=== PATIENT | male | born 1970 | race Caucasian/White ===

== ENCOUNTER 2020-02-11 14:24 | Outpatient (CLI) | payer OTHER, SELFPAY ==
--- NOTE | ~2020-02-11 | CT_ITS ---
EXAMINATION: CT abdomen pelvis wo con DATE: 02/11/2020 15:14 INDICATION: Left lower quadrant pain TECHNIQUE: Computed tomography (CT) of the abdomen and pelvis was performed without intravenous contr ast. The dose-length product (DLP) was 992.26 mGy-cm. Automated exposure control and iterative recons truction technique were employed. COMPARISON: 05/20/2015 FINDINGS: The lung bases are clear. The heart size is normal. The liver, spleen, pancreas, and adrena l glands are normal. Stones are present in the nondistended gallbladder. The kidneys are unremarkable . No pathologically enlarged abdominal or pelvic lymph nodes are identified. There is no free intrape ritoneal gas or evidence of bowel obstruction. The appendix is normal. There is chronic anterior wedg ing of the T12 vertebral body. A small fat-containing umbilical hernia is noted. IMPRESSION: 1. No CT correlate for the patient's symptoms. Reviewed, dictated and finalized at location A.
--- NOTE | ~2020-02-11 | US_ITS ---
EXAMINATION: US scrotum doppler DATE: 02/11/2020 15:11 INDICATION: Left testicular pain TECHNIQUE: Testicular sonogram utilizing grayscale and Doppler COMPARISON: 12/30/2014 FINDINGS: The right testis measures 3.8 x 2.9 x 3.2 cm. The left testis measures 3.9 x 2.2 x 3.2 cm. There is normal vascular flow to both testes. The right epididymis is normal with normal vascular new w. The left epididymis is normal with normal vascular flow. There are small bilateral hydroceles. IMPRESSION: 1. No sonographic correlate for the patient's symptoms. Reviewed, dictated and finalized at location A.
== END 2020-02-11 14:25 | disposition home or self-care (01) ==
LOC: ANHIMG 14:32
PROVIDERS: PCP Family Medicine; Visit Provider Physician Assistant
DX: N50.812 Left testicular pain (principal); R10.32 Left lower quadrant pain; R30.0 Dysuria
CPT/HCPCS: 74176; 76870; 93976

== ENCOUNTER 2020-07-20 18:36 | Emergency (ER) | payer BC, SELFPAY | END 2020-07-20 18:46 | disposition left against medical advice (07) | PROVIDERS: Emergency Provider Internal Medicine Hematology & Oncology; PCP Family Medicine | DX: Z53.21 Procedure and treatment not carried out due to patient leaving prior to being seen by health care provider (principal) | CPT/HCPCS: 99199 ==

== ENCOUNTER 2020-07-20 19:00 | Emergency (ER) | payer BC, SELFPAY ==
[2020-07-20] VITALS (17 sets, daily range): BP systolic 116–138; BP diastolic 72–92; PULSE 100; RESP 17; TEMP 36.1; O2SAT 97–100
--- NOTE | ~2020-07-20 | CT_ITS ---
EXAMINATION: CT abdomen pelvis w con EXAM DATE: 07/20/2020 20:19 INDICATION: Left lower quadrant pain. History of hernia repair. TECHNIQUE: Spiral CT of the abdomen and pelvis was performed following intravenous injection of 100 m L Omnipaque 350. Axial, coronal and sagittal images were reviewed. The dose-length product (DLP) fo r this examination was 1005.51 mGy-cm. The exposure was tailored according to patient size (auto mA exposure control), and iterative reconstruction (ASIR) was used as additional dose reduction techniqu e. Comparison is made to prior examination from 02/11/2020. FINDINGS: There are small regions of bibasilar peripheral distribution groundglass airspace disease, appearance is suspicious for COVID pneumonia. The liver, spleen, adrenal glands are unremarkable. T here is small gallstone identified. Gallbladder otherwise unremarkable. Several pancreatic head calci fications, chronic pancreatitis. Portal and splenic veins are patent. Kidneys enhance symmetrically . There is no hydronephrosis. There is mild prostatomegaly. The bladder is unremarkable. There is no retroperitoneal or pelvic lymphadenopathy. The appendix is normal. The stomach and small bowel are unremarkable. There is expected amount of c olonic stool. No free intraperitoneal gas. The heart is normal in size. There are no pericardial or pleural effusions. Chronic T12 moderate anterior wedging, compression fracture. IMPRESSION: 1. Small scattered basilar groundglass opacities suspicious for COVID pneumonia. 2. Mild prostatomegaly. 3. Cholelithiasis. 4. No acute intra-abdominal findings. Reviewed, dictated and finalized at location A. IFIED MIDWIFE IMPRESSION: 1. Small scattered basilar groundglass opacities suspicious for COVID pneumoni a. 2. Mild prostatomegaly. 3. Cholelithiasis. 4. No acute intra-abdominal findings.
[2020-07-20] MEDS: SODIUM CHLORIDE 0.9% IV 1,000 ML 999 ML IV CONT (19:37)
[2020-07-20 19:47] LABS: Basophils Absolute Auto 0.1 K/mm3 (0.0-0.1); Basophils Percent Auto 1.2 % (0.2-1.2); Eosinophils Absolute Auto 0.2 K/mm3 (0-0.3); Eosinophils Percent Auto 3.7 % (0-4.4); Hematocrit 49.6 % (42.0-52.0); Hemoglobin 16.6 g/dL (14.0-18.0); Immature Granulocyte Absolute 0.01 K/mm3 (0.00-0.031); Immature Granulocyte Percent A 0.2 % (0-0.5); Lymphocytes Absolute Auto 1.51 K/mm3 (0.9-3.2); Lymphocytes Percent Auto 35.2 % (18.3-44.2); Mean Corpuscular HGB Conc 33.5 g/dl (32-36); Mean Corpuscular Hemoglobin 31.1 pg (26-34); Mean Corpuscular Volume 92.9 fl (80-100); Mean Platelet Volume 9.9 fl (7.4-10.4); Monocytes Absolute Auto 0.5 K/mm3 (0.1-0.6); Monocytes Percent Auto 10.7 % (2.6-8.5); Neutrophils Absolute Auto 2.1 K/mm3 (1.3-6.7); Platelet Count Result 198 k/mm3 (150-375); Red Blood Count 5.34 M/mm3 (4.6-6.20); Red Cell Distribution Width 12.3 % (11.5-14.5); White Blood Count 4.3 K/mm3 (4.5-10.0)
[2020-07-20 20:00] LABS: Alanine Aminotransferase 76 U/L (4-50); Alkaline Phosphatase 72 U/L (38-126); Anion Gap 4 mmol/L (8-16); Aspartate Amino Transferase 48 U/L (17-59); Bilirubin,Total 0.7 mg/dL (0.2-1.3); Blood Urea Nitrogen 13 mg/dL (9-20); Calcium 8.7 mg/dL (8.4-10.2); Carbon Dioxide 31 mmol/L (22-30); Chloride 105 mmol/L (98-107); Estimated CRCL calculation 111 ml/min; Estimated Glomerular Filt Rate > 60; Glucose 98 mg/dL (75-110); Lipase 56 U/L (23-300); Potassium 3.7 mmol/L (3.4-5.0); Sodium 140 mmol/L (137-145)
--- NOTE | 2020-07-20 20:41 | ED.GENADULT ---
HPI - General Adult General Chief complaint: Unspecified Stated complaint: chest cold Time Seen by Provider: 07/20/20 19:16 Source: patient Mode of arrival: ambulatory Limitations: no limitations History of Present Illness HPI narrative: Patient is a 50-year-old male who presents to emergency department for evaluation having had a bowel movement described as dark today had some aching pain left lower quadrant of the abdomen which were resolved after the bowel movement patient notes he did just recently get over Covid pneumonia has slight cough but denies any fever or dyspnea. Patient denies other complaints other than concern for wanting to be tested for STDs but denies discharge. Related Data Home Medications Medication Instructions Recorded Confirmed No Home Medications 07/20/20 07/20/20 Allergies Allergy/AdvReac Type Severity Reaction Status Date / Time No Known Allergies Allergy Verified 07/20/20 18:37 Review of Systems Review of Systems: All systems reviewed & are unremarkable except as noted in HPI and below PMFSH Surgical History Surgical History History of bilateral inguinal hernia repair Family History Family History Mother Family history of malignant neoplasm of stomach Father Family history of malignant neoplasm of urinary bladder Social History Social History Social History: Single Smoking status: Never smoker Second hand tobacco smoke exposure: No Alcohol intake: never Substance use: never Substance use type: does not use Gender identity (if verbalized by the patient): Male Exam Narrative: Exam Narrative: GENERAL: Well-appearing, well-nourished, and in no acute distress. HEAD: Normocephalic, atraumatic. EYES: PERRLA and EOMI. ENT: Nares clear, no rhinorrhea or epistaxis. Mucous membranes moist. CHEST: Clear to auscultation. No respiratory distress. No wheezes rales or rhonchi HEART: Regular rate and rhythm. No murmur heard. Normal peripheral pulses. ABDOMEN: Soft, mild left lower quadrant tenderness to palpation, nondistended EXTREMITIES: Normal range of motion. No edema. SKIN: Warm, dry, no rash. NEURO: No focal deficits. Alert and oriented x3. Cranial nerves II through XII grossly intact PSYCH: Normal mood and affect. Course Course Emergency Course: Patient in the room no distress aware of case findings treatment plan diagnosis agreeing to follow-up as directed Vital Signs Vital signs: Vital Signs Temperature 97.0 F L 07/20/20 19:04 Pulse Rate 100 07/20/20 19:04 Respiratory Rate 17 07/20/20 19:04 Blood Pressure 125/81 07/20/20 19:04 Pulse Oximetry 100 07/20/20 19:04 Temperature 97.0 F L 07/20/20 19:04 Pulse Rate 100 07/20/20 19:04 Respiratory Rate 17 07/20/20 19:04 Blood Pressure 131/92 H 07/20/20 20:01 Pulse Oximetry 99 07/20/20 20:21 Medical Decision Making MDM Narrative Medical decision making narrative: Patient evaluated for abdominal pain no high risk changes in the imaging or blood work will be discharged home for further evaluation on outpatient basis patient agreeing to follow-up as directed or to return if symptoms worsen or concerns Vital Signs Vital Signs: Vital Signs Temperature 97.0 F L 07/20/20 19:04 Pulse Rate 100 07/20/20 19:04 Respiratory Rate 17 07/20/20 19:04 Blood Pressure 125/81 07/20/20 19:04 Pulse Oximetry 100 07/20/20 19:04 Temperature 97.0 F L 07/20/20 19:04 Pulse Rate 100 07/20/20 19:04 Respiratory Rate 17 07/20/20 19:04 Blood Pressure 131/92 H 07/20/20 20:01 Pulse Oximetry 99 07/20/20 20:21 Lab Data Result diagrams: 07/20/20 19:37 07/20/20 19:37 Labs: Lab Results 07/20/20 07/20/20 07/20/20 Range/Units 19:37 19:37 20:25 WBC 4.3 L (4.5-10.0) K/mm3
[2020-07-20 20:48] LABS: Add Urine Microscopic? NO; Appearance Urine Clear (Clear); Bilirubin Urine Negative (Negative); Blood Urine Negative (Negative); Color Urine Straw (Yellow); Glucose Urine UA Negative (Negative); Ketones Urine Negative (Negative); Leukocyte Esterase Ur Negative LEU/UL (Negative); Mucus Urine Rare /lpf; Nitrate Urine Negative (Negative); Protein Urine Negative (Negative); Specific Grav Ur 1.019 (1.001-1.035); Urobilinogen Urine Negative mg/dL (<2.0); WBC Urine 0-3 /hpf
== END 2020-07-20 22:23 | disposition home or self-care (01) ==
PROVIDERS: Emergency Medicine; Emergency Medicine Emergency Medical Services; Emergency Provider Emergency Medicine; PCP Family Medicine
DX: R10.32 Left lower quadrant pain (principal); K80.20 Calculus of gallbladder without cholecystitis without obstruction; N40.0 Benign prostatic hyperplasia without lower urinary tract symptoms
CPT/HCPCS: 36415; 74177; 80053; 81003; 83690; 85025; 87491; 87591; 96365; 99284; J0131; J7030; Q9967

== ENCOUNTER → 2021-01-22 10:13 | Outpatient (CLI) | payer BC, SELFPAY ==
--- NOTE | ~2021-01-22 | XR_ITS ---
EXAMINATION: XR abdomen/kub 1V EXAM DATE: 01/22/2021 10:47 INDICATION: R30.0 - Dysuria . TECHNIQUE: Frontal projection of the upper abdomen, frontal projection lower abdomen/pelvis for inter pretation. Comparison is made to prior examination from 03/14/2019. FINDINGS: There is moderate amount of colonic stool and gas. No small bowel dilation, nonobstructiv e bowel gas pattern. There are no suspicious calcifications identified. There is no organomegaly suspected. There is mild to moderate right hip, mild left hip primary osteoarthritis. Lung bases are unremarkabl e. IMPRESSION: No evidence of calcifications. Reviewed, dictated and finalized at location B.
--- NOTE | ~2021-01-22 | XR_ITS ---
EXAMINATION: XR chest 2V EXAM DATE: 01/22/2021 10:47 INDICATION: R05 - Cough . States history of COVID June 2020. TECHNIQUE: Frontal and lateral projections of the chest obtained and reviewed. There is no prior jackie dy for comparison. FINDINGS: The lungs are clear. There are no pleural effusions. The cardiomediastinal silhouette is within normal limits. There is no pneumothorax suspected. The bones and soft tissues are unremarkab le. IMPRESSION: No acute cardiopulmonary findings. Reviewed, dictated and finalized at location B.
== END ==
PROVIDERS: PCP Physician Assistant; Visit Provider Physician Assistant
DX: R10.9 Unspecified abdominal pain (principal); R05 Cough; R30.0 Dysuria; M17.0 Bilateral primary osteoarthritis of knee
CPT/HCPCS: 71046; 74018

== ENCOUNTER → 2021-02-20 04:09 | Outpatient (CLI) | payer BC, SELFPAY ==
[2021-02-20 18:23] LABS: SARS-CoV-2 RNA PCR Negative
== END ==
PROVIDERS: PCP Family Medicine; Visit Provider Internal Medicine Gastroenterology
DX: Z01.812 Encounter for preprocedural laboratory examination (principal); Z20.822 Contact with and (suspected) exposure to COVID-19
CPT/HCPCS: C9803; U0003; U0005

== ENCOUNTER → 2021-11-18 14:55 | Outpatient (CLI) | payer BC, SELFPAY ==
--- NOTE | ~2021-11-18 | XR_ITS ---
EXAMINATION: XR chest 2V 11/18/2021 15:20 INDICATION: Cough PROCEDURE: 2 view chest COMPARISON: 01/22/2021 FINDINGS: The lungs are clear. The cardiomediastinal silhouette is within normal limits. There are no pleural effusions. There is no pneumothorax suspected. IMPRESSION: 1: NO ACUTE CARDIOPULMONARY DISEASE. Reviewed, dictated and finalized at location A.
== END ==
PROVIDERS: PCP Family Medicine; Visit Provider Nurse Practitioner Family
DX: R05.9 Cough, unspecified (principal)
CPT/HCPCS: 71046

== ENCOUNTER 2021-12-16 15:00 | Outpatient (CLI) | payer BC, SELFPAY ==
--- NOTE | ~2021-12-16 | CT_ITS ---
EXAMINATION: CT abdomen pelvis wo con DATE: 12/16/2021 14:53 INDICATION: Left lower quadrant abdominal pain. History of hernia without strangulation. TECHNIQUE: Computed tomography (CT) of the abdomen and pelvis was performed without intravenous contr ast. Automated exposure control and iterative reconstruction technique were employed. Exam dose: 737 .64 mGy-cm total exam DLP. COMPARISON: 01/22/2021 KUB 07/16/2020 CT abdomen pelvis FINDINGS: Fat-containing left foramen of Bochdalek hernia. The lung bases are clear of infiltrate or consolidation. Normal heart size. No pericardial or pleural effusion. There is a 7.5 mm stone in the dependent aspect of the gallbladder fundus. No gallbladder wall thicke bunny or pericholecystic fluid or fat stranding. No bile duct or pancreatic duct dilatation. No hepatic space-occupying mass lesion is evident. Occasional pancreatic head calcifications cyst with chronic pancreatitis. No pancreatic mass lesion i s evident. Normal splenic size. Normal morphology of the adrenal glands. No renal mass lesion is evident on this limited noncontrast examination. No urinary tract calculus or hydroureteronephrosis. Prostate enlargement. The urinary bladder is relatively evacuated and unremar kable. Very small sliding hiatal hernia. No evidence of appendicitis. No bowel obstruction, bowel wall thick ening, pneumatosis or intraperitoneal free air. Normal caliber of the abdominal aorta. No intraperitoneal or retroperitoneal or pelvic mass lesion or adenopathy or ascites. Small fat-containing umbilical hernia. Chronic anterior wedging of T11 and to a greater extent T12 and prominent degenerative spurring of th e thoracolumbar area. Prominent degenerative change at the apophyseal joints of the lower lumbar and lumbosacral area. IMPRESSION: Cholelithiasis Chronic pancreatitis Very small sliding hiatal hernia Reviewed, dictated and finalized at Location A. Reviewed, dictated and finalized at location A.
[2021-12-16 15:34] LABS: Basophils Percent Auto 0.8 % (0.2-1.2); Eosinophils Absolute Auto 0.1 K/mm3 (0-0.3); Eosinophils Percent Auto 2.3 % (0-4.4); Hematocrit 47.2 % (42.0-52.0); Hemoglobin 15.3 g/dL (14.0-18.0); Immature Granulocyte Absolute 0.01 K/mm3 (0.00-0.031); Immature Granulocyte Percent A 0.2 % (0-0.5); Lymphocytes Absolute Auto 1.58 K/mm3 (0.9-3.2); Lymphocytes Percent Auto 30.2 % (18.3-44.2); Mean Corpuscular HGB Conc 32.4 g/dl (32-36); Mean Corpuscular Hemoglobin 29.9 pg (26-34); Mean Corpuscular Volume 92.4 fl (80-100); Mean Platelet Volume 10.4 fl (7.4-10.4); Monocytes Absolute Auto 0.5 K/mm3 (0.1-0.6); Monocytes Percent Auto 10.1 % (2.6-8.5); Neutrophils Percent Auto 56.4 % (45.5-73.1); Platelet Count Result 211 k/mm3 (150-375); Red Blood Count 5.11 M/mm3 (4.6-6.20); Red Cell Distribution Width 13.2 % (11.5-14.5); White Blood Count 5.2 K/mm3 (4.5-10.0)
[2021-12-16 15:43] LABS: Alanine Aminotransferase 31 U/L (6-50); Albumin Level 4.1 g/dL (3.5-5.1); Alkaline Phosphatase 89 U/L (38-126); Anion Gap 4 mmol/L (8-16); Aspartate Amino Transferase 29 U/L (17-59); Bilirubin,Total 1.5 mg/dL (0.2-1.3); Blood Urea Nitrogen 15 mg/dL (9-20); Calcium 8.5 mg/dL (8.4-10.2); Carbon Dioxide 25 mmol/L (22-30); Chloride 111 mmol/L (98-107); Cholesterol 235 mg/dL (0-200); Estimated Glomerular Filt Rate > 60; Glucose 88 mg/dL (65-110); HDL Direct 31 mg/dL; Potassium 3.6 mmol/L (3.4-5.0); Sodium 140 mmol/L (137-145); Triglycerides 181 mg/dL (<150)
[2021-12-16 15:54] LABS: LDL Cholesterol Direct 131 mg/dL
[2021-12-16 15:54] LABS: Appearance Urine Clear (Clear); Bilirubin Urine Negative (Negative); Blood Urine Negative (Negative); Color Urine Yellow (Yellow); Glucose Urine UA Negative (Negative); Ketones Urine Trace mg/dL (Negative); Leukocyte Esterase Ur Negative LEU/UL (NEGATIVE); Nitrate Urine Negative (Negative); Protein Urine Trace mg/dL (Negative); Specific Grav Ur >= 1.030 (1.001-1.035); Urobilinogen Urine 0.2 mg/dL (<2.0); pH Urine 5.5 (5.0-9.0)
[2021-12-16 16:00] LABS: Calcium Oxalate Crystals Urine Present /hpf; Mucus Urine Heavy /lpf
[2021-12-16 16:07] LABS: Add Urine Microscopic? YES
[2021-12-16 16:12] LABS: Prostate Specific Antigen 1.2 ng/mL (< OR = 4.0)
[2021-12-19 10:09] LABS: Testosterone Total 361 ng/dL (250-1100)
== END 2021-12-16 15:01 | disposition home or self-care (01) ==
LOC: ANHIMG 15:00
PROVIDERS: PCP Family Medicine; Visit Provider Nurse Practitioner Family
DX: Z12.5 Encounter for screening for malignant neoplasm of prostate (principal); R10.32 Left lower quadrant pain; M48.55XA Collapsed vertebra, not elsewhere classified, thoracolumbar region, initial encounter for fracture; G47.33 Obstructive sleep apnea (adult) (pediatric); R53.83 Other fatigue; R35.1 Nocturia; Z00.00 Encounter for general adult medical examination without abnormal findings; R30.0 Dysuria; N39.0 Urinary tract infection, site not specified; K80.20 Calculus of gallbladder without cholecystitis without obstruction; K85.90 Acute pancreatitis without necrosis or infection, unspecified; K42.9 Umbilical hernia without obstruction or gangrene; N40.0 Benign prostatic hyperplasia without lower urinary tract symptoms
CPT/HCPCS: 36415; 74176; 80053; 80061; 81001; 84153; 84403; 84443; 85025; 87086; 87088; G0103

== ENCOUNTER 2022-01-21 01:16 | Day surgery (SDC) | payer BC, SELFPAY ==
[2022-01-15 13:43] VITALS: BMI 34.3
--- NOTE | 2022-01-20 12:13 | PM.HPGS ---
History of Present Illness History of Present Illness Consent: Risks, benefits, and alternatives have been discussed and questions answered. Patient agrees to proceed with procedure. Chief complaint: black stools, change in bowel habits Narrative: Esequiel Neely is a 51 year old male ?with history of BPH, bilateral inguinal hernia repair referred to office by Micheline Escoto evaluation abdominal pain, bloating and gas, and black stools. He had been seen in our office a year go with similar complaints. Colonoscopy was ordered but he never got it done. Since last year, he reports his symptoms have progressively gotten worse, now reports intermittent right sided flank pain appr 3-4 times a month. he does not associate with any particular foods. ? right sided flank pain improves with BM.? He continues to have left sided abdominal pain since 2010.? He reports symptoms are worse with walking, certain foods like peanuts and dairy and constipation. At times pain is so bad that he has to use his arms to lift his left leg. Reports symptoms improve after bowel movement and rest. He does not eat breakfast in general. He states that he has been on omeprazole for quite a while but cannot remember exactly when he takes it. He can only state that it was because of these issues, pointing to his mid left abdomen. I asked him about heartburn he says he has had from time to time. He denies dysphagia he has had no blood in the stools. Review of Systems Review of Systems: All systems reviewed & are unremarkable except as noted in HPI and below PMFSH Past Medical History Medical History Anxiety Asthma Cholelithiasis Chronic pancreatitis Constipation IBS (irritable bowel syndrome) KATHY (obstructive sleep apnea) Surgical History Surgical History History of bilateral inguinal hernia repair Family History Family History Mother Family history of malignant neoplasm of stomach Father Family history of malignant neoplasm of urinary bladder Social History Social History Social History: Single Smoking status: Never smoker Second hand tobacco smoke exposure: No Alcohol intake: never Substance use: never Substance use type: does not use Living arrangements: alone Gender identity (if verbalized by the patient): Male Sexual Orientation (if Verbalized by the Patient): Straight or Heterosexual Spiritual care concerns: No Meds Home Medications and Allergies Home Medications Medication Instructions Recorded Confirmed Type Adults Multivitamin 1 cap PO DAILY 02/18/21 01/15/22 History dicyclomine 10 mg capsule 10 mg PO TID PRN abdominal 12/23/21 01/15/22 Rx discomfort 1 month #90 caps omeprazole 20 mg capsule,delayed 20 mg PO DAILY #30 caps 01/01/22 01/15/22 Rx release albuterol sulfate 90 mcg/actuation 1 - 2 puff inhalation Q4H PRN 01/08/22 01/15/22 Rx aerosol inhaler (ProAir HFA) shortness of breath or wheezing #8.5 grams citalopram 10 mg tablet 10 mg PO DAILY #90 tabs 01/15/22 01/15/22 Rx Allergies Allergy/AdvReac Type Severity Reaction Status Date / Time No Known Allergies Allergy Verified 01/21/22 06:43 Exam Resp: Auscultation: clear to auscultation bilaterally Cardio: Rate: regular rate Rhythm: regular rhythm GI: GI Palp: Yes Soft to palpation and No Tenderness to palpation present (GI) Assessment and Plan Assessment and plan (1) Change in bowel habits: Code(s): R19.4 - Change in bowel habit Status: Acute Assessment and Plan: Colonoscopy with possible biopsy or polypectomy or cautery or injection of substances. (2) Melena: Code(s): K92.1 - Melena Status: Acute Assessment and Plan: EGD with possible biopsy or dilatation or cautery.
--- NOTE | 2022-01-20 14:37 | SUR.PREOP ---
1440 called patient and instructed patient not to take the magnesium citrate due to potential contamination of the product. Patient voiced understanding.
[2022-01-21 06:43] VITALS: BP 110/79; PULSE 67; RESP 18; TEMP 36.2; O2SAT 98; BMI 32.8
[2022-01-21] MEDS: LACTATED RINGERS 1,000 ML 150 ML IV CONT (06:52)
--- NOTE | 2022-01-21 07:12 | WPDANESEPPF ---
Anes - Initial Pre Proc Eval Procedure: Operation Date: 01/21/22 08:00 Proposed Procedures p Esophagogastroduodenoscopy & Colonoscopy - Rashel Ohara MD Date/Time: 01/21/22 07:12 Surgeon: Rashel Ohara MD Pre Op Diagnosis: black stools, change in bowel habits Patient Data Age: 51 Gender: M Height: 1.73 m Weight: 97.8 kg Last Vital Signs Temp 36.2 C L 01/21/22 06:43 Pulse 67 01/21/22 06:43 Resp 18 01/21/22 06:43 BP 110/79 01/21/22 06:43 Pulse Ox 98 01/21/22 06:43 O2 Del Method Room Air 01/21/22 06:43 Allergies Allergy/AdvReac Type Severity Reaction Status Date / Time No Known Allergies Allergy Verified 01/21/22 06:43 Home Medications Medication Instructions Recorded Confirmed Type Adults Multivitamin 1 cap PO DAILY 02/18/21 01/15/22 History dicyclomine 10 mg capsule 10 mg PO TID PRN abdominal 12/23/21 01/15/22 Rx discomfort 1 month #90 caps omeprazole 20 mg capsule,delayed 20 mg PO DAILY #30 caps 01/01/22 01/15/22 Rx release albuterol sulfate 90 mcg/actuation 1 - 2 puff inhalation Q4H PRN 01/08/22 01/15/22 Rx aerosol inhaler (ProAir HFA) shortness of breath or wheezing #8.5 grams citalopram 10 mg tablet 10 mg PO DAILY #90 tabs 01/15/22 01/15/22 Rx Patient hx anesthesia problems: none Family hx anesthesia problems: none Results Review: All pre-operative results and documents have been reviewed as part of the pre-operative evaluation. [facility] Past Medical History Medical History Anxiety Asthma Cholelithiasis Chronic pancreatitis Constipation IBS (irritable bowel syndrome) KATHY (obstructive sleep apnea) Surgical History Surgical History History of bilateral inguinal hernia repair Family History Family History Mother Family history of malignant neoplasm of stomach Father Family history of malignant neoplasm of urinary bladder Social History Social History Social History: Single Smoking status: Never smoker Second hand tobacco smoke exposure: No Alcohol intake: never Substance use: never Substance use type: does not use Living arrangements: alone Gender identity (if verbalized by the patient): Male Sexual Orientation (if Verbalized by the Patient): Straight or Heterosexual Spiritual care concerns: No Anes - Eval Final PreProcedure Day of Procedure 01/21/22 07:12 Patient weight: obese Heart: regular rate and rhythm Lungs: clear to auscultation Airway: Mallampati scale class II Neurological: alert and oriented Last oral intake: >/= 8 hours ASA classification: III Emergent: no Anesthetic plan: proceed Anesthesia type and monitoring: general GIVS and standard monitoring Results Review: All pre-operative results and documents have been reviewed as part of the pre-operative evaluation. Informed Consent: The patient's anesthetic plan and its attendant risks and benefits were discussed with the patient/family/POA. Questions were solicited and answers provided to the satisfaction of the patient/family/POA.
--- NOTE | 2022-01-21 08:15 | SUR.OPER ---
EGD start 801 end 807, Colon start 812 end 822
[2022-01-21 08:24] VITALS: BP 112/70; PULSE 63; RESP 17; O2SAT 96
[2022-01-21 08:34] VITALS: BP 96/66; PULSE 61; RESP 21; O2SAT 97
[2022-01-21 08:44] VITALS: BP 103/72; PULSE 60; RESP 17; O2SAT 97
== END 2022-01-21 09:07 | disposition home or self-care (01) ==
PROVIDERS: PCP Family Medicine; Visit Provider Internal Medicine Gastroenterology
PROC: 0DJ08ZZ Inspection of Upper Intestinal Tract, Via Natural or Artificial Opening Endoscopic (ICD-10-PCS; CPT 43235; principal; 2022-01-21 08:00)
DX: Z12.11 Encounter for screening for malignant neoplasm of colon (principal); K92.1 Melena; K58.1 Irritable bowel syndrome with constipation; J45.909 Unspecified asthma, uncomplicated; G47.33 Obstructive sleep apnea (adult) (pediatric); F41.9 Anxiety disorder, unspecified; K86.1 Other chronic pancreatitis; N40.0 Benign prostatic hyperplasia without lower urinary tract symptoms; Z79.51 Long term (current) use of inhaled steroids; E66.9 Obesity, unspecified; Z68.32 Body mass index [BMI] 32.0-32.9, adult
CPT/HCPCS: 45378; 87081; 88305; J2704; J7120

== ENCOUNTER 2022-08-19 14:58 | Outpatient (CLI) | payer BC, SELFPAY ==
[2022-08-19 16:19] LABS: Basophils Absolute Auto 0.1 K/mm3 (0.0-0.1); Basophils Percent Auto 1.9 % (0.2-1.2); Eosinophils Absolute Auto 0.2 K/mm3 (0-0.3); Eosinophils Percent Auto 5.5 % (0-4.4); Hematocrit 50.9 % (42.0-52.0); Hemoglobin 16.6 g/dL (14.0-18.0); Immature Granulocyte Absolute 0.01 K/mm3 (0.00-0.031); Immature Granulocyte Percent A 0.2 % (0-0.5); Lymphocytes Absolute Auto 1.36 K/mm3 (0.9-3.2); Lymphocytes Percent Auto 32.5 % (18.3-44.2); Mean Corpuscular HGB Conc 32.6 g/dl (32-36); Mean Corpuscular Hemoglobin 30.6 pg (26-34); Mean Corpuscular Volume 93.7 fl (80-100); Mean Platelet Volume 10.2 fl (7.4-10.4); Monocytes Absolute Auto 0.6 K/mm3 (0.1-0.6); Monocytes Percent Auto 14.6 % (2.6-8.5); Neutrophils Absolute Auto 1.9 K/mm3 (1.3-6.7); Neutrophils Percent Auto 45.3 % (45.5-73.1); Platelet Count Result 212 k/mm3 (150-375); Red Blood Count 5.43 M/mm3 (4.6-6.20); Red Cell Distribution Width 13.5 % (11.5-14.5); White Blood Count 4.2 K/mm3 (4.5-10.0)
[2022-08-19 16:43] LABS: Alanine Aminotransferase 27 U/L (6-50); Albumin Level 4.2 g/dL (3.5-5.1); Alkaline Phosphatase 100 U/L (38-126); Amylase 59 U/L (30-110); Anion Gap 4 mmol/L (8-16); Aspartate Amino Transferase 27 U/L (17-59); Bilirubin,Total 0.9 mg/dL (0.2-1.3); Blood Urea Nitrogen 18 mg/dL (9-20); Calcium 8.5 mg/dL (8.4-10.2); Carbon Dioxide 31 mmol/L (22-30); Chloride 101 mmol/L (98-107); Estimated Glomerular Filt Rate > 60; Glucose 86 mg/dL (65-110); Lipase 47 U/L (23-300); Sodium 136 mmol/L (137-145)
[2022-08-19 18:01] LABS: Appearance Urine Slightly Cloudy (Clear); Bilirubin Urine Negative (Negative); Blood Urine Negative (Negative); Color Urine Yellow (Yellow); Glucose Urine UA Negative (Negative); Ketones Urine Negative (Negative); Leukocyte Esterase Ur Negative LEU/UL (Negative); Nitrate Urine Negative (Negative); Protein Urine Negative (Negative); Urobilinogen Urine 0.2 mg/dL (<2.0)
[2022-08-19 18:17] LABS: Bacteria Urine Trace /hpf; Mucus Urine Moderate /lpf; RBC Urine 0-2 /hpf (0-2); Squamous Epithelial Cell Urine Rare /hpf (Few); WBC Urine 0-3 /hpf
[2022-08-19 18:22] LABS: Add Urine Microscopic? YES
== END 2022-08-19 14:59 | disposition home or self-care (01) ==
PROVIDERS: PCP Family Medicine; Visit Provider Physician Assistant
DX: R10.9 Unspecified abdominal pain (principal); R30.0 Dysuria
CPT/HCPCS: 36415; 80053; 81001; 82150; 83690; 85025

== ENCOUNTER 2022-08-26 14:19 | Outpatient (CLI) | payer BC, SELFPAY ==
--- NOTE | ~2022-08-26 | CT_ITS ---
EXAMINATION: CT abdomen pelvis wo con DATE: 08/26/2022 14:38 INDICATION: Cough and headache. Dehydration. TECHNIQUE: Computed tomography (CT) of the abdomen and pelvis was performed without intravenous contr ast. The dose-length product was 992.00 mGy-cm. Automated exposure control and iterative reconstructi on technique were employed. COMPARISON: CT dated. FINDINGS: Lung bases unremarkable. No significant pleural or pericardial effusion. Heart size normal. No significant vascular abnormality. No lymphadenopathy. Nonobstructive bowel pattern. There is gallstones. The liver, spleen, pancreas, adrenal glands and kidneys are unremarkable. No neo al stones or hydronephrosis. Prostate gland is enlarged. IMPRESSION: 1. No acute abdominal abnormality. 2: Cholelithiasis. 3: Enlarged prostate gland. Reviewed, dictated and finalized at location L. ANESTHESIA CARE UNIT NURSE
== END 2022-08-26 14:20 | disposition home or self-care (01) ==
PROVIDERS: PCP Family Medicine; Visit Provider Physician Assistant
DX: R10.9 Unspecified abdominal pain (principal); K80.20 Calculus of gallbladder without cholecystitis without obstruction; N40.0 Benign prostatic hyperplasia without lower urinary tract symptoms
CPT/HCPCS: 74176

== ENCOUNTER 2022-12-24 16:38 | Outpatient (CLI) | payer BC, SELFPAY ==
[2022-12-24 17:16] LABS: Basophils Absolute Auto 0.1 K/mm3 (0.0-0.1); Basophils Percent Auto 1.1 % (0.2-1.2); Eosinophils Absolute Auto 0.2 K/mm3 (0-0.3); Eosinophils Percent Auto 3.5 % (0-4.4); Hematocrit 48.7 % (42.0-52.0); Hemoglobin 16.2 g/dL (14.0-18.0); Immature Granulocyte Absolute 0.01 K/mm3 (0.00-0.031); Immature Granulocyte Percent A 0.2 % (0-0.5); Lymphocytes Absolute Auto 1.28 K/mm3 (0.9-3.2); Lymphocytes Percent Auto 27.7 % (18.3-44.2); Mean Corpuscular HGB Conc 33.3 g/dl (32-36); Mean Corpuscular Hemoglobin 30.5 pg (26-34); Mean Corpuscular Volume 91.5 fl (80-100); Mean Platelet Volume 10.2 fl (7.4-10.4); Monocytes Absolute Auto 0.4 K/mm3 (0.1-0.6); Monocytes Percent Auto 9.5 % (2.6-8.5); Neutrophils Absolute Auto 2.7 K/mm3 (1.3-6.7); Platelet Count Result 206 k/mm3 (150-375); Red Blood Count 5.32 M/mm3 (4.6-6.20); Red Cell Distribution Width 12.4 % (11.5-14.5); White Blood Count 4.6 K/mm3 (4.5-10.0)
[2022-12-24 17:18] LABS: Appearance Urine Clear (Clear); Bilirubin Urine Negative (Negative); Blood Urine Negative (Negative); Color Urine Yellow (Yellow); Glucose Urine UA Negative (Negative); Ketones Urine Negative (Negative); Leukocyte Esterase Ur Negative LEU/UL (NEGATIVE); Nitrate Urine Negative (Negative); Protein Urine Negative (Negative); Specific Grav Ur 1.013 (1.001-1.035); Urobilinogen Urine 0.2 mg/dL (<2.0)
[2022-12-24 17:19] LABS: Add Urine Microscopic? NO
[2022-12-24 17:28] LABS: Alanine Aminotransferase 29 U/L (6-50); Albumin Level 3.9 g/dL (3.5-5.1); Alkaline Phosphatase 85 U/L (38-126); Anion Gap 5 mmol/L (8-16); Aspartate Amino Transferase 28 U/L (17-59); Bilirubin,Total 1.2 mg/dL (0.2-1.3); Blood Urea Nitrogen 12 mg/dL (9-20); Calcium 8.6 mg/dL (8.4-10.2); Carbon Dioxide 25 mmol/L (22-30); Chloride 109 mmol/L (98-107); Cholesterol 189 mg/dL (0-200); Estimated Glomerular Filt Rate > 60; Glucose 85 mg/dL (65-110); HDL Direct 31 mg/dL; Potassium 3.9 mmol/L (3.4-5.0); Sodium 139 mmol/L (137-145); Triglycerides 120 mg/dL (<150)
[2022-12-24 17:40] LABS: LDL Cholesterol Direct 122 mg/dL
[2022-12-24 18:02] LABS: Prostate Specific Antigen 1.1 ng/mL (< OR = 4.0)
== END 2022-12-24 16:39 | disposition home or self-care (01) ==
LOC: ANHLAB 16:39
PROVIDERS: PCP Family Medicine; Visit Provider Physician Assistant
DX: Z00.00 Encounter for general adult medical examination without abnormal findings (principal)
CPT/HCPCS: 36415; 80053; 80061; 81003; 84153; 84443; 85025; G0103

== ENCOUNTER → 2023-06-03 09:31 | Outpatient (CLI) | payer BC, SELFPAY ==
--- NOTE | ~2023-06-03 | XR_ITS ---
EXAMINATION: XR chest 2V 06/03/2023 09:52 INDICATION: Cough PROCEDURE: 2 view chest COMPARISON: 11/18/2021 FINDINGS: The lungs are clear. The cardiomediastinal silhouette is within normal limits. There are no pleural effusions. There is no pneumothorax suspected. IMPRESSION: 1: NO ACUTE CARDIOPULMONARY DISEASE. Reviewed, dictated and finalized at location B. RNIST MEDICAL DOCTOR MD
== END ==
PROVIDERS: PCP Family Medicine; Visit Provider Family Medicine
DX: R05.9 Cough, unspecified (principal); R06.00 Dyspnea, unspecified
CPT/HCPCS: 71046

== ENCOUNTER 2023-12-07 07:50 | Outpatient (CLI) | payer BC, SELFPAY ==
--- NOTE | ~2023-12-07 | XR_ITS ---
XR chest 2V Ordering provider: Damian Roldan PA-C History: 53 years Male with . R06.02 - Shortness of breath . Comparison: June 03, 2023 FINDINGS: MEDIASTINUM: The cardiac silhouette is not enlarged. LUNGS: No infiltrates, effusions or pneumothorax. Opacity seen near to the cardiac apex is most likely atelectatic and appear unchanged. OTHER: No free air under the diaphragm. IMPRESSION: No acute cardiopulmonary pathology. Reviewed, dictated and finalized at location A.
== END 2023-12-07 07:51 ==
LOC: MICIMG 07:51
PROVIDERS: PCP Family Medicine; Visit Provider Physician Assistant
DX: R06.02 Shortness of breath (principal)
CPT/HCPCS: 71046

== ENCOUNTER 2023-12-09 10:44 | Outpatient (CLI) | payer BC, SELFPAY ==
--- NOTE | ~2023-12-09 | CT_ITS ---
EXAMINATION: CT abdomen pelvis w con DATE: 12/09/2023 11:10 INDICATION: Left lower quadrant abdominal pain TECHNIQUE: Computed tomography (CT) of the abdomen and pelvis was performed with 100 mL Omnipaque-350 intravenous contrast. Automated exposure control and iterative reconstruction technique were employe d. The dose-length product was 776.49 mGy-cm. COMPARISON: 08/26/2022 FINDINGS: Lung bases are clear. Heart size normal. No pericardial or pleural effusion. Small sliding-type hiata l hernia. Subcentimeter low-attenuation cyst in left hepatic lobe along with small region of focal he patic steatosis in the adjacent ligamentum teres. Gallstone at the fundus of the otherwise normal-patricia earing gallbladder. Spleen, pancreas, bilateral adrenal glands and left kidney are normal. There are 3 low-attenuation right renal cysts the largest measuring 9 mm . Normal appendix. No bowel obstructio n. There is some fatty infiltration of the wall of the terminal ileum which could be related to body habitus but could also be seen with significant chronic inflammation such as Crohn's disease. No othe r evident bowel wall thickening or surrounding inflammatory stranding to suggest an enteritis or coli tis. Bladder is normal. Marked prostatomegaly measuring 5.8 x 5.2 cm. No free intraperitoneal gas or fluid. No pathologically enlarged abdominal or pelvic lymphadenopathy. Mild kyphosis at the thoracolu mbar junction where there are chronic mild compression fractures at T11 and T12. There are also bridg ing osteophytes at a few levels at the thoracolumbar junction consistent with diffuse idiopathic skel etal hyperostosis (DISH). IMPRESSION: 1. No acute intra-abdominal/pelvic process. 2. Fatty infiltration of the wall of the distal ileum which could be due to body habitus but could al so be seen secondary to chronic inflammation such as in the setting of Crohn's disease. 3. Small sliding-type hiatal hernia. 4. Cholelithiasis. 5. Marked prostatomegaly. Reviewed, dictated and finalized at location A. IMPRESSION: 1. No acute intra-abdominal/pelvic process. 2. Fatty infiltration of the wall of the distal ileum which could be due to bod y habitus but could also be seen secondary to chronic inflammation such as in t he setting of Crohn's disease. 3. Small sliding-type hiatal hernia. 4. Cholelithiasis. 5. Marked prostatomegaly.
== END 2023-12-09 10:45 | disposition home or self-care (01) ==
LOC: ANHIMG 10:46
PROVIDERS: PCP Family Medicine; Visit Provider Physician Assistant
DX: K86.1 Other chronic pancreatitis (principal); K44.9 Diaphragmatic hernia without obstruction or gangrene; K80.20 Calculus of gallbladder without cholecystitis without obstruction; N40.0 Benign prostatic hyperplasia without lower urinary tract symptoms
CPT/HCPCS: 74177; Q9967

== ENCOUNTER 2023-12-19 10:13 | Outpatient (CLI) | payer BC, SELFPAY ==
--- NOTE | ~2023-12-19 | US_ITS ---
EXAMINATION: US soft tissue groin LT DATE: 12/19/2023 11:31 INDICATION: Bilateral lower quadrant pain post prior bilateral inguinal hernia mesh repairs TECHNIQUE: Multiple grayscale and Doppler ultrasound images of the left groin and of the right groin were obtained. COMPARISON: CT dated FINDINGS: There is posterior acoustic shadowing in the region of the proximal aspect of the bilateral inguinal canals consistent with reported history of prior bilateral inguinal hernia mesh repairs. No evident r esidual inguinal hernias on either the left or right either rest or with Valsalva. There is a 4.0 x 1 .2 x 2.7 cm ovoid region of fat in the right inguinal region. Correlation with prior CT imaging demon strates a lymph node of similar size at this location comprised almost exclusively of hilar fat with nearly imperceptible peripheral cortex which accounts for the appearance on ultrasound. No pathologic ally enlarged lymphadenopathy or other abnormal masses or fluid collections at either the left right or left groin. IMPRESSION: 1. Shadowing in the region of the entrance to the bilateral inguinal canals consistent with reported history of bilateral inguinal hernia mesh repairs with no evident residual or recurrent inguinal antionette ia. Reviewed, dictated and finalized at location B. IMPRESSION: 1. Shadowing in the region of the entrance to the bilateral inguinal canals con sistent with reported history of bilateral inguinal hernia mesh repairs with no evident residual or recurrent inguinal hernia.
--- NOTE | ~2023-12-19 | US_ITS ---
EXAMINATION: US soft tissue groin RT DATE: 12/19/2023 11:31 INDICATION: Bilateral lower quadrant pain post prior bilateral inguinal hernia mesh repairs TECHNIQUE: Multiple grayscale and Doppler ultrasound images of the left groin and of the right groin were obtained. COMPARISON: CT dated FINDINGS: There is posterior acoustic shadowing in the region of the proximal aspect of the bilateral inguinal canals consistent with reported history of prior bilateral inguinal hernia mesh repairs. No evident r esidual inguinal hernias on either the left or right either rest or with Valsalva. There is a 4.0 x 1 .2 x 2.7 cm ovoid region of fat in the right inguinal region. Correlation with prior CT imaging demon strates a lymph node of similar size at this location comprised almost exclusively of hilar fat with nearly imperceptible peripheral cortex which accounts for the appearance on ultrasound. No pathologic ally enlarged lymphadenopathy or other abnormal masses or fluid collections at either the left right or left groin. IMPRESSION: 1. Shadowing in the region of the entrance to the bilateral inguinal canals consistent with reported history of bilateral inguinal hernia mesh repairs with no evident residual or recurrent inguinal antionette ia. Reviewed, dictated and finalized at location B. IMPRESSION: 1. Shadowing in the region of the entrance to the bilateral inguinal canals con sistent with reported history of bilateral inguinal hernia mesh repairs with no evident residual or recurrent inguinal hernia.
== END 2023-12-19 10:14 ==
PROVIDERS: PCP Family Medicine; Visit Provider Physician Assistant
DX: R10.31 Right lower quadrant pain (principal); R10.32 Left lower quadrant pain; Z87.19 Personal history of other diseases of the digestive system; Z98.890 Other specified postprocedural states
CPT/HCPCS: 76882

== ENCOUNTER 2023-12-20 13:08 | Outpatient (CLI) | payer BC, SELFPAY ==
[2023-12-20 13:18] LABS: CRP < 0.5 mg/dL (<1.0)
[2023-12-20 13:38] LABS: Erythrocyte Sedimentation Rate 1 mm/hr (0-20)
[2023-12-26 19:39] LABS: Pancreatic Elastase, Stool >500 mcg/g
[2023-12-26 20:48] LABS: Calprotectin, Stool 20 mcg/g
== END 2023-12-20 13:09 | disposition home or self-care (01) ==
PROVIDERS: PCP Family Medicine; Visit Provider Nurse Practitioner Family
DX: K86.1 Other chronic pancreatitis (principal)
CPT/HCPCS: 36415; 82653; 83993; 85652; 86140

== ENCOUNTER 2024-01-05 12:30 | Outpatient (CLI) | payer BC, SELFPAY ==
--- NOTE | ~2024-01-05 | XR_ITS ---
Thoracic spine: Clinical Indication: Back pain AP and lateral views were performed. Moderate T12 compression fracture present, probably chronic. There is mild degenerative change of the lower thoracic spine. The remaining intervertebral disc spaces appear normal. Paravertebral soft tis sues appear normal. Impression: Moderate T12 compression fracture, likely chronic. Reviewed, dictated and finalized at [facility]. Impression: Moderate T12 compression fracture, likely chronic.
--- NOTE | ~2024-01-05 | XR_ITS ---
Lumbosacral Spine: AP, oblique, and lateral views Clinical History: Pain Findings: The normal lordotic curve is maintained. Moderate T12 compression fracture present. No othe r fracture or subluxation seen. There is moderate facet arthropathy, especially from L3 through S1. T here are minimal degenerative disc changes. The intervertebral disc spaces are preserved. The sacroi liac joints are normally outlined. Impression: Mild spondylosis, as above. T12 compression fracture, likely chronic. Reviewed, dictated and finalized at location M. Impression: Mild spondylosis, as above. T12 compression fracture, likely chronic.
== END 2024-01-05 12:31 ==
LOC: MICIMG 12:32
PROVIDERS: PCP Family Medicine; Visit Provider Physician Assistant
DX: S22.080A Wedge compression fracture of T11-T12 vertebra, initial encounter for closed fracture (principal); X58.XXXA Exposure to other specified factors, initial encounter; M47.896 Other spondylosis, lumbar region
CPT/HCPCS: 72072; 72110

== ENCOUNTER 2024-01-20 12:31 | Outpatient (CLI) | payer BC, SELFPAY ==
--- NOTE | 2024-01-27 14:24 | P.PCNPFT_ITS ---
PFT Procedure Performed PFT Procedure Performed Spirometry with Pre/Post Bronchodilator Plethysmography (Lung Vol) Diffusing Cap (DLCO) Flow Vol Loop PFT Interpretation DOS: 01/20/2024 REQUESTING: MARLEY Maddox REASON FOR TESTING: Shortness of breath PULMONARY FUNCTION TESTS Results are reliable and reproducible. Repeatability of spirometry FEV1 maneuver pre and post bronchodilator is Grade A. Spirometry: The pre-bronchodilator FEV1 is 3.38 L, 88%, normal. The pre- bronchodilator FVC is 4.12 L, 84%, normal. The FEV1/FVC ratio is 82%. After bronchodilator, the FEV1 is unchanged. The FVC is 4.04 L, 82%, -2%. The FEV1/FVC ratio is 83%. Lung volumes: The total lung capacity is 5.32 L, 76%, mildly decreased. The residual volume is 1.21 L, 57% predicted, decreased. The RV/TLC is 23%, normal. FRC is 2.12 L, 59%, normal. Airway resistance is increased. Diffusion: DLCO is 29.4, 98%, normal. The DLCO/VA is 5.50, 123%, normal. Flow volume loop: The flow volume loop is normal. IMPRESSION: Normal spirometry without response to bronchodilator, mild decrease in the total lung capacity indicating a mild restrictive process with normal diffusion. Lack of response to bronchodilator should not preclude use if clinically indicated. There are no prior studies for comparison. This is a non-specific pattern. Consider maximum inspiratory and expiratory lung volumes to evaluate respiratory muscle strength. Nanci Infante MD
== END 2024-01-20 12:32 | disposition home or self-care (01) ==
LOC: ANHPFT 12:31
PROVIDERS: PCP Family Medicine; Visit Provider Physician Assistant
DX: J45.909 Unspecified asthma, uncomplicated (principal)
CPT/HCPCS: 94060; 94726; 94729

== ENCOUNTER 2024-03-02 15:45 | Outpatient (CLI) | payer BC, SELFPAY ==
--- NOTE | ~2024-03-02 | XR_ITS ---
EXAMINATION: XR knee LT 3V DATE: 03/02/2024 15:58 INDICATION: Left knee pain. TECHNIQUE: 3 views of left knee including standing views were obtained. COMPARISON: None. FINDINGS: Alignment is normal. No fracture. There is mild osteoarthritis of medial and patellofemoral compartments. No knee joint effusion. IMPRESSION: 1. Mild left knee osteoarthritis. Reviewed, dictated and finalized at location A.
== END 2024-03-02 15:46 | disposition home or self-care (01) ==
PROVIDERS: PCP Anesthesiology Pain Medicine; Visit Provider Anesthesiology Pain Medicine
DX: M17.12 Unilateral primary osteoarthritis, left knee (principal)
CPT/HCPCS: 73562

== ENCOUNTER 2024-03-03 08:54 | Outpatient (CLI) | payer BC, SELFPAY ==
--- NOTE | ~2024-03-03 | MR_ITS ---
EXAMINATION: MR thoracic spine wo con DATE: 03/03/2024 09:59 INDICATION: Back pain. Left leg pain and numbness. TECHNIQUE: Magnetic resonance imaging (MRI) of the thoracic spine was performed without intravenous c ontrast. COMPARISON: Thoracic spine radiographs 01/05/2024 FINDINGS: There is 7 degrees dextrocurvature of thoracic spine. There are chronic compression fractur es of T11 and T12. There are bridging endplate osteophytes from T10 to L1. There is mildly decreased disc height at T3-T4 and T11-T12. There is multilevel mild facet joint osteoarthritis. There is mild bilateral neural foraminal stenosis at T9-T10. At T2-T3, there is a central extrusion with mild centr al canal stenosis. At T3-T4, there is a central extrusion with mild central canal stenosis. At T4-T5, there is a central extrusion with mild central canal stenosis. At T5-T6, there is a central extrusio n with mild central canal stenosis. At T6-T7, there is a left central extrusion with mild central can al stenosis. The spinal cord signal intensity is normal. The conus medullaris is at L1. IMPRESSION: 1. Mild thoracic spondylosis. Reviewed, dictated and finalized at location A.
--- NOTE | ~2024-03-03 | MR_ITS ---
EXAMINATION: MR lumbar spine wo con DATE: 03/03/2024 10:01 INDICATION: Dorsalgia. TECHNIQUE: Magnetic resonance imaging (MRI) of the lumbar spine was performed without intravenous con trast. Sequences included sagittal T2-weighted FSE, sagittal T2-weighted FS FSE, sagittal T1-weighted FSE, and axial T2-weighted FSE. COMPARISON: Lumbar spine radiographs 01/05/2024 FINDINGS: Alignment is normal. There is a chronic compression fracture of T12. Intervertebral disc he ights are normal. Osseous central spinal canal is developmentally small. The distal spinal cord signa l intensity is normal. The conus medullaris is at L1. The following disc levels are specifically disc ussed: L1-L2: The disc does not extend beyond the endplate margin. There is mild bilateral facet joint osteo arthritis. There is no neural foraminal stenosis. There is no central canal stenosis. L2-L3: The disc is mildly bulging. There is moderate bilateral facet joint osteoarthritis. There is m ild bilateral neural foraminal stenosis. There is mild central canal stenosis. L3-L4: The disc is mildly bulging. There is severe bilateral facet joint osteoarthritis. There is mil d bilateral neural foraminal stenosis. There is mild central canal stenosis. L4-L5: The disc is bulging and has an annular fissure. There is severe bilateral facet joint osteoart hritis. There is moderate bilateral neural foraminal stenosis. There is mild central canal stenosis. L5-S1: The disc is bulging and has an annular fissure. There is severe bilateral facet joint osteoart hritis. There is mild bilateral neural foraminal stenosis. There is mild central canal stenosis. IMPRESSION: 1. Moderate lumbar spondylosis. Reviewed, dictated and finalized at location A.
== END 2024-03-03 08:55 | disposition home or self-care (01) ==
PROVIDERS: PCP Anesthesiology Pain Medicine; Visit Provider Anesthesiology Pain Medicine
DX: S22.008D Other fracture of unspecified thoracic vertebra, subsequent encounter for fracture with routine healing (principal); X58.XXXD Exposure to other specified factors, subsequent encounter; M47.894 Other spondylosis, thoracic region; M47.896 Other spondylosis, lumbar region
CPT/HCPCS: 72146; 72148

== ENCOUNTER 2024-04-13 13:33 | Outpatient (CLI) | payer BC, SELFPAY ==
[2024-04-13] MEDS: METHACHOLINE CHLORIDE 18 ML VIAL.NEB INHALATION (15:30)
[2024-04-13] MEDS: ALBUTEROL SULFATE NEB 2.5 MG/3 ML INH (15:34)
--- NOTE | 2024-04-13 16:10 | P.METCHAL_ITS ---
Methacholine Procedure Perform Procedure Performed Methacholine Challenge Methacholine Challenge Methacholine Challenge: This is a methacholine challenge test. The test was performed and interpreted in accordance with the 2017 ERS technical standard, endorsed by the ATS, using the GLI 2012 reference equations. Testing was performed with increasing doses of nebulized methacholine following a quadrupling dosage protocol. The methacholine dose was delivered via the [employer] nebulizer using a 1-minutes tidal breathing protocol. The best post-methacholine FEV1 values were used to determine the change from the post diluent FEV1. The delivered dose of methacholine was used to calculate the provocative dose causing a 20% fall in FEV1 (PD20). Findings: Baseline FEV1 2.99 L, 76% predicted. Post diluent FEV1 2.97 L Post 1.81 mcg methacholine FEV1 3.04 L, increased 3% Post 7.26 mcg methacholine FEV1 2.97 L, decreased 0% Post 29.03 mcg methacholine FEV1 2.92 L, decreased 2% Post 116.1 mcg methacholine FEV1 2.58 L, decreased 13% Post 464.4 mcg methacholine FEV1 2.45 L, decreased 17% Post albuterol nebulization FEV1 2.80 L Impression: The PD20 is > 400 mcg which is categorized as normal airway hyperresponsiveness. There are no prior methacholine challenge studies for comparison
== END 2024-04-13 13:34 | disposition home or self-care (01) ==
LOC: ANHPFT 13:35
PROVIDERS: PCP Family Medicine; Visit Provider Nurse Practitioner Family
DX: R06.09 Other forms of dyspnea (principal)
CPT/HCPCS: 94070; J7674

== ENCOUNTER 2024-04-26 10:28 | Outpatient (CLI) | payer BC, SELFPAY | END 2024-04-26 10:29 | disposition home or self-care (01) | PROVIDERS: PCP Family Medicine; Visit Provider Nurse Practitioner Family | DX: J98.4 Other disorders of lung (principal) | CPT/HCPCS: 71250 ==

== ENCOUNTER 2024-05-08 08:34 | Outpatient (CLI) | payer BC, SELFPAY | END 2024-05-08 08:35 | disposition home or self-care (01) | PROVIDERS: PCP Family Medicine; Visit Provider Nurse Practitioner Family | DX: R94.2 Abnormal results of pulmonary function studies (principal); R06.09 Other forms of dyspnea | CPT/HCPCS: 94060; 94200; 94726; 94729 ==

== ENCOUNTER 2024-05-14 13:13 | Outpatient (CLI) | payer BC, SELFPAY ==
[2024-05-14 14:14] LABS: Add Urine Microscopic? YES; Appearance Urine Clear (Clear); Bacteria Urine None Seen /hpf; Bilirubin Urine Negative (Negative); Blood Urine Negative (Negative); Color Urine Dark Yellow (Yellow); Glucose Urine UA Negative (Negative); Ketones Urine Negative (Negative); Leukocyte Esterase Ur Negative LEU/UL (Negative); Mucus Urine Present /lpf; Need Manual Microscopic Reviewed; Nitrate Urine Negative (Negative); Non Pathogenic Casts 0-2; Protein Urine Trace mg/dL (Negative); RBC Urine 0-2 /hpf (0-2); Specific Grav Ur 1.023 (1.001-1.035); Squamous Epithelial Cell Urine None Seen /hpf (Few); WBC Urine 0-5 /hpf (0-3); pH Urine 5.5 (5.0-9.0)
== END 2024-05-14 13:14 | disposition home or self-care (01) ==
LOC: ANHLAB 13:14
PROVIDERS: PCP Family Medicine; Visit Provider Physician Assistant Medical
DX: R30.0 Dysuria (principal); R31.9 Hematuria, unspecified
CPT/HCPCS: 81001; 87086

== ENCOUNTER 2024-05-23 09:02 | Outpatient (CLI) | payer BC, SELFPAY ==
--- NOTE | ~2024-05-23 | NM_ITS ---
EXAMINATION: NM neil stress w perfusion DATE: 05/23/2024 11:01 CHECK PILOT INDICATION: Dyspnea TECHNIQUE: Rest images were obtained following intravenous administration of 9.5 mCi Tc99m tetrofosmi n (Myoview). The patient was infused intravenously with Lexiscan (regadenoson). Then, 31 mCi Tc99m te trofosmin (Myoview) was administered intravenously, and stress images were obtained. Data was reconst ructed into short axis and horizontal and vertical long axis SPECT images. Gated SPECT images were al so obtained. COMPARISON: None. FINDINGS: There is no definite reversible or fixed perfusion abnormality to suggest ischemia or infar ction. There is no segmental wall motion abnormality. Left ventricular ejection fraction measures 7 0%. IMPRESSION: 1. No definite ischemia or infarct. 2. Normal left ventricular ejection fraction measuring 70%. Reviewed, dictated and finalized at location B. K PILOT
--- NOTE | 2024-05-23 09:24 | EST_ITS ---
Patient Info Name: Esequiel Neely Age: 54 years : 1970 Gender: Male Ht: 71 in Wt: 225 lbs BSA: 2.29 m2 HR: 78 bpm BP: 108 / 81 mmHg Exam Date: 05/23/2024 10:02 AM Exam Location: Echo Lab Patient Status: Outpatient Admit Date: 05/23/2024 Staff Ordering Physician: Ashu Montana APRN Attending Provider: Ashu Montana APRN Exercise Technologist: Tosha Carpenter [facility] Exercise Physician: Cristian Johansen DO Exam Type: CA stress neil w NM Study Info A regadenoson stress test was performed. Summary 1. 1. Negative lexiscan stress test for ischemic ST changes by ECG criteria. 2. 2. Stable hemodynamics throughout the test. 3. 3. Nuclear scan to follow and will be reported separately. Please correlate with it. 4. 4. Patient informed of the above results. Protocol: Lexiscan Stress ECG Details Stage: REST Duration (min): 1 min : 19 sec HR (bpm): 76 SBP (mmHg): 108 DBP (mmHg): 81 Stage: REST Duration (min): 8 min : 36 sec HR (bpm): 79 SBP (mmHg): 108 DBP (mmHg): 81 Stage: STAGE 1 Duration (min): 0 min : 59 sec HR (bpm): 99 SBP (mmHg): 113 DBP (mmHg): 88 Stage: RECOVERY Duration (min): 1 min : 0 sec HR (bpm): 100 SBP (mmHg): 113 DBP (mmHg): 88 Stage: RECOVERY Duration (min): 2 min : 0 sec HR (bpm): 98 SBP (mmHg): 115 DBP (mmHg): 83 Stage: RECOVERY Duration (min): 3 min : 0 sec HR (bpm): 105 SBP (mmHg): 89 DBP (mmHg): 78 Stage: RECOVERY Duration (min): 3 min : 18 sec HR (bpm): 103 SBP (mmHg): 89 DBP (mmHg): 78 Rest HR: 79 bpm Peak HR: 107 bpm Rest Sys BP: 108 mmHg Peak Sys BP: 115 mmHg Max Pred HR: 166 bpm % Max Pred HR: 64 % Target HR: 141 bpm Max RPP: 12,305 bpm*mmHg Termination Reason: Completed protocol Cardiac Symptoms: Shortness of breath, Chest pain Total Time: 1 min : 0 sec Rest Dailey BP: 81 mmHg Peak Dailey BP: 83 mmHg Total Dose: 0.4 mg Resting ECG Sinus rhythm. Stress ECG No ST changes. Arrhythmias None. Report Signatures
== END 2024-05-23 09:03 | disposition home or self-care (01) ==
PROVIDERS: PCP Family Medicine; Visit Provider Nurse Practitioner Family
DX: R06.09 Other forms of dyspnea (principal); R07.9 Chest pain, unspecified
CPT/HCPCS: 78452; 93017; A9502; J2785

== ENCOUNTER 2024-07-10 01:14 | Day surgery (SDC) | payer BC, SELFPAY ==
[2024-07-09 10:12] VITALS: BMI 32.1
--- NOTE | 2024-07-09 10:18 | PC.NURSE ---
Report to the Outpatient Waiting Room, entrance under the green pavilion located off [facility], at time _1000_ on date _[id number]_. Planned Procedure Time: _1100_.? Time changes happen often and if your time is changed the preop area will call you the afternoon before. - You and your visitor will be asked to self-screen and do not enter if you have any COVID symptoms. Please call surgeon if you need to reschedule. - A mask is optional within the hospital at this time. Ok for light breakfast then nothing to eat or drink after 9AM. Take only the following medications with a SIP of water on the morning of surgery: ___ok for meds and inhalers. DO NOT STOP ANY OF YOUR OTHER PRESCRIPTION MEDICATIONS PRIOR TO SURGERY EXCEPT THE FOLLOWING Medications to discontinue per physician __None___ Date to take last dose Please no make-up, nail persian, hairspray, perfume, deodorant, or body powder the day of surgery.? No jewelry (including any body piercings) or valuables the day of surgery, leave them at home.? Please take a shower or bath the night before, or the morning of, surgery with an antibacterial soap.? Wear comfortable, loose fitting clothing.? - Jewelry must be removed prior to entering the operating room.? Rings and piercings that are not removed may be cut off. - The hospital will not accept responsibility for valuables.? - Please leave all valuables, including medications, at home the day of surgery. If you are going home after surgery, a licensed racing car driver must drive you home.? - NO public transportation without another adult if you receive anesthesia. - We recommend that an adult stay with you for 24 hours following discharge. - We also recommend that you do not drive, make important decision, drink alcoholic beverages, or take any drugs that were not prescribed by your health care provider for at least 24 hours after your discharge time. Follow any additional instructions given to you from your surgeon. Telephone instructions given to __Esequiel__and asked if any additional questions and then verbalized understanding. Patient advised to call surgeon office or pre surgery nurse liaison [phone] if any additional questions.
[2024-07-10] VITALS (7 sets, daily range): BP systolic 117–135; BP diastolic 75–89; PULSE 63–70; RESP 16; TEMP 36.6; O2SAT 99–100
--- NOTE | ~2024-07-10 | XR_ITS ---
INTRAOPERATIVE FLUOROSCOPY: CLINICAL HISTORY: 54 years old Male; NERVE BLOCK JESSICA L3, L4, L5 MEDIAL BRANCH JESSICA L4-5, L5, S1 PROCEDURE COMMENTS: Limited intraoperative fluoroscopy of the spine was performed. CUMULATIVE DOSE: 8.2 mGy FLUOROSCOPY TIME: 33 seconds FINDINGS/IMPRESSION: Please refer to operative note for further details. Reviewed, dictated and finalized at location A. ROOM SUPERVISOR
--- NOTE | 2024-07-10 06:28 | P.HP_ITS ---
History of Present Illness History of Present Illness Consent: Risks, benefits, and alternatives have been discussed and questions answered. Patient agrees to proceed with procedure. Chief complaint: lumbosacral spondylosis, chronic low back pain Narrative: Esequiel Neely is a 54 year old male with chronic, recalcitrant and disabling bilateral lumbosacral back pain secondary to degenerative spondylosis with failure to respond to aggressive conservative measures including PT, oral and topical analgesics, opioid and nonopioid analgesics, rest, time and activity/behavioral modification over the past 1-2 years who presents for diagnostic/prognostic medial branch blocks of the bilateral L3, L4, L5 medial branches/dorsal ramus(#1) addressing the bilateral L4-5, L5-S1 facet joints under fluoroscopic guidance and with contrast control. Review of Systems Review of Systems: Patient denies any new infectious, allergic, cardiopulmonary, neurologic or constitutional symptoms or changes in activity tolerance or exercise capacity including new or progressive SOB/[place], peripheral edema, productive cough, dysuria, nausea/vomiting, diarrhea, weight change, fevers/chills/night sweats, new or progressive neurologic deficit, cognitive or mood changes since last seen, except as documented in the HPI. All systems reviewed & are unremarkable except as noted in HPI and below PMFSH Past Medical History Medical History (Updated 07/04/24 @ 12:23 by Shanel Betancur PA-C) UTI (urinary tract infection) GERD (gastroesophageal reflux disease) Chronic pancreatitis Cholelithiasis Anxiety IBS (irritable bowel syndrome) KATHY (obstructive sleep apnea) Asthma Constipation Surgical History Surgical History History of bilateral inguinal hernia repair Family History Family History Mother Family history of malignant neoplasm of stomach Father Family history of malignant neoplasm of urinary bladder Social History Social History Social History: Single Smoking status: Never smoker Second hand tobacco smoke exposure: No Alcohol intake: never Substance use: never Substance use type: does not use Do You Feel Safe in your Home?: Yes Lack of Transportation: No Lack of Food: Never True Current Housing: I Have Housing Concerned About Future Housing: No Difficulty Paying Gas/Electric Bills: YES Difficulty Paying for Meds: YES Currently Unemployed: No Education: High School Diploma/GED Difficulty w/ Childcare or Family Care: No Living arrangements: alone Occupation/Education: occupation Gender identity (if verbalized by the patient): Male Sexual Orientation (if Verbalized by the Patient): Straight or Heterosexual Spiritual care concerns: No Meds Home Medications and Allergies Home Medications ?Medication ?Instructions ?Recorded ?Confirmed ?Type Adults Multivitamin 1 cap PO DAILY 02/18/21 07/09/24 History albuterol sulfate 90 mcg/actuation 1 - 2 puff inhalation Q4H PRN 10/25/23 07/09/24 Rx aerosol inhaler (ProAir HFA) shortness of breath or wheezing #8.5 grams inhalational spacing device #1 ea 04/27/24 07/09/24 Rx budesonide-formoterol HFA 160 2 puff inhalation Q12H #10.2 grams 05/23/24 07/09/24 Rx mcg-4.5 mcg/actuation aerosol inhaler (Symbicort) Allergies Allergy/AdvReac Type Severity Reaction Status Date / Time No Known Allergies Allergy Verified 07/09/24 10:10 Exam Narrative: The patient's physical exam is essentially unchanged from prior examination on 03/31/2024. Specifically, patient demonstrates normal lung capacity, tidal volume and respiratory rate without wheezes, crackles, rales or rubs. Heart rate and rhythm are regular without murmurs, gallops or rubs. No JVD. Pulses 2+ globally without increasing peripheral edema. AAOx3 with no evidence of confusi on, intoxication or altered mental state, NC/AT without acute distress or altered consciousness. Speech, cognition, mood, insight and judgment at baseline and within normal limits. Assessment and Plan Assessment and plan (1) Lumbosacral spondylosis: Code(s): M47.817 - Spondylosis without myelopathy or radiculopathy, lumbosacral region Status: Acute (2) Dorsalgia: Code(s): M54.9 - Dorsalgia, unspecified Status: Acute (3) Chronic pain: Code(s): G89.29 - Other chronic pain Status: Acute Plan proceed as planned with diagnostic/ prognostic bilateral L3, L4, L5 medial branch/dorsal ramus nerve blocks ( # 1) Addressing the bilateral L4-5, L5-S1 facet joints ( 4 llevels total ) under fluoroscopic guidance with contrast control.
--- NOTE | 2024-07-10 06:31 | WPDHPUPDATE1 ---
History and Physical Update Update Date/Time: 07/10/24 06:31 History and Physical has been reviewed, including an updated exam of the patient. There are NO changes in the patient's condition. Risks, benefits, and alternatives have been discussed and questions answered. Patient agrees to proceed with procedure.
--- NOTE | 2024-07-10 06:32 | P.OP_ITS ---
Procedure Note - Detailed Date of Procedure 07/10/24 Pre-op Diagnosis lumbosacral spondylosis, chronic low back pain Post-op Diagnosis Same Procedure Performed Diagnostic bilateral Lumbar Medial Branch/Dorsal Ramus Blocks at L3, L4, L5 Treating the bilateral L4-5, L5-S1 Facet Joints Under Fluoroscopic Guidance and with Contrast Control. ( 4 levels blocked). Surgeon Josué Armendariz MD Laboratory Technical Specialist None. Anesthesia Local Description of Procedure INFORMED CONSENT: Risks, benefits and alternatives to the procedure were discussed in detail with the patient who expressed explicit understanding and consent to proceed. Patient was informed verbally and in written form regarding the risks associated with the procedure including the low risk of serious infection, bleeding/bruising, allergic reaction, nerve or organ injury, paralysis, procedural site pain or discomfort, worsening pain and/or mobility, failure to treat and/or disfigurement. The patient expressed explicit understanding and consent to proceed. All materials required for the procedure were available prior to procedure start. Site and side were marked prior to procedure and confirmed in the presence of the patient. PROCEDURE IN DETAIL: The patient was brought to the procedural suite and placed in the prone position. Patient was made comfortable with use of pillows under the head/chest, hips and ankles. Skin overlying the injection site on the affected side(s) was prepared broadly with ChloraPrep applicator and draped in a sterile manner. Aseptic technique was used throughout. The endplates of the vertebral bodies at the site(s) of interest were aligned in the AP view. Ip silateral oblique angulation was utilized to optimize visualization of the intersection between the superior articulating process and transverse process at each target site. Local anesthesia was established by infiltration with approximately 5 mL of 1% lidocaine via a 1-1/2 inch 27-gauge needle. A 25-gauge 5.0 inch Quincke spinal needle was advanced until the needle tip contacted periosteum at the target site, right L3. Lateral view was utilized to confirm the appropriate placement of the needle tip just anterior to the facet line and superior to the pedicle. In the Lateral view, 0.25 mL of Omnipaque 300 contrast medium was injected after negative aspiration for CSF, blood or other bodily fluid, showing appropriate extra-articular spread of contrast without evidence of intravascular, foraminal or intrathecal placement. A 0.5 mL solution of 0.5% PF bupivacaine was injected after negative repeat aspiration. Appropriate spread of the injectate was confirmed with washout of previously injected contrast. No parasthesias were elicited. Needle was removed completely intact without difficulty. The same exact procedure was repeated for all remaining levels on the ipsilateral side, right L4, L5 medial branches/dorsal ramus, modified as necessary to accommodate for the new target location with identical findings and results and no evidence of complication. The same exact procedure was repeated for all remaining levels on the contralateral side, left L3, L4, L5 medial branches/dorsal ramus, modified as necessary to accommodate for the new target location with identical findings and results and no evidence of complication. Images were saved and documented in the patient chart. Patient's skin was cleaned and sterile bandage applied. The patient tolerated the procedure well. The patient was transported to the recovery area in stable condition where they were observed for an appropriate amount of time prior to discharge, without evidence of complication. Patient was instructed on the appropriate completion of a pain diary over the next 12-24 hours. The patient was instructed to avoid excessive activity for the next 48 hours, including climbing and frequent use of stairs. Showers only for 48 hours. They were instructed not to drive or operate heavy machinery for 24 hours. They are to monitor for severe headaches, fevers, chills, night sweats, erythema/swelling at the site or any other signs of infection, bleeding/bruising, bowel or bladder changes as well as new pain, weakness or numbness in the upper or lower extremity. Should they notice these changes, they are instructed to call our office immediately or report directly to the nearest Emergency Department if no answer or if after posted office hours. COMPLICATIONS: None COMMENTS: None CONTRAST WASTED: 28.5mL Omnipaque 300. Complications No immediate complications Condition Stable Disposition Same day [facility] Billing Surgery - Charge Forward: Surgery Billing
[2024-07-10] MEDS: LIDOCAINE 1% LOCAL INJ 10 ML VIAL 5 ML INFILTRATE (13:02)
[2024-07-10] MEDS: BUPivacaine HCL 0.5% PF 30 ML VIAL 5 ML INFILTRATE (13:02)
--- OUTSIDE RECORDS SUMMARY | 2024-07-17 05:00 | XMS_ITS | Encounter Summary ---
Author Organization [facility] Address [address] [place] [address] Care Team Providers Care Transporter Driver Name Role Phone Unavailable Primary Care Provider Unavailabl e Encounter Details Date Type Department Care Team (Late st Contact Info) Description 09/28/2016 Orders Only [facility] Medical [facility] - General Surgery [address] [facility] [address] [place] [address] Lebron Looney MD [address] [facility] [address] [place] [address] [id number] Left groin pain Social History Tobacco Use Types Packs/Day Years Used Date Smoking Tobacco: Never Alcohol Use Standard Drinks/Week Comments No 0 (1 standard drink = 0.6 oz pur e alcohol) Sex and Gender Information Value Date Recorded Sex Assigned at Not on file Gender Identity Not on file Sexual Orientation Not on file documented as of this encounter Plan of Treatment Not on file documented as of this encounter Procedures Procedure Name Priority Date/Time Associated Diagnosis Comments CT ABDOMEN PELVIS W CONTRAST Routine 08/17/2016 Left groin pain documented in this encounter Results * CT ABDOMEN AND PELVIS WITH IV CONTRAST (08/17/2016) Anatomical Region Laterality Modality Abdomen, Pelvis Other Lebron Looney MD CT ORDERABLES documented in this encounter Visit Diagnoses Diagnosis Left groin pain Abdominal pain, left lower quadrant documented in this encounter
--- OUTSIDE RECORDS SUMMARY | 2024-07-17 05:00 | XMS_ITS | Clinical Summary ---
Author Organization [facility] Address [address] [facility] [place] [address] Care Team Providers Care Paraprofessional Aide Teacher Name Role Phone Carl Ivan MD Primary Care Provider [phone] Source Comments [facility],non-owned Affiliates and Associated Physician Practices is amultiple site organization consisting of ambulatory clinics and hospital sitesin [place], [place], [place] and [place]. This disclosure is being madepursuant to the Care Everywhere program and may not contain all information available regarding this patient. Last updated 18.[facility] Allergies No known active allergies Medications Be aware that medications may not be up to date on this document. Always verify current medications with the patient. No known medications Family History Medical History Relation Name Comments Diabetes Father Other Father bladder cancer Other Mother cancer Relation Name Status Comments Father Mother Social History Tobacco Use Types Packs/Day Years Used Date Smoking Tobacco: Never Tobacco Cessation:Counseling Given: No Alcohol Use Standard Drinks/Week Comments No 0 (1 standard drink = 0.6 oz pur e alcohol) Sex and Gender Information Value Date Recorded Sex Assigned at Not on file Gender Identity Not on file Sexual Orientation Not on file Last Filed Vital Signs Vital Sign Reading Time Taken Comments Blood Pressure 130/86 08/17/2016 11:16 AM SOUND TRUCK OPERATOR Pulse 68 08/17/2016 11:16 AM SOUND TRUCK OPERATOR Temperature - - Respiratory Rate - - Oxygen Saturation 98% 08/17/2016 11:16 AM SOUND TRUCK OPERATOR Inhaled Oxygen Concentration - - Weight 98.4 kg (217 lb) 08/17/2016 11:16 AM SOUND TRUCK OPERATOR Height 175.3 cm (5' 9 ) 08/17/2016 11:16 AM SOUND TRUCK OPERATOR Body Mass Index 32.05 08/17/2016 11:16 AM SOUND TRUCK OPERATOR Plan of Treatment Health Maintenance Due Date Last Done Comments COLOGUARD (AGES 45-75) - COL ON CA SCREENING 1970 COLON MONITORING 1970 COLONOSCOPY - COLON CA SCREENING 1970 CT COLONOGRAPHY - COLON CA SCREENING 1970 Colorectal Cancer Screening 1970 FIT - COLON CA SCREENING 1970 FLEX SIG - COLON CA SCREENING 1970 LIPID TESTING 1970 HIV SCREENING 1985 HEPATITIS C SCREENING 03/19/1988 DTAP/TDAP/TD VACCINES (1 - Tdap) 1989 HEPATITIS B VACCINE (1 of 3 - 19+ 3-dose series) 1989 PNEUMOCOCCAL VACCINE 50+ (1 of 1 - PCV) 2020 ZOSTER VACCINE (1 of 2) 2020 COVID-19 VACCINE (1 - 2023-2 5 season) 2024 INFLUENZA VACCINE (#1) 2024 DEPRESSION SCREENING 06/27/2024 HIB VACCINE Aged Out No longer eligi ble based on patient's age to complete this topic HPV VACCINE Aged Out No longer eligi ble based on patient's age to complete this topic MENINGOCOCCAL (Group B) VACCINE Aged Out No longer eligible based on patient's age to complete this topic MENINGOCOCCAL VACCINE Aged Out No salena avni eligible based on patient's age to complete this topic PNEUMOCOCCAL VACCINE Aged Out No long er eligible based on patient's age to complete this topic Care Teams Paraprofessional Aide Teacher Relationship Specialty Start Date End Date Carl Ivan MD [address] [place] [address] [facility] - General 02/03/22
--- OUTSIDE RECORDS SUMMARY | 2024-07-17 05:00 | XMS_ITS | Patient Health Summary ---
Author Organization [facility] [employer] Address [address] [facility] [place] [address] Care Team Providers Care Cap Lining Machine Operator Name Role Phone Carl Ivan MD Primary Care Provider [phone] Note from [facility],non-owned Affiliates and Associated Physician Practices is amultiple site organization consisting of ambulatory clinics and hospital sitesin [place], [place], [place] and [place]. This disclosure is being madepursuant to the Care Everywhere program and may not contain all information available regarding this patient. Last updated 18.[facility] [employer] Allergies No known active allergies Medications Be aware that medications may not be up to date on this document. Always verify current medications with the patient. No known medications Social History Tobacco Use Types Packs/Day Years [...] Comments Blood Pressure 130/86 08/17/2016 11:16 AM SUSTAINABILITY SPECIALIST Pulse 68 08/17/2016 11:16 AM SUSTAINABILITY SPECIALIST Temperature - - Respiratory Rate - - Oxygen Saturation 98% 08/17/2016 11:16 AM SUSTAINABILITY SPECIALIST Inhaled Oxygen Concentration - - Weight 98.4 kg (217 lb) 08/17/2016 11:16 AM SUSTAINABILITY SPECIALIST Height 175.3 cm (5' 9 ) 08/17/2016 11:16 AM SUSTAINABILITY SPECIALIST Body Mass Index 32.05 08/17/2016 11:16 AM SUSTAINABILITY SPECIALIST Procedures * CT ABDOMEN PELVIS W CONTRAST(Performed 08/17/2016) Performed for Left groin pain Results * CT ABDOMEN AND PELVIS WITH IV CONTRAST (08/17/2016) Anatomical Region Laterality Modality Abdomen, Pelvis Other Lebron Looney MD CT ORDERABLES Care Teams Cap Lining Machine Operator Relationship Specialty Start Date End Date Carl Ivan MD [address] [place] [id number] PCP - General 02/03/22
--- OUTSIDE RECORDS SUMMARY | 2024-07-17 05:00 | XMS_ITS | Encounter Summary ---
Author Organization [facility] Address [address] [facility] [place] [address] Care Team Providers Care Biomathematician Name Role Phone Unavailable Primary Care Provider Unavailabl e Reason for Visit * Reason Onset Date Comments Results 08/20/2016 Encounter Details Date Type Department Care Team (Late st Contact Info) Description 08/20/2016 Telephone [facility] - General Surgery [address] [facility] [address] [place] [address] Lebron Looney MD [facility] [address] [place] [address] Results Social History Tobacco Use Types Packs/Day Years Used Date Smoking Tobacco: Never Alcohol Use Standard Drinks/Week Comments No 0 (1 standard drink = 0.6 oz pur e alcohol) Sex and Gender Information Value Date Recorded Sex Assigned at Not on file Gender Identity Not on file Sexual Orientation Not on file documented as of this encounter Miscellaneous Notes * Telephone Encounter - Lebron Looney MD - 08/20/2016 11:52 AM CST I called patient with CT abd/pelvis 08/18 at [facility] [place] Imaging results, CD-ROM reviewed. There are minimal postop changes to groin from hernia repair-left greater than right. Nothing that looks like recurrent hernia. Groin vessels look normal. Patient has lots of colon stool-consider Colace plus MOM to prevent constipation, as this makes his left groin pain worse. Bowel pattern is otherwise normal. I do not have an explanation for the patient's left groin pain. There is no evidence of hernia recurrence on physical exam or CT imaging. I encouraged him to seek out a doctor who could evaluate his lower back to look for possible radiculopathy. He may return to see me as needed. FACTURING TECH documented in this encounter Plan of Treatment Not on file documented as of this encounter Visit Diagnoses Not on filedocumented in this encounter
--- OUTSIDE RECORDS SUMMARY | 2024-07-17 05:00 | XMS_ITS | CONTINUITY OF CARE DOCUMENT ---
Author Name andrew morales Address Unknown Organization [facility] Address [address] [place] [address] [address] [place] [address] Phone [phone] Care Team Providers Care Pulp Operator Name Role Phone Shawn Echavarria MD Unavailable SWATHI HOPKINS MD Unavailable Unavailable SWATHI HOPKINS MD Unavailable Unavailable PROBLEMS Condition Status Date Provider Notes FAMILY HISTORY OF HEART DISEASE active Rick Echavarria MD SHORTNESS OF BREATH active Shawn Echavarria MD CHEST PAIN active Shawn Echavarria MD ENCOUNTERS Date Type Provider Location Encounter Diag nosis - In-person encounter Office Visit Shawn Echavarria MD [place] [facility] CHEST PAINSHORTNESS OF BREATHFAMILY HISTORY OF HEART DISEASE VITAL SIGNS Date Observation Value Provider blood pressure, diastolic 90 mm[Hg] Janell seph [place] blood pressure, systolic 120 mm[Hg] Huber eph [place] pulse rate 90 /min Salvador [place] oxygen saturation, oximetry 99 % Salvador [place] respiratory rate E&M 16 /min Salvador [place] weight E&M 227 [lb_av] Salvador [place] ALLERGIES No Known Drug Allergies HISTORY OF MEDICATION USE Medication Status Instructions Dates Provider Indications Com ments MELATONIN 3 MG ORAL TABLET active 1 day Salvador [place] ACETYL L-CARNITINE 250 MG ORAL CAPSULE active 400mg 1 day Salvador [place] OMEGA-3 350 MG CAPS active 1 day Salvador [place] D3 DOTS 2000 UNIT ORAL TABLET DISINTEGRATING active 1 daily Salvador [place] ZINC 50 MG ORAL TABLET active 1 day Salvador [place] VITAMIN C ER 1000 MG ORAL TABLET EXTENDED RELEASE active 1 day Salvador Terryp HYDROCODONE-ACETAMINOPH EN 5-325 MG ORAL TABLET active 1 q4hrs Salvador Terrymila CELEXA 10 MG ORAL TABLET active 1 at night Salvador Villavicencioacomila MELOXICAM 7.5 MG ORAL TABLET active 1 daily Salvador Villavicencioacomila SIMVASTATIN 20 MG ORAL TABLET active 1 daily Salvador Villavicencioacop ALLERGY 10 MG ORAL TABLET active daily Salvador Villavicencioacop SOCIAL HISTORY Date Observation Value Provider social history E&M Marital Status: Single Shawn Echavarria MD smoking status Non-Smoker Shawn Echavarria MD social history reviewed E&M reviewed Shawn Echavarria MD MENTAL STATUS Date Observation Value Provider assessment of judgme nt and insight E&M Alert and oriented to time, place and person. Mood and affect are normal. Shawn Echavarria MD INSURANCE PROVIDERS Payer name Policy type / Coverage type [place] red [employer] ID [facility] [id number] TREATMENT PLAN Date Name Performer follow up: H is updated medication list for this problem includes: Zinc 50 Mg Tabs (Zinc) ..... 1 day Orders: C omplete Echo (CPT-07761) S pirometry (CPT-22104) C ardiopulmonary Stress Test (CPT-47448) Shawn Echavarria MD follow up: O rders: E KG (CPT-03283) n eg reg stress test. Shawn Echavarria MD Date Name Cardiopulmonary Stre ss Test Spirometry Complete Echo HISTORY OF PROCEDURES Procedure Date Procedure Name Provider Procedure Notes S tatus EKG Shawn Echavarria MD completed
--- OUTSIDE RECORDS SUMMARY | 2024-07-17 05:00 | XMS_ITS | Referral Summary ---
Author Organization [facility] Address [address] [place] [address] Care Team Providers Care Debt Counselor Name Role Phone Carl Ivan MD Primary Care Provider [phone] Source Comments [facility],non-owned Affiliates and Associated Physician Practices is amultiple site organization consisting of ambulatory clinics and hospital sitesin [place], [place], [place] and [place]. This disclosure is being madepursuant to the Care Everywhere program and may not contain all information available regarding this patient. Last updated 18.[facility] Allergies No known active allergies Medications Be [...] Comments Blood Pressure 130/86 08/17/2016 11:16 AM SCAFFOLD SETTER Pulse 68 08/17/2016 11:16 AM SCAFFOLD SETTER Temperature - - Respiratory Rate - - Oxygen Saturation 98% 08/17/2016 11:16 AM SCAFFOLD SETTER Inhaled Oxygen Concentration - - Weight 98.4 kg (217 lb) 08/17/2016 11:16 AM SCAFFOLD SETTER Height 175.3 cm (5' 9 ) 08/17/2016 11:16 AM SCAFFOLD SETTER Body Mass Index 32.05 08/17/2016 11:16 AM SCAFFOLD SETTER Plan of Treatment Not on file Care Teams Debt Counselor Relationship Specialty Start Date End Date Carl Ivan MD [address] [place] [address] PCP - General 02/03/22
--- OUTSIDE RECORDS SUMMARY | 2024-07-17 05:00 | XMS_ITS | Encounter Summary ---
Author Organization [facility] Address [address] [facility] [place] [address] Care Team Providers Care Design And Sales Consultant Name Role Phone Unavailable Primary Care Provider Unavailabl e Reason for Referral * Radiology Services (Routine) - Closed Specialty Diagnoses / Procedures Referred By Contac t Referred To Contact CT Scan Diagnoses Left groin pain Procedures CT ABDOMEN AND PELVIS WITH IV CONTRAST Lebron Looney MD [address] [place] [address] Referral ID Status Reason Start Date Expiration Date Visits Re quested Visits Authorized [id number] Closed 08/17/2016 02/13/2017 1 1 ER ROOM SUPERVISOR Reason for Visit * Reason Comments POSSIBLE HERNIA left side, bulge Encounter Details Date Type Department Care Team (Late st Contact Info) Description 08/17/2016 11:30 AM LOCKER ROOM SUPERVISOR Office Visit [facility] - General Surgery [address] [facility] [address] [place] [address] Lebron Looney MD [address] [place] [id number] Left groin pain (Primary Dx) Social History Tobacco Use Types Packs/Day Years Used Date Smoking Tobacco: Never Tobacco Cessation:Counseling Given: No Alcohol Use Standard Drinks/Week Comments No 0 (1 standard drink = 0.6 oz pur e alcohol) Sex and Gender Information Value Date Recorded Sex Assigned at Not on file Gender Identity Not on file Sexual Orientation Not on file documented as of this encounter Last Filed Vital Signs Vital Sign Reading Time Taken Comments Blood Pressure 130/86 08/17/2016 11:16 AM LOCKER ROOM SUPERVISOR Pulse 68 08/17/2016 11:16 AM LOCKER ROOM SUPERVISOR Temperature - - Respiratory Rate - - Oxygen Saturation 98% 08/17/2016 11:16 AM LOCKER ROOM SUPERVISOR Inhaled Oxygen Concentration - - Weight 98.4 kg (217 lb) 08/17/2016 11:16 AM LOCKER ROOM SUPERVISOR Height 175.3 cm (5' 9 ) 08/17/2016 11:16 AM LOCKER ROOM SUPERVISOR Body Mass Index 32.05 08/17/2016 11:16 AM LOCKER ROOM SUPERVISOR documented in this encounter Progress Notes * Lebron Looney MD - 08/17/2016 12:04 PM CST Date of Encounter: 08/17/2016 Patient was accompanied by no one. I am seeing new patient Esequiel Neely concerning his left groin pain. Esequiel Neely is a 46 y.o. 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 He has had left groin pain for 4 years. Pain is described as a progressive pressure and pulling and with radiation to his left testicle and down the anterior and medial portions of his left thigh. Exacerbating factors include getting in and out of truck at work, and heavy lifting. Alleviating factors include none. He has an associated left groin mass for 4 years that he has noted only with palpating it and not seeing it. It seems to be worse when he feels bloated. He denies any alleviating factors. Associated symptoms include occasional nausea. He feels that he gets constipated and has to massagehis LLQ to facilitate a bowel movement. He denies any right groin symptoms. He had bilateral anterior inguinal hernia repair with mesh under same anesthetic 5 years ago. He recalls the operation taking 6 hours to perform (4 hours on left side and 2 hours on right), and that he had to stay in hospital for 3 days after operation. He had a slightly slower recovery on the left side (within a month ortwo after the operation), and that he felt completely recovered such that he was having no left groin symptoms for close to a year after the operation. His left groin pain has been significant enough that his work activity has been limited by his employer, and the patient can't play his drum set because of the pain. The patient says he also walks with a limp. Additionally, the patient has chronic neck and lumbar spine pain. He sees a chiropractor for this, and he last saw his chiropractor 3 weeks ago for a spinal adjustment. Review of Systems On pertinent review, he denies any vomiting or change in bladder habits. He denies any blood per rectum. He denies any shortness of breath. He has occasional left chest pain for several years, and says he had a stress test about 4 years ago that was negative. He does not feel that his left chest pain is any different than it was 4 years ago. Constitutional, eyes, ENT, neck, respiratory, CV, GI, , neurological, and hematologic/lymphatic review of systems were otherwise negative. ALLERGIES: No Known Allergies MEDICATIONS: No current outpatient prescriptions on file. No current facility-administered medications for this visit. Past Medical History Diagnosis Date ??? Obstructive sleep apnea 2010 uses CPAP device ??? Seasonal allergies Past Surgical History Procedure Laterality Date ??? Hernia repair, inguinal Bilateral 2012 anterior repair with mesh, both done under same anesthetic; [facility] History Social History ??? Marital status: Single Spouse name: N/A ??? Number of children: N/A ??? Years of education: N/A Occupational History ??? 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 Smoking status: Never Smoker ??? Smokeless tobacco: Not on file ??? Alcohol use: No ??? Drug use: No ??? Sexual activity: No Other Topics Concern ??? Not on file Social History Narrative ??? No narrative on file PHYSICAL EXAMINATION BP 130/86 Pulse 68 Ht 1.753 m (5' 9 ) Wt 98.4 kg (217 lb) SpO2 98% BMI 32.05 kg/m2Body mass index is 32.05 kg/(m^2). General: obese, well nourished, NAD HEENT: benign, OP clear Lungs: easy effort, clear to auscultation bilaterally Heart: regular rate and rhythm, without murmur or gallop Abdomen: soft, normal bowel sounds, ND, NT, no hepatomegaly Groin: Bilateral groin scars are well-healed. No significant impulse or mass bilaterally on Valsalva maneuver in the supine or standing positions. Testicular examination is symmetric, nontender and without any palpable mass. Ext: without cyanosis, clubbing or edema Lymphatic: negative anterior cervical, posterior cervical, supraclavicular and inguinal Imaging none Lab Review No results for input(s): WBC, HGB, HCT, PLTCOUNT in the last 50842 hours.No results for input(s): SODIUM, POTASSIUM, CHLORIDE, CO2, BUN, CREATININE, GLUCOSE, CALCIUM, ALBUMIN, ALKPHOS, ALT, AST, TBIL, TPROT, EGFR in the last 90091 hours. IMPRESSION/RECOMMENDATION: Left groin pain, etiology unclear. There is no obvious recurrent left groin hernia on examination today. This may represent a lumbar radiculopathy. The patient is to get an abdominopelvic CT now. I will call him with CT results and further recommendations. The patient is a good risk for general anesthesia, should he require operative care. ER ROOM SUPERVISOR documented in this encounter Plan of Treatment Not on file documented as of this encounter Results * CT ABDOMEN AND PELVIS WITH IV CONTRAST (08/17/2016) Anatomical Region Laterality Modality Abdomen, Pelvis Other Lebron Looney MD CT ORDERABLES documented in this encounter Visit Diagnoses Diagnosis Left groin pain- Primary Abdominal pain, left lower quadrant documented in this encounter
--- OUTSIDE RECORDS SUMMARY | 2024-07-17 05:01 | XMS_ITS | Encounter Summary ---
Author Organization [facility] Address [address] [place] [address]. [place], [place] [address] [place] [address] Care Team Providers Care Casework Supervisor Name Role Phone Unavailable Primary Care Provider Unavailabl e Encounter Details Date Type Department Care Team (Late st Contact Info) Description 06/23/2008 Abstract [facility] [address] [place] [address] , Gerard Monzon MD Social History Tobacco Use Types Packs/Day Years Used Date Smoking Tobacco: Never Assessed Sex and Gender Information Value Date Recorded Sex Assigned at Not on file Legal Sex Male 7:05 PM CDT Gender Identity Not on file Sexual Orientation Not on file documented as of this encounter Plan of Treatment Not on file documented as of this encounter Visit Diagnoses Not on filedocumented in this encounter
--- OUTSIDE RECORDS SUMMARY | 2024-07-17 05:01 | XMS_ITS | Encounter Summary ---
Author Organization [facility] Address [address] [place] [address] Care Team Providers Care Potato Peeler Name Role Phone Unavailable Primary Care Provider Unavailabl e Encounter Details Date Type Department Care Team (Late st Contact Info) Description 07/17/2020 11:15 AM POLYMERIZATION OVEN OPERATOR Rapid Evaluation [place] [facility] [address] [address] Social History Tobacco Use Types Packs/Day Years Used Date Smoking Tobacco: Never Assessed Sex and Gender Information Value Date Recorded Sex Assigned at Not on file Legal Sex Male 3:06 PM POLYMERIZATION OVEN OPERATOR Gender Identity Not on file Sexual Orientation Not on file documented as of this encounter Plan of Treatment Not on file documented as of this encounter Visit Diagnoses Not on filedocumented in this encounter
--- OUTSIDE RECORDS SUMMARY | 2024-07-17 05:01 | XMS_ITS ---
Author Organization [facility] Address [address] [facility] [address] [place] [address] Care Team Providers Care Metal Sprayer Name Role Phone Fam Mix Unavailable [phone] REASON FOR VISIT how can we address the neck problem how did the MRIs look of the neck Encounters Encounter Location Date Provider Diagnosis [facility] [address] [facility] [address] [place] [address] 06/29/2024 Fam Mix Plan Of Treatment No Information Progress Notes * Esequiel NEELY EDOB:1970 (54 yo M)Acc No.[id number]:06/29/2024 Patient:?Esequiel NEELY :1970???Age:54 Y???Sex:Male Phone: Address:[facility] [place], [address] * true * Date:? Generated for Homeroi patricio/Ahmet/eTransmitting on:?07/17/2024 05:00 AM GAS SINGER
--- OUTSIDE RECORDS SUMMARY | 2024-07-17 05:01 | XMS_ITS | Encounter Summary ---
Author Organization [facility] Address [address] [place] [address] Care Team Providers Care Affiliate Marketing Coordinator Name Role Phone Unavailable Primary Care Provider Unavailabl e Encounter Details Date Type Department Care Team (Late st Contact Info) Description 07/17/2020 Lab Requisition [facility] Community Testing [facility] [address] [place] [address] [place] [address] [place] [address] Social History Tobacco Use Types Packs/Day Years Used Date Smoking Tobacco: Never Assessed Sex and Gender Information Value Date Recorded Sex Assigned at Not on file Legal Sex Male 3:06 PM DESKTOP TECHNICIAN Gender Identity Not on file Sexual Orientation Not on file documented as of this encounter Plan of Treatment Not on file documented as of this encounter Procedures Procedure Name Priority Date/Time Associated Diagnosis Comments SARS-COV-2 PCR [facility] ONLY Routine 07/17/2020 11:15 AM DESKTOP TECHNICIAN documented in this encounter Visit Diagnoses Not on filedocumented in this encounter
--- OUTSIDE RECORDS SUMMARY | 2024-07-17 05:01 | XMS_ITS | Encounter Summary ---
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 Name Role Phone Unavailable Primary Care Provider Unavailabl e Encounter Details Date Type Department Care Team (Late st Contact Info) Description 07/03/2020 Lab Requisition [facility] Community Testing [facility] [address] [place] [address] [place] [address] [place] [address] Social History Tobacco Use Types Packs/Day Years Used Date Smoking Tobacco: Never Assessed Sex and Gender Information Value Date Recorded Sex Assigned at Not on file 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
--- OUTSIDE RECORDS SUMMARY | 2024-07-17 05:01 | XMS_ITS | Clinical Summary ---
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 Vacuum Pan Salt Name Role Phone No, Physician Primary Care Provider [phone] Allergies No known active allergies Medications albuterol HFA (PROVENTIL HFA,VENTOLIN HFA,PROAIR HFA) 90 mcg/actuation inhaler INHALE 1 TO 2 INHALATION BY MOUTH EVERY 4 HOURS NEEDED FOR SHORTNESS OF BREATH OR WHEEZING 1 Active meloxicam (MOBIC) 15 mg tabletIndicatio ns:Osteoarthrit is Take 1 tablet (15 mg total) by mouth daily 15 tablet 1 Active Active Problems Problem Noted Date Diagnosed Date Age-related nuclear cataract of both eyes 2019 Hyperopia with presbyopia of both eyes 0 Altered bowel habits 12/08/2017 Overview (12/08/2017): Added automatically from request for surgery [id number] Abdominal pain 10/06/2017 Gallstone 09/15/2017 Gastroesophageal reflux disease 09/15/2017 Constipation 08/17/2017 Hematochezia 08/17/2017 Abdominal hernia 08/17/2017 Shortness of breath 09/02/2011 Family history of heart disease 09/02/2011 Surgical History Surgery Date Site/Laterality Comments HERNIA REPAIR COLONOSCOPY 2010 FLUORO GUIDED ASPIRATION OR INJECTION LARGE JOINT BILATERAL 10/09/2020 Bilateral Medical History Medical History Date Comments Abdominal hernia without obs truction or gangrene Hernia - (Added by TW Conv) Personal history of healed t raumatic fracture History of fracture of verte bra - (Added by TW Conv) Family History Medical History Relation Name Comments Bladder Cancer Father Family histor y of malignant neoplasm of urinary bladder - (Added by TW Conv) Stomach cancer Mother Family histor y of malignant neoplasm of stomach - (Added by Conv) Relation Name Status Comments Father Mother Social History Tobacco Use Types Packs/Day Years Used Date Smoking Tobacco: Never Smokeless Tobacco: Never Alcohol Use Standard Drinks/Week Comments No 0 (1 standard drink = 0.6 oz pur e alcohol) AUDIT-C Answer Date Recorded Q1: How often do you have a drink containing alc ohol? Never 10/09/2020 Average Number of Drinks Not on file 021 Q3: How often do you have si x or more drinks on one occasion? Never 10/09/2020 Personal Safety Answer Date Recorded Getting School Help Needed Not on file 09/10 Sex and Gender Information Value Date Recorded Sex Assigned at Not on file Legal Sex Male 3:58 PM CDT Gender Identity Not on file Sexual Orientation Not on file Obstetrics History Last Filed Vital Signs Vital Sign Reading Time Taken Comments Blood Pressure 127/79 10/09/2020 1:31 PM CDT Pulse 60 10/09/2020 1:31 PM CDT Temperature 36 ??C (96.8 ??F) 10/09/2020 1:31 PM CDT Respiratory Rate 16 10/09/2020 1:31 PM CDT Oxygen Saturation 98% 10/09/2020 1:31 PM CDT Inhaled Oxygen Concentration - - Weight 106.6 kg (235 lb) 09/09/2020 2:54 PM CDT Height 175.3 cm (5' 9 ) 09/09/2020 2:54 PM CDT Body Mass Index 34.7 09/09/2020 2:54 PM CDT Plan of Treatment Not on file Insurance [employer] ACCESS CHOICE BLUE ACC CHOICE OOS [facility] BLUE [facility] CHOICE OOS BLUE [facility] CHOICE OOS Care Teams Mixer Operator Vacuum Pan Salt Relationship Specialty Start Date End Date No, Physician PCP - General 02/04/18
--- OUTSIDE RECORDS SUMMARY | 2024-07-17 05:01 | XMS_ITS | Patient Health Record ---
Author Organization [facility] Address [address] [place] [address] Care Team Providers Care Director [facility] Name Role Phone Maria Del Rosario Fam Unavailable [phone] Allergies No Known Allergies Results Component Value Reference Range Notes X ray : Spines, cervical 4 v iews Reviewed date:05/30/2024 03:44:45 PM Interpretation: Performing Lab: Notes/Report: MR Cervical WO Reviewed date:06/12/2024 11:01:49 PM Interpretation: Performing Lab: Notes/Report: Original Report EXAM: MRI CERVICAL SPINE W/O CONTRAST EXAM DATE: 06/08/2024 HISTORY: Cervical spondylosis. Patient gives history of neck pain. MR TECHNIQUE: Multiplanar, multisequence MR imaging of the cervical spine was performed. FINDINGS: There is linear abnormal increased signal intensity on T2-weighted and STIR images within both sides of the cervical spinal cord extending from the mid C4 through C5-6 levels. The caliber of the cord in this region appears reduced. This appearance is felt to be most consistent with myelomalacia. There is no other definite cord signal abnormality. 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 There is mild wedging of T1 which may be developmental or secondary to old trauma. There is degenerative disc space narrowing with disc desiccation at C2-3, C3-4, and C4-5. There are retrolistheses of C3 on C4, C4 on C5, and C5 on C6. There is mild Modic type II endplate degenerative signal change at C4-5 with degenerative subcortical cystic change involving the posterior aspect of the superior endplate of C5. At C2-3 there is a central disc protrusion with endplate spurring. Severe canal narrowing is produced by the disc abnormality, underlying canal configuration and posterior ligamentous thickening with the sagittal diameter of the spinal canal measuring roughly 7 mm. There is no foraminal narrowing. At C3-4 there is mild posterior disc bulging and bilateral uncovertebral joint spurring with a posterior central disc protrusion measuring roughly 1.5 mm. Severe canal narrowing is produced by the disc abnormality, retrolisthesis, underlying canal configuration, and posterior ligamentous thickening with the sagittal diameter of the spinal canal measuring roughly 4 mm. The cord appears indented by the central disc protrusion on the axial series. Mild facet joint degenerative changes are present bilaterally. There is severe left foraminal narrowing and moderate right. At C4-5 there is mild posterior disc bulging and bilateral uncovertebral joint spurring. There is a central disc herniation measuring roughly 2 mm in AP and 4 mm in transverse dimensions and which exhibits roughly 3 mm of caudal extension. This indents the anterior aspect of the cord. There is severe canal narrowing at this level secondary to the disc abnormality, retrolisthesis, underlying canal configuration and some posterior ligamentous thickening with the sagittal diameter of the spinal canal measuring roughly 4 mm. Mild facet joint degenerative changes are present bilaterally. There is severe bilateral foraminal narrowing. At C5-6 there is mild posterior disc bulging and bilateral uncovertebral joint spurring. There is a posterior central disc herniation measuring roughly 2 mm in AP and 4 mm in transverse dimensions and which exhibits approximately 2 mm of caudal extension. Severe canal narrowing is produced by the disc abnormality, underlying canal configuration, retrolisthesis, and some posterior ligamentous thickening with the sagittal diameter of the spinal canal measuring roughly 6 mm. Moderate facet joint degenerative changes are present bilaterally. There is severe bilateral foraminal narrowing. At C6-7 there is mild posterior disc bulging and bilateral uncovertebral joint spurring. There is a central disc protrusion measuring roughly 2 mm in AP dimension. Moderate canal narrowing is produced by the disc abnormality, underlying canal configuration, and posterior ligamentous thickening with the sagittal diameter of the spinal canal measuring roughly 8 mm. Moderate facet joint degenerative changes are present bilaterally. There is severe bilateral foraminal narrowing. At C7-T1 there is mild posterior disc bulging and bilateral uncovertebral joint spurring. There is a central disc protrusion and associated high intensity zone in keeping with an annular fissure. The protrusion measures roughly 2.5 mm in AP and 3.5 mm in transverse dimensions. Severe canal narrowing is produced by the disc abnormality and underlying canal configuration with the sagittal diameter of the spinal canal measuring roughly 6.3 mm. Moderate facet joint degenerative changes are present bilaterally. There is severe bilateral foraminal narrowing. At T1-T2 there is mild posterior disc bulging. Mild canal narrowing is produced by the disc abnormality. Mild facet joint degenerative changes are present bilaterally. There is mild bilateral foraminal narrowing. At T2-3 there is posterior disc bulging with a central disc protrusion demonstrated on the sagittal series. Mild canal narrowing is likely produced. When today''s study is compared to the previous cervical MR of 31 January 2018, the likely myelomalacic change in the cervical spinal cord appears slightly more extensive in its craniocaudal extension. The central disc herniations at C4-5 and C5-6 are new with slightly greater canal narrowing at those levels. The other disc abnormalities and canal narrowing are likely similar. IMPRESSION: Abnormal increased T2/STIR signal intensity within the cervical spinal cord extending from mid C4 through the C5-6 levels and which is associated with reduction in the caliber of the cord consistent with myelomalacia. This appears slightly greater in its craniocaudal extent than on previous study. Clinical correlation is recommended. Post gadolinium imaging is a consideration for further evaluation. 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 Multilevel cervical degenerative disc and joint disease with spondylosis, central disc protrusions at C3-4 and C6-7, central disc herniations at C4-5 and C5-6, canal narrowing, and foraminal narrowing, as detailed above. There is severe canal narrowing at all levels from C2 through C6 and at C7-T1 with moderate canal narrowing at C6-7. Clinical correlation is recommended. Results discussed with Dr. Otto''s medical billing supervisor, Hortensia Delgado, on 11 June 2024 at approximately 1030 hours. CFG:jfr Read by: Ken Easley M.D. Reviewed and Electronically Signed by: Ken Easley M.D. - Original Report EXAM: MRI CERVICAL S PINE W/O CONTRAST EXAM DATE: 06/08/2024 HISTORY: Cervical sp ondylosis. Patient gives history of neck pain. MR TECHNIQUE: Multip lanar, multisequence MR imaging of the cervical spine was performed. FINDINGS: There is linear abno rmal increased signal intensity on T2-weighted and STIR images within b oth sides of the cervical spinal cord extending from the mid C4 thro ugh C5-6 levels. The caliber of the cord in this region appears reduc ed. This appearance is felt to be most consistent with myelomalacia. T here is no other definite cord signal abnormality. 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 There is mild wedgin g of T1 which may be developmental or secondary to old trauma. There is degenerative disc space narrowing with disc desiccation at C2-3, C3-4, and C4-5. There are retrolistheses of C3 on C4, C4 on C5, and C5 on C6. There is mild Modic type II endplate degenerative signal change at C4-5 with degenerative subcortical cystic change involv ing the posterior aspect of the superior endplate of C5. At C2-3 there is a c entral disc protrusion with endplate spurring. Severe canal narrowi ng is produced by the disc abnormality, underlying canal configuration and posterior ligamentous thickening with the sagittal diameter of the spinal canal measuring roughly 7 mm. There is no foraminal narrowing. At C3-4 there is mil d posterior disc bulging and bilateral uncovertebral joint spurring with a posterior central disc protrusion measuring roughly 1. 5 mm. Severe canal narrowing is produced by the disc abnormality, retrolisthesis, underlying canal configuration, and posterior ligamentou s thickening with the sagittal diameter of the spinal canal measuri ng roughly 4 mm. The cord appears indented by the central disc protrus ion on the axial series. Mild facet joint degenerative changes are present bilaterally. There is severe left foraminal narrowing and moderate right. At C4-5 there is mil d posterior disc bulging and bilateral uncovertebral joint spurring. There is a central disc herniation measuring roughly 2 mm in AP and 4 mm in transverse dimensions and which exhibits rough ly 3 mm of caudal extension. This indents the anterior aspect of t he cord. There is severe canal narrowing at this level secondary to t he disc abnormality, retrolisthesis, underlying canal configuration and some posterior ligamentous thickening with the sagittal diameter of the spinal canal measuring roughly 4 mm. Mild facet joint degenera tive changes are present bilaterally. There is severe bilateral for aminal narrowing. At C5-6 there is mil d posterior disc bulging and bilateral uncovertebral joint spurring. There is a posterior central disc herniation measuring roughly 2 mm in AP and 4 mm in transverse dimensions and which exhibits approximately 2 mm of caudal extension. Severe canal narrowi ng is produced by the disc abnormality, underlying canal configuration, retrolisthesis, and some posterior ligamentous thickening with the sagittal diameter of the spinal canal measuring roughly 6 mm. Modera te facet joint degenerative changes are present bilaterally. There i s severe bilateral foraminal narrowing. At C6-7 there is mil d posterior disc bulging and bilateral uncovertebral joint spurring. There is a central disc protrusion measuring roughly 2 mm in AP dimension. Moderate canal narrowing is produced by the disc abnormality, underlying canal configuration, and posterior ligamentou s thickening with the sagittal diameter of the spinal canal measuri ng roughly 8 mm. Moderate facet joint degenerative changes are present bilaterally. There is severe bilateral foraminal narrowing. At C7-T1 there is mi ld posterior disc bulging and bilateral uncovertebral joint spurring. There is a central disc protrusion and associated high inte nsity zone in keeping with an annular fissure. The protrusion measures roughly 2.5 mm in AP and 3.5 mm in transverse dimensions. Severe c anal narrowing is produced by the disc abnormality and underlying canal configuration with the sagittal diameter of the spinal canal measuri ng roughly 6.3 mm. Moderate facet joint degenerative changes are present bilaterally. There is severe bilateral foraminal narrowing. At T1-T2 there is mi ld posterior disc bulging. Mild canal narrowing is produced by the disc abnormality. Mild facet joint degenerative changes are present bilaterally. There is mild bilateral foraminal narrowing. At T2-3 there is pos terior disc bulging with a central disc protrusion demonstrated on the sagittal series. Mild canal narrowing is likely produced. When today''s study is compared to the previous cervical MR of 31 January 2018, the likely mye lomalacic change in the cervical spinal cord appears slightly mor e extensive in its craniocaudal extension. The central disc herniat ions at C4-5 and C5-6 are new with slightly greater canal narrow ing at those levels. The other disc abnormalities and canal narrowing are likely similar. IMPRESSION: Abnormal increased T 2/STIR signal intensity within the cervical spinal cord extending from mid C4 through the C5-6 levels and which is associated with redu ction in the caliber of the cord consistent with myelomalacia. This a ppears slightly greater in its craniocaudal extent than on previous jackie dy. Clinical correlation is recommended. Post gadolinium imaging i s a consideration for further evaluation. Underlying congenita l narrowing of the cervical spinal canal. Multilevel cervical degenerative disc and joint disease with spondylosis, central disc protrusions at C3-4 and C6-7, central disc herniations at C4-5 and C5-6, canal narrowing, and foraminal narrowing, as detail ed above. There is severe canal narrowing at all levels from C2 throu gh C6 and at C7-T1 with moderate canal narrowing at C6-7. Clinical co rrelation is recommended. Results discussed wi Dr. Otto''s medical billing supervisor, Hortensia Delgado, on 11 June 2024 at approximately 1030 hours. CFG:jfr Read by: Ken Easley M.D. Reviewed and Electro nically Signed by: Ken Easley M.D. MR Knee WO Reviewed date:05/04/2024 10:50:56 PM Interpretation: Performing Lab: Notes/Report: Original Report EXAMINATION: MR left knee without contrast HISTORY: Left knee pain FINDINGS: MR images of the left knee were performed with an extremity coil on a 1.5 Rachelle magnet. Transverse proton density, sagittal proton density and T2, and coronal T1 and T2 weighted images are obtained without contrast. There are no prior studies for comparison. There is a nondisplaced horizontal undersurface tear body, posterior horn and posterior root medial meniscus with small posterior para meniscal cyst. There is mild partial-thickness chondrosis of the medial femoral condyle and medial tibial plateau. The lateral meniscus and lateral compartment articular cartilage are normal. The patellofemoral articular cartilage is normal. The cruciate and collateral ligaments are intact. There is mild distal patellar tendinopathy and heterotopic ossification without tendon tear. The extensor mechanism otherwise appears intact. There is a small left knee joint effusion and Fitzpatrick''s cyst. No fracture. IMPRESSION: 1. Nondisplaced horizontal undersurface tear body, posterior horn and posterior root left medial meniscus with small posterior para meniscal cyst. 2. Mild distal left patellar tendinopathy without tendon tear. 3. Mild medial compartment left knee chondrosis. 4. Small left knee joint effusion and Fitzpatrick''s cyst. . Read by: Nedra Raines M.D. Reviewed and Electronically Signed by: Nedra Raines M.D. - Original Report EXAMINATION: MR left knee without contrast HISTORY: Left knee pain FINDINGS: MR images of the left knee were performed with an extremity coil on a 1.5 Rachelle magnet. Transverse proton density, sagittal proton density and T2, and coronal T1 and T2 weighted images are obtained without contrast. There are no prior s tudies for comparison. There is a nondispla mookie horizontal undersurface tear body, posterior horn and posterior r oot medial meniscus with small posterior para meniscal cyst. There is mild partial-thickness chondrosis of the medial femoral condy le and medial tibial plateau. The lateral meniscus and lateral compartment articular cartilage are normal. The patellofemoral a rticular cartilage is normal. The cruciate and col lateral ligaments are intact. There is mild distal patellar tendinopath y and heterotopic ossification without tendon tear. The extensor m echanism otherwise appears intact. There is a small lef t knee joint effusion and Fitzpatrick''s cyst. No fracture. IMPRESSION: 1. Nondisplaced hori zontal undersurface tear body, posterior horn and posterior root left medial meniscus with small posterior para meniscal cyst. 2. Mild distal left patellar tendinopathy without tendon tear. 3. Mild medial eddie rtment left knee chondrosis. 4. Small left knee j oint effusion and Fitzpatrick''s cyst. . Read by: Nedra Raines M.D. Reviewed and Electro nically Signed by: Nedra Raines M.D. Reason For Referral No Information Medications Medication SIG (Take, Route, Frequency, Duration) Notes Start Date End Date Status Lubiprostone 24 MCG TAKE 1 CAPSULE BY MOUTH TWICE DAILY FOR 30 DAYS Oral for 30 Days Active methylPREDNISolone 4 MG TAKE DIRECTED ON PACKAGE Oral for 6 Days Active Tamsulosin HCl 0.4 MG TAKE 1 CAPSULE BY MOUTH AT BEDTIME Oral for 30 Days Active HYDROcodone-Acetaminophen 5-325 MG TAKE 1 TABLET BY MOUTH EVERY 4 TO 6 HOURS NEEDED FOR PAIN Oral for 2 Days Active Omeprazole 20 MG TAKE 1 CAPSULE BY MOUTH ONCE DAILY Oral for 30 Days Active Methocarbamol 500 MG TAKE 1 TABLET BY [facility] THREE TIMES DAILY NEEDED FOR MUSCLE SPASM Oral for 10 Days Active methylPREDNISolone 4 MG TAKE DIRECTED ON PACKAGE Oral for 6 Days Active Albuterol Sulfate HFA 108 (9 0 Base) MCG/ACT INHALE 1 TO 2 PUFFS BY MOUTH EVERY 4 HOURS NEEDED FOR SHORTNESS OF BREATH AND FOR WHEEZING Inhalation for 17 Days Active Problems Problem Type SNOMED Code ICD Code Onset Dates Problem Status W/U Status Risk Notes Problem Cervical spondylosis (400107908) Cervical spondylosis (M47.812) Active confirmed Problem 861041224 Lumbar spondylosis (M47.816) Active confirmed Problem Leg length discrepancy (485276483) Leg length discrepancy (M21.70) Active confirmed Problem 81989640 Sacroiliitis (M46.1) Active confirmed Problem 226644671 SI (sacroiliac) joint dysfunction (M53.3) Active confirmed Problem 84547102 DDD (degenerative disc disease), cervical (M50.30) Active confirmed Problem 26273996 Cervical spinal stenosis (M48.02) Active confirmed Vital Signs Heart Rate 76 /min 07/04/2024 Height-cm 180.34 cm 07/04/2024 Blood pressure diastolic 76 mm Hg 07/04/2024 Weight-kg 102.06 kg 07/04/2024 Height 5ft 11in in 07/04/2024 Blood pressure systolic 121 mm Hg 07/04/2024 Weight 225 lbs 07/04/2024 BMI 31.38 kg/m2 07/04/2024 Encounters Encounter Location Date Provider Diagnosis [facility] [address] [place] [address] [address] [place] [address] 07/04/2024 Fam Mix Leg length discrepan cy M21.70 ; Lumbar spondylosis M47.816 ; SI (sacroiliac) joint dysfunction M53.3 ; Sacroiliitis M46.1 ; Cervical spondylosis M47.812 ; DDD (degenerative disc disease), cervical M50.30 and Cervical spinal stenosis M48.02 [facility] [address] [place] [address] [address] [place] [address] 04/25/2024 Fam Mix Left knee pain M25.5 62 ; Right shoulder pain M25.511 ; Hip pain, right M25.551 ; Left hip pain M25.552 ; Lumbar back pain M54.50 ; Leg length discrepancy M21.70 ; Lumbar spondylosis M47.816 ; Degeneration of intervertebral disc of lumbar region with discogenic back pain M51.360 and Screening for substance abuse Z13.89 [facility] [address] [place] [address] [address] [place] [address] 05/09/2024 Fam Mix Sacroiliitis M46.1 [facility] [address] [place] [address] [address] [place] [address] 05/30/2024 Fam Mix Cervical spondylosis M47.812 ; DDD (degenerative disc disease), cervical M50.30 and Cervical spinal stenosis M48.02 [facility] [address] [place] [address] [address] [place] [address] 06/29/2024 Fam Mix Assessments Encounter Date Diagnosis (ICD Code) Assessment Notes Treatment Notes Treatment Clinical Notes Section Notes 07/04/2024 Leg length discrepancy (ICD-10 - M21.70) C-spine MRI without contrast 06/08/24; congenital narrowing of cervical spinal canal, myelomalacia from C 4 to C5-6 level, cervical disc protrusion at C3-4 to C6-7 central canal stenosis severe at all levels from C2-6 , C7-T1 and moderate at C6-7, and multilevel foraminal stenosis. , imaging study has been reviewed and updated with the patient , and all the questions have been answered with satisfaction Patient has been evaluated by Dr. Rivera orthopedic surgeon and the knee replacement has been scheduled on 07/26/24, patient has been told the left hip pain will be further evaluated and addressed after knee surgery done, patient has had the cervical spine MRI study without contrast done shows multilevel cervical central canal stenosis with the disc bulging / facet arthropathy /myelomalacia, the imaging study has been reviewed , he has been referred to Dr. Vincent for surgical evaluation Patient denies getting any response from Dr. Vincent yet , we will call Dr. Vincent' office to assist scheduling the appointment timely 05/09/2024 Sacroiliitis (ICD-10 - M46.1) I am going to refer him back to Dr. Rivera who saw him before for surgical re-evaluation of left hip and knee pain , which has limited response to the nonsurgical pain management including injection/ physical therapy Left SI joint injection today, Instructed to start some manual therapy and deep myofascial release, patient did completed physical therapy around the February 2024 without significant benefit. Patient also has some pain on the left lower quadrant , he has history of hernia repair with mesh placement over 10 years ago, he feels [id number] , patient has been evaluated by general surgeon about 3-4 months ago and underwent imaging studies, he has been told no need surgical operation/re , patient feels significant discomfort on the left low quadrant with and feels new herniation, patient wants to seeking 2nd opinion. I will refer him to Dr. Fall , general surgeon for evaluation and treatment 04/25/2024 Left knee pain (ICD-10 - M25.562) IMPRESSION: Lumbar degenerative disc disease Lumbar spondylosis with facet arthropathy Myofascial pain SI joint dysfunction Bilateral hip osteoarthritis Left knee osteoarthritis Right shoulder arthritis Office x-ray PA view of the bilateral Hip/ankle x-ray ordered for leg discrepancy evaluation, which shows equal L-spine x-ray multilevel lumbar spondylosis with facet arthropathy, multilevel endplate reaction and the osteophytes old T12 until a wedge compression fracture at T12, multilevel lumbar DDD lumbar spine flexion/extensio n view shows no significant change alignment by the provocative maneuver Right shoulder x-ray osteoarthritis at the GH joint no subluxation/frac ture possible type 2 AC joint separation Bilateral hip x-ray: No fracture/disloca tion, bilateral hip osteoarthritis Left knee x-ray tricompartment knee osteoarthritis, fracture no subluxation We have reevaluated the patient using PMQ-R, CESD-R, and GPCOG assessments, based on data collected from the PMQ-R , we are evaluating the risk for abuse, misuse and diversion , Furthermore, we are screening the patient for depressing using CESD-R assessments, Lastly, we are utilizing GPCPG to ensure that the current treatment plan is not impairing cognition. Patient has low risk of medication misuse /abuse , patient has low risk of depression , patient has low risk of impairing cognition . PLAN: -Referral/Imagin g/diagnostic study: imaging study has been reviewed and updated with the patient , and all the questions have been answered with satisfaction We will follow-up the left knee MRI study result -Interventional treatment: After discussing the benefit and risk/complicatio n including but not limited bleeding, infection, nerve damage, allergic reaction, spinal fluid leak, paralysis, and of the left hip intra-articular steroid injection fluoroscopic guidance were discussed with the patient who verbalized understanding and agrees to proceed today -Medications: Patient did try the OTC pain medication without significant benefit -Physical therapy/chiropra ctic therapy : He did try the physical therapy 2 months ago without significant benefit I have discussed the findings of this examination with the patient. The discussion included a complete verbal explanation of the examination results, diagnosis and planned treatment(s). Contact the office if there are any problems, go to ER for after hour uncontrolled pain or numbness/tinglin g/incontinence. Activity as tolerated. A schedule for future care needs was explained. Patient verbalizes understanding of these instructions at this time. 04/25/2024 Right shoulder pain (ICD-10 - M25.511) IMPRESSION: Lumbar degenerative disc disease Lumbar spondylosis with facet arthropathy Myofascial pain SI joint dysfunction Bilateral hip osteoarthritis Left knee osteoarthritis Right shoulder arthritis Office x-ray PA view of the bilateral Hip/ankle x-ray ordered for leg discrepancy evaluation, which shows equal L-spine x-ray multilevel lumbar spondylosis with facet arthropathy, multilevel endplate reaction and the osteophytes old T12 until a wedge compression fracture at T12, multilevel lumbar DDD lumbar spine flexion/extensio n view shows no significant change alignment by the provocative maneuver Right shoulder x-ray osteoarthritis at the GH joint no subluxation/frac ture possible type 2 AC joint separation Bilateral hip x-ray: No fracture/disloca tion, bilateral hip osteoarthritis Left knee x-ray tricompartment knee osteoarthritis, fracture no subluxation We have reevaluated the patient using PMQ-R, CESD-R, and GPCOG assessments, based on data collected from the PMQ-R , we are evaluating the risk for abuse, misuse and diversion , Furthermore, we are screening the patient for depressing using CESD-R assessments, Lastly, we are utilizing GPCPG to ensure that the current treatment plan is not impairing cognition. Patient has low risk of medication misuse /abuse , patient has low risk of depression , patient has low risk of impairing cognition . PLAN: -Referral/Imagin g/diagnostic study: imaging study has been reviewed and updated with the patient , and all the questions have been answered with satisfaction We will follow-up the left knee MRI study result -Interventional treatment: After discussing the benefit and risk/complicatio n including but not limited bleeding, infection, nerve damage, allergic reaction, spinal fluid leak, paralysis, and of the left hip intra-articular steroid injection fluoroscopic guidance were discussed with the patient who verbalized understanding and agrees to proceed today -Medications: Patient did try the OTC pain medication without significant benefit -Physical therapy/chiropra ctic therapy : He did try the physical therapy 2 months ago without significant benefit I have discussed the findings of this examination with the patient. The discussion included a complete verbal explanation of the examination results, diagnosis and planned treatment(s). Contact the office if there are any problems, go to ER for after hour uncontrolled pain or numbness/tinglin g/incontinence. Activity as tolerated. A schedule for future care needs was explained. Patient verbalizes understanding of these instructions at this time. 05/30/2024 Cervical spondylosis (ICD-10 - M47.812) His Most recent C-spine MRI study was done in 2018 : mild myelomalacia at the C4-5 . Multilevel cervical DDD stenosis and foraminal stenosis, multilevel spondylosis Cervical spine x-ray done today : diffused cervical spondylosis with facet arthropathy, multilevel cervical spondylosis, cervical spine hinged around the C4-5 level on extension view, no subluxation, multilevel bone spurs , no fracture imaging study has been reviewed and updated with the patient , and all the questions have been answered with satisfaction C-spine MRI study without contrast has been ordered for evaluating the cervical degenerative disease including cervical DDD/stenosis/ myelomalacia 05/30/2024 DDD (degenerative disc disease), cervical (ICD-10 - M50.30) His Most recent C-spine MRI study was done in 2018 : mild myelomalacia at the C4-5 . Multilevel cervical DDD stenosis and foraminal stenosis, multilevel spondylosis Cervical spine x-ray done today : diffused cervical spondylosis with facet arthropathy, multilevel cervical spondylosis, cervical spine hinged around the C4-5 level on extension view, no subluxation, multilevel bone spurs , no fracture imaging study has been reviewed and updated with the patient , and all the questions have been answered with satisfaction C-spine MRI study without contrast has been ordered for evaluating the cervical degenerative disease including cervical DDD/stenosis/ myelomalacia 05/30/2024 Cervical spinal stenosis (ICD-10 - M48.02) His Most recent C-spine MRI study was done in 2018 : mild myelomalacia at the C4-5 . Multilevel cervical DDD stenosis and foraminal stenosis, multilevel spondylosis Cervical spine x-ray done today : diffused cervical spondylosis with facet arthropathy, multilevel cervical spondylosis, cervical spine hinged around the C4-5 level on extension view, no subluxation, multilevel bone spurs , no fracture imaging study has been reviewed and updated with the patient , and all the questions have been answered with satisfaction C-spine MRI study without contrast has been ordered for evaluating the cervical degenerative disease including cervical DDD/stenosis/ myelomalacia 04/25/2024 Hip pain, right (ICD-10 - M25.551) IMPRESSION: Lumbar degenerative disc disease Lumbar spondylosis with facet arthropathy Myofascial pain SI joint dysfunction Bilateral hip osteoarthritis Left knee osteoarthritis Right shoulder arthritis Office x-ray PA view of the bilateral Hip/ankle x-ray ordered for leg discrepancy evaluation, which shows equal L-spine x-ray multilevel lumbar spondylosis with facet arthropathy, multilevel endplate reaction and the osteophytes old T12 until a wedge compression fracture at T12, multilevel lumbar DDD lumbar spine flexion/extensio n view shows no significant change alignment by the provocative maneuver Right shoulder x-ray osteoarthritis at the GH joint no subluxation/frac ture possible type 2 AC joint separation Bilateral hip x-ray: No fracture/disloca tion, bilateral hip osteoarthritis Left knee x-ray tricompartment knee osteoarthritis, fracture no subluxation We have reevaluated the patient using PMQ-R, CESD-R, and GPCOG assessments, based on data collected from the PMQ-R , we are evaluating the risk for abuse, misuse and diversion , Furthermore, we are screening the patient for depressing using CESD-R assessments, Lastly, we are utilizing GPCPG to ensure that the current treatment plan is not impairing cognition. Patient has low risk of medication misuse /abuse , patient has low risk of depression , patient has low risk of impairing cognition . PLAN: -Referral/Imagin g/diagnostic study: imaging study has been reviewed and updated with the patient , and all the questions have been answered with satisfaction We will follow-up the left knee MRI study result -Interventional treatment: After discussing the benefit and risk/complicatio n including but not limited bleeding, infection, nerve damage, allergic reaction, spinal fluid leak, paralysis, and of the left hip intra-articular steroid injection fluoroscopic guidance were discussed with the patient who verbalized understanding and agrees to proceed today -Medications: Patient did try the OTC pain medication without significant benefit -Physical therapy/chiropra ctic therapy : He did try the physical therapy 2 months ago without significant benefit I have discussed the findings of this examination with the patient. The discussion included a complete verbal explanation of the examination results, diagnosis and planned treatment(s). Contact the office if there are any problems, go to ER for after hour uncontrolled pain or numbness/tinglin g/incontinence. Activity as tolerated. A schedule for future care needs was explained. Patient verbalizes understanding of these instructions at this time. 07/04/2024 Lumbar spondylosis (ICD-10 - M47.816) C-spine MRI without contrast 06/08/24; congenital narrowing of cervical spinal canal, myelomalacia from C 4 to C5-6 level, cervical disc protrusion at C3-4 to C6-7 central canal stenosis severe at all levels from C2-6 , C7-T1 and moderate at C6-7, and multilevel foraminal stenosis. , imaging study has been reviewed and updated with the patient , and all the questions have been answered with satisfaction Patient has been evaluated by Dr. Rivera orthopedic surgeon and the knee replacement has been scheduled on 07/26/24, patient has been told the left hip pain will be further evaluated and addressed after knee surgery done, patient has had the cervical spine MRI study without contrast done shows multilevel cervical central canal stenosis with the disc bulging / facet arthropathy /myelomalacia, the imaging study has been reviewed , he has been referred to Dr. Vincent for surgical evaluation Patient denies getting any response from Dr. Vincent yet , we will call Dr. Vincent' office to assist scheduling the appointment timely 07/04/2024 SI (sacroiliac) joint dysfunction (ICD-10 - M53.3) C-spine MRI without contrast 06/08/24; congenital narrowing of cervical spinal canal, myelomalacia from C 4 to C5-6 level, cervical disc protrusion at C3-4 to C6-7 central canal stenosis severe at all levels from C2-6 , C7-T1 and moderate at C6-7, and multilevel foraminal stenosis. , imaging study has been reviewed and updated with the patient , and all the questions have been answered with satisfaction Patient has been evaluated by Dr. Rivera orthopedic surgeon and the knee replacement has been scheduled on 07/26/24, patient has been told the left hip pain will be further evaluated and addressed after knee surgery done, patient has had the cervical spine MRI study without contrast done shows multilevel cervical central canal stenosis with the disc bulging / facet arthropathy /myelomalacia, the imaging study has been reviewed , he has been referred to Dr. Vincent for surgical evaluation Patient denies getting any response from Dr. Vincent yet , we will call Dr. Vincent' office to assist scheduling the appointment timely 04/25/2024 Left hip pain (ICD-10 - M25.552) IMPRESSION: Lumbar degenerative disc disease Lumbar spondylosis with facet arthropathy Myofascial pain SI joint dysfunction Bilateral hip osteoarthritis Left knee osteoarthritis Right shoulder arthritis Office x-ray PA view of the bilateral Hip/ankle x-ray ordered for leg discrepancy evaluation, which shows equal L-spine x-ray multilevel lumbar spondylosis with facet arthropathy, multilevel endplate reaction and the osteophytes old T12 until a wedge compression fracture at T12, multilevel lumbar DDD lumbar spine flexion/extensio n view shows no significant change alignment by the provocative maneuver Right shoulder x-ray osteoarthritis at the GH joint no subluxation/frac ture possible type 2 AC joint separation Bilateral hip x-ray: No fracture/disloca tion, bilateral hip osteoarthritis Left knee x-ray tricompartment knee osteoarthritis, fracture no subluxation We have reevaluated the patient using PMQ-R, CESD-R, and GPCOG assessments, based on data collected from the PMQ-R , we are evaluating the risk for abuse, misuse and diversion , Furthermore, we are screening the patient for depressing using CESD-R assessments, Lastly, we are utilizing GPCPG to ensure that the current treatment plan is not impairing cognition. Patient has low risk of medication misuse /abuse , patient has low risk of depression , patient has low risk of impairing cognition . PLAN: -Referral/Imagin g/diagnostic study: imaging study has been reviewed and updated with the patient , and all the questions have been answered with satisfaction We will follow-up the left knee MRI study result -Interventional treatment: After discussing the benefit and risk/complicatio n including but not limited bleeding, infection, nerve damage, allergic reaction, spinal fluid leak, paralysis, and of the left hip intra-articular steroid injection fluoroscopic guidance were discussed with the patient who verbalized understanding and agrees to proceed today -Medications: Patient did try the OTC pain medication without significant benefit -Physical therapy/chiropra ctic therapy : He did try the physical therapy 2 months ago without significant benefit I have discussed the findings of this examination with the patient. The discussion included a complete verbal explanation of the examination results, diagnosis and planned treatment(s). Contact the office if there are any problems, go to ER for after hour uncontrolled pain or numbness/tinglin g/incontinence. Activity as tolerated. A schedule for future care needs was explained. Patient verbalizes understanding of these instructions at this time. 04/25/2024 Lumbar back pain (ICD-10 - M54.50) IMPRESSION: Lumbar degenerative disc disease Lumbar spondylosis with facet arthropathy Myofascial pain SI joint dysfunction Bilateral hip osteoarthritis Left knee osteoarthritis Right shoulder arthritis Office x-ray PA view of the bilateral Hip/ankle x-ray ordered for leg discrepancy evaluation, which shows equal L-spine x-ray multilevel lumbar spondylosis with facet arthropathy, multilevel endplate reaction and the osteophytes old T12 until a wedge compression fracture at T12, multilevel lumbar DDD lumbar spine flexion/extensio n view shows no significant change alignment by the provocative maneuver Right shoulder x-ray osteoarthritis at the GH joint no subluxation/frac ture possible type 2 AC joint separation Bilateral hip x-ray: No fracture/disloca tion, bilateral hip osteoarthritis Left knee x-ray tricompartment knee osteoarthritis, fracture no subluxation We have reevaluated the patient using PMQ-R, CESD-R, and GPCOG assessments, based on data collected from the PMQ-R , we are evaluating the risk for abuse, misuse and diversion , Furthermore, we are screening the patient for depressing using CESD-R assessments, Lastly, we are utilizing GPCPG to ensure that the current treatment plan is not impairing cognition. Patient has low risk of medication misuse /abuse , patient has low risk of depression , patient has low risk of impairing cognition . PLAN: -Referral/Imagin g/diagnostic study: imaging study has been reviewed and updated with the patient , and all the questions have been answered with satisfaction We will follow-up the left knee MRI study result -Interventional treatment: After discussing the benefit and risk/complicatio n including but not limited bleeding, infection, nerve damage, allergic reaction, spinal fluid leak, paralysis, and of the left hip intra-articular steroid injection fluoroscopic guidance were discussed with the patient who verbalized understanding and agrees to proceed today -Medications: Patient did try the OTC pain medication without significant benefit -Physical therapy/chiropra ctic therapy : He did try the physical therapy 2 months ago without significant benefit I have discussed the findings of this examination with the patient. The discussion included a complete verbal explanation of the examination results, diagnosis and planned treatment(s). Contact the office if there are any problems, go to ER for after hour uncontrolled pain or numbness/tinglin g/incontinence. Activity as tolerated. A schedule for future care needs was explained. Patient verbalizes understanding of these instructions at this time. 07/04/2024 Sacroiliitis (ICD-10 - M46.1) C-spine MRI without contrast 06/08/24; congenital narrowing of cervical spinal canal, myelomalacia from C 4 to C5-6 level, cervical disc protrusion at C3-4 to C6-7 central canal stenosis severe at all levels from C2-6 , C7-T1 and moderate at C6-7, and multilevel foraminal stenosis. , imaging study has been reviewed and updated with the patient , and all the questions have been answered with satisfaction Patient has been evaluated by Dr. Rivera orthopedic surgeon and the knee replacement has been scheduled on 07/26/24, patient has been told the left hip pain will be further evaluated and addressed after knee surgery done, patient has had the cervical spine MRI study without contrast done shows multilevel cervical central canal stenosis with the disc bulging / facet arthropathy /myelomalacia, the imaging study has been reviewed , he has been referred to Dr. Vincent for surgical evaluation Patient denies getting any response from Dr. Vincent yet , we will call Dr. Vincent' office to assist scheduling the appointment timely 07/04/2024 Cervical spondylosis (ICD-10 - M47.812) C-spine MRI without contrast 06/08/24; congenital narrowing of cervical spinal canal, myelomalacia from C 4 to C5-6 level, cervical disc protrusion at C3-4 to C6-7 central canal stenosis severe at all levels from C2-6 , C7-T1 and moderate at C6-7, and multilevel foraminal stenosis. , imaging study has been reviewed and updated with the patient , and all the questions have been answered with satisfaction Patient has been evaluated by Dr. Rivera orthopedic surgeon and the knee replacement has been scheduled on 07/26/24, patient has been told the left hip pain will be further evaluated and addressed after knee surgery done, patient has had the cervical spine MRI study without contrast done shows multilevel cervical central canal stenosis with the disc bulging / facet arthropathy /myelomalacia, the imaging study has been reviewed , he has been referred to Dr. Vincent for surgical evaluation Patient denies getting any response from Dr. Vincent yet , we will call Dr. Vincent' office to assist scheduling the appointment timely 04/25/2024 Leg length discrepancy (ICD-10 - M21.70) IMPRESSION: Lumbar degenerative disc disease Lumbar spondylosis with facet arthropathy Myofascial pain SI joint dysfunction Bilateral hip osteoarthritis Left knee osteoarthritis Right shoulder arthritis Office x-ray PA view of the bilateral Hip/ankle x-ray ordered for leg discrepancy evaluation, which shows equal L-spine x-ray multilevel lumbar spondylosis with facet arthropathy, multilevel endplate reaction and the osteophytes old T12 until a wedge compression fracture at T12, multilevel lumbar DDD lumbar spine flexion/extensio n view shows no significant change alignment by the provocative maneuver Right shoulder x-ray osteoarthritis at the GH joint no subluxation/frac ture possible type 2 AC joint separation Bilateral hip x-ray: No fracture/disloca tion, bilateral hip osteoarthritis Left knee x-ray tricompartment knee osteoarthritis, fracture no subluxation We have reevaluated the patient using PMQ-R, CESD-R, and GPCOG assessments, based on data collected from the PMQ-R , we are evaluating the risk for abuse, misuse and diversion , Furthermore, we are screening the patient for depressing using CESD-R assessments, Lastly, we are utilizing GPCPG to ensure that the current treatment plan is not impairing cognition. Patient has low risk of medication misuse /abuse , patient has low risk of depression , patient has low risk of impairing cognition . PLAN: -Referral/Imagin g/diagnostic study: imaging study has been reviewed and updated with the patient , and all the questions have been answered with satisfaction We will follow-up the left knee MRI study result -Interventional treatment: After discussing the benefit and risk/complicatio n including but not limited bleeding, infection, nerve damage, allergic reaction, spinal fluid leak, paralysis, and of the left hip intra-articular steroid injection fluoroscopic guidance were discussed with the patient who verbalized understanding and agrees to proceed today -Medications: Patient did try the OTC pain medication without significant benefit -Physical therapy/chiropra ctic therapy : He did try the physical therapy 2 months ago without significant benefit I have discussed the findings of this examination with the patient. The discussion included a complete verbal explanation of the examination results, diagnosis and planned treatment(s). Contact the office if there are any problems, go to ER for after hour uncontrolled pain or numbness/tinglin g/incontinence. Activity as tolerated. A schedule for future care needs was explained. Patient verbalizes understanding of these instructions at this time. 04/25/2024 Lumbar spondylosis (ICD-10 - M47.816) IMPRESSION: Lumbar degenerative disc disease Lumbar spondylosis with facet arthropathy Myofascial pain SI joint dysfunction Bilateral hip osteoarthritis Left knee osteoarthritis Right shoulder arthritis Office x-ray PA view of the bilateral Hip/ankle x-ray ordered for leg discrepancy evaluation, which shows equal L-spine x-ray multilevel lumbar spondylosis with facet arthropathy, multilevel endplate reaction and the osteophytes old T12 until a wedge compression fracture at T12, multilevel lumbar DDD lumbar spine flexion/extensio n view shows no significant change alignment by the provocative maneuver Right shoulder x-ray osteoarthritis at the GH joint no subluxation/frac ture possible type 2 AC joint separation Bilateral hip x-ray: No fracture/disloca tion, bilateral hip osteoarthritis Left knee x-ray tricompartment knee osteoarthritis, fracture no subluxation We have reevaluated the patient using PMQ-R, CESD-R, and GPCOG assessments, based on data collected from the PMQ-R , we are evaluating the risk for abuse, misuse and diversion , Furthermore, we are screening the patient for depressing using CESD-R assessments, Lastly, we are utilizing GPCPG to ensure that the current treatment plan is not impairing cognition. Patient has low risk of medication misuse /abuse , patient has low risk of depression , patient has low risk of impairing cognition . PLAN: -Referral/Imagin g/diagnostic study: imaging study has been reviewed and updated with the patient , and all the questions have been answered with satisfaction We will follow-up the left knee MRI study result -Interventional treatment: After discussing the benefit and risk/complicatio n including but not limited bleeding, infection, nerve damage, allergic reaction, spinal fluid leak, paralysis, and of the left hip intra-articular steroid injection fluoroscopic guidance were discussed with the patient who verbalized understanding and agrees to proceed today -Medications: Patient did try the OTC pain medication without significant benefit -Physical therapy/chiropra ctic therapy : He did try the physical therapy 2 months ago without significant benefit I have discussed the findings of this examination with the patient. The discussion included a complete verbal explanation of the examination results, diagnosis and planned treatment(s). Contact the office if there are any problems, go to ER for after hour uncontrolled pain or numbness/tinglin g/incontinence. Activity as tolerated. A schedule for future care needs was explained. Patient verbalizes understanding of these instructions at this time. 07/04/2024 DDD (degenerative disc disease), cervical (ICD-10 - M50.30) C-spine MRI without contrast 06/08/24; congenital narrowing of cervical spinal canal, myelomalacia from C 4 to C5-6 level, cervical disc protrusion at C3-4 to C6-7 central canal stenosis severe at all levels from C2-6 , C7-T1 and moderate at C6-7, and multilevel foraminal stenosis. , imaging study has been reviewed and updated with the patient , and all the questions have been answered with satisfaction Patient has been evaluated by Dr. Rivera orthopedic surgeon and the knee replacement has been scheduled on 07/26/24, patient has been told the left hip pain will be further evaluated and addressed after knee surgery done, patient has had the cervical spine MRI study without contrast done shows multilevel cervical central canal stenosis with the disc bulging / facet arthropathy /myelomalacia, the imaging study has been reviewed , he has been referred to Dr. Vincent for surgical evaluation Patient denies getting any response from Dr. Vincent yet , we will call Dr. Vinecnt' office to assist scheduling the appointment timely 07/04/2024 Cervical spinal stenosis (ICD-10 - M48.02) C-spine MRI without contrast 06/08/24; congenital narrowing of cervical spinal canal, myelomalacia from C 4 to C5-6 level, cervical disc protrusion at C3-4 to C6-7 central canal stenosis severe at all levels from C2-6 , C7-T1 and moderate at C6-7, and multilevel foraminal stenosis. , imaging study has been reviewed and updated with the patient , and all the questions have been answered with satisfaction Patient has been evaluated by Dr. Rivera orthopedic surgeon and the knee replacement has been scheduled on 07/26/24, patient has been told the left hip pain will be further evaluated and addressed after knee surgery done, patient has had the cervical spine MRI study without contrast done shows multilevel cervical central canal stenosis with the disc bulging / facet arthropathy /myelomalacia, the imaging study has been reviewed , he has been referred to Dr. Vincent for surgical evaluation Patient denies getting any response from Dr. Vincent yet , we will call Dr. Vincent' office to assist scheduling the appointment timely 04/25/2024 Degeneration of intervertebral disc of lumbar region with discogenic back pain (ICD-10 - M51.360) IMPRESSION: Lumbar degenerative disc disease Lumbar spondylosis with facet arthropathy Myofascial pain SI joint dysfunction Bilateral hip osteoarthritis Left knee osteoarthritis Right shoulder arthritis Office x-ray PA view of the bilateral Hip/ankle x-ray ordered for leg discrepancy evaluation, which shows equal L-spine x-ray multilevel lumbar spondylosis with facet arthropathy, multilevel endplate reaction and the osteophytes old T12 until a wedge compression fracture at T12, multilevel lumbar DDD lumbar spine flexion/extensio n view shows no significant change alignment by the provocative maneuver Right shoulder x-ray osteoarthritis at the GH joint no subluxation/frac ture possible type 2 AC joint separation Bilateral hip x-ray: No fracture/disloca tion, bilateral hip osteoarthritis Left knee x-ray tricompartment knee osteoarthritis, fracture no subluxation We have reevaluated the patient using PMQ-R, CESD-R, and GPCOG assessments, based on data collected from the PMQ-R , we are evaluating the risk for abuse, misuse and diversion , Furthermore, we are screening the patient for depressing using CESD-R assessments, Lastly, we are utilizing GPCPG to ensure that the current treatment plan is not impairing cognition. Patient has low risk of medication misuse /abuse , patient has low risk of depression , patient has low risk of impairing cognition . PLAN: -Referral/Imagin g/diagnostic study: imaging study has been reviewed and updated with the patient , and all the questions have been answered with satisfaction We will follow-up the left knee MRI study result -Interventional treatment: After discussing the benefit and risk/complicatio n including but not limited bleeding, infection, nerve damage, allergic reaction, spinal fluid leak, paralysis, and of the left hip intra-articular steroid injection fluoroscopic guidance were discussed with the patient who verbalized understanding and agrees to proceed today -Medications: Patient did try the OTC pain medication without significant benefit -Physical therapy/chiropra ctic therapy : He did try the physical therapy 2 months ago without significant benefit I have discussed the findings of this examination with the patient. The discussion included a complete verbal explanation of the examination results, diagnosis and planned treatment(s). Contact the office if there are any problems, go to ER for after hour uncontrolled pain or numbness/tinglin g/incontinence. Activity as tolerated. A schedule for future care needs was explained. Patient verbalizes understanding of these instructions at this time. 04/25/2024 Screening for substance abuse (ICD-10 - Z13.89) IMPRESSION: Lumbar degenerative disc disease Lumbar spondylosis with facet arthropathy Myofascial pain SI joint dysfunction Bilateral hip osteoarthritis Left knee osteoarthritis Right shoulder arthritis Office x-ray PA view of the bilateral Hip/ankle x-ray ordered for leg discrepancy evaluation, which shows equal L-spine x-ray multilevel lumbar spondylosis with facet arthropathy, multilevel endplate reaction and the osteophytes old T12 until a wedge compression fracture at T12, multilevel lumbar DDD lumbar spine flexion/extensio n view shows no significant change alignment by the provocative maneuver Right shoulder x-ray osteoarthritis at the GH joint no subluxation/frac ture possible type 2 AC joint separation Bilateral hip x-ray: No fracture/disloca tion, bilateral hip osteoarthritis Left knee x-ray tricompartment knee osteoarthritis, fracture no subluxation We have reevaluated the patient using PMQ-R, CESD-R, and GPCOG assessments, based on data collected from the PMQ-R , we are evaluating the risk for abuse, misuse and diversion , Furthermore, we are screening the patient for depressing using CESD-R assessments, Lastly, we are utilizing GPCPG to ensure that the current treatment plan is not impairing cognition. Patient has low risk of medication misuse /abuse , patient has low risk of depression , patient has low risk of impairing cognition . PLAN: -Referral/Imagin g/diagnostic study: imaging study has been reviewed and updated with the patient , and all the questions have been answered with satisfaction We will follow-up the left knee MRI study result -Interventional treatment: After discussing the benefit and risk/complicatio n including but not limited bleeding, infection, nerve damage, allergic reaction, spinal fluid leak, paralysis, and of the left hip intra-articular steroid injection fluoroscopic guidance were discussed with the patient who verbalized understanding and agrees to proceed today -Medications: Patient did try the OTC pain medication without significant benefit -Physical therapy/chiropra ctic therapy : He did try the physical therapy 2 months ago without significant benefit I have discussed the findings of this examination with the patient. The discussion included a complete verbal explanation of the examination results, diagnosis and planned treatment(s). Contact the office if there are any problems, go to ER for after hour uncontrolled pain or numbness/tinglin g/incontinence. Activity as tolerated. A schedule for future care needs was explained. Patient verbalizes understanding of these instructions at this time. 07/04/2024 Other Body Mass Index: Care Instructions material was published, High Blood Pressure: Care Instructions material was published C-spine MRI without contrast 06/08/24; congenital narrowing of cervical spinal canal, myelomalacia from C 4 to C5-6 level, cervical disc protrusion at C3-4 to C6-7 central canal stenosis severe at all levels from C2-6 , C7-T1 and moderate at C6-7, and multilevel foraminal stenosis. , imaging study has been reviewed and updated with the patient , and all the questions have been answered with satisfaction Patient has been evaluated by Dr. Rivera orthopedic surgeon and the knee replacement has been scheduled on 07/26/24, patient has been told the left hip pain will be further evaluated and addressed after knee surgery done, patient has had the cervical spine MRI study without contrast done shows multilevel cervical central canal stenosis with the disc bulging / facet arthropathy /myelomalacia, the imaging study has been reviewed , he has been referred to Dr. Vincent for surgical evaluation Patient denies getting any response from Dr. Vicnent yet , we will call Dr. Vincent' office to assist scheduling the appointment timely 04/25/2024 Other Body Mass Index: Care Instructions material was published IMPRESSION: Lumbar degenerative disc disease Lumbar spondylosis with facet arthropathy Myofascial pain SI joint dysfunction Bilateral hip osteoarthritis Left knee osteoarthritis Right shoulder arthritis Office x-ray PA view of the bilateral Hip/ankle x-ray ordered for leg discrepancy evaluation, which shows equal L-spine x-ray multilevel lumbar spondylosis with facet arthropathy, multilevel endplate reaction and the osteophytes old T12 until a wedge compression fracture at T12, multilevel lumbar DDD lumbar spine flexion/extensio n view shows no significant change alignment by the provocative maneuver Right shoulder x-ray osteoarthritis at the GH joint no subluxation/frac ture possible type 2 AC joint separation Bilateral hip x-ray: No fracture/disloca tion, bilateral hip osteoarthritis Left knee x-ray tricompartment knee osteoarthritis, fracture no subluxation We have reevaluated the patient using PMQ-R, CESD-R, and GPCOG assessments, based on data collected from the PMQ-R , we are evaluating the risk for abuse, misuse and diversion , Furthermore, we are screening the patient for depressing using CESD-R assessments, Lastly, we are utilizing GPCPG to ensure that the current treatment plan is not impairing cognition. Patient has low risk of medication misuse /abuse , patient has low risk of depression , patient has low risk of impairing cognition . PLAN: -Referral/Imagin g/diagnostic study: imaging study has been reviewed and updated with the patient , and all the questions have been answered with satisfaction We will follow-up the left knee MRI study result -Interventional treatment: After discussing the benefit and risk/complicatio n including but not limited bleeding, infection, nerve damage, allergic reaction, spinal fluid leak, paralysis, and of the left hip intra-articular steroid injection fluoroscopic guidance were discussed with the patient who verbalized understanding and agrees to proceed today -Medications: Patient did try the OTC pain medication without significant benefit -Physical therapy/chiropra ctic therapy : He did try the physical therapy 2 months ago without significant benefit I have discussed the findings of this examination with the patient. The discussion included a complete verbal explanation of the examination results, diagnosis and planned treatment(s). Contact the office if there are any problems, go to ER for after hour uncontrolled pain or numbness/tinglin g/incontinence. Activity as tolerated. A schedule for future care needs was explained. Patient verbalizes understanding of these instructions at this time. 05/09/2024 Other Body Mass Index: Care Instructions material was published I am going to refer him back to Dr. Rivera who saw him before for surgical re-evaluation of left hip and knee pain , which has limited response to the nonsurgical pain management including injection/ physical therapy Left SI joint injection today, Instructed to start some manual therapy and deep myofascial release, patient did completed physical therapy around the February 2024 without significant benefit. Patient also has some pain on the left lower quadrant , he has history of hernia repair with mesh placement over 10 years ago, he feels [id number] , patient has been evaluated by general surgeon about 3-4 months ago and underwent imaging studies, he has been told no need surgical operation/re , patient feels significant discomfort on the left low quadrant with and feels new herniation, patient wants to seeking 2nd opinion. I will refer him to Dr. Fall , general surgeon for evaluation and treatment 05/30/2024 Other Body Mass Index: Care Instructions material was published, High Blood Pressure: Care Instructions material was published His Most recent C-spine MRI study was done in 2018 : mild myelomalacia at the C4-5 . Multilevel cervical DDD stenosis and foraminal stenosis, multilevel spondylosis Cervical spine x-ray done today : diffused cervical spondylosis with facet arthropathy, multilevel cervical spondylosis, cervical spine hinged around the C4-5 level on extension view, no subluxation, multilevel bone spurs , no fracture imaging study has been reviewed and updated with the patient , and all the questions have been answered with satisfaction C-spine MRI study without contrast has been ordered for evaluating the cervical degenerative disease including cervical DDD/stenosis/ myelomalacia Plan Of Treatment Pending Test Test Name Order Date X ray : Hip, bilateral 04/25/2024 X ray : Shoulder, right 04/25/2024 X ray : Knee, left 2 views 04/25/2024 Leg Length 04/25/2024 X ray : Spines, lumbar 4 views Insurance Providers Payer Name Payer Address Payer Phone Subscriber Number Group Number Insured Name Patient Relationship to Insured Coverage Start Date Coverage End Date [facility] [address] [place] [phone] [id number] Esequiel Neely Self - patient is the insured Medications Administered Medication Instructions Date of Administration Dosage Notes Hip Inj Intra-articular 04/25/2024 L EFT HIP INJ Sacroiliac Joint Injection 05/09/2024 LEFT SIJ Medical (General) History Surgical History Surgery Date(Month/Year) hernia both lower sides
--- OUTSIDE RECORDS SUMMARY | 2024-07-17 05:01 | XMS_ITS | Clinical Summary ---
Author Organization [facility] Address [address] [place] [address]. [place], [place] [id number] [place] [id number] Care Team Providers Care Manager Track Name Role Phone Unavailable Primary Care Provider Unavailabl e Social History Tobacco Use Types Packs/Day Years Used Date Smoking Tobacco: Never Assessed Sex and Gender Information Value Date Recorded Sex Assigned at Not on file Legal Sex Male 7:05 PM CDT Gender Identity Not on file Sexual Orientation Not on file Plan of Treatment Health Maintenance Due Date Last Done Comments Colorectal Cancer Screening Colonoscopy (10 Years) 1970 Annual Physical 1973 Hepatitis C 1988 DTaP, Tdap and Td Vaccines ( 1 - Tdap) 1989 Hepatitis B Vaccines (1 of 3 - 19+ 3-dose series) 1989 Zoster Vaccines (1 of 2) 2020 COVID-19 Vaccine (2023-2 5 season) 2024 Influenza Adult (#1) 2024 Meningococcal Vaccine Aged Out No salena avni eligible based on patient's age to complete this topic Pneumococcal Vaccine: Pediat rics (0 to 5 Years) and At-Risk Patients (6 to 64 Years) Aged Out No longer eligible b ased on patient's age to complete this topic RSV Immunizations Under 20 Months Aged Out No longer eligible based on patient's age to complete this topic
--- OUTSIDE RECORDS SUMMARY | 2024-07-17 05:01 | XMS_ITS ---
Author Organization [facility] Address [address] [place] [address] Care Team Providers Care Chief Gauger Name Role Phone Maria Del Rosario Fam Unavailable [phone] Allergies No Known Allergies Results Component Value Reference Range Notes MR Cervical WO Reviewed date:06/12/2024 11:01:49 PM [...] recommended. Results discussed with Dr. Otto''s medical practice assistant, Hortensia Delgado, on 11 June 2024 at [...] recommended. Results discussed wi Dr. Otto''s medical practice assistant, Hortensia Delgado, on 11 June 2024 at approximately 1030 hours. CFG:jfr Read by: Ken Easley M.D. Reviewed and Electro nically Signed by: Ken Easley M.D. X ray : Spines, cervical 4 v iews Reviewed date:05/30/2024 03:44:45 PM Interpretation: Performing Lab: Notes/Report: REASON FOR VISIT 3 week f/u Medications Medication SIG (Take, Route, Frequency, Duration) Notes Start Date End Date Status methylPREDNISolone 4 MG TAKE DIRECTED ON PACKAGE Oral for 6 Days Active Methocarbamol 500 MG TAKE 1 TABLET [facility] THREE TIMES DAILY NEEDED FOR MUSCLE SPASM Oral for 10 Days Active methylPREDNISolone 4 MG TAKE DIRECTED ON PACKAGE Oral for 6 Days Active Albuterol Sulfate HFA 108 (9 0 Base) MCG/ACT INHALE 1 TO 2 PUFFS BY MOUTH EVERY 4 HOURS NEEDED FOR SHORTNESS OF BREATH AND FOR WHEEZING Inhalation for 17 Days Active Tamsulosin HCl 0.4 MG TAKE 1 CAPSULE BY MOUTH AT BEDTIME Oral for 30 Days Active Lubiprostone 24 MCG TAKE 1 CAPSULE BY MOUTH TWICE DAILY FOR 30 DAYS Oral for 30 Days Active Omeprazole 20 MG TAKE 1 CAPSULE BY MOUTH ONCE DAILY Oral for 30 Days Active Problems Problem Type SNOMED Code ICD Code Onset Dates Problem Status W/U Status Risk Notes Problem 85937802 DDD (degenerative disc disease), cervical (M50.30) Active confirmed Problem 53540715 Cervical spinal stenosis (M48.02) Active confirmed Vital Signs Blood pressure systolic 127 mm Hg 05/30/20 24 Blood pressure diastolic 80 mm Hg 024 Heart Rate 89 /min 05/30/2024 Height 7ru02dm in 05/30/2024 Weight 225 lbs 05/30/2024 BMI 31.38 kg/m2 05/30/2024 Height-cm 180.34 cm 05/30/2024 Weight-kg 102.06 kg 05/30/2024 Encounters Encounter Location Date Provider Diagnosis [facility] [address] [place] [address] 05/30/2024 Fam Mix Cervical spondylosis M47.812 ; DDD (degenerative disc disease), cervical M50.30 and Cervical spinal stenosis M48.02 Assessments Encounter Date Diagnosis (ICD Code) Assessment Notes Treatment Notes Treatment Clinical Notes Section Notes 05/30/2024 Cervical spondylosis (ICD-10 - M47.812) His [...] degenerative disease including cervical DDD/stenosis/ myelomalacia 05/30/2024 Other Body Mass Index : Care Instructions material was published, High Blood [...] including cervical DDD/stenosis/ myelomalacia Plan Of Treatment Treatment Notes Assessment Notes Other Body Mass Index: Car e Instructions material was published, High Blood Pressure: Care Instructions material was published Progress Notes * Esequiel GALLOWAY EDOB:1970 (54 yo M)Acc No.[id number]:05/30/2024 Progress Notes Patient:?Esequeil GALLOWAY Provider:?Fam Mix MD :1970???Age:54 Y???Sex:Male Francisco e:05/30/2024 Phone: Address:[address] [place] [id number] Subjective: * Chief Complaints: * ???3 week f/u * HPI: ???*Established Patient:?Patient returns for re-evaluation of ?chronic pain, patient underwent left SI joint injection which provided 60% improvement, patient has left hip and knee pain secondary to degenerative disease , patient has been referred to Dr. Rivera , orthopedic surgeon but did not any call for scheduling appointment yet ??? Patient has ?chronic neck pain and wants ?me to evaluate and treat , it is on the neck bilaterally more on the right side , patient denies any pain shooting down into the upper extremities, patient denies any muscle weakness or numbness tingling sensations on the upper extremities, patient has no bowel/bladder disturbance , patient has no recent imaging studies for my review. ?Established Patient Questionnaire:?1. Are you currently taking a Blood Thinner Medication??No ?2. Do you have an allergy to I.V. Contrast or Shellfish??No ?3. List any changes to medical history. (eg; Falls, Test, Scans, Blood Work, and Hospitalizations)?Test ?4. Have you been exposed to anyone with COVID in the last 2 weeks??No ?5. Have you been exposed to anyone with the FLU in the last 72 hours??No ?6. What is your Pain Level today? (1-10, Scroll and select one)?3 ?7. Where is your pain located??Neck,Left Knee ?8. After your last visit, what Percentage of improvement did you experience??60 ?9. Are you doing Physical Therapy, Chiropractic, or Massage Therapy??Yes ?10. Are you doing an at home Exercise Program??Yes ?11. What activities or positions increase your Pain? (Scroll to select one or multiple)?Standing,Walking ?12. What activities or positions decrease your Pain? (Scroll to select one or multiple)?Lying down ?13. How would you describe your Pain? (Scroll to select one or multiple)?Aching,Throbbing ?14. Are you having difficulty sleeping??Yes ?15. When was the last time you had your blood drawn? (Please enter your best estimate)?Dont knowYears ?16. When was your last Mammogram? (Please put N/A if you are male, for Females please put the best Estimate or Never. )?na ?17. When was your last Colonoscopy? (Please put the best Estimate or Never. )?08-18-22 ?18. Do you need any refills on your medications today??No ?19. Please list ALL changes to Medications or Allergies??Same ?20. Are you Diabetic??No ?21. Do you suffer from Constipation??Yes * ROS:?Ophthalmologic:?Patient complains of?double vision, change in vision, blurry vision, sensitivity to light, wears corrective lenses.?*ENT:?Patient complains of?nasal congestion, gum bleeding.?*Endocrine:?Patient complains of?cold intolerance.?*Respiratory:?Patient complains of?shortness of breath, cough, asthma inhaler, wheezing.?*Gastrointestinal:?Patient complains of?diarrhea, abdominal pain, recurrent acid reflux, constipation, heartburn, bloating, change in bowel habits.?*Musculoskeletal:?Patient complains of?joint stiffness, swelling, muscle cramps, numbness, back pain, painful joints.?*Neurologic:?Patient complains of?memory loss or lapses.?*Psychiatric:?Patient complains of?anxiety, difficulty sleeping, nervous.?*Neck:?Complains of?neck pain, cracking sensation felt, neck stiffness, muscle tightness.? * Medical History:? * Surgical History:? * Hospitalization/Major Diagno stic Procedure:? * Social History:?*Established Patient:?Smoking?Do you smoke??No ???*New Patient:?Tobacco Use?Do you smoke??No ?Recreational Drug Use?Do you use Recreational Drugs??No ???We have evaluated the patient using PMQ-R, CESD-R and GPCOG assessments. Based on data collected from the PMQ-R, we are evaluating the risk for abuse, misuse and diversion. Furthermore, we are screening the patient for depression using the CESD-R assessment. Lastly, we are utilizing GPCOG to ensure that the current treatment plan is not impairing cognition. Per assessments today the patient has low risk for depression, low risk for opioid misuse, abuse, and no cognitive impairment. * Medications:?TakingLubiprost one 24 MCG Capsule TAKE 1 CAPSULE BY MOUTH TWICE DAILY FOR 30 DAYS Oral Omeprazole 20 MG Capsule Delayed Release TAKE 1 CAPSULE BY MOUTH ONCE DAILY Oral Methocarbamol 500 MG Tablet TAKE 1 TABLET BY MOUTH THREE TIMES DAILY NEEDED FOR MUSCLE SPASM Oral methylPREDNISolone 4 MG Tablet Therapy Pack TAKE DIRECTED ON PACKAGE Oral Albuterol Sulfate HFA 108 (90 Base) MCG/ACT Aerosol Solution INHALE 1 TO 2 PUFFS BY MOUTH EVERY 4 HOURS NEEDED FOR SHORTNESS OF BREATH AND FOR WHEEZING Inhalation methylPREDNISolone 4 MG Tablet Therapy Pack TAKE DIRECTED ON PACKAGE Oral Tamsulosin HCl 0.4 MG Capsule TAKE 1 CAPSULE BY MOUTH AT BEDTIME Oral Medication List reviewed and reconciled with the patientTaking Lubiprostone 24 MCG Capsule TAKE 1 CAPSULE BY MOUTH TWICE DAILY FOR 30 DAYS Oral Taking Omeprazole 20 MG Capsule Delayed Release TAKE 1 CAPSULE BY MOUTH ONCE DAILY Oral Taking Methocarbamol 500 MG Tablet TAKE 1 TABLET BY MOUTH THREE TIMES DAILY NEEDED FOR MUSCLE SPASM Oral Taking methylPREDNISolone 4 MG Tablet Therapy Pack TAKE DIRECTED ON PACKAGE Oral Taking Albuterol Sulfate HFA 108 (90 Base) MCG/ACT Aerosol Solution INHALE 1 TO 2 PUFFS BY MOUTH EVERY 4 HOURS NEEDED FOR SHORTNESS OF BREATH AND FOR WHEEZING Inhalation Taking methylPREDNISolone 4 MG Tablet Therapy Pack TAKE DIRECTED ON PACKAGE Oral Taking Tamsulosin HCl 0.4 MG Capsule TAKE 1 CAPSULE BY MOUTH AT BEDTIME Oral Medication List reviewed and reconciled with the patient * Allergies:?N.K.D.A.no[Allerg ies Verified] Objective: * Vitals:?Ht: 6ly79vy, Wt:225l bs, BP:127/80mm Hg, Pain scale:31-10, HR:89/min, BMI:31.38Index, Ht-cm: 180.34 cm, Wt-k.06 kg, Body Surface Area: 2.26. * Examination: ???General Examination: ? Patient is alert and oriented to time, place, and person. No appeal distress. Vital signs are stable. Patient is afebrile. Respiration is nonlabored . No deficits reflex, motor, and sensory examination, bilateral upper extremities and bilateral lower extremities. No slurred speech, sitting comfortably on the chair, Muscle strength test 5/5 symmetrically on the bilateral upper and lower extremities . Reflex 1+/4? symmetrically on bilateral upper and lower extremities, light touch sensation intact on the upper extremities. No Rivera sign , limited range motion of cervical spine flexion/extension, cervical facet loading test positive bilaterally right severe than left side, Spurling test negative bilaterally, tenderness on the cervical paraspinal muscle and upper trapezius muscle. Assessment: * Assessment: 1.?Cervical spondylosis - M4 7.812 (Primary)???2.?DDD (degenerative disc disease), cervical - M50.30???3.?Cervical spinal stenosis - M48.02??? His Most recent C-spine MRI study was done in 2018 : ?mild myelomalacia at the C4-5 . ?Multilevel cervical DDD stenosis and foraminal stenosis, multilevel spondylosis ?? Cervical spine x-ray done today ??: ?diffused cervical spondylosis with facet arthropathy, ??multilevel cervical spondylosis, cervical spine ?hinged ?around the C4-5 level on extension view, no subluxation, ?multilevel bone spurs , no fracture ??imaging study has been reviewed? and updated with the patient , and all the questions? have been? answered with satisfaction C-spine MRI study without contrast has been ordered for evaluating the cervical degenerative disease including cervical DDD/stenosis/ ?myelomalacia Plan: * Treatment: ?Imaging: X ray : Spines, cervical 4 views (Performed Date - 05/30/2024)* 2.?Others? Notes: Body Mass Index: Care Instructions material was published, High Blood Pressure: Care Instructions material was published?? * Procedure Codes:?61799 X-RAY EXAM OF NECK SPINE 4 OR 5 VIEWS, Modifiers: 59 * Billing Information: * Visit Code:? 85288 Office Visit, Est Pt., Level 3. * Procedure Codes:? 47803 X-RAY EXAM OF NECK SPINE 4 OR 5 VIEWS. Modifiers: 59 * EY PULLER Sign off status: Completed true * Provider:?Fam Mix MD Date:?05/30/2024 Generated for Lina curry/Ahmet/Meenakshismnathaniel on:?07/17/2024 05:00 AM KIDNEY PULLER History and Physical Notes * HPI (History of Present Illness) Category Sub-Category Detail Notes Category Not es *Established Patient Established Patient Questionnaire: 1. Are you currently taking a Blood Thinner Medication?: No 2. Do you have an allergy to I.V. Contra st or Shellfish?: No 3. List any changes to medic al history. (eg; Falls, Test, Scans, Blood Work, and Hospitalizations): Test 4. Have you been exposed to anyone with COVID in the last 2 weeks?: No 5. Have you been exposed to anyone with the FLU in the last 72 hours?: No 6. What is your Pain Level today? (1-10, Scroll and select one): 3 7. Where is your pain located?: Neck,Lef t Knee 8. After your last visit, wh at Percentage of improvement did you experience?: 60 9. Are you doing Physical Th erapy, Chiropractic, or Massage Therapy?: Yes 10. Are you doing an at home Exercise Pr ogram?: Yes 11. What activities or posit ions increase your Pain? (Scroll to select one or multiple): Standing,Walking 12. What activities or posit ions decrease your Pain? (Scroll to select one or multiple): Lying down 13. How would you describe y our Pain? (Scroll to select one or multiple): Aching,Throbbing 14. Are you having difficulty sleeping?: Yes 15. When was the last time y ou had your blood drawn? (Please enter your best estimate): Dont knowYears 16. When was your last Mammo gram? (Please put N/A if you are male, for Females please put the best Estimate or Never. ): na 17. When was your last Colon oscopy? (Please put the best Estimate or Never. ): 08-18-22 18. Do you need any refills on your medi cations today?: No 19. Please list ALL changes to Medicatio ns or Allergies?: Same 20. Are you Diabetic?: No 21. Do you suffer from Constipation?: Ye s Examination Category Sub-Category Detail Notes Category Not es General Examination Patient is alert and oriented to time, place, and person. No appeal distress. Vital signs are stable. Patient is afebrile. Respiration is nonlabored . No deficits reflex, motor, and sensory examination, bilateral upper extremities and bilateral lower extremities. No slurred speech, sitting comfortably on the chair, Muscle strength test 5/5 symmetrically on the bilateral upper and lower extremities . Reflex 1+/4 symmetrically on bilateral upper and lower extremities, light touch sensation intact on the upper extremities. No Rivera sign , limited range motion of cervical spine flexion/extension, cervical facet loading test positive bilaterally right severe than left side, Spurling test negative bilaterally, tenderness on the cervical paraspinal muscle and upper trapezius muscle
--- OUTSIDE RECORDS SUMMARY | 2024-07-17 05:01 | XMS_ITS | Referral Summary ---
Author Organization [facility] Address [address] [place] [address] Care Team Providers Care Recovery Coach Name Role Phone No, Physician Primary Care Provider [phone] Allergies No known active allergies Medications albuterol [...] (12/08/2017): Added automatically from request for surgery [id number] Abdominal pain 10/06/2017 Gallstone 09/15/2017 Gastroesophageal reflux disease 09/15/2017 Constipation 08/17/2017 Hematochezia 08/17/2017 Abdominal hernia 08/17/2017 Shortness of breath 09/02/2011 Family history of heart disease 09/02/2011 Social History Tobacco Use Types Packs/Day Years [...] Plan of Treatment Not on file Insurance [facility] ACCESS CHOICE BLUE ACC CHOICE [facility]OS [facility] BLUE [facility] CHOICE OOS BLUE [facility] CHOICE OOS Care Teams Recovery Coach Relationship Specialty Start Date End Date No, Physician PCP - General 02/04/18
--- OUTSIDE RECORDS SUMMARY | 2024-07-17 05:01 | XMS_ITS | Encounter Summary ---
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
--- OUTSIDE RECORDS SUMMARY | 2024-07-17 05:01 | XMS_ITS | Clinical Summary ---
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 Gender Identity Not on file Sexual Orientation Not on file Plan of Treatment Health Maintenance Due Date Last Done Comments Hepatitis C Virus (HCV) Screening 1970 TdaP Immunization 1970 Hepatitis B Immunization (1 of 3 - 19+ 3-dose series) 1989 Colonoscopy 2015 Colorectal Cancer Screening 2015 Cologuard 2020 Immunochemical Fecal Occult Blood 2020 Pneumococcal Immunization (5 0+ years) (1 of 1 - PCV) 2020 Zoster Immunization (1 of 2) 2020 Influenza Immunization (#1) 2024 SARS-COV-2 Immunization ( - season) 2024 Respiratory Syncytial Virus (RSV) Immunization (Adult) (1 - 1-dose 75+ series) 2045 Meningococcal Immunization (ACWY) Aged Out No longer eligible based on patient's age to complete this topic Pneumococcal Immunization Combined Aged Out No longer eligible based on patient's age to complete this topic Rotavirus Immunization Aged Out No lo nger eligible based on patient's age to complete this topic
--- OUTSIDE RECORDS SUMMARY | 2024-07-17 05:02 | XMS_ITS | Encounter Summary ---
Author Organization [facility] Healthcare Address [address] [place] [address] Care Team Providers Care Head Of Stock Name Role Phone No, Physician Primary Care Provider [phone] Reason for Referral * Diagnostic Imaging (Routine) - Closed Specialty Diagnoses / Procedures Referred By Contac t Referred To Contact Diagnoses Bilateral hip pain Procedures XR Hips Bilateral 3 or 4 Views W Pelvis Spike Contreras PA Phone: tel: fax: [phone] [place] [address] Referral ID Status Reason Start Date Expiration Date Visits Re quested Visits Authorized [id number] Closed 05/13/2020 06/12/2021 1 1 ICE FELLOW Reason for Visit * Diagnostic Imaging (Routine) - Closed Specialty Diagnoses / Procedures Referred By Caraac t Referred To Contact Diagnoses Bilateral hip pain Procedures XR Hips Bilateral 3 or 4 Views W Pelvis Spike Contreras PA Phone: tel: fax: [phone] [place] [address] Referral ID Status Reason Start Date Expiration Date Visits Re quested Visits Authorized [id number] Closed 05/13/2020 06/12/2021 1 1 Encounter Details Date Type Department Care Team (Latest Contact Info) Description 05/19/2020 8:00 AM HOSPICE FELLOW - 05/19/2020 8:52 AM HOSPICE FELLOW Hospital Encounter [facility] [address] [place] [phone] Ashu Rasheed MD [address] [place] [address] Spike Contreras PA [address] [facility] [address] [place] [address] Bilateral hip pain Discharge Disposition: Discharge to home or self care Social History Tobacco Use Types Packs/Day Years [...] on file documented as of this encounter Discharge Disposition Disposition Code Departure Means Destination Discharge to home or self care documented in this encounter Plan of Treatment Not on file documented as of this encounter Procedures Procedure Name Priority Date/Time Associated Diagnosis Comments XR HIPS BILATERAL 3 OR 4 VIEWS W PELVIS Schedule Routine, Read Routine (OP Routine) 05/19/2020 8:32 AM HOSPICE FELLOW Bilateral hip pain documented in this encounter Results * XR Hips Bilateral 3 or 4 Views W Pelvis (05/19/2020 8:32 AM HOSPICE FELLOW) Anatomical Region Laterality Modality Lower Extremities, Hip, Pelvis Bilateral C omputed Radiography 05/19/2020 8:36 AM HOSPICE FELLOW Impressions 05/19/2020 8:36 AM HOSPICE FELLOW Mild right and minimal left hip osteoarthritis. Electronically signed by: Wm Roberts M.D. Narrative 05/19/2020 8:36 AM HOSPICE FELLOW EXAMINATION: XR HIPS BILATERAL 3 OR 4 VIEWS W PELVIS HISTORY: Bilateral hip pain FINDINGS: 4 views of both hips and pelvis are submitted for interpretation without comparison. There is mild right and minimal left hip osteoarthritis. No fracture. Alignment of the hips is normal. There is a benign appearing lesion in the right iliac bone with sclerotic rim, unchanged. Procedure Note Wm Roberts MD - 05/19/2020 EXAMINATION: XR HIPS BILATERAL 3 OR 4 VIEWS W PELVIS HISTORY: Bilateral hip pain FINDINGS: 4 views of both hips and pelvis are submitted for interpretation without comparison. There is mild right and minimal left hip osteoarthritis. No fracture. Alignment of the hips is normal. There is a benign appearing lesion in the right iliac bone with sclerotic rim, unchanged. IMPRESSION: Mild right and minimal left hip osteoarthritis. Electronically signed by: Wm Roberts M.D. Spike ROACH IMMaxwell XR PROCEDURES Final Resul t documented in this encounter Visit Diagnoses Diagnosis Bilateral hip pain Pain in joint, pelvic region and thigh documented in this encounter Care Teams Head Of Stock Relationship Specialty Start Date End Date No, Physician PCP - General 02/04/18 documented as of this encounter
--- OUTSIDE RECORDS SUMMARY | 2024-07-17 05:02 | XMS_ITS | Encounter Summary ---
Author Organization [facility] Address [address] [place] [address] Phone Care Team Providers Care Compensation And Benefits Analyst Name Role Phone No, Physician Primary Care Provider [phone] Reason for Visit * Reason Comments Abdominal Pain Encounter Details Date Type Department Care Team (Late st Contact Info) Description 09/09/2020 2:45 PM CDT Office Visit [facility] Surgery [address] [facility] [address] [address] George Tom MD [address] [place] [address] [address] [facility] [address] [address] Left lower quadrant abdominal pain (Primary Dx); Chronic constipation; Diverticulitis of sigmoid colon Social History Tobacco Use Types Packs/Day Years [...] Sign Reading Time Taken Comments Blood Pressure 115/81 09/09/2020 2:54 PM CDT Pulse 66 09/09/2020 2:54 PM CDT Temperature 37.1 ??C (98.7 ??F) 09/09/2020 2:54 PM CD T Respiratory Rate - - Oxygen Saturation - - Inhaled Oxygen Concentration - - Weight 106.6 kg (235 lb) 09/09/2020 2:54 PM CDT Height 175.3 cm (5' 9 ) 09/09/2020 2:54 PM CDT Body Mass Index 34.7 09/09/2020 2:54 PM CDT documented in this encounter Ordered Prescriptions Prescription Sig Dispense Quantity Refills Last Filled Start Date End Date metroNIDAZOLE (FLAGYL) 500 mg tablet Take 1 tablet (500 mg total) by mouth 3 (three) times a day for 10 days 30 tablet 09/09/2020 09/19/2020 ciprofloxacin (CIPRO) 500 mg tablet Take 1 tablet (500 mg total) by mouth 2 (two) times a day 60 tablet 09/09/2020 10/09/2020 documented in this encounter Progress Notes * George Tom MD - 09/09/2020 2:45 PM CDT General Surgery Consult Reason for Consult/Visit: Follow up on the left lower quadrant abdominal pain and chronic constipation Requesting Provider: Kaykay, Physician HPI: Patient is a 50 y.o. male here for follow up on left lower quadrant abdominal pain, did respond to the antibiotics and remain well for another week or so, after stopping the antibiotics, slowly his pain came back and now is back to the same point as previous. He continues to have chronic constipation, has been taking some fiber supplement pills and MiraLax daily but still has hard stools. He denies nausea or vomiting. He is trying to lose weight, minimal success.. Review of Systems: No history of fever or chills. No history of shortness of breath or chest pain. No history of nausea vomiting. No history of altered bowel habit. No history of hematuria dysuria. No history of focal weakness or numbness. Physical Exam: Vitals: BP 115/81 Pulse 66 Temp 37.1 ??C (98.7 ??F) Ht 175.3 cm (5' 9 ) Wt 106.6 kg (235 lb) BMI 34.70 kg/m?? Physical Exam Constitutional: Patient is awake and alert and appears well-developed and well-nourished. Eyes: Conjunctiva normal Neck: Normal range of motion. Neck supple. Cardiovascular: Normal rate and regular rhythm. Pulmonary/Chest: Effort normal bilateral equal air entry. Abdominal: Soft. Patient exhibits no distension and no mass. Nonspecific tenderness noted in lower abdomen, more in left lower quadrant. Musculoskeletal: Normal range of motion. Neurological: Patient is alert and oriented Skin: Skin is warm and dry. Psychiatric: normal mood and affect, behavior is normal. Lab/Radiology/Diagnostic Review: Assessment /Plan Explained to the patient that possibly he improved secondary to antibiotics because of underlying diverticulitis. Will give him 30 days of Cipro and Flagyl and hopefully that will minimize worsening of his problems. Follow with me in 3 months. If his symptoms continue to recur, may benefit from sigmoid colectomy. Patient is once again advised to continue to lose weight as best possible. documented in this encounter Plan of Treatment Not on file documented as of this encounter Visit Diagnoses Diagnosis Left lower quadrant abdominal pain- Primary Chronic constipation Unspecified constipation Diverticulitis of sigmoid colon Diverticulitis of colon (without mention of hemorrhage) documented in this encounter Care Teams Compensation And Benefits Analyst Relationship Specialty Start Date End Date No, Physician PCP - General 02/04/18 documented as of this encounter
--- OUTSIDE RECORDS SUMMARY | 2024-07-17 05:02 | XMS_ITS | Encounter Summary ---
Author Organization [facility] Address [address] [place] [address] Phone Care Team Providers Care Millwright Instructor Name Role Phone No, Physician Primary Care Provider [phone] Encounter Details Date Type Department Care Team (Late st Contact Info) Description 06/10/2020 2:30 PM VALIDATION SPECIALIST Office Visit [facility] Surgery [address] [facility] [address] [place] [address] [place] [id number] [place] [address] [address] [place] [address] Left lower quadrant abdominal pain (Primary Dx); Diverticulosis of colon Social History Tobacco Use Types Packs/Day [...] Sign Reading Time Taken Comments Blood Pressure 122/82 06/10/2020 2:31 PM VALIDATION SPECIALIST Pulse 74 06/10/2020 2:31 PM VALIDATION SPECIALIST Temperature 36.6 ??C (97.8 ??F) 06/10/2020 2:31 PM CS T Respiratory Rate - - Oxygen Saturation - - Inhaled Oxygen Concentration - - Weight 108.5 kg (239 lb 3.2 oz) 06/10/2020 2:31 PM VALIDATION SPECIALIST Height 180.3 cm (5' 11 ) 06/10/2020 2:31 PM VALIDATION SPECIALIST Body Mass Index 33.36 06/10/2020 2:31 PM VALIDATION SPECIALIST documented in this encounter Ordered Prescriptions Prescription Sig Dispense Quantity Refills Last Filled Start Date End Date metroNIDAZOLE (FLAGYL) 500 mg tablet Take 1 tablet (500 mg total) by mouth 2 (two) times a day for 10 days 20 tablet 06/10/2020 06/20/2020 ciprofloxacin (CIPRO) 500 mg tablet Take 1 tablet (500 mg total) by mouth 2 (two) times a day for 10 days 20 tablet 06/10/2020 06/20/2020 documented in this encounter Progress Notes * George Tom MD - 06/10/2020 2:30 PM CST General Surgery Consult Reason for Consult/Visit: Left-sided abdominal pain with gas and bloating and constipation Requesting Provider: Kaykay, Physician HPI: Patient is a 50 y.o. male here for follow up on left lower quadrant abdominal pain, continues to have constipation, continues to have quite a bit of gas, does feel better after passing gas. The pain affects him almost all the time, gets worse when he is more gassy and bloated. He has been taking Metamucil tablets 2 a day and also taking MiraLax on daily basis, still has constipation, bowel movement every other day.. Review of Systems: No history of fever or chills. No history of shortness of breath or chest pain. No history of nausea vomiting. No history of altered bowel habit. No history of hematuria dysuria. No history of focal weakness or numbness. Physical Exam: Vitals: BP 122/82 Pulse 74 Temp 36.6 ??C (97.8 ??F) Ht 180.3 cm (5' 11 ) Wt 108.5 kg (239 lb 3.2 oz) BMI 33.36 kg/m?? Physical Exam Constitutional: Patient is awake and alert and appears well-developed and well-nourished. Eyes: Conjunctiva normal Neck: Normal range of motion. Neck supple. Cardiovascular: Normal rate and regular rhythm. Pulmonary/Chest: Effort normal bilateral equal air entry. Abdominal: Soft. Patient exhibits no distension and no mass. Nonspecific tenderness noted in left lower quadrant and in periumbilical area. Musculoskeletal: Normal range of motion. Neurological: Patient is alert and oriented Skin: Skin is warm and dry. Psychiatric: normal mood and affect, behavior is normal. Lab/Radiology/Diagnostic Review: Assessment /Plan Discussed with patient that I am concerned that his ongoing issue of the pain is related to underlying diverticular disease. Will empirically treat him with Cipro and Flagyl for 10 days and hopefully will that his symptoms will improve. He may have nonspecific borderline diverticulitis causing in the problem. If he continues to be symptomatic, may need GI evaluation. Follow-up in 3 months DATION SPECIALIST documented in this encounter Plan of Treatment Not on file documented as of this encounter Visit Diagnoses Diagnosis Left lower quadrant abdominal pain- Primary Diverticulosis of colon Diverticulosis of colon (without mention of hemorrhage) documented in this encounter Care Teams Millwright Instructor Relationship Specialty Start Date End Date No, Physician PCP - General 02/04/18 documented as of this encounter
--- OUTSIDE RECORDS SUMMARY | 2024-07-17 05:02 | XMS_ITS | Encounter Summary ---
Author Organization [facility] Address [address] [place] [address] Phone Care Team Providers Care Strickler Attendant Name Role Phone No, Physician Primary Care Provider [phone] Encounter Details Date Type Department Care Team (Late st Contact Info) Description 07/31/2018 Orders Only [facility]) - [facility] [address] [address] [place] [address] [facility] [address] [address] Erectile dysfunction, unspecified erectile dysfunction type Social History Tobacco Use Types Packs/Day Years [...] on file documented as of this encounter Ordered Prescriptions Prescription Sig Dispense Quantity Refills Last Filled Start Date End Date sildenafil, antihypertensive, (REVATIO) 20 mg tabletIndications: Erectile Dysfunction Take 2 - 5 po prn at 1 hour prior to sexual activity. Works best on an empty stomach. 90 tablet 3 07/31/2018 05/13/2020 documented in this encounter Progress Notes * Zulma Ibarra LPN - 07/31/2018 8:55 AM CST Refill request received from [facility] for Sildenafil 20 mg. Granted #90 day supply with 3 additional refills. TOP SUPPORT CONSULTANT documented in this encounter Plan of Treatment Not on file documented as of this encounter Visit Diagnoses Diagnosis Erectile dysfunction, unspecified erectile dysfunction type documented in this encounter Discontinued Medications Medication Sig Discontinue Reason Start Date End Da te sildenafil, antihypertensive, (REVATIO) 20 mg tabletIndications:Pulmona ry Arterial Hypertension Take 2 - 5 po prn at 1 hour prior to sexual activity. Works best on an empty stomach. Reorder 01/10/2018 07/31/2018 documented as of this encounter Care Teams Strickler Attendant Relationship Specialty Start Date End Date No, Physician PCP - General 02/04/18 documented as of this encounter
--- OUTSIDE RECORDS SUMMARY | 2024-07-17 05:02 | XMS_ITS | Encounter Summary ---
Author Organization [facility] Healthcare Address [address] [place] [address] Care Team Providers Care Proof Press Operator Name Role Phone No, Physician Primary Care Provider [phone] Encounter Details Date Type Department Care Team (Late st Contact Info) Description 07/26/2020 Patient Self-Triage [facility] Health[facility] [place] [address] Mychart, Generic Provider [address] [place], [place] [id number] Social History Tobacco Use Types Packs/Day Years [...] Diagnoses Not on filedocumented in this encounter Care Teams Proof Press Operator Relationship Specialty Start Date End Date No, Physician PCP - General 02/04/18 documented as of this encounter
--- OUTSIDE RECORDS SUMMARY | 2024-07-17 05:02 | XMS_ITS | Encounter Summary ---
Author Organization [facility] Healthcare Address [address] [place] [address] Care Team Providers Care Production Mechanic Name Role Phone No, Physician Primary Care Provider [phone] Encounter Details Date Type Department Care Team (Latest Contact Info) Description 05/19/2020 8:53 AM PRESS SHOP SUPERVISOR - 05/19/2020 9:34 AM PRESS SHOP SUPERVISOR Hospital Encounter [facility] [address] [place] [address] Discharge Disposition: Discharge to home or self [...] on file documented as of this encounter Medications at Time of Discharge meloxicam (MOBIC) 15 mg tabletIndications :Osteoarthritis Take 1 tablet (15 mg total) by mouth daily 30 tablet 2 05/19/2020 06/18/2020 documented as of this encounter Discharge Disposition Disposition Code Departure Means Destination Discharge to home or self care documented in this encounter Plan of Treatment Not on file documented as of this encounter Procedures Procedure Name Priority Date/Time Associated Diagnosis Comments CT BODY OUTSIDE REFERENCE Routine 05/19/2020 8:53 AM PRESS SHOP SUPERVISOR Diagnosis unknown documented in this encounter Results * CT Body Outside Reference (05/19/2020 8:53 AM PRESS SHOP SUPERVISOR) Impressions [facility] - 05/19/2020 8:53 AM PRESS SHOP SUPERVISOR These images are for Reference purposes only and have not been reviewed by [facility]iology. ??There will be no report generated by a [facility] Radiologist. Narrative [facility] - 05/19/2020 8:53 AM PRESS SHOP SUPERVISOR EXAMINATION: ??Images For Reference Purposes Only us Spike ROACH IMG CT PROCEDURES Final Resul t [facility] documented in this encounter Visit Diagnoses Not on filedocumented in this encounter Care Teams Production Mechanic Relationship Specialty Start Date End Date No, Physician PCP - General 02/04/18 documented as of this encounter
--- OUTSIDE RECORDS SUMMARY | 2024-07-17 05:02 | XMS_ITS | Encounter Summary ---
Author Organization [facility] Address [address] [place] [address] Phone Care Team Providers Care Project Manager/Design Manager Name Role Phone No, Physician Primary Care Provider [phone] Encounter Details Date Type Department Care Team (Late st Contact Info) Description 05/08/2020 Telephone [facility] Orthopaedic Surgery [facility] Medical Office Building [address] [place] [address] Maricel Machuca, WATERSIDE WORKER [address] [facility] [address] [place] [address] Social History Tobacco Use Types Packs/Day Years [...] encounter Miscellaneous Notes * Telephone Encounter - Maricel Machuca CNS - 05/08/2020 6:09 PM WIRE SPLICER I phoned Mr. Neely today to discuss the results of his recent MRI scan. He does have moderate spinalcanal stenosis in the cervical spine with a large signal change within the cervical cord. 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 This was 1st identified on an MRI scan in 2018 although the patient reports being unaware and no follow-up was provided. I think this accounts for his intermittent hand numbness and his complaints of dropping objects. I am going to havehim see 1 of my collaborating physicians for consideration of surgical intervention. In relation tohis chronic low back pain and left groin pain I do not think he has a surgical problem. He has multilevel degenerative facet disease which is likely a pain generator. He also had irritability with range of motion of the left hip when I saw him in the office. This reproduced his left groin pain. I would like him to see 1 of my partners from the recon service for evaluation. He has had many injections in the past, including intra-articular hip injections. He is hesitant to consider additional injections if surgery might be a more definitive option. He has requested to see for consideration of cervical spine surgery. He reports his brother's ex has had Multiple surgeries by Dr. Chester. I will attempt to coordinate this for him. He knows he can contact my office with questions or concerns. Dalia or Darlene, can you please call him to arrange consultation for consideration of cervical spinesurgery, diagnosis, cervical stenosis/myelopathy/myelomalacia SPLICER documented in this encounter Plan of Treatment Not on file documented as of this encounter Visit Diagnoses Not on filedocumented in this encounter Care Teams Project Manager/Design Manager Relationship Specialty Start Date End Date No, Physician PCP - General 02/04/18 documented as of this encounter
--- OUTSIDE RECORDS SUMMARY | 2024-07-17 05:02 | XMS_ITS | Encounter Summary ---
Author Organization [facility] Address [address] [place] [address] Phone Care Team Providers Care Translator Interpreter Name Role Phone No, Physician Primary Care Provider [phone] Reason for Referral * Diagnostic Imaging (Routine) - Closed Specialty Diagnoses / Procedures Referred By Amalia blake Referred To Contact Radiology Diagnoses Low back pain, unspecified back pain laterality, unspecified chronicity, unspecified whether sciatica present Spinal stenosis in cervical region Procedures MRI Spine Total Complete W WO Contrast Maricel Machuca CNS Phone: tel: fax: [address] [address] Referral ID Status Reason Start Date Expiration Date Visits Re quested Visits Authorized [id number] Closed 04/29/2020 06/13/2020 1 1 * Diagnostic Imaging (Routine) - Closed Specialty Diagnoses / Procedures Referred By Amalia blake Referred To Contact Diagnoses Low back pain, unspecified back pain laterality, unspecified chronicity, unspecified whether sciatica present Procedures XR Scoliosis AP LAT Maricel Machuca CNS Phone: tel: fax: [facility] Referral ID Status Reason Start Date Expiration Date Visits Re quested Visits Authorized [id number] Closed 04/22/2020 05/22/2021 1 1 Encounter Details Date Type Department Care Team (Late st Contact Info) Description 04/23/2020 9:45 AM CDT Office Visit [facility] [address] [place] [address] [place] [address] Maricel Machuca CNS [address] [place] [address] Low back pain, unspecified back pain laterality, unspecified chronicity, unspecified whether sciatica present (Primary Dx); Spinal stenosis in cervical region; Closed wedge compression fracture of T12 vertebra, sequela; Edema of spinal cord (CMS/HCC) Social History Tobacco Use Types Packs/Day Years [...] Sign Reading Time Taken Comments Blood Pressure - - Pulse - - Temperature - - Respiratory Rate - - Oxygen Saturation - - Inhaled Oxygen Concentration - - Weight 98.9 kg (218 lb) 04/23/2020 9:42 AM CDT Height 175.3 cm (5' 9 ) 04/23/2020 9:42 AM CDT Body Mass Index 32.19 04/23/2020 9:42 AM CDT documented in this encounter Progress Notes * Maricel Machuca CNS - 04/23/2020 9:45 AM CDT NEW PATIENT VISIT Subjective CHIEF COMPLAINT Back pain, bilateral hip pain HISTORY OF PRESENT ILLNESS Mr. Neely presented to my office of low back and bilateral hip pain. He does not recall any particular trauma or inciting event which may have brought his symptoms on. He has had pain reportedly for the past several years. He describes pain which involves the lumbar spine in its entirety. He reportsbilateral buttock pain and pain which travels into the left groin. In addition he complains of neckpain. He does not have any radiating arm pain however he reports intermittent hand numbness and dropping objects. He denies focal weakness. He denies alterations in bowel bladder function. He has been being treated with a pain management physician for several years. His last lumbar imaging was in 2010. He had an MRI scan of the cervical spine in 2018. PAST MEDICAL HISTORY He has a past medical history of Abdominal hernia without obstruction or gangrene and Personal history of healed traumatic fracture. PAST SURGICAL HISTORY He has a past surgical history that includes Hernia repair and Colonoscopy. INITIAL REVIEW OF MEDICATIONS He has a current medication list which includes the following prescription(s): doxazosin, finasteride, and sildenafil (pulm.hypertension). DRUG ALLERGIES He has No Known Allergies. SOCIAL HISTORY He reports that he has never smoked. He has never used smokeless tobacco. He reports that he does not drink alcohol or use drugs. Employment: He works building [employer] Marital Status: Single Children:0 FAMILY HISTORY His family history includes Bladder Cancer in his father; Stomach cancer in his mother. REVIEW OF SYSTEMS Complete review of systems is in the chart. He reports positive blurred vision, dysuria, neck pain,back pain Objective PHYSICAL EXAMINATION General appearance: In no acute distress, well developed, well nourished Gait: Appears normal, no use of assist devices Head: Normocephalic, atraumatic Oral Cavity: Mucosa moist Skin: Warm and dry, normal turgor and color Vascular: Peripheral pulses palpable in both wrists and both feet Extremities: No cyanosis, clubbing or edema noted Musculoskeletal: No atrophy noted. General Neurological: Cranial Nerves: II-XII normal bilaterally Speech: Normal Involuntary movements: no tremors seen CERVICAL SPINE EXAM Inspection: there are no skin lesions. There is no visible deformity Palpation: there is no tenderness to palpation directly over the cervical or lumbar spine Range of Motion of the Neck: within normal limits Range of Motion of the Shoulders: Full and nontender bilaterally Range of motion of the hips: He has decreased internal rotation on the right however it is not particularly painful. Internal rotation of the left hip reproduces his left groin pain. Motor Strength: 5/5 in both upper and lower extremities Reflexes: 2+/4 at the biceps, triceps, brachioradialis, knees, ankles Hoffmans sign: negative bilaterally Rapid Alternation Movements: Performed with accuracy Plantar response: downgoing Sensation: intact ?? REVIEW OF X-RAYS/STUDIES There is mild dextrocurvature with apex at L3. No pelvic obliquity or truncal imbalance. There is amoderate 50-75% compression deformity of the T12 vertebral body, and mild 25% compression deformityof the T11 vertebral body. No new compression deformities. There are findings of diffuse idiopathic skeletal hyperostosis. I also reviewed an MRI scan of the cervical spine performed at [facility] diagnostic[facility] on January 31, 2018. At C4-C5 there is moderate to severe central canal stenosis. There is abnormal T2/stir hyperintensity within the cord at this level suggestive of volume loss. The radiologist felt it was most likely representing myelomalacia although superimposed cord edema could not be excluded. An intrinsic cord lesion such as a cord tumor could also not be excluded. This could also be a possible syrinx. A MRI scan with contrast was recommended for follow-up. The patient was unawarethese results and reports additional imaging was never performed. Assessment/Plan IMPRESSION/DIAGNOSIS/PLAN Mr. Neely complains of neck, midback and low back pain. He has a very abnormal cervical spine MRI scan performed 2 years ago which was not followed up on. He also has complaints of chronic low back and hip pain. I would like to obtain an MRI scan of the entire spine. We need to assess the spinal cord in its entirety. I am also looking for nerve root compression in the lumbar spine which may be producing his buttock and groin pain. We will arrange this testing for him. I will phone him with the results of this study. Additional treatment recommendations can be discussed at that time. Maricel Machuca RN, MSN, DELIVERY REPRESENTATIVE- Spine Service [facility] ?? Collaborative practice with Dr. Ricardo Randolph ?? Maricel Machuca RN, MSN, DELIVERY REPRESENTATIVE dictating using [employer] Software. Chair Car Driver variances may occur. documented in this encounter Plan of Treatment Not on file documented as of this encounter Results * MRI Spine Total Complete W WO Contrast (05/03/2020 1:04 PM RADIO INTERFERENCE SUPERVISOR) Anatomical Region Laterality Modality Spine N/A Magnetic Resonan ce 05/05/2020 10:1 1 AM RADIO INTERFERENCE SUPERVISOR Impressions 05/05/2020 6:21 PM RADIO INTERFERENCE SUPERVISOR 1. ??Multilevel degenerative changes of the cervical spine resulting in up to moderate spinal canal stenosis with associated compressive myelopathy at level C4-C5 through C5-C6, as well as up to moderate neural foraminal stenosis at multiple levels as described in detail above, not significantly changed from the prior exam. 2. ??Multilevel degenerative changes of the thoracic and lumbar spine resulting in up to moderate spinal canal and moderate to severe neuroforaminal stenosis as described in detail above. 3. ??Chronic compression deformities of the T12 and T11 vertebral bodies. Dictated by: Stevie Cosme M.D. The radiology attending physician has personally reviewed this study, and had reviewed and/or edited this written report and agrees with it. Electronically signed by: Adelso Chatterjee M.D. Narrative 05/05/2020 6:21 PM RADIO INTERFERENCE SUPERVISOR EXAMINATION: Magnetic resonance imaging (MRI) of the cervical spine without and with contrast Magnetic resonance imaging (MRI) of the thoracic spine without and with contrast Magnetic resonance imaging (MRI) of the lumbar spine without and with contrast HISTORY: ??50-year-old man with neck, mid back, and low back pain with bilateral hip/buttock pain. TECHNIQUE: Multiplanar multi-weighted MRI of the entire spine was performed without and with intravenous contrast using the standard total spine protocol. Contrast information: 20 mL Dotarem COMPARISON: Outside hospital cervical spine MRI dated 01/31/2018 FINDINGS: CERVICAL SPINE: The alignment of the cervical spine is normal. Vertebral bodies demonstrate normal signal intensity on all sequences. No acute fracture is identified; however, if trauma is suspected, a CT scan would be a more sensitive examination for fractures. The craniocervical junction is normal. The visualized portions of the skull base and the posterior fossa are normal. ??There is T2 hyperintensity within the spinal cord extending from C4-C5 through C5-C6. 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 ?? There is multilevel degenerative disc disease with multilevel desiccation and disc bulges. No soft tissue abnormality is identified. Normal signal voids are present in the vertebral arteries. There are no areas of abnormal contrast enhancement. C2-C3: The disk is normal in configuration. There is no facet arthropathy. There is no uncovertebral joint disease. There is no neuroforaminal stenosis. There is no spinal canal stenosis. C3-C4: There is disc bulge There is mild bilateral facet arthropathy. There is mild bilateral uncovertebral joint disease. There is moderate bilateral neuroforaminal stenosis. There is moderate spinal canal stenosis. C4-C5: There is disc bulge There is moderate bilateral facet arthropathy. There is moderate bilateral uncovertebral joint disease. There is moderate bilateral neuroforaminal stenosis. There is moderate spinal canal stenosis with cord signal abnormality. C5-C6: There is disc bulge There is moderate bilateral facet arthropathy. There is moderate bilateral uncovertebral joint disease. There is moderate bilateral neuroforaminal stenosis. There is moderate spinal canal stenosis with cord signal abnormality. C6-C7: There is disc bulge There is moderate bilateral facet arthropathy. There is mild bilateral uncovertebral joint disease. There is moderate bilateral neuroforaminal stenosis. There is mild spinal canal stenosis. C7-T1: There is mild disc bulge There is mild bilateral facet arthropathy. There is no significant uncovertebral joint disease. There is no neuroforaminal stenosis. There is no spinal canal stenosis. THORACIC SPINE: There is focal kyphosis centered at T11-T12, and minimal anterolisthesis of T11 on T12 as well as minimal retrolisthesis of T12 on L1. Vertebral bodies demonstrate normal signal intensity on all sequences. ??There is a chronic compression deformity of T12 with approximately 60% height loss, as well as of the anterior superior endplate of T11 with approximately 30% height loss. The spinal cord demonstrates normal signal intensity on all sequences. ??There is multilevel degenerative disc disease with multilevel disc desiccation and disc bulges, but without high-grade spinal canal stenosis. ??In addition, there is multilevel facet arthropathy without high grade neural foraminal stenosis. There are a couple renal cysts. The aorta is normal. There is mild reactive enhancement of some of the facet joints. LUMBAR SPINE: The alignment of the lumbar spine is normal. Vertebral bodies demonstrate normal signal intensity on all sequences. There are no compression fractures. The conus medullaris terminates at the level of L1. The distal spinal cord signal intensity is normal. ??There is multilevel degenerative disc disease with multilevel desiccation and disc bulging. There are a couple renal cysts. The aorta is normal. There is mild reactive enhancement of some of the facet joints. L1-L2: There is minimal disc bulge. There is mild bilateral facet arthropathy. There is no neuroforaminal stenosis. There is no spinal canal stenosis. L2-L3: ??There is mild disc bulge. There is moderate bilateral facet arthropathy. There is no neuroforaminal stenosis. There is no spinal canal stenosis. L3-L4: ??There is mild disc bulge. There is severe bilateral facet arthropathy. There is mild bilateral neuroforaminal stenosis. There is mild spinal canal stenosis. L4-L5: ??There is disc bulge. There is severe bilateral facet arthropathy. There is moderate right and severe left neuroforaminal stenosis with ligamentum flavum thickening. There is moderate spinal canal stenosis. L5-S1: ??There is disc bulge. There is mild bilateral facet arthropathy. There is mild bilateral neuroforaminal stenosis. There is no spinal canal stenosis. Procedure Note Adelso Chatterjee MD - 05/05/2020 EXAMINATION: Magnetic resonance imaging (MRI) of the cervical spine without and with contrast Magnetic resonance imaging (MRI) of the thoracic spine without and with contrast Magnetic resonance imaging (MRI) of the lumbar spine without and with contrast HISTORY: 50-year-old man with neck, mid back, and low back pain with bilateral hip/buttock pain. TECHNIQUE: Multiplanar multi-weighted MRI of the entire spine was performed without and with intravenous contrast using the standard total spine protocol. Contrast information: 20 mL Dotarem COMPARISON: Outside hospital cervical spine MRI dated 01/31/2018 FINDINGS: CERVICAL SPINE: The alignment of the cervical spine is normal. Vertebral bodies demonstrate normal signal intensity on all sequences. No acute fracture is identified; however, if trauma is suspected, a CT scan would be a more sensitive examination for fractures. The craniocervical junction is normal. The visualized portions of the skull base and the posterior fossa are normal. There is T2 hyperintensity within the spinal cord extending from C4-C5 through C5-C6. 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 There is multilevel degenerative disc disease with multilevel desiccation and disc bulges. No soft tissue abnormality is identified. Normal signal voids are present in the vertebral arteries. There are no areas of abnormal contrast enhancement. C2-C3: The disk is normal in configuration. There is no facet arthropathy. There is no uncovertebral joint disease. There is no neuroforaminal stenosis. There is no spinal canal stenosis. C3-C4: There is disc bulge There is mild bilateral facet arthropathy. There is mild bilateral uncovertebral joint disease. There is moderate bilateral neuroforaminal stenosis. There is moderate spinal canal stenosis. C4-C5: There is disc bulge There is moderate bilateral facet arthropathy. There is moderate bilateral uncovertebral joint disease. There is moderate bilateral neuroforaminal stenosis. There is moderate spinal canal stenosis with cord signal abnormality. C5-C6: There is disc bulge There is moderate bilateral facet arthropathy. There is moderate bilateral uncovertebral joint disease. There is moderate bilateral neuroforaminal stenosis. There is moderate spinal canal stenosis with cord signal abnormality. C6-C7: There is disc bulge There is moderate bilateral facet arthropathy. There is mild bilateral uncovertebral joint disease. There is moderate bilateral neuroforaminal stenosis. There is mild spinal canal stenosis. C7-T1: There is mild disc bulge There is mild bilateral facet arthropathy. There is no significant uncovertebral joint disease. There is no neuroforaminal stenosis. There is no spinal canal stenosis. THORACIC SPINE: There is focal kyphosis centered at T11-T12, and minimal anterolisthesis of T11 on T12 as well as minimal retrolisthesis of T12 on L1. Vertebral bodies demonstrate normal signal intensity on all sequences. There is a chronic compression deformity of T12 with approximately 60% height loss, as well as of the anterior superior endplate of T11 with approximately 30% height loss. The spinal cord demonstrates normal signal intensity on all sequences. There is multilevel degenerative disc disease with multilevel disc desiccation and disc bulges, but without high-grade spinal canal stenosis. In addition, there is multilevel facet arthropathy without high grade neural foraminal stenosis. There are a couple renal cysts. The aorta is normal. There is mild reactive enhancement of some of the facet joints. LUMBAR SPINE: The alignment of the lumbar spine is normal. Vertebral bodies demonstrate normal signal intensity on all sequences. There are no compression fractures. The conus medullaris terminates at the level of L1. The distal spinal cord signal intensity is normal. There is multilevel degenerative disc disease with multilevel desiccation and disc bulging. There are a couple renal cysts. The aorta is normal. There is mild reactive enhancement of some of the facet joints. L1-L2: There is minimal disc bulge. There is mild bilateral facet arthropathy. There is no neuroforaminal stenosis. There is no spinal canal stenosis. L2-L3: There is mild disc bulge. There is moderate bilateral facet arthropathy. There is no neuroforaminal stenosis. There is no spinal canal stenosis. L3-L4: There is mild disc bulge. There is severe bilateral facet arthropathy. There is mild bilateral neuroforaminal stenosis. There is mild spinal canal stenosis. L4-L5: There is disc bulge. There is severe bilateral facet arthropathy. There is moderate right and severe left neuroforaminal stenosis with ligamentum flavum thickening. There is moderate spinal canal stenosis. L5-S1: There is disc bulge. There is mild bilateral facet arthropathy. There is mild bilateral neuroforaminal stenosis. There is no spinal canal stenosis. IMPRESSION: 1. Multilevel degenerative changes of the cervical spine resulting in up to moderate spinal canal stenosis with associated compressive myelopathy at level C4-C5 through C5-C6, as well as up to moderate neural foraminal stenosis at multiple levels as described in detail above, not significantly changed from the prior exam. 2. Multilevel degenerative changes of the thoracic and lumbar spine resulting in up to moderate spinal canal and moderate to severe neuroforaminal stenosis as described in detail above. 3. Chronic compression deformities of the T12 and T11 vertebral bodies. Dictated by: Stevie Cosme M.D. The radiology attending physician has personally reviewed this study, and had reviewed and/or edited this written report and agrees with it. Electronically signed by: Adelso Chatterjee M.D. Maricel Machuca PREVENTIVE MEDICINE SPECIALIST IMG MRI PROCEDURES Final Re sult * XR Scoliosis AP LAT (04/23/2020 9:17 AM CDT) Anatomical Region Laterality Modality Spine N/A Computed Radiogr aphy 04/23/2020 10:0 1 AM CDT Impressions 04/23/2020 10:15 AM CDT 1. ??Mild lumbar spine dextrocurvature, with apex at L3. 2. ??Moderate T12 (50-75%) and mild T11 (25%) vertebral body compression deformities, unchanged from CT dated 12/16/2017. Dictated by: Herve Barajas M.D. The radiology attending physician has personally reviewed this study, and had reviewed and/or edited this written report and agrees with it. Electronically signed by: Rosie Paula M.D. Narrative 04/23/2020 10:15 AM CDT EXAMINATION: XR SCOLIOSIS AP AND LATERAL HISTORY: Low back pain. COMPARISON: CT on 12/16/2017. FINDINGS: AP and lateral views of the entire spine and lower extremities are submitted for interpretation. ??There is mild dextrocurvature with apex at L3. ??No pelvic obliquity or truncal imbalance. There is a moderate 50-75% compression deformity of the T12 vertebral body, and mild 25% compression deformity of the T11 vertebral body. No new compression deformities. ??There are findings of diffuse idiopathic skeletal hyperostosis. ?? Procedure Note Rosie Paula MD - 04/23/2020 EXAMINATION: XR SCOLIOSIS AP AND LATERAL HISTORY: Low back pain. COMPARISON: CT on 12/16/2017. FINDINGS: AP and lateral views of the entire spine and lower extremities are submitted for interpretation. There is mild dextrocurvature with apex at L3. No pelvic obliquity or truncal imbalance. There is a moderate 50-75% compression deformity of the T12 vertebral body, and mild 25% compression deformity of the T11 vertebral body. No new compression deformities. There are findings of diffuse idiopathic skeletal hyperostosis. IMPRESSION: 1. Mild lumbar spine dextrocurvature, with apex at L3. 2. Moderate T12 (50-75%) and mild T11 (25%) vertebral body compression deformities, unchanged from CT dated 12/16/2017. Dictated by: Herve Barajas M.D. The radiology attending physician has personally reviewed this study, and had reviewed and/or edited this written report and agrees with it. Electronically signed by: Rosie Paula M.D. Maricel Machuca PREVENTIVE MEDICINE SPECIALIST IMG XR PROCEDURES Final Res ult documented in this encounter Visit Diagnoses Diagnosis Low back pain, unspecified back pain laterality, unspecified chronicity, unspecified whether sciatica present- Primary Spinal stenosis in cervical region Closed wedge compression fracture of T12 vertebra, sequela Edema of spinal cord (HCC) Vascular myelopathies Low back pain, unspecified back pain laterality, unspecified chronicity, unspecified whether sciatica present Low back pain, unspecified back pain laterality, unspecified chronicity, unspecified whether sciatica present Spinal stenosis in cervical region documented in this encounter Care Teams Translator Interpreter Relationship Specialty Start Date End Date No, Physician PCP - General 02/04/18 documented as of this encounter
--- OUTSIDE RECORDS SUMMARY | 2024-07-17 05:02 | XMS_ITS | Encounter Summary ---
Author Organization [facility] Address [address] [place] [address] Care Team Providers Care Diamond Merchant Name Role Phone No, Physician Primary Care Provider [phone] Encounter Details Date Type Department Care Team (Late st Contact Info) Description 05/03/2020 Patient Self-Triage [facility] [address] [place] [address] Mychart, Generic Provider [address] [place], [place] [id number] Social History Tobacco Use Types Packs/Day Years [...] on filedocumented in this encounter Care Teams Diamond Merchant Relationship Specialty Start Date End Date No, Physician PCP - General 02/04/18 documented as of this encounter
--- OUTSIDE RECORDS SUMMARY | 2024-07-17 05:02 | XMS_ITS | Encounter Summary ---
Author Organization [facility] Address [address] [place] [address] Phone Care Team Providers Care Reordering Clerk Name Role Phone No, Physician Primary Care Provider [phone] Reason for Visit * Reason Comments Blurred Vision Encounter Details Date Type Department Care Team (Late st Contact Info) Description 12/04/2019 10:00 AM CDT Office Visit [facility] [address] [place] [address] 1st [place] [address] Jung Mei, OD [address] [facility] [address] [place], [place] [id number] Age-related nuclear cataract of both eyes (Primary Dx); Hyperopia with presbyopia of both eyes Social History Tobacco Use Types Packs/Day Years [...] on file documented as of this encounter Patient Instructions * Patient Instructions* Jung Mei, DESEAN - 12/04/2019 10:00 AM CDT documented in this encounter Progress Notes * Jung Mei, OD - 12/04/2019 10:00 AM CDT Assessment/Plan Diagnoses and all orders for this visit: Age-related nuclear cataract of both eyes (Primary) Not visually significant, follow for now, UV protection, RTC if any changes to vision. Hyperopia with presbyopia of both eyes Srx, pt should switch to flat top bifocals documented in this encounter Plan of Treatment Not on file documented as of this encounter Visit Diagnoses Diagnosis Age-related nuclear cataract of both eyes- Primary Hyperopia with presbyopia of both eyes documented in this encounter Discontinued Medications Medication Sig Discontinue Reason Start Date End Da te dexlansoprazole (DEXILANT) 60 mg capsule Take 60 mg by mouth daily. Therapy completed 12/04/2019 documented as of this encounter Eye Exam Visual Acuity (Snellen - Linear) Right eye Left eye Dist sc 20/25 20/30 +2 Dist ph sc 20/20 20/25 Tonometry (Applanation, 10:15 AM) Right eye Left eye Pressure 16 16 Pupils Dark Light Shape React APD Right eye 3 2 Round Brisk None Left eye 3 2 Round Brisk None Visual Samuel Right eye Left eye Full Full Extraocular Movement Right eye Left eye Full, Ortho Full, Ortho Neuro/Psych Oriented x3: Yes Mood/Affect: Normal Dilation Both eyes: 1.0% Mydriacyl, 2 .5% Phenylephrine @ 10:15 AM External Exam Right eye Left eye External Normal Normal Slit Lamp Exam Right eye Left eye Lids/Lashes Normal LLL papilloma Conjunctiva/Sclera White and quiet White and jasper et Cornea Clear Clear Anterior Chamber Deep and quiet Deep and quiet Iris Round and reactive Round and silke ctive Lens Trace Nuclear sclerosis Trace Nu clear sclerosis Vitreous Normal Normal Fundus Exam Right eye Left eye Disc Normal Normal C/D Ratio 0.4 0.4 Macula Normal Normal Vessels Normal Normal Periphery Normal Normal Wearing Rx Sphere Cylinder Coolidge Add Right eye +0.50 +1.25 162 +2.00 Left eye +0.50 Sphere +2.00 Age: 6 months Type: Progressive Manifest Refraction Sphere Cylinder Coolidge Dist VA Add Near VA Right eye +0.75 +0.25 015 20/20 +1.50 J1+ Left eye +0.50 Sphere 20/20(-1) +1.50 J1+ Final Rx Sphere Cylinder Coolidge Dist VA Add Near VA Right eye +0.75 +0.25 015 20/20 +1.50 J1+ Left eye +0.50 Sphere 20/20(-1) +1.50 J1+ Care Teams Reordering Clerk Relationship Specialty Start Date End Date No, Physician PCP - General 02/04/18 documented as of this encounter
--- OUTSIDE RECORDS SUMMARY | 2024-07-17 05:02 | XMS_ITS | Encounter Summary ---
Author Organization [facility] Healthcare Address [address] [place] [address] Care Team Providers Care Cosmetic Counselor Name Role Phone No, Physician Primary Care Provider [phone] Encounter Details Date Type Department Care Team (Late st Contact Info) Description 05/03/2020 Patient Self-Triage [facility] [address] [place] [address] Mychart, Generic Provider [address] [place], [place] [id number] Social History Tobacco Use Types Packs/Day Years [...] on filedocumented in this encounter Care Teams Cosmetic Counselor Relationship Specialty Start Date End Date No, Physician PCP - General 02/04/18 documented as of this encounter
--- OUTSIDE RECORDS SUMMARY | 2024-07-17 05:02 | XMS_ITS | Encounter Summary ---
Author Organization [facility] Address [address] [place] [address] Phone Care Team Providers Care Show Host Or Hostess Name Role Phone No, Physician Primary Care Provider Encounter Details Date Type Department Care Team (Late st Contact Info) Description 05/12/2020 Telephone [facility] Orthopaedic Surgery [facility] 6th [place] [address] [place] [address] Dalia Peace, JEB [address] [facility] [place] [address] Social History Tobacco Use Types Packs/Day Years [...] encounter Miscellaneous Notes * Telephone Encounter - Dalia Boone RN - 05/12/2020 5:23 PM MAJOR CASE DETECTIVE LVMM for patient to call back and get scheduled after referral from Maricel. I asked him to call meor the scheduling line, can schedule for this Tuesday, otherwise will be out a couple weeks. MSK R CASE DETECTIVE documented in this encounter Plan of Treatment Not on file documented as of this encounter Visit Diagnoses Not on filedocumented in this encounter Care Teams Show Host Or Hostess Relationship Specialty Start Date End Date No, Physician PCP - General 02/04/18 documented as of this encounter
--- OUTSIDE RECORDS SUMMARY | 2024-07-17 05:02 | XMS_ITS | Encounter Summary ---
Author Organization [facility] Healthcare Address [address] [place] [address] Care Team Providers Care Hogshead Stock Clerk Name Role Phone No, Physician Primary Care Provider [phone] Encounter Details Date Type Department Care Team (Latest Contact Info) Description 04/23/2020 12:00 PM CDT - 04/23/2020 11:59 PM CDT Hospital Encounter [facility] [address] [place] [address] Discharge Disposition: Discharge to home or self [...] this encounter Medications at Time of Discharge doxazosin (CARDURA) 4 mg tabletIndications: Benign prostatic hyperplasia with weak urinary stream Take 1/2 po qhs for 2 weeks and then 1 po qhs. 30 tablet 11 01/10/2018 05/19/2020 finasteride (PROSCAR) 5 mg tabletIndications: benign prostatic hyperplasia with lower urinary tract sx Take 1 tablet (5 mg total) by mouth daily. 30 tablet 11 01/31/2018 05/19/2020 sildenafil, antihypertensive, (REVATIO) 20 mg tabletIndications: Erectile Dysfunction Take 2 - 5 po prn at 1 hour prior to sexual activity. Works best on an empty stomach. 90 tablet 3 07/31/2018 05/13/2020 documented as of this encounter Discharge Disposition Disposition Code Departure Means Destination Discharge to home or self care documented in this encounter Plan of Treatment Not on file documented as of this encounter Procedures Procedure Name Priority Date/Time Associated Diagnosis Comments NEURO CT MR OUTSIDE REFERENCE Routine 04/23/2020 12:00 PM CDT Diagnosis unknown documented in this encounter Results * Neuro CT MR Outside Reference (04/23/2020 12:00 PM CDT) Impressions [facility] - 04/23/2020 12:00 PM CDT These images are for Reference purposes only and have not been reviewed by [facility] Radiology. ??There will be no report generated by a [facility] Radiologist. Narrative [facility] - 04/23/2020 12:00 PM CDT EXAMINATION: ??Images For Reference Purposes Only us Maricel Machuca REAL ESTATE PROFESSIONAL IMG CT PROCEDURES Final Res ult [facility] documented in this encounter Visit Diagnoses Not on filedocumented in this encounter Care Teams Hogshead Stock Clerk Relationship Specialty Start Date End Date No, Physician PCP - General 02/04/18 documented as of this encounter
--- OUTSIDE RECORDS SUMMARY | 2024-07-17 05:02 | XMS_ITS | Encounter Summary ---
Author Organization [facility] Address [address] [place] [address] Phone Care Team Providers Care Industrial Gas Production Operator Name Role Phone No, Physician Primary Care Provider [phone] Reason for Referral * Diagnostic Imaging (Routine) - Closed Specialty Diagnoses / Procedures Referred By Contac t Referred To Contact Diagnoses Bilateral hip pain Procedures XR Hips Bilateral 3 or 4 Views W Pelvis Spike Contreras PA Phone: tel: fax: [address] [address] Referral ID Status Reason Start Date Expiration Date Visits Re quested Visits Authorized [id number] Closed 05/13/2020 06/12/2021 1 1 ACTIONS ASSOCIATE Reason for Visit * Reason Comments Pain Pain * Consultation (Routine) - Closed Specialty Diagnoses / Procedures Referred By Contac t Referred To Contact Orthopedic Surgery Diagnoses Hip pain Maricel Machuca CNS Phone: tel: fax: Spike Contreras PA [address] [place] [address] Phone: tel: fax: Referral ID Status Reason Start Date Expiration Date V isits Requested Visits Authorized [id number] Closed Specialty Services Required 05/08/2020 06/07/2021 1 1 Encounter Details Date Type Department Care Team (Late st Contact Info) Description 05/19/2020 8:00 AM ATTRACTIONS ASSOCIATE Office Visit [facility] Orthopaedic Surgery [address] [facility] Medical Office Building [address] [place] [address] Spike Contreras PA [address] [place] [address] Bilateral hip pain (Primary Dx); Hip pain; Femoral acetabular impingement Social History Tobacco Use Types Packs/Day Years [...] Refills Last Filled Start Date End Date meloxicam (MOBIC) 15 mg tabletIndications: Osteoarthritis Take 1 tablet (15 mg total) by mouth daily 30 tablet 2 05/19/2020 06/18/2020 documented in this encounter Progress Notes * Spike Contreras PA - 05/19/2020 8:00 AM CST ESTABLISHED PATIENT VISIT CHIEF COMPLAINT: Chief Complaint Patient presents with ??? Left Hip - Pain ??? Right Hip - Pain HISTORY OF PRESENT ILLNESS: 50-year-old gentleman presents the office today with chief complaint of bilateral hip pain left greater than right for many years. Patient states he has had chronic low back pain and hip pain for many years. He has recently seen by Maricel for evaluation of his cervical, thoracic and lumbar spine. Discussion regarding cervical spine fusion. Today reports of bilateral posterior lateral hip pain made worse with weight-bearing activities. 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 Patient states he has more posterior lateral hip pain and groin pain. Symptoms are made worse with prolonged walking or seated positions. He states by lunchtime he is limping quite a bit and coworkers comment on his limb. He has had numerous shots both in his lumbar spine region but also reportedly had fluoroscopic guided bilateral hip injections approximately year ago. Patient states he noted relief for approximately 6-8 weeks. Status post bilateral inguinal hernia repairs 2010 denies any pain with cough or sneeze. Used to take Tylenoland [id number] nonsteroidals but stopped many years ago. He is currently on no medications for his arthritis symptoms. PHYSICAL EXAMINATION: BMI 32. Patient transfer [id number] pushing up on the arms chair ambulates with a mild to moderate antalgic gait short swing phase noted on the left using no assistive device. He does have some mild forward flexion of his lumbar spine. Leg lengths appeared equal. Trendelenburg negative bilaterally. Passive range of motion left hip: Started flexion 0?? and flexion 110??, IRF 10, ER 30, abduction 30. Passive range of motion right hip had similar findings. He had pain in the superior lateral groin with anterior impingement testing. Dallas's testing produces pain mostly in the posterior lateral hip but also in his lumbar spine region. He had no real groin pain noted with Dallas's testing today. No tenderness over either greater trochanter. Hip abductor strength seemed adequate. Neurovascular status grossly intact both lower extremities. XRAYS/REVIEW OF STUDIES: X-rays taken today AP pelvis cross-table lateral both hips revealed bilateral hip TERRELL with mild secondary degenerative changes. He had more of a femoral head deformity on the left compared to the right. ASSESSMENT/PLAN: Bilateral hip TERRELL with mild to moderate secondary degenerative changes left greater than right Lumbar spondylosis Today we discussed the common mixed symptom overlay of lumbar spondylosis and hip arthritis. Patient did note short-term relief with previous fluoroscopic guided steroid injections which would suggest that the hips are indeed a pain generator. At this point he admits he would have a tough time taking off work for either a spine surgery or hip replacement. Therefore, this point recommend he get started on oral nonsteroidal continue with activities as tolerated. Patient was given a prescription for meloxicam 15 mg 1 tab p.o. q.d.. He knows not to take other [id number] oral nonsteroidals. He can supplement with Tylenol. Consider MRI of the left hip for further determination of his level of arthritis versus a repeat intra-articular injection of steroid. Patient will likely require totalhip arthroplasty in the future. Follow-up as needed. Spike Contreras PA-C Joint Reconstructive Service [facility] Orthopedic Surgery ACTIONS ASSOCIATE documented in this encounter Plan of Treatment Not on file documented as of this encounter Results * XR Hips Bilateral 3 or 4 Views W Pelvis (05/19/2020 8:32 AM ATTRACTIONS ASSOCIATE) Anatomical Region Laterality Modality Lower Extremities, Hip, Pelvis Bilateral C omputed Radiography 05/19/2020 8:36 AM ATTRACTIONS ASSOCIATE Impressions 05/19/2020 8:36 AM ATTRACTIONS ASSOCIATE Mild right and minimal left hip osteoarthritis. Electronically signed by: Wm Roberts M.D. Narrative 05/19/2020 8:36 AM ATTRACTIONS ASSOCIATE EXAMINATION: XR HIPS BILATERAL 3 OR 4 [...] signed by: Wm Roberts M.D. Spike ROACH IMG XR PROCEDURES Final Resul t documented in this encounter Visit Diagnoses Diagnosis Bilateral hip pain- Primary Pain in joint, pelvic region and thigh Femoral acetabular impingement Bilateral hip pain Pain in joint, pelvic region and thigh documented in this encounter Discontinued Medications Medication Sig Discontinue Reason Start Date End Da te sildenafil, antihypertensive, (REVATIO) 20 mg tabletIndications:Erectil e Dysfunction Take 2 - 5 po prn at 1 hour prior to sexual activity. Works best on an empty stomach. 07/31/2018 05/13/2020 doxazosin (CARDURA) 4 mg tabletIndications:Benign prostatic hyperplasia with weak urinary stream Take 1/2 po qhs for 2 weeks and then 1 po qhs. 01/10/2018 05/19/2020 finasteride (PROSCAR) 5 mg tabletIndications:benign prostatic hyperplasia with lower urinary tract sx Take 1 tablet (5 mg total) by mouth daily. 01/31/2018 05/19/2020 documented as of this encounter Orders Outpatient Referral Count Last Ordered Date Fir st Ordered Date AMB REFERRAL TO ORTHOPEDIC SURGERY 1 2019 documented in this encounter Care Teams Industrial Gas Production Operator Relationship Specialty Start Date End Date No, Physician PCP - General 02/04/18 documented as of this encounter
--- OUTSIDE RECORDS SUMMARY | 2024-07-17 05:02 | XMS_ITS | Encounter Summary ---
Author Organization [facility] Healthcare Address [address] [place] [address] Care Team Providers Care Development Intern Name Role Phone No, Physician Primary Care Provider [phone] Encounter Details Date Type Department Care Team (Latest Contact Info) Description 05/19/2020 9:35 AM MINING CONSULTANT - 05/19/2020 11:59 PM MINING CONSULTANT Hospital Encounter [facility] [address] [place] [address] Discharge Disposition: Discharge to home or self [...] Name Priority Date/Time Associated Diagnosis Comments XR TRANSFER OF OUTSIDE FILMS Routine 05/19/2020 9:35 AM MINING CONSULTANT Diagnosis unknown documented in this encounter Results * XR Outside Reference (05/19/2020 9:35 AM MINING CONSULTANT) Impressions [facility] - 05/19/2020 9:35 AM MINING CONSULTANT These images are for Reference purposes only and have not been reviewed by [facility] Radiology. ??There will be no report generated by a [facility] Radiologist. Narrative [facility] - 05/19/2020 9:35 AM MINING CONSULTANT EXAMINATION: ??Images For Reference Purposes Only us Spike ROACH IMG XR PROCEDURES Final Resul t [facility] documented in this encounter Visit Diagnoses Not on filedocumented in this encounter Care Teams Development Intern Relationship Specialty Start Date End Date No, Physician PCP - General 02/04/18 documented as of this encounter
--- OUTSIDE RECORDS SUMMARY | 2024-07-17 05:02 | XMS_ITS | Encounter Summary ---
Author Organization [facility] Address [address] [place] [address] Phone Care Team Providers Care Blister Packaging Machine Operator Name Role Phone No, Physician Primary Care Provider [phone] Encounter Details Date Type Department Care Team (Late st Contact Info) Description 10/01/2020 Telephone [facility] Orthopaedic Surgery [address] [place] [phone] Spike Contreras, MARLEY [address] [facility] [address] [place] [address] Social History Tobacco Use Types Packs/Day Years [...] encounter Miscellaneous Notes * Telephone Encounter - Cierra Alvarez ATC - 10/01/2020 9:31 AM CDT Patients up coming appt was cx. He is going to move forward with bilateral hip fluoro injections and will f/u w/ the office on how he is doing. documented in this encounter Plan of Treatment Not on file documented as of this encounter Visit Diagnoses Not on filedocumented in this encounter Care Teams Blister Packaging Machine Operator Relationship Specialty Start Date End Date No, Physician PCP - General 02/04/18 documented as of this encounter
--- OUTSIDE RECORDS SUMMARY | 2024-07-17 05:02 | XMS_ITS | Encounter Summary ---
Author Organization [facility] Address [address] [place] [address] Phone Care Team Providers Care Pals Nurse Name Role Phone No, Physician Primary Care Provider [phone] Reason for Referral * Consultation (Routine) - Closed Specialty Diagnoses / Procedures Referred By Amalia blake Referred To Contact Orthopedic Surgery Diagnoses Hip pain Maricel Machuca CNS Phone: tel: fax: Spike Seo, MARLEY [address] [place] [address] [place] [address] Phone: tel: fax: Referral ID Status Reason Start Date Expiration Date V isits Requested Visits Authorized [id number] Closed Specialty Services Required 05/08/2020 06/07/2021 1 1 Scheduling Instructions Please evaluate left>right hip pain Question Answer Please select the performing region: [facility] (All Locations) [167] To provider: SPIKE SEO [[id number]] # of visits: 1 Comments Please evaluate left>right hip pain THETIC AIDES TEACHER Encounter Details Date Type Department Care Team (Late st Contact Info) Description 05/08/2020 Orders Only [facility] Orthopaedic Surgery [address] [place] [address] Medical Office Building [address] [place] [phone] Maricel Machuca, [facility] [address] [facility] [address] [place] [address] Hip pain (Primary Dx) Social History Tobacco Use [...] as of this encounter Plan of Treatment Scheduled Referrals Name Type Priority Associated Diagnoses Order Schedule Ambulatory referral to Orthopedic Surgery Outpatient Referral Routine Hip pain Expected: 05/22/2020 (Approximate), Expires: 05/08/2021 documented as of this encounter Visit Diagnoses Diagnosis Hip pain- Primary Pain in joint, pelvic region and thigh documented in this encounter Care Teams Pals Nurse Relationship Specialty Start Date End Date No, Physician PCP - General 02/04/18 documented as of this encounter
--- OUTSIDE RECORDS SUMMARY | 2024-07-17 05:02 | XMS_ITS | Encounter Summary ---
Author Organization [facility] Address [address] [place] [address] Phone Care Team Providers Care String Laster Name Role Phone No, Physician Primary Care Provider [phone] Encounter Details Date Type Department Care Team (Late st Contact Info) Description 03/11/2020 2:45 PM CDT Office Visit [facility] Surgery [address] [facility] [address] [place] [phone] [place] [id number] [place] [address] [address] [place] [id number] Left lower quadrant abdominal pain (Primary Dx); Umbilical hernia; Cholelithiasis; BMI 31.0-31.9,adult Social History Tobacco Use Types Packs/Day Years [...] Sign Reading Time Taken Comments Blood Pressure 112/78 03/11/2020 3:09 PM CDT Pulse 86 03/11/2020 3:09 PM CDT Temperature 37.1 ??C (98.8 ??F) 03/11/2020 3:09 PM CD T Respiratory Rate - - Oxygen Saturation - - Inhaled Oxygen Concentration - - Weight 101.4 kg (223 lb 9.6 oz) 03/11/2020 3:09 PM CDT Height 180.3 cm (5' 11 ) 03/11/2020 3:09 PM CDT Body Mass Index 31.19 03/11/2020 3:09 PM CDT documented in this encounter Progress Notes * George Tom MD - 03/11/2020 2:45 PM CDT General Surgery Consult Reason for Consult/Visit: Left-sided abdominal pain. Patient had recent CT scan, noted to have umbilical hernia, here to discuss role of surgery Requesting Provider: Physician Kaykay HPI: Patient is a 49 y.o. male here for follow up on the ongoing issue of left-sided abdominal pain, nowis pain almost 8-9 years that he has been having this pain, has been multiple times advised to havehigh-fiber diet and also to take Metamucil and MiraLax daily. He continues to have problem with constipation because he does not take high-fiber diet and does not take Metamucil and MiraLax regularlyonly once in a while. Has been having problem with back pains, also complains of pain in left groin with some numbness inthe left groin area. He previously had open repair of bilateral inguinal hernias many years ago, is concerned that the mesh may also be causing his part of the problems. No pain in the umbilical area He previously was diagnosed with cholelithiasis, asymptomatic. Review of Systems: No history of fever or chills. No history of shortness of breath or chest pain. No history of nausea vomiting. No history of altered bowel habit. No history of hematuria dysuria. No history of focal weakness or numbness. Physical Exam: Vitals: BP 112/78 Pulse 86 Temp 37.1 ??C (98.8 ??F) Ht 180.3 cm (5' 11 ) Wt 101.4 kg (223 lb 9.6 oz) BMI 31.19 kg/m?? Physical Exam Constitutional: Patient is awake and alert and appears well-developed and well-nourished. Eyes: Conjunctiva normal Neck: Normal range of motion. Neck supple. Cardiovascular: Normal rate and regular rhythm. Pulmonary/Chest: Effort normal bilateral equal air entry. Abdominal: Soft. Patient exhibits no distension and no mass. Nonspecific tenderness noted in the left lower quadrant and left flank area. Cough impulse positive in both groins as well as in umbilical are, small about 1 cm umbilical hernia noted. No definite inguinal hernias noted Musculoskeletal: Normal range of motion. Neurological: Patient is alert and oriented Skin: Skin is warm and dry. Psychiatric: normal mood and affect, behavior is normal. Lab/Radiology/Diagnostic Review: Patient had CT scan done elsewhere, images were brought on CD, those images were noted, radiologistraised the concern about small umbilical hernia fat containing. The images were personally reviewed Assessment /Plan I spent quite a bit of time, explained to him in detail that small umbilical hernia from which he is not symptomatic, does not need surgical intervention. He does have biliary disease but is not symptomatic, does not need cholecystectomy. He does have fat in both of the groin areas, I do not think we need to consider any surgical intervention for that. Patient continues to have problem with constipation with left-sided abdominal pain, explained to him that he has to take high-fiber diet and fiber supplements on regular basis and try not to hold on to the stools and gas so that his symptoms can improve. He is seeing chiropractor, previously has seen pain management, advised to continue with that for his back problems. BMI of 31, advised to lose weight. Follow with me in 3 months p.r.n.. documented in this encounter Plan of Treatment Not on file documented as of this encounter Visit Diagnoses Diagnosis Left lower quadrant abdominal pain- Primary Umbilical hernia Umbilical hernia without mention of obstruction or gangrene Cholelithiasis Calculus of gallbladder without mention of cholecystitis or obstruction BMI 31.0-31.9,adult documented in this encounter Care Teams String Laster Relationship Specialty Start Date End Date No, Physician PCP - General 02/04/18 documented as of this encounter
--- OUTSIDE RECORDS SUMMARY | 2024-07-17 05:02 | XMS_ITS | Encounter Summary ---
Author Organization [facility] Address [address] [place] [address] Care Team Providers Care Heavy Equipment Service Technician Name Role Phone No, Physician Primary Care Provider [phone] Reason for Referral * Diagnostic Imaging (Routine) - Closed Specialty Diagnoses / Procedures Referred By Caraac lou Referred To Contact Radiology Diagnoses Low back pain, unspecified back pain laterality, unspecified chronicity, unspecified whether sciatica present Spinal stenosis in cervical region Procedures MRI Spine Total Complete W WO Contrast Maricel Machuca CNS Phone: tel: fax: [address] [phone] Referral ID Status Reason Start Date Expiration Date Visits Re quested Visits Authorized [id number] Closed 04/29/2020 06/13/2020 1 1 IFIED HEALTH EDUCATION SPECIALIST Reason for Visit * Diagnostic Imaging (Routine) - Closed Specialty Diagnoses / Procedures Referred By Amalia blake Referred To Contact Radiology Diagnoses Low back pain, unspecified back pain laterality, unspecified chronicity, unspecified whether sciatica present Spinal stenosis in cervical region Procedures MRI Spine Total Complete W WO Contrast Maricel Machuca CNS Phone: tel: fax: [address] [phone] Referral ID Status Reason Start Date Expiration Date Visits Re quested Visits Authorized [id number] Closed 04/29/2020 06/13/2020 1 1 Encounter Details Date Type Department Care Team (Latest Contact Info) Description 05/03/2020 11:03 AM CERTIFIED HEALTH EDUCATION SPECIALIST - 05/03/2020 11:59 PM CERTIFIED HEALTH EDUCATION SPECIALIST Hospital Encounter [facility] Radiology at [facility] [address] [place] [address] Ricardo Randolph MD [address] [facility] [address] [place] [address] Maricel Machuca, MOLDING LINE ASSISTANT [address] [facility] [address] [place] [address] Low back pain, unspecified back pain laterality, unspecified chronicity, unspecified whether sciatica present; Spinal stenosis in cervical region Discharge Disposition: Discharge to home or self [...] Procedure Name Priority Date/Time Associated Diagnosis Comments MRI SPINE TOTAL COMPLETE W WO CONTRAST Schedule Routine, Read Routine (OP Routine) 05/03/2020 1:04 PM CERTIFIED HEALTH EDUCATION SPECIALIST Low back pain, unspecified back pain laterality, unspecified chronicity, unspecified whether sciatica present Spinal stenosis in cervical region documented in this encounter Results * MRI Spine Total Complete W WO Contrast (05/03/2020 1:04 PM CERTIFIED HEALTH EDUCATION SPECIALIST) Anatomical Region Laterality Modality Spine N/A Magnetic Resonan ce 05/05/2020 10:1 1 AM CERTIFIED HEALTH EDUCATION SPECIALIST Impressions 05/05/2020 6:21 PM CERTIFIED HEALTH EDUCATION SPECIALIST 1. ??Multilevel degenerative changes of the cervical [...] Adelso Chatterjee M.D. Narrative 05/05/2020 6:21 PM CERTIFIED HEALTH EDUCATION SPECIALIST EXAMINATION: Magnetic resonance imaging (MRI) of the [...] signed by: Adelso Chatterjee M.D. Maricel Machuca [facility] IMG MRI PROCEDURES Final Re sult documented in this encounter Visit Diagnoses Diagnosis Low back pain, unspecified back pain laterality, unspecified chronicity, unspecified whether sciatica present Spinal stenosis in cervical region documented in this encounter Administered Medications Inactive Administered Medications - up to 3 most recent administrations Medication Order MAR Action Action Date Dose Rate Site gadoterate meglumine (DOTAREM) 0.5 mmol/mL injection 20 mL 20 mL, intravenous, Once in imaging, contrast, Starting on 05/03/20 at 1228, For 1 dose Given 05/03/2020 12:28 PM CERTIFIED HEALTH EDUCATION SPECIALIST 20 mL documented in this encounter Orders Medications Ordered That Mitch ht Not Have Been Administered Count Last Ordered Date First Ordered Date gadoterate meglumine (DOTARE M) 0.5 mmol/mL injection 20 mL 1 05/03/2020 documented in this encounter Care Teams Heavy Equipment Service Technician Relationship Specialty Start Date End Date No, Physician PCP - General 02/04/18 documented as of this encounter
--- OUTSIDE RECORDS SUMMARY | 2024-07-17 05:02 | XMS_ITS | Encounter Summary ---
Author Organization [facility] Address [address] [place] [address] Phone Care Team Providers Care Supervisor Steffen House Name Role Phone No, Physician Primary Care Provider [phone] Encounter Details Date Type Department Care Team (Late st Contact Info) Description 09/26/2020 Telephone [facility] Orthopaedic Surgery On license of [facility] Advanced Medicine 6th [place] [address] [place] [address] Darlene Degroot RMA Social History Tobacco Use Types Packs/Day Years [...] encounter Miscellaneous Notes * Telephone Encounter - Darlene Degroot RMA - 09/26/2020 3:55 PM CDT 09/26/20-patient called about wanting repeat left hip injection and possibly back injections. Patienttransferred to the scheduling line to schedule f/u with michoacano since he says his left hip is worse than the back. He was last seen by him in Apr. Patient also needs to update his insurance information.Patient would need to schedule consult with physiatry for his low back if he wants to also have injections for the low back pain. ews documented in this encounter Plan of Treatment Not on file documented as of this encounter Visit Diagnoses Not on filedocumented in this encounter Care Teams Supervisor Steffen House Relationship Specialty Start Date End Date No, Physician PCP - General 02/04/18 documented as of this encounter
--- OUTSIDE RECORDS SUMMARY | 2024-07-17 05:02 | XMS_ITS | Encounter Summary ---
Author Organization [facility] Healthcare Address [address] [place] [address] Care Team Providers Care Plastics Sheet Finishing Press Operator Name Role Phone No, Physician Primary Care Provider [phone] Reason for Referral * Diagnostic Imaging (Routine) - Closed Specialty Diagnoses / Procedures Referred By Contac t Referred To Contact Diagnoses Bilateral hip pain Procedures FL Fluoro Guided Aspiration or Injection Large Joint Bilateral (HIP) Spike Contreras PA Phone: tel: fax: [place] [address] [phone] Referral ID Status Reason Start Date Expiration Date Visits Re quested Visits Authorized [id number] Closed 10/10/2020 10/10/2020 1 1 Reason for Visit * Diagnostic Imaging (Routine) - Closed Specialty Diagnoses / Procedures Referred By Contac t Referred To Contact Diagnoses Bilateral hip pain Procedures FL Fluoro Guided Aspiration or Injection Large Joint Bilateral (HIP) Spike Contreras PA Phone: tel: fax: [place] [address] [place] [address] Referral ID Status Reason Start Date Expiration Date Visits Re quested Visits Authorized [id number] Closed 10/10/2020 10/10/2020 1 1 Encounter Details Date Type Department Care Team (Late st Contact Info) Description 10/09/2020 12:30 PM CDT - 10/09/2020 11:59 PM CDT Hospital Encounter [facility] Radiology at [facility] [address] [place] [address] PicTo walsh MD [address] [facility] [address] [place] [address] Michael Bernabe MD PhD [address] [facility] [address] [place] [address] Bilateral hip pain Discharge Disposition: Discharge to [...] more drinks on one occasion? Never 10/09/2020 Sex and Gender Information Value Date Recorded [...] CDT Inhaled Oxygen Concentration - - Weight - - Height - - Body Mass Index - - documented in this encounter Discharge Diagnoses Diagnosis Pain in left hip - PAIN IN LEFT HIP Pain in right hip - PAIN IN RIGHT HIP documented in this encounter Discharge Instructions * Discharge Instructions* Dina Christopher, RT - 10/09/2020 1:27 PM CDT Post-Procedural Information 1. Possible common side effects following an injection include: - Numbness for several hours at the skin entry site followed by slight soreness. - A slight increase in your presenting pain for up to 24 hours following the injection. - Elevated blood sugar. If you are diabetic, increases in your blood glucose readings may occur forseveral days and you should monitor these readings closely. - Insomnia (sleep difficulty) - Restlessness - Facial flushing - Lightheadedness or dizziness could rarely persist for a few days. - Headache, temporary. 2. Possible common complications to be aware of following an injection include: IF YOU BELIEVE YOU ARE EXPERIENCING ANY OF THE FOLLOWING COMPLICATIONS, NOTIFY THE RADIOLOGIST WHO PERFORMED YOUR PROCEDURE. - Infection: increasing redness, warmth, swelling, or drainage over the injection site. - Developing a fever over 101 degrees Fahrenheit. - Pain that is much worse than prior to the injection within 48 - 72 hours following the injection. - Bleeding/Bruising: obvious bleeding to the skin surface, increasing discoloration below the skin,or an increasing lump under the injection site. - Hyperglycemia (Symptoms of very high blood sugar) can include: dizziness; lightheadedness; blurred vision; excessive thirst, hunger, and urination. - Any atypical, persistent, or unrelenting headache. 3. If you have stopped your blood thinners in preparation for your procedure, you need to contact the prescribing physician before restarting the medication. The blood thinner may be restarted 4 hours after the procedure with your physician???s approval. Our recommendation is to avoid COVID-19 vaccine for 2 weeks post corticosteroid injection. [facility] [place] [facility] / [facility] Office Number: Office Hours: Tuesday - Tuesday 9 a.m. - 4 p.m. After Hours call: This is the Emergency Room x-ray reading room. Ask the emergency room radiologist to contact the physician that performed the procedure. documented in this encounter Medications at Time of Discharge albuterol HFA (PROVENTIL HFA,VENTOLIN HFA,PROAIR HFA) 90 mcg/actuation inhaler INHALE 1 TO 2 INHALATION BY MOUTH EVERY 4 HOURS NEEDED FOR SHORTNESS OF BREATH OR WHEEZING 08/05/2020 meloxicam (MOBIC) 15 mg tablet Take 15 mg by mouth daily 07/13/2020 documented as of this encounter Discharge Disposition Disposition Code Departure Means Destination Discharge to home or self care documented in this encounter Plan of Treatment Not on file documented as of this encounter Procedures Procedure Name Priority Date/Time Associated Diagnosis Comments FLUORO GUIDED ASPIRATION OR INJECTION LARGE JOINT BILATERAL Schedule Routine, Read Routine (OP Routine) 10/09/2020 1:28 PM CDT Bilateral hip pain documented in this encounter Results * FL Fluoro Guided Aspiration or Injection Large Joint Bilateral (HIP) (10/09/2020 1:28 PM CDT) Anatomical Region Laterality Modality Body Bilateral Ultrasound 10/09/2020 3:37 PM CDT Impressions 10/09/2020 3:37 PM CDT 1. ??Bilateral hip joint injections under fluoroscopic guidance with reduction of the patient's presenting pain at the conclusion of the procedures. Electronically signed by: Michael Bernabe M.D. Narrative 10/09/2020 3:37 PM CDT EXAMINATION: ??Bilateral hip joint injections under fluoroscopic guidance HISTORY: Bilateral hip pain ATTENDING PRESENCE: Dr. Michael Bernabe M.D., the attending radiologist, was present from the beginning to the end of the procedure. SEDATION: The patient did not require conscious sedation for the procedure. TECHNIQUE: ??The risks, benefits and alternatives were discussed and informed consent was obtained. ??Prior to beginning the procedure, Johnston Protocol was performed to confirm the patient's identity and the planned procedure. Sterile barriers used during the procedure included cap, mask, hand hygiene, sterile gloves, and sterile drape. ??Chloraprep was used for cutaneous antisepsis. The patient was placed supine on the fluoroscopy ??table. Right hip: The right hip joint was localized with fluoroscopic guidance. ??Local anesthesia was achieved with subcutaneous injection of 1% lidocaine 2 mL. ??A 22-gauge needle was then introduced into the joint under fluoroscopic guidance. ?? 1 ?? mL of a 2:1 mixture of Omnipaque-300 and 0.25% bupivacaine was injected to verify intra-articular position of the needle tip. A mixture containing Kenalog (40 mg/mL) 1 mL, 0.25% bupivacaine 1 mL, and Omnipaque-300 1mL was then injected into the joint. ??The needle was removed. ??The skin was cleansed with hydrogen peroxide, and a bandage was placed. There were no complications of the procedure. Left hip: The left hip joint was localized with fluoroscopic guidance. ??Local anesthesia was achieved with subcutaneous injection of 1% lidocaine 2 mL. ??A 22-gauge needle was then introduced into the joint under fluoroscopic guidance. ??1 mL of a 2:1 mixture of Omnipaque-300 and 0.25% bupivacaine was injected to verify intra-articular position of the needle tip. A mixture containing Kenalog (40 mg/mL) 1 mL, 0.25% bupivacaine 1 mL, and Omnipaque-300 1mL was then injected into the joint. ??The needle was removed. ??The skin was cleansed with hydrogen peroxide, and a bandage was placed. There were no complications of the procedure. Complication: None ESTIMATED BLOOD LOSS: None CONDITION: Stable condition. DISCHARGED TO: Home FINDINGS: Fluoroscopic images confirm intra-articular positions of the needle tips. ?? Following the injection, the patient reported reduction in symptoms. Procedure Note Michael Bernabe MD PhD - 10/09/2020 EXAMINATION: Bilateral hip joint injections under fluoroscopic guidance HISTORY: Bilateral hip pain ATTENDING PRESENCE: Dr. Michael Bernabe M.D., the attending radiologist, was present from the beginning to the end of the procedure. SEDATION: The patient did not require conscious sedation for the procedure. TECHNIQUE: The risks, benefits and alternatives were discussed and informed consent was obtained. Prior to beginning the procedure, Johnston Protocol was performed to confirm the patient's identity and the planned procedure. Sterile barriers used during the procedure included cap, mask, hand hygiene, sterile gloves, and sterile drape. Chloraprep was used for cutaneous antisepsis. The patient was placed supine on the fluoroscopy table. Right hip: The right hip joint was localized with fluoroscopic guidance. Local anesthesia was achieved with subcutaneous injection of 1% lidocaine 2 mL. A 22-gauge needle was then introduced into the joint under fluoroscopic guidance. 1 mL of a 2:1 mixture of Omnipaque-300 and 0.25% bupivacaine was injected to verify intra-articular position of the needle tip. A mixture containing Kenalog (40 mg/mL) 1 mL, 0.25% bupivacaine 1 mL, and Omnipaque-300 1mL was then injected into the joint. The needle was removed. The skin was cleansed with hydrogen peroxide, and a bandage was placed. There were no complications of the procedure. Left hip: The left hip joint was localized with fluoroscopic guidance. Local anesthesia was achieved with subcutaneous injection of 1% lidocaine 2 mL. A 22-gauge needle was then introduced into the joint under fluoroscopic guidance. 1 mL of a 2:1 mixture of Omnipaque-300 and 0.25% bupivacaine was injected to verify intra-articular position of the needle tip. A mixture containing Kenalog (40 mg/mL) 1 mL, 0.25% bupivacaine 1 mL, and Omnipaque-300 1mL was then injected into the joint. The needle was removed. The skin was cleansed with hydrogen peroxide, and a bandage was placed. There were no complications of the procedure. Complication: None ESTIMATED BLOOD LOSS: None CONDITION: Stable condition. DISCHARGED TO: Home FINDINGS: Fluoroscopic images confirm intra-articular positions of the needle tips. Following the injection, the patient reported reduction in symptoms. IMPRESSION: 1. Bilateral hip joint injections under fluoroscopic guidance with reduction of the patient's presenting pain at the conclusion of the procedures. Electronically signed by: Michael Bernabe M.D. Spike ROACH Maxwell FLUOROSCOPY PROCEDURES Fi nal Result documented in this encounter Visit Diagnoses Diagnosis Bilateral hip pain Pain in joint, pelvic region and thigh documented in this encounter Administered Medications Inactive Administered Medications - up to 3 most recent administrations Medication Order MAR Action Action Date Dose Rate Site bupivacaine (MARCAINE) 0.5 % (5 mg/mL) preservative free injection Code/trauma/sedation medication, Starting on Mayuri 10/09/20 at 1253 Given 10/09/2020 12:53 PM CDT 4 mL iohexoL (OMNIPAQUE) 300 mg iodine/mL injection solution Code/trauma/sedation medication, Starting on Mayuri 10/09/20 at 1253 Given 10/09/2020 12:53 PM CDT 4 mL lidocaine PF (XYLOCAINE) 10 mg/mL (1 %) preservative free injection Code/trauma/sedation medication, Starting on Mayuri 10/09/20 at 1252, Intra-Procedure (IR), Indications: Administration of Local AnesthesiaIndications:Administrati on of Local Anesthesia Given 10/09/2020 12:52 PM CDT 4 mL triamcinolone (KENALOG) 40 mg/mL injection Code/trauma/sedation medication, Starting on Mayuri 10/09/20 at 1253 Given 10/09/2020 1:11 PM CDT 40 mg Given 10/09/2020 12:53 PM CDT 40 mg documented in this encounter Care Teams Plastics Sheet Finishing Press Operator Relationship Specialty Start Date End Date No, Physician PCP - General 02/04/18 documented as of this encounter
--- OUTSIDE RECORDS SUMMARY | 2024-07-17 05:02 | XMS_ITS | Encounter Summary ---
Author Organization [facility] Healthcare Address [address] [place] [address] Care Team Providers Care Curing Pickling Packer Name Role Phone No, Physician Primary Care Provider [phone] Reason for Referral * Diagnostic Imaging (Routine) - Closed Specialty Diagnoses / Procedures Referred By Caraac lou Referred To Contact Diagnoses Low back pain, unspecified back pain laterality, unspecified chronicity, unspecified whether sciatica present Procedures XR Scoliosis AP LAT Maricel Machuca CNS Phone: tel: fax: [facility] Medicine Referral ID Status Reason Start Date Expiration Date Visits Re quested Visits Authorized [id number] Closed 04/22/2020 05/22/2021 1 1 Reason for Visit * Diagnostic Imaging (Routine) - Closed Specialty Diagnoses / Procedures Referred By Amalia t Referred To Contact Diagnoses Low back pain, unspecified back pain laterality, unspecified chronicity, unspecified whether sciatica present Procedures XR Scoliosis AP LAT Maricel Machuca CNS Phone: tel: fax: [facility] Referral ID Status Reason Start Date Expiration Date Visits Re quested Visits Authorized [id number] Closed 04/22/2020 05/22/2021 1 1 Encounter Details Date Type Department Care Team (Latest Contact Info) Description 04/23/2020 9:06 AM CDT - 04/23/2020 11:59 AM CDT Hospital Encounter [facility]) [facility] [place] [address] Maricel Machuca, [facility] [address] [facility] [address] [place] [address] Low back pain, unspecified back pain laterality, unspecified chronicity, unspecified whether sciatica present Discharge Disposition: Discharge to home or self [...] Name Priority Date/Time Associated Diagnosis Comments XR SCOLIOSIS AP LAT Schedule Routine, Read Routine (OP Routine) 04/23/2020 9:17 AM CDT Low back pain, unspecified back pain laterality, unspecified chronicity, unspecified whether sciatica present documented in this encounter Results * XR Scoliosis AP LAT (04/23/2020 9:17 [...] signed by: Rosie Paula M.D. Maricel Machuca STAFF RADIOLOGIST IMG XR PROCEDURES Final Res ult documented in this encounter Visit Diagnoses Diagnosis Low back pain, unspecified back pain laterality, unspecified chronicity, unspecified whether sciatica present documented in this encounter Care Teams Curing Pickling Packer Relationship Specialty Start Date End Date No, Physician PCP - General 02/04/18 documented as of this encounter
--- OUTSIDE RECORDS SUMMARY | 2024-07-17 05:03 | XMS_ITS | Encounter Summary ---
Author Organization [facility] Address [address] [place] [address] Phone Care Team Providers Care Chief Guard Name Role Phone Abi Rawls MD Primary Care Provider Reason for Referral * Diagnostic Imaging (Routine) - Closed Specialty Diagnoses / Procedures Referred By Amalia t Referred To Contact Radiology Diagnoses Abdominal pain, unspecified abdominal location Procedures CT Abdomen Pelvis W Contrast George Tom MD Phone: tel: fax: [address] [address] Referral ID Status Reason Start Date Expiration Date Visits Re quested Visits Authorized [id number] Closed 12/08/2017 06/13/2019 1 1 Reason for Visit * Reason Comments Abdominal Pain pt states still has pain on left side when constipated Encounter Details Date Type Department Care Team (Late st Contact Info) Description 12/08/2017 9:30 AM CDT Office Visit [facility] Surgery [address] [facility] [address] [address] George Tom MD [address] [place] [address] [address] [place] [address] Abdominal pain, unspecified abdominal location (Primary Dx) Social History Tobacco Use Types [...] Sign Reading Time Taken Comments Blood Pressure 121/81 12/08/2017 10:02 AM CDT Pulse 70 12/08/2017 10:02 AM CDT Temperature - - Respiratory Rate - - Oxygen Saturation - - Inhaled Oxygen Concentration - - Weight 100.2 kg (221 lb) 12/08/2017 10:02 AM CDT Height 172.7 cm (5' 8 ) 12/08/2017 10:02 AM CDT Body Mass Index 33.6 12/08/2017 10:02 AM CDT documented in this encounter Patient Instructions * Patient Instructions* George Tom MD - 12/08/2017 9:30 AM CDT Cipro Flagyl 500 mg each b.i.d. for 30 days. CBC and CMP. CT scan of the abdomen and pelvis. Colonoscopy to rule out mass in the sigmoid colon documented in this encounter Ordered Prescriptions Prescription Sig Dispense Quantity Refills Last Filled Start Date End Date metroNIDAZOLE (FLAGYL) 500 mg tabletIndications: Abdominal pain, unspecified abdominal location Take 1 tablet (500 mg total) by mouth 3 (three) times a day. 90 tablet 12/08/2017 01/07/2018 ciprofloxacin (CIPRO) 500 mg tabletIndications: Abdominal pain, unspecified abdominal location Take 1 tablet (500 mg total) by mouth 2 (two) times a day. 60 tablet 12/08/2017 01/07/2018 documented in this encounter Progress Notes * George Tom MD - 12/08/2017 9:30 AM CDT General Surgery Consult Reason for Consult/Visit: Left-sided abdominal pain Worsening constipation with abdominal bloating. History of narrow colon With incomplete colonoscopy Requesting Provider: Abi Rawls MD HPI: Patient is a 47 y.o. male with chief complaint of left-sided abdominal pain, more in left lower quadrant now, the pain gets worse after eating and get some relief after bowel movement. He was advised to take Metamucil fiber supplement which she did but did not help him much. He also try to take laxative but with that he was having very lengthy slow bowel movements and had to sit for long time. He previously had attempted colonoscopy which according to him was incomplete because they found narrowing in the sigmoid colon which could not be negotiated.. Review of Systems: No history of fever or chills. No history of shortness of breath or chest pain. No history of nausea vomiting. No history of hematuria dysuria. No history of focal weakness or numbness. Physical Exam: Vitals: BP 121/81 Pulse 70 Ht 172.7 cm (5' 8 ) Wt 100.2 kg (221 lb) BMI 33.60 kg/m?? Physical Exam Constitutional: Patient is awake and alert and appears well-developed and well-nourished. Eyes: Conjunctiva normal Neck: Normal range of motion. Neck supple. Cardiovascular: Normal rate and regular rhythm. Pulmonary/Chest: Effort normal bilateral equal air entry. Abdominal: Soft. Patient exhibits no distension and no mass. There is moderate left-sided tenderness. There is no rebound and no guarding. No hernia. Musculoskeletal: Normal range of motion. Neurological: Patient is alert and oriented Skin: Skin is warm and dry. Psychiatric: normal mood and affect, behavior is normal. Lab/Radiology/Diagnostic Review: Assessment /Plan Patient advised to continue with Metamucil and MiraLax. He is advised to take Cipro and Flagyl 500 mg each b.i.d. for suspected diverticulitis. We will do CBC CMP CT scan of the abdomen and pelvis. Patient is advised colonoscopy again to further evaluate the narrowing of the sigmoid colon, patient wants me to do colonoscopy in next couple of weeks. documented in this encounter Plan of Treatment Not on file documented as of this encounter Results * CT Abdomen Pelvis W Contrast (12/16/2017 3:27 PM CDT) Anatomical Region Laterality Modality Body N/A Computed Tomogra phy 12/16/2017 4:05 PM CDT Impressions 12/16/2017 4:11 PM CDT Cholelithiasis. No suspicious mass lesion or inflammatory process. Prostatomegaly. Small hiatal hernia is present. Electronically signed by: Romain Rojas M.D. Narrative 12/16/2017 4:11 PM CDT RESULT: EXAMINATION: ??CT ABDOMEN PELVIS W CONTRAST HISTORY: ??Abdominal pain COMPARISON/CORRELATION: ??None Technique: Axial images of the abdomen and pelvis were obtained following 93 cc Optiray 350 IV contrast. Coronal reconstructed images are provided. Sagittal reconstructed images of the spine are provided. FINDINGS: Axial images of the abdomen and pelvis were obtained following 93 mL Optiray 350 IV. ??The visualized lung bases are clear. ??Small hiatal hernia is present. Small calculus is present within the gallbladder. Liver, spleen, pancreas, adrenal glands, and kidneys are unremarkable. ??Right renal inferior pole very small to characterize lesion which probably represents a cyst is present posteriorly. Similar punctate finding which is even smaller in size involve the right posterior upper pole. ??No hydronephrosis. No extraluminal gas. ??No bowel obstruction. ??Appendix is normal. ??No enlarged abdominal or pelvic lymph nodes. ??Small umbilical hernia contains omental fat. ??Prostate gland measures 5.7 cm transverse. T12 compression deformity is noted. ??T11 compression deformities present to a lesser degree. ??These are chronic in appearance. Procedure Note Romain Rojas MD - 12/16/2017 RESULT: EXAMINATION: CT ABDOMEN PELVIS W CONTRAST HISTORY: Abdominal pain COMPARISON/CORRELATION: None Technique: Axial images of the abdomen and pelvis were obtained following 93 cc Optiray 350 IV contrast. Coronal reconstructed images are provided. Sagittal reconstructed images of the spine are provided. FINDINGS: Axial images of the abdomen and pelvis were obtained following 93 mL Optiray 350 IV. The visualized lung bases are clear. Small hiatal hernia is present. Small calculus is present within the gallbladder. Liver, spleen, pancreas, adrenal glands, and kidneys are unremarkable. Right renal inferior pole very small to characterize lesion which probably represents a cyst is present posteriorly. Similar punctate finding which is even smaller in size involve the right posterior upper pole. No hydronephrosis. No extraluminal gas. No bowel obstruction. Appendix is normal. No enlarged abdominal or pelvic lymph nodes. Small umbilical hernia contains omental fat. Prostate gland measures 5.7 cm transverse. T12 compression deformity is noted. T11 compression deformities present to a lesser degree. These are chronic in appearance. IMPRESSION: Cholelithiasis. No suspicious mass lesion or inflammatory process. Prostatomegaly. Small hiatal hernia is present. Electronically signed by: Romain Rojas M.D. George Tom MD IMG CT PROCEDURES Mony l Result documented in this encounter Visit Diagnoses Diagnosis Abdominal pain, unspecified abdominal location- Primary Abdominal pain, unspecified abdominal location documented in this encounter Historical Medications * This list may reflect changes made after this encounter. dexlansoprazole (DEXILANT) 60 mg capsule Dexilant 60 mg capsule, delayed release qd 12/20/2017 added in this encounter Care Teams Chief Guard Relationship Specialty Start Date End Date Abi Rawls MD PCP - General 10/06/17 02/03/18 documented as of this encounter
--- OUTSIDE RECORDS SUMMARY | 2024-07-17 05:03 | XMS_ITS | Encounter Summary ---
Author Organization [facility] Healthcare Address [address] [place] [address] Care Team Providers Care Java J2Ee Lead Name Role Phone Abi Rawls MD Primary Care Provider [phone] Reason for Referral * Diagnostic Imaging (Routine) - Closed Specialty Diagnoses / Procedures Referred By Amalia blake Referred To Contact Radiology Diagnoses Abdominal pain, unspecified abdominal location Procedures CT Abdomen Pelvis W Contrast George Tom MD Phone: tel: fax: [address] [address] Referral ID Status Reason Start Date Expiration Date Visits Re quested Visits Authorized [id number] Closed 12/08/2017 06/13/2019 1 1 Reason for Visit * Diagnostic Imaging (Routine) - Closed Specialty Diagnoses / Procedures Referred By Amalia blake Referred To Contact Radiology Diagnoses Abdominal pain, unspecified abdominal location Procedures CT Abdomen Pelvis W Contrast George Tom MD Phone: tel: fax: [address] [address] Referral ID Status Reason Start Date Expiration Date Visits Re quested Visits Authorized [id number] Closed 12/08/2017 06/13/2019 1 1 Encounter Details Date Type Department Care Team (Latest Contact Info) Description 12/16/2017 1:18 PM CDT - 12/16/2017 11:59 PM CDT Hospital Encounter [facility] Imaging and Radiology [address] [place] [address] [place] [address] [place] [address] Abdominal pain, unspecified abdominal location Discharge Disposition: Discharge to home or self [...] this encounter Medications at Time of Discharge ciprofloxacin (CIPRO) 500 mg tabletIndications :Abdominal pain, unspecified abdominal location Take 1 tablet (500 mg total) by mouth 2 (two) times a day. 60 tablet 12/08/2017 8 metroNIDAZOLE (FLAGYL) 500 mg tabletIndications :Abdominal pain, unspecified abdominal location Take 1 tablet (500 mg total) by mouth 3 (three) times a day. 90 tablet 12/08/2017 8 dexlansoprazole (DEXILANT) 30 mg capsule Take 60 mg by mouth daily. 8 dexlansoprazole (DEXILANT) 60 mg capsule Dexilant 60 mg capsule, delayed release qd 8 documented as of this encounter Discharge Disposition Disposition Code Departure Means Destination Discharge to home or self care documented in this encounter Plan of Treatment Not on file documented as of this encounter Procedures Procedure Name Priority Date/Time Associated Diagnosis Comments CT ABDOMEN PELVIS W CONTRAST Schedule Routine, Read Routine (OP Routine) 12/16/2017 3:27 PM CDT Abdominal pain, unspecified abdominal location documented in this encounter Results * CT Abdomen Pelvis [...] Visit Diagnoses Diagnosis Abdominal pain, unspecified abdominal location documented in this encounter Administered Medications Inactive Administered Medications - up to 3 most recent administrations Medication Order MAR Action Action Date Dose Rate Site ioversol (OPTIRAY 350) syringe syringe 100 mL 100 mL, intravenous, Once in imaging, contrast, Starting on Tue12/16/17 at 1508, For 1 dose Given 12/16/2017 3:18 PM CDT 93 mL documented in this encounter Orders Medications Ordered That Mitch ht Not Have Been Administered Count Last Ordered Date First Ordered Date ioversol (OPTIRAY 350) syrin ge syringe 100 mL 1 12/16/2017 documented in this encounter Care Teams Java J2Ee Lead Relationship Specialty Start Date End Date Abi Rawls MD PCP - General 10/06/17 02/03/18 documented as of this encounter
--- OUTSIDE RECORDS SUMMARY | 2024-07-17 05:03 | XMS_ITS | Encounter Summary ---
Author Organization [facility] Address [address] [place] [address] Phone Care Team Providers Care Hydropress Operator Name Role Phone Abi Rawls MD Primary Care Provider [phone] Encounter Details Date Type Department Care Team (Late st Contact Info) Description 12/16/2017 Orders Only [facility] Surgery [address] [facility] [address] [address] [place] [id number] [place] [address] [address] [facility] [address] [id number] Generalized abdominal pain (Primary Dx) Social History Tobacco Use [...] documented as of this encounter Results * Comprehensive metabolic panel (12/16/2017 3:33 PM CDT) Sodium 135 135 - 145 mmol/L [facility] Potassium, pl 3.5 3.5 - 5.1 mmol/L [facility] CO2 27 22 - 32 mmol/L [facility] BUN 12 8 - 24 mg/dL [facility] Glucose 83 70 - 199 mg/dL [facility] Comment: Interpretive Data Fasting glucose >/= 126 mg/dl is diagnostic for diabetes. ?? Fasting is defined as no caloric intake for at least 8 hours. Fasting glucose between 100 mg/dl to 125 mg/dl is diagnostic of prediabetes. In a patient with classic symptoms of hyperglycemia or hyperglycemic crisis, a random glucose >/= 200 mg/dl is diagnostic for diabetes. In the absence of unequivocal hyperglycemia, results should be confirmed by repeat testing. The classification and Diagnosis of Diabetes Diabetes Care 2017;40 (Suppl. 1):S11. Current interpretive data was last revised 2017. Creatinine 1.01 0.70 - 1.40 mg/dL [facility] Calcium 8.5 8.4 - 10.5 mg/dL [facility] Chloride 103 100 - 114 mmol/L [facility] Albumin 3.8 3.2 - 4.8 g/dL [facility] AST 35 7 - 40 Units/L [facility] ALT 42 5 - 50 Units/L [facility] Alk phos 57 30 - 110 Units/L [facility] Bilirubin, total 0.90 0.10 - 1.30 mg/dL [facility] Protein, pl 6.5 6.0 - 8.3 g/dL [facility] Anion gap 8 8 - 16 mmol/L [facility] Blood specimen (specimen) 12/16/2017 3:33 PM CDT 12/16/2017 3:46 PM CDT Narrative [facility] - 12/16/2017 5:27 PM CDT George Tom MD LAB BLOOD ORDERABLES F inal Result [facility] [address] [place] [address] * (ABNORMAL) CBC with auto differential (12/16/2017 3:33 PM CDT) [facility] WBC 4.0 3.8 - 9.9 K/cumm [facility] RBC 5.39 4.30 - 5.80 M/cumm [facility] Hgb 16.1 13.0 - 17.5 g/dL [facility] Hct 50.7(H) 38.9 - 50.3 % [facility] MCV 94.1 81.3 - 96.4 fL [facility] MCH 29.9 27.1 - 33.3 pg [facility] MCHC 31.8(L) 32.3 - 35.7 g/dL [facility] RDW CV 13.0 11.1 - 14.9 % [facility] RDW SD 45.1 35.7 - 48.1 fL [facility] Plt 184 150 - 400 K/cumm [facility] MPV 10.8 9.1 - 12.3 fL [facility] NRBC abs 0.00 0.00 - 0.01 K/cumm [facility] Blood specimen (specimen) 12/16/2017 3:33 PM CDT 12/16/2017 3:46 PM CDT Narrative [facility] - 12/16/2017 5:06 PM CDT George Tom MD LAB BLOOD ORDERABLES F inal Result [facility] [address] Department of [facility] [place], [place] [id number] documented in this encounter Visit Diagnoses Diagnosis Generalized abdominal pain- Primary Abdominal pain, generalized Generalized abdominal pain Abdominal pain, generalized documented in this encounter Care Teams Hydropress Operator Relationship Specialty Start Date End Date Abi Rawls MD PCP - General 10/06/17 02/03/18 documented as of this encounter
--- OUTSIDE RECORDS SUMMARY | 2024-07-17 05:03 | XMS_ITS | Encounter Summary ---
Author Organization [facility] Healthcare Address [address] [place] [address] Care Team Providers Care Assembler Arranger Name Role Phone Abi Rawls MD Primary Care Provider Encounter Details Date Type Department Care Team (Late st Contact Info) Description 12/16/2017 3:40 PM CDT Lab [facility] [address] [place] [address] [place] [address] [facility] [address] [facility] [address] [place] [address] Generalized abdominal pain Discharge Disposition: Discharge to home or [...] Procedure Name Priority Date/Time Associated Diagnosis Comments EGFR Routine 12/16/2017 3:33 PM CDT Generalized abdominal pain DIFFERENTIAL AUTO Routine 12/16/2017 3:3 3 PM CDT Generalized abdominal pain CBC WITH AUTO DIFFERENTIAL Routine 12/16/2017 3:33 PM CDT Generalized abdominal pain COMPREHENSIVE METABOLIC PANEL Routine 12/16/2017 3:33 PM CDT Generalized abdominal pain documented in this encounter Results * eGFR (12/16/2017 3:33 PM CDT) eGFR 88 mL/min/1.7 3 m2 [facility] Comment: Interpretive Data Reference Interval Normal ?>/= 90 mL/min/1.73m2 Mildly decreased* ? 60 - 89 mL/min/1.73m2 Mildly to moderately decreased ?45 - 59 mL/min/1.73m2 Moderately to severely decreased ??30 - 44 mL/min/1.73m2 Severely decreased ?15 - 29 mL/min/1.73m2 Kidney Failure ?< 15 ??mL/min/1.73m2 *Relative to young adult level If -[place] multiply value by 1.16. Estimated glomerular filtration rate is determined by the CKD-EPI equation recommended by the National Kidney Foundation (KDIGO 2012 Clinical Practice Guideline for the Evaluation and Management of Chronic Kidney Disease. Kidney Intnl Suppl Jun 2012;3:1). The CKD-EPI equation should not be used for patients with unstable renal function and has not been validated in children and those over 70. Current interpretive data was last reviewed 2016. Blood specimen (specimen) 12/16/2017 3:33 PM CDT 12/16/2017 5:00 PM CDT Narrative [facility] - 12/16/2017 5:27 PM CDT us George Tom MD LAB BLOOD ORDERABLES F inal Result [facility] [address] [place] [address] * Differential, auto (12/16/2017 3:33 PM CDT) Neutrophil abs 2.1 1.7 - 6.5 K/cumm [facility] Imm gran abs 0.0 0.0 - 0.1 K/cumm [facility] Lymphocyte abs 1.2 0.8 - 3.3 K/cumm [facility] Monocyte abs 0.5 0.2 - 0.8 K/cumm [facility] Eosinophil abs 0.1 0.0 - 0.5 K/cumm [facility] Basophil abs 0.1 0.0 - 0.1 K/cumm [facility] Neutrophil pct 52.4 % [facility] Comment: Interpretive Data Percent cell count reference ranges are not reported, since discordance with absolute values may lead to misinterpretation of CBC data. Current Interpretive Data was last revised on 2017. Imm gran pct 0.0 % [facility] Comment: Interpretive Data Percent cell count reference ranges are not reported, since discordance with absolute values may lead to misinterpretation of CBC data. Current Interpretive Data was last revised on 2017. Lymphocyte pct 30.7 % [facility] Comment: Interpretive Data Percent cell count reference ranges are not reported, since discordance with absolute values may lead to misinterpretation of CBC data. Current Interpretive Data was last revised on 2017. Monocyte pct 11.9 % [facility] Comment: Interpretive Data Percent cell count reference ranges are not reported, since discordance with absolute values may lead to misinterpretation of CBC data. Current Interpretive Data was last revised on 2017. Eosinophil pct 3.5 % [facility] Comment: Interpretive Data Percent cell count reference ranges are not reported, since discordance with absolute values may lead to misinterpretation of CBC data. Current Interpretive Data was last revised on 2017. Basophil pct 1.5 % [facility] Comment: Interpretive Data Percent cell count reference ranges are not reported, since discordance with absolute values may lead to misinterpretation of CBC data. Current Interpretive Data was last revised on 2017. Blood specimen (specimen) 12/16/2017 3:33 PM CDT 12/16/2017 3:46 PM CDT Narrative [facility] - 12/16/2017 5:06 PM CDT us George Tom MD LAB BLOOD ORDERABLES F inal Result [facility] [address] Department [place] [address] * Comprehensive metabolic panel (12/16/2017 3:33 PM CDT) Sodium 135 135 - 145 mmol/L [facility] Potassium, pl 3.5 3.5 - 5.1 mmol/L [facility] CO2 27 22 - 32 mmol/L [facility] BUN 12 8 - 24 mg/dL [facility] Glucose 83 70 - 199 mg/dL [facility] Comment: Interpretive Data Fasting glucose >/= 126 [...] phos 57 30 - 110 Units/L [facility] Bilirubin, total 0.90 0.10 - 1.30 mg/dL [facility] Protein, pl 6.5 6.0 - 8.3 g/dL [facility] Anion gap 8 8 - 16 mmol/L [facility] Blood specimen (specimen) 12/16/2017 3:33 PM CDT 12/16/2017 3:46 PM CDT Narrative [facility] - 12/16/2017 5:27 PM CDT George Tom MD LAB BLOOD ORDERABLES F inal Result Performing Organization Address [facility] Co de Phone Number [facility] [address] [email or web address] [address] * (ABNORMAL) CBC with auto differential (12/16/2017 3:33 PM CDT) WBC 4.0 3.8 - 9.9 K/cumm [facility] RBC 5.39 4.30 - 5.80 M/cumm [facility] Hgb 16.1 13.0 - 17.5 g/dL [facility] Hct 50.7(H) 38.9 - 50.3 % [facility] MCV 94.1 81.3 - 96.4 fL [facility] MCH 29.9 27.1 - 33.3 pg [facility] MCHC 31.8(L) 32.3 - 35.7 g/dL [facility] RDW CV 13.0 11.1 - 14.9 % [facility] RDW SD 45.1 35.7 - 48.1 fL [facility] Plt 184 150 - 400 K/cumm [facility] MPV 10.8 9.1 - 12.3 fL [facility] NRBC abs 0.00 0.00 - 0.01 K/cumm [facility] Blood specimen (specimen) 12/16/2017 3:33 PM CDT 12/16/2017 3:46 PM CDT Narrative [facility] - 12/16/2017 5:06 PM CDT George Tom MD LAB BLOOD ORDERABLES F inal Result Performing Organization Address City/[facility]/ZIP Co de Phone Number [facility] [address] [facility] [email or web address] [place], [place] [id number] documented in this encounter Visit Diagnoses Diagnosis Generalized abdominal pain Abdominal pain, generalized documented in this encounter Care Teams Assembler Arranger Relationship Specialty Start Date End Date Abi Rawls MD PCP - General 10/06/17 02/03/18 documented as of this encounter
--- OUTSIDE RECORDS SUMMARY | 2024-07-17 05:03 | XMS_ITS | Encounter Summary ---
Author Organization [facility] Healthcare Address [address] [place] [address] Care Team Providers Care Diesel Service Journeyman Name Role Phone Abi Rawls MD Primary Care Provider [phone] Encounter Details Date Type Department Care Team (Late st Contact Info) Description 01/10/2018 4:15 PM CDT Lab [address] [address] Javier Venegas MD [address] [place] [address] [address] [place] [address] Prostate cancer screening encounter, options and risks discussed; Hematuria, gross Discharge Disposition: Discharge to home or self [...] Priority Date/Time Associated Diagnosis Comments EGFR Routine 01/10/2018 3:39 PM CDT Hematuria, gross PSA SCREEN Routine 01/10/2018 3:39 PM CDT Prostate cancer screening encounter, options and risks discussed BASIC METABOLIC PANEL Routine 01/10/2018 3:39 PM CDT Hematuria, gross documented in this encounter Results * eGFR (01/10/2018 3:39 PM CDT) eGFR 86 mL/min/1.7 3 m2 [facility] Comment: Interpretive Data Reference Interval Normal ?>/= 90 mL/min/1.73m2 Mildly decreased* ? 60 - 89 mL/min/1.73m2 Mildly to moderately decreased ?45 - 59 mL/min/1.73m2 Moderately to severely decreased ??30 - 44 mL/min/1.73m2 Severely decreased ?15 - 29 mL/min/1.73m2 Kidney Failure ?< 15 ??mL/min/1.73m2 *Relative to young adult level If -[place] multiply value by 1.16. Estimated glomerular filtration [...] was last reviewed 2016. Blood specimen (specimen) 01/10/2018 3:39 PM CDT 01/10/2018 6:36 PM CDT Narrative [facility] - 01/10/2018 7:20 PM CDT us Javier Venegas MD LAB BLOOD ORDERABLES Fi nal Result [facility] [address] Department [place] [address] * Basic metabolic panel (01/10/2018 3:39 PM CDT) Sodium 138 135 - 145 mmol/L [facility] Potassium, pl 3.5 3.5 - 5.1 mmol/L [facility] Chloride 103 100 - 114 mmol/L [facility] CO2 30 22 - 32 mmol/L [facility] Anion gap 8 8 - 16 mmol/L [facility] BUN 16 8 - 24 mg/dL [facility] Creatinine 1.03 0.70 - 1.40 mg/dL [facility] Glucose 116 70 - 199 mg/dL [facility] Comment: Interpretive Data Fasting glucose >/= 126 [...] Current interpretive data was last revised 2017. Calcium 8.8 8.4 - 10.5 mg/dL [facility] Blood specimen (specimen) 01/10/2018 3:39 PM CDT 01/10/2018 6:36 PM CDT Narrative [facility] - 01/10/2018 7:20 PM CDT Javier Venegas MD LAB BLOOD ORDERABLES nal Result [facility] [address] Department [place] [address] * PSA screen (01/10/2018 3:39 PM CDT) PSA-Total 0.69 0.10 - 4.00 ng/mL [facility] Blood specimen (specimen) 01/10/2018 3:39 PM CDT 01/10/2018 6:36 PM CDT Narrative [facility] - 01/10/2018 7:38 PM CDT us Javier Venegas MD LAB BLOOD ORDERABLES Fi nal Result [facility] [address] Department [place] [address] documented in this encounter Visit Diagnoses Diagnosis Prostate cancer screening encounter, options and risks discussed Hematuria, gross Gross hematuria documented in this encounter Care Teams Diesel Service Journeyman Relationship Specialty Start Date End Date Abi Rawls MD PCP - General 10/06/17 02/03/18 documented as of this encounter
--- OUTSIDE RECORDS SUMMARY | 2024-07-17 05:03 | XMS_ITS | Encounter Summary ---
Author Organization [facility] Address [address] [place] [address] Phone Care Team Providers Care Baker Pastry Name Role Phone Swathi Rawls MD Primary Care Provider Reason for Referral * Diagnostic Lab (Routine) - Closed Specialty Diagnoses / Procedures Referred By Amalia t Referred To Contact Lab Diagnoses Erectile dysfunction, unspecified erectile dysfunction type Procedures Cytology Javier Venegas MD Phone: tel: fax: Referral ID Status Reason Start Date Expiration Date Visits Re quested Visits Authorized [id number] Closed 01/10/2018 07/22/2019 1 1 Reason for Visit * Reason Comments Erectile Dysfunction Encounter Details Date Type Department Care Team (Late st Contact Info) Description 01/10/2018 2:30 PM CDT Office Visit [facility]) - [facility] Urology [address] [facility] [address] [place] [address] [place] [id number] [place] [address] [address] [place] [address] Hematuria, gross (Primary Dx); Erectile dysfunction, unspecified erectile dysfunction type; Benign prostatic hyperplasia with weak urinary stream; Prostate cancer screening encounter, options and risks discussed Social History Tobacco Use Types Packs/Day Years [...] Sign Reading Time Taken Comments Blood Pressure 109/77 01/10/2018 2:15 PM CDT Pulse 101 01/10/2018 2:15 PM CDT Temperature 36.9 ??C (98.5 ??F) 01/10/2018 2:15 PM CD T Respiratory Rate - - Oxygen Saturation - - Inhaled Oxygen Concentration - - Weight 99.3 kg (219 lb) 01/10/2018 2:15 PM CDT Height 180.3 cm (5' 11 ) 01/10/2018 2:15 PM CDT Body Mass Index 30.54 01/10/2018 2:15 PM CDT documented in this encounter Ordered Prescriptions Prescription Sig Dispense Quantity Refills Last Filled Start Date End Date doxazosin (CARDURA) 4 mg tabletIndications: Benign prostatic hyperplasia with weak urinary stream Take 1/2 po qhs for 2 weeks and then 1 po qhs. 30 tablet 11 01/10/2018 05/19/2020 sildenafil, antihypertensive, (REVATIO) 20 mg tabletIndications: Pulmonary Arterial Hypertension Take 2 - 5 po prn at 1 hour prior to sexual activity. Works best on an empty stomach. 30 tablet 01/10/2018 07/31/2018 documented in this encounter Progress Notes * Javier Venegas MD - 01/10/2018 2:30 PM CDT Subjective Mr. Melchor Galloway is a 47 y.o. male who is being seen at the request of SWATHI RAYMUNDO MD for evaluation of gross, painless hematuria. Onset of hematuria was at least 2 years ago, and it is intermittent. He denies flank pain, weight loss and bone pain. He admits to mild urgency and dysuria. He has no hx of stones, trauma or procedures. He denies hx of clots and retention. He has not had any radiographs or cysto to eval. the hematuria. He is bothered by a weak urinary stream, and he has straining, hesitancy. He also not a loss of ejaculate emission at the time of climax. He has poor erections but a good libido. His girlfriend is 33, and he is still considering fathering children. His father of bladder cancer. Maternal uncle and grandfather of prostate cancer. Review of Systems All other systems except the HPI are negative. Physical Examination 47 y.o. White male in no acute distress. Patient is trim. Ambulates without assistance. No obvious physical elements HEENT - no obvious deformities. Within normal limits. Chest - clear, not labored Regular rate and rhythm Abdomen - soft, not distended, no mass, no obvious hernia Prostate - 35 - 40 gm, smooth, no nodules. Extremity - no obvious edema, moves all extremities well Neuro - alert and orientated x4. Nonfocal Psych - attendant, competent, no obvious flight of ideas Results Review Lab Results Component Value Date LEV 5.0 01/10/2018 PROTUR Negative 01/10/2018 Lab Results Component Value Date WBC 4.0 12/16/2017 HGB 16.1 12/16/2017 HCT 50.7 (H) 12/16/2017 MCV 94.1 12/16/2017 LABPLAT 184 12/16/2017 Lab Results Component Value Date CREATININE 1.01 12/16/2017 BUNSER 12 12/16/2017 .. Results for orders placed or performed in visit on 01/10/18 POCT urinalysis dipstick Result Value Ref Range Glucose, ur, POC Negative Negative mg/dL Ketones, ur, POC Negative Negative Blood, ur, POC Negative Negative pH, ur, POC 5.0 5.0 - 8.0 Protein, ur, POC Negative Negative Nitrite, ur, POC Negative Negative Leukocytes, ur, POC Negative Negative Lot Number [id number] Assessment/Plan 47 yo with 2 years of intermittent gross, painless hematuria. Needs CT urogram, cytology and cystoscopy. Erectile dysfunction - trial of Sildenafil BPH and obstructive LUTS - Doxazasin Concern for prostate cancer - EIRC and PSA screen documented in this encounter Plan of Treatment Not on file documented as of this encounter Procedures Procedure Name Priority Date/Time Associated Diagnosis Comments POCT URINALYSIS DIPSTICK Routine 01/10/2018 2:31 PM CDT Erectile dysfunction, unspecified erectile dysfunction type CYTOLOGY Routine 01/10/2018 12:00 AM CDT Erectile dysfunction, unspecified erectile dysfunction type documented in this encounter Results * Basic metabolic panel (01/10/2018 3:39 PM CDT) Sodium 138 135 - 145 mmol/L [facility] Potassium, pl 3.5 3.5 - 5.1 mmol/L [facility] Chloride 103 100 - 114 mmol/L [facility] CO2 30 22 - 32 mmol/L [facility] Anion gap 8 8 - 16 mmol/L [facility] BUN 16 8 - 24 mg/dL [facility] Creatinine 1.03 0.70 - 1.40 mg/dL [facility] Glucose 116 70 - 199 mg/dL [facility] Comment: Interpretive Data Fasting glucose >/= 126 [...] 2017. Calcium 8.8 8.4 - 10.5 mg/dL [facility] Blood specimen (specimen) 01/10/2018 3:39 PM CDT 01/10/2018 6:36 PM CDT Narrative [facility] - 01/10/2018 7:20 PM CDT us Javier Venegas MD LAB BLOOD ORDERABLES Fi nal Result [facility] [address] Department [place] [address] * PSA screen (01/10/2018 3:39 PM CDT) Pathologist [facility] PSA-Total 0.69 0.10 - 4.00 ng/mL [facility] Blood specimen (specimen) 01/10/2018 3:39 PM CDT 01/10/2018 6:36 PM CDT Narrative [facility] - 01/10/2018 7:38 PM CDT Javier Venegas MD LAB BLOOD ORDERABLES Fi nal Result [address] Department [place] [address] * POCT urinalysis dipstick (01/10/2018 2:31 PM CDT) [facility] Glucose, ur, POC Negative Negative mg/dL Ketones, ur, POC Negative Negative Blood, ur, POC Negative Negative pH, ur, POC 5.0 5.0 - 8.0 Protein, ur, POC Negative Negative Nitrite, ur, POC Negative Negative Leukocytes, ur, POC Negative Negative Lot Number [id number] Urine 01/10/2018 2:31 PM CDT Javier Venegas MD POINT OF CARE TEST JAMIE HELMS Final Result * Cytology (01/10/2018 12:00 AM CDT) Fluid 01/10/2018 01/10/2018 12: 11 PM CDT Narrative PATHOLOGY - 01/12/2018 2:08 PM CDT [facility] results best viewed via link to PDF [facility] Department of Pathology [address] [place] [id number] Final Report Patient Name: ??MELCHOR GALLOWAY Address: ??[address] [place] [address][birth year] Gender: ??M : ??1970 (Age: 47) Service: ??Radiology Location: [facility] # ??[id number] Patient Type: ?? Ancillary Taken: ??01/10/2018 Received: ?? 01/10/2018 Accessioned: ?? 01/11/2018 Reported: ?? 01/12/2018 Physician(s): ??Shay Herring M.D. Diagnosis: Voided urine, cytology: ? - Atypical urothelial cells present (Chapis system). - See microscopic description. Danielito Billingsley M.D. Report Electronically Reviewed and Signed Out By ??Danielito Billingsley M.D. ??01/12/2018 14:08:31 ??Specimen(s) Received: A: Urine, Voided Clinical History: The patient is a 47 year old male with hematuria. Gross Description: 1 container received with 60 cc clear, yellow PreservCyt solution. 1 ThinPrep made. Microscopic Description: Microscopic review of the urine specimen (one ThinPrep slide) shows a specimen which is adequate for evaluation. ??The specimen consists of scattered squamous and inflammatory cells seen. ??Occasional clusters of more hyperchromatic mildly atypical urothelial cells are also identified. ??The cells are characterized by hyperchromasia with a mild increase in nuclear to cytoplasmic ratio. ??Some of the cells show mild nuclear contour irregularities. ??The cells are best classified as atypical, and the differential includes instrumentation effect, stone irritation, infection, as well as a low-grade urothelial neoplastic process. ??No definitive high-grade urothelial neoplasia is seen. ??Clinical correlation is advised. Intradepartmental consultation: Drs. Purdy and Cory have also reviewed this case and agree with the findings. ? The performance characteristics of some immunohistochemical stains, fluorescence in-situ hybridization tests and immunophenotyping by flow cytometry cited in this report (if any) were determined by the Surgical Pathology Department at [facility] as part of an ongoing senior quality control technician program and in compliance with federally mandated regulations drawn from the Clinical Laboratory Improvement Act of 1988 (CLIA '88). ??Some of these tests rely on the use of analyte specific reagents and are subject to specific labeling requirements by the US Food and Drug Administration. ??Such diagnostic tests may only be performed in a facility that is certified by the Department of Health and Human Services as a high complexity laboratory under CLIA '88. The FDA has determined that such clearance or approval is not necessary. ??This test is used for clinical purposes. ??It should not be regarded as investigational or for research. ??Nevertheless, federal rules concerning the medical use of analyte specific reagents require that the following disclaimer be attached to the report: This test was developed and its performance characteristics determined by the Surgical Pathology Department [facility]. ??It has not been cleared or approved by the U. S. Food and Drug Administration. REPORT IMAGES AND SCANNED DOCUMENTS, IF INCLUDED, ONLY VIEWABLE IN PDF VERSION OF REPORT us Javier Venegas MD LAB CYTOLOGY ORDERABLES Final Result PATHOLOGY [id number] [id number] documented in this encounter Visit Diagnoses Diagnosis Hematuria, gross- Primary Gross hematuria Erectile dysfunction, unspecified erectile dysfunction type Benign prostatic hyperplasia with weak urinary stream Prostate cancer screening encounter, options and risks discussed Prostate cancer screening encounter, options and risks discussed Hematuria, gross Gross hematuria documented in this encounter Care Teams Baker Pastry Relationship Specialty Start Date End Date Swathi Rawls MD PCP - General 10/06/17 02/03/18 documented as of this encounter
--- OUTSIDE RECORDS SUMMARY | 2024-07-17 05:03 | XMS_ITS | Encounter Summary ---
Author Organization [facility] Healthcare Address [address] [place] [address] Care Team Providers Care Undergraduate Internship Name Role Phone Abi Rawls MD Primary Care Provider Encounter Details Date Type Department Care Team (Late st Contact Info) Description 12/20/2017 7:33 AM CDT Anesthesia Event [facility] GI Lab [address] [place] [address] [place] [address] [facility] [place] [address] Anesthesia Record Procedure Summary Procedure Name Responsible Anesthesiologist Anesthesia Start Time Anesthesia Stop Time COLON REMOVAL HOT BIOPSY Ricardo Reid MD 12/20/17 0733 12/20/17 0817 Events Date Time Event Comment 12/20/2017 0729 0731 In Room 0733 An Start 0734 An Start Data 0735 Start Supplemental O2 0736 Patient Positioned Laterally 0739 An Induction The patient was reevaluated immediately before moderate or deep sedation use and before anesthesia induction. 0739 Anesthesia Ready 0812 an stop data 0812 Out of Room 0817 Handoff to RN I completed my handoff to the receiving nurse during which we: 1. Patient identified 2. Responsible provider identified 3. Pertinent medical history reviewed 4. Procedure type and surgical course discussed 5. Intraoperative anesthetic management and any significant issues discussed 6. Expectations and concerns for postop period discussed 7. Questions solicited from receiving nurse 8. Patient disposition at the time of handoff: PACU 0817 An Stop Meds Name Total propofol 350 mg lidocaine (CARDIAC) syringe 2 % 80 mg NS 0.9% 700 mL * Agents Name O2 * Blood No blood administrations on file. Lines, Drains, and Airways Type Details Placement Removal Peripheral IV Placement Date: 11/26 12/12; Placement Time: 0648; Catheter Size: 22 G; Orientation: Right; Location: Hand; Site Prep: Chlorhexidine; Insertion Attempts: 1; Removal Date: 12/20/17; Removal Time: 0844 12/20/17 0648 by Graciela Arrieta RN 12/20/17 0844 by Kalpana Muller RN documented in this encounter Social History Tobacco Use Types Packs/Day Years [...] on file documented as of this encounter OR Notes * Anesthesia Postprocedure Evaluation - Ricardo Reid MD - 12/20/2017 4:17 PM CDT Patient: Esequiel Neely Procedure Summary Date: 12/20/17 Room / Location: ENDOSCOPY ROOM 4 / ENDOSCOPY Anesthesia Start: 732 Anesthesia Stop: 816 Procedure: COLON REMOVAL HOT BIOPSY (N/A ) Diagnosis: Altered bowel habits (Altered bowel habits [R19.4]) Provider: George Tom MD Responsible Provider: Ricardo Reid MD Anesthesia Type: general/TIVA ASA Status: 2 Anesthesia Type: general/TIVA Last vitals Vitals: 12/20/17 0845 BP: 120/83 Pulse: 66 Resp: 16 SpO2: 97% Anesthesia Post Evaluation Patient location during evaluation: PACU Patient participation: complete - patient participated Level of consciousness: fully awake Pain score: 0 Pain management: adequate Airway patency: patent Anesthetic complications: no Cardiovascular status: hemodynamically stable Respiratory status: room air Hydration status: euvolemic Pt is: normothermic Nausea/Vomiting status: none * Anesthesia Preprocedure Evaluation - Ricardo Reid MD - 12/20/2017 7:24 AM CDT Anesthesia Evaluation Esequiel Neely is a 47 y.o. male Procedure(s): COLONOSCOPY HISTORY Past Medical History Neurological Neuro/Psych system: negative Cardiovascular Cardiac system: negative Respiratory Respiratory system: negative Hepatic / Heme Hepatic/Heme system: negative Gastrointestinal + GERD - on daily therapy. Asymptomatic. Renal / Renal/ system: negative Musculoskeletal/Pain Musculoskeletal/Pain system: negative Endocrine / Other + Obesity (BMI >30) Functional Capacity Functional capacity: 4-6 METs Review of Systems + abdominal pain Patient Active Problem List Diagnosis ??? Abdominal pain ??? Constipation ??? Gallstone ??? Gastroesophageal reflux disease ??? Hematochezia ??? Abdominal hernia ??? Altered bowel habits Past Medical History: Diagnosis Date ??? Abdominal hernia without obstruction or gangrene Hernia - (Added by TW Conv) ??? Personal history of healed traumatic fracture History of fracture of vertebra - (Added by Conv) Past Surgical History: Procedure Laterality Date ??? COLONOSCOPY 2010 ??? HERNIA REPAIR No Known Allergies HOME MEDICATIONS : ciprofloxacin (CIPRO) 500 mg tablet dexlansoprazole (DEXILANT) 30 mg capsule metroNIDAZOLE (FLAGYL) 500 mg tablet dexlansoprazole (DEXILANT) 60 mg capsule No current facility-administered medications for this encounter. Social History Smoking Status ??? Never Smoker Smokeless Tobacco ??? Never Used Alcohol Use No Drug Use No Family History Problem Relation Age of Onset ??? Bladder Cancer Father Family history of malignant neoplasm of urinary bladder - (Added by TW Conv) ??? Stomach cancer Mother Family history of malignant neoplasm of stomach - (Added by TW Conv) PAT Physical Exam Vitals: 12/20/17 0642 BP: 118/81 Pulse: 80 Resp: 18 SpO2: 95% CBC RBC: 12/16/2017: 5.39 M/cumm RDW: No results found for requested labs within last 720 hours. MCHC: 12/16/2017: 31.8 g/dL* MCH: 12/16/2017: 29.9 pg MCV: 12/16/2017: 94.1 fL Hct: 12/16/2017: 50.7 %* Hgb: 12/16/2017: 16.1 g/dL WBC: 12/16/2017: 4.0 K/cumm MPV: 12/16/2017: 10.8 fL Platelets: 12/16/2017: 184 K/cumm RDW CV: 12/16/2017: 13.0 % RDW Sd: 12/16/2017: 45.1 fL BMP Glucose: 12/16/2017: 83 mg/dL Calcium: 12/16/2017: 8.5 mg/dL Sodium: 12/16/2017: 135 mmol/L Potassium: 12/16/2017: 3.5 mmol/L CO2: 12/16/2017: 27 mmol/L Chloride: 12/16/2017: 103 mmol/L BUN: 12/16/2017: 12 mg/dL Creatinine: 12/16/2017: 1.01 mg/dL DOS Physical Exam Medical history, medications, and allergies reviewed. Attestation: I endorse the findings of the anesthesia pre-evaluation assessment dated: 12/20/2017. Airway Exam: Mallampati: II Cervical ROM: FROM Cardiovascular Exam: Rate: regular Rhythm: regular Pulmonary Exam: LCTA, bilat EENT Exam: trachea midline Dental Exam: Missing and poor dentition Skin Exam: Skin is warm. Current state: Patient's current state is cooperative and interactive. Anesthesia Plan ASA 2 Planned anesthesia: General/TIVA Induction: Induction: intravenous. Postoperative Plan: No plan for postoperative opioid use. No postoperative mechanical ventilation intended. Patient's planned disposition post procedure is Outpatient. Informed Consent: Discussed plan with DRUG DISCOVERY INFORMATICS SPECIALIST. Anesthesia plan and risks discussed with patient. Consent and Attending signature: I and/or my designee have discussed the anesthesia plan, benefits, possible alternatives, parental presence at time of induction (if indicated), and clinically relevant risks that may include dental injury, unintentional awareness, and/or other complications. The patient and/or parent/legal guardian understand, and agree to proceed. All questions answered. documented in this encounter Plan of Treatment Not on file documented as of this encounter Visit Diagnoses Not on filedocumented in this encounter Administered Medications Inactive Administered Medications - up to 3 most recent administrations Medication Order MAR Action Action Date Dose Rate Site lidocaine (cardiac) (XYLOCAINE) preservative free injection As needed, Starting on 6/26/18 at 0739, Anesthesia Intra-op, Indications: Ventricular ArrhythmiasIndications:Ventricular Arrhythmias Given 12/20/2017 7:39 AM CDT 80 mg propofol (DIPRIVAN) IV intravenous, As needed, Starting on Tue12/20/17 at 0811, Anesthesia Intra-op Given 12/20/2017 8:11 AM CDT 350 mg sodium chloride 0.9% infusion Continuous PRN, Starting on Tue12/20/17 at 0730, Anesthesia Intra-op New Bag 12/20/2017 8:06 AM CDT New Bag 12/20/2017 7:30 AM CDT documented in this encounter Care Teams Undergraduate Internship Relationship Specialty Start Date End Date Abi Rawls MD PCP - General 10/06/17 02/03/18 documented as of this encounter
--- OUTSIDE RECORDS SUMMARY | 2024-07-17 05:03 | XMS_ITS | Encounter Summary ---
Author Organization [facility] Healthcare Address [address] [place] [address] Care Team Providers Care Video Clerk Name Role Phone Abi Rawls MD Primary Care Provider Encounter Details Date Type Department Care Team (Latest Contact Info) Description 12/20/2017 6:12 AM CDT - 12/20/2017 9:01 AM CDT Hospital Encounter [facility] GI Lab [address] [place] [address] [place] [address] [facility] [address] [place] [address] Altered bowel habits Discharge Disposition: Discharge to home or self [...] Sign Reading Time Taken Comments Blood Pressure 120/83 12/20/2017 8:45 AM CDT Pulse 66 12/20/2017 8:45 AM CDT Temperature - - Respiratory Rate 16 12/20/2017 8:45 AM CDT Oxygen Saturation 97% 12/20/2017 8:45 AM CDT Inhaled Oxygen Concentration - - Weight 99.8 kg (220 lb) 12/20/2017 6:42 AM CDT Height 177.8 cm (5' 10 ) 12/20/2017 6:42 AM CDT Body Mass Index 31.57 12/20/2017 6:42 AM CDT documented in this encounter Discharge Instructions * Discharge Instructions* Kalpana Finn RN - 12/20/2017 8:31 AM CDT Activity Restrictions for the rest of today. 1. Do not drive a car or operate heavy machinery. 2. Do not consume alcohol. 3. Do not engage in hazardous activity. documented in this encounter Medications at Time of Discharge ciprofloxacin (CIPRO) 500 mg tabletIndications: Abdominal pain, unspecified abdominal location Take 1 tablet (500 mg total) by mouth 2 (two) times a day. 60 tablet 12/08/2017 01/07/2018 metroNIDAZOLE (FLAGYL) 500 mg tabletIndications: Abdominal pain, unspecified abdominal location Take 1 tablet (500 mg total) by mouth 3 (three) times a day. 90 tablet 12/08/2017 01/07/2018 dexlansoprazole (DEXILANT) 30 mg capsule Take 60 mg by mouth daily. 01/31/2018 documented as of this encounter Discharge Disposition Disposition Code Departure Means Destination Discharge to home or self care documented in this encounter H&P Notes * George Tom MD - 12/20/2017 8:44 AM CDT History and Physical HPI: Patient is a 47 y.o. male with chief complaint of left-sided abdominal pain. Patient had previous attempted colonoscopy which was not successful, was noted to have stricture ofthe sigmoid colon. He was seen in office couple of weeks ago, was started on Flagyl and ciprofloxacin, has improved a bit. He still feels bloated and also having left- sided pain. He also notices change in his bowel habit.. Past Medical History: Diagnosis Date ??? Abdominal hernia without obstruction or gangrene Hernia - (Added by TW Conv) ??? Personal history of healed traumatic fracture History of fracture of vertebra - (Added by TW Conv) Past Surgical History: Procedure Laterality Date ??? COLONOSCOPY 2010 ??? HERNIA REPAIR HOME MEDICATIONS : ciprofloxacin (CIPRO) 500 mg tablet dexlansoprazole (DEXILANT) 30 mg capsule metroNIDAZOLE (FLAGYL) 500 mg tablet dexlansoprazole (DEXILANT) 60 mg capsule No Known Allergies Social History Substance Use Topics ??? Smoking status: Never Smoker ??? Smokeless tobacco: Never Used ??? Alcohol use No Family History Problem Relation Age of Onset ??? Bladder Cancer Father Family history of malignant neoplasm of urinary bladder - (Added by TW Conv) ??? Stomach cancer Mother Family history of malignant neoplasm of stomach - (Added by TW Conv) Review of Systems Review of Systems Constitutional: Negative for appetite change, chills and fever. HENT: Negative for sore throat and trouble swallowing. Eyes: Negative for discharge and visual disturbance. Respiratory: Negative for cough and shortness of breath. Cardiovascular: Negative for chest pain and palpitations. Gastrointestinal: Positive for abdominal distention and abdominal pain. Negative for anal bleeding,blood in stool, constipation, diarrhea, nausea, rectal pain and vomiting. Altered bowel habit with times of constipation and days of loose bowel movements also Genitourinary: Negative for difficulty urinating, dysuria and hematuria. Musculoskeletal: Negative for arthralgias and neck pain. Skin: Negative for pallor and rash. Neurological: Negative for weakness and headaches. Hematological: Negative for adenopathy. Does not bruise/bleed easily. Psychiatric/Behavioral: Negative for confusion. The patient is not nervous/anxious. Vitals: Vitals: 12/20/17 0642 12/20/17 0815 12/20/17 0830 BP: 118/81 101/77 103/80 Pulse: 80 82 69 Resp: 18 11 17 SpO2: 95% 94% 94% Weight: 99.8 kg (220 lb) Height: 177.8 cm (5' 10 ) OBJECTIVE: Physical exam: Physical Exam Constitutional: He appears well-developed and well-nourished. Eyes: Conjunctivae and EOM are normal. Neck: Normal range of motion. Neck supple. Cardiovascular: Normal rate and regular rhythm. Pulmonary/Chest: Effort normal. Abdominal: Soft. Bowel sounds are normal. He exhibits no distension and no mass. There is tenderness. There is no rebound and no guarding. No hernia. Moderate tenderness on the left side with a bit of abdominal distension. Bilateral inguinal bulges are noted suspicious for hernia but no definite hernias palpable. Musculoskeletal: Normal range of motion. Neurological: He is alert. Skin: Skin is warm and dry. Psychiatric: He has a normal mood and affect. His behavior is normal. Assessment Left-sided abdominal pain. Altered bowel habit. Previous incomplete colonoscopy due to narrowing of the sigmoid colon Plan Colonoscopy to rule out stricture of the sigmoid colon and also to evaluate the etiology of narrowing of the sigmoid colon. documented in this encounter Procedure Notes * George Tom MD - 12/20/2017 7:31 AM CDTAssociated Order(s): COLONOSCOPY [facility] Endoscopy Lab Patient Name: Melchor Galloway Procedure Date: 12/20/2017 7:31 AM Date of : 1970 Admit Type: Outpatient Age: 47 Gender: Male Note Status: Finalized Attending MD: George Tom MD Procedure Date: 12/20/2017 Procedure: Colonoscopy Indications: Abdominal pain in the left upper quadrant, Change in bowel habits Providers: George Tmo MD, Keya Lemos CRNA (Anesthesia Staff), Ines Loja RN Referring MD: Medicines: Monitored Anesthesia Care Complications: No immediate complications. Estimated Blood Loss: Estimated blood loss: none. Procedure: Pre-Anesthesia Assessment: - The risks and benefits of the procedure and the sedation options and risks were discussed with the patient. All questions were answered and informed consent was obtained. After I obtained informed consent, the scope was passed under direct vision. Throughout the procedure, the patient's blood pressure, pulse, and oxygen saturations were monitored continuously. The scope was passed under direct vision. The Colonoscope CF-Q180 [place] [id number] was introduced through the anus and advanced to the the cecum, identified by appendiceal orifice and ileocecal valve. The quality of the bowel preparation was good. The bowel preparation used was GoLYTELY. Findings: A 5 mm benign appearing polyp was found mid transverse colon. The polyp was sessile. The polyp was removed with a hot biopsy forceps. Resection and retrieval were complete. Verification of patient identification for the specimen was done by the physician and nurse using the patient's name and medical record number. Estimated blood loss was minimal. Estimated blood loss: none. Non-bleeding internal hemorrhoids were found during retroflexion. The hemorrhoids were medium-sized. The exam was otherwise without abnormality on direct and retroflexion views. Impression: - One 5 mm polyp in the mid transverse colon. Resected and retrieved. - Non-bleeding internal hemorrhoids. - The examination was otherwise normal on direct and retroflexion views. Recommendation: - Discharge patient to home (ambulatory). - Repeat colonoscopy in 10 years for surveillance based on pathology results. - Return to my office in 2 weeks. Procedure Code(s): --- Professional --- 53951, Colonoscopy, flexible; with removal of tumor(s), polyp(s), or other lesion(s) by hot biopsy forceps CPT copyright 2017 [employer]. All rights reserved. The codes documented in this report are preliminary and upon costume shop coordinator review may be revised to meet current compliance requirements. Dr. George Tom MD George Tom MD 12/20/2017 8:19:27 AM This report has been electronically signed by the physician. Number of Addenda: 0 Note Initiated On: 12/20/2017 7:31 AM documented in this encounter Plan of Treatment Not on file documented as of this encounter Procedures Procedure Name Priority Date/Time Associated Diagnosis Comments SURGICAL PATHOLOGY Routine 12/20/2017 11 :52 AM CDT Altered bowel habits COLONOSCOPY 12/20/2017 7:31 AM CDT COLON REMOVAL HOT BIOPSY 12/20/2017 7:31 AM CDT Altered bowel habits documented in this encounter Results * Surgical pathology (12/20/2017 11:52 AM CDT) Tissue (Polyp(s), colon/colorectal, esophageal, gastric) 12/20/2017 7:50 AM CDT Narrative PATHOLOGY CH - 12/21/2017 11:38 AM CDT [facility] Department of Pathology [address] [place] [id number] Final Report ?Patient Name: MELCHOR GALLOWAY Address: [address] [place] [address] Service: Surgery ??[place], [place] ??[address] Location: [facility] Taken: 12/20/2017 Gender: M Received 12/20/2017 : 1970 (Age: 47) Hospital #: [id number] Accessioned: 12/20/2017 ?? Patient Type: SDS Reported 12/21/2017 Physician(s): Dr. Caleb Tom M.D. Abi Rawls M.D. ?? Diagnosis: Colon, transverse, biopsies: ? -Mild acute and chronic inflammation with focal acute cryptitis. ? -Negative for dysplasia. ?? Xavier Batista M.D. ??Report Electronically Reviewed and Signed Out By ??Xavier Batista M.D. ??12/21/2017 11:38:26 Specimen(s) Received: A: Transverse colon Microscopic Description: Microscopic examination of the transverse colon, examined multiple levels shows a single fragment of minimally edematous and congested colonic mucosa with a mild mixed inflammatory infiltrate within the lamina propria, composed of plasma cells, lymphocytes and eosinophils as well as scattered neutrophils. ??There is focal acute cryptitis, however there is no evidence of crypt abscesses, granulomas or other infiltrative processes although a rare benign lymphoid aggregate is noted. ??The inflammation is not accompanied by dysplasia. ??While these alterations are mild and nonspecific, they may represent a component of idiopathic inflammatory bowel disease in the appropriate clinical context. ??Clinical correlation is recommended. Clinical History: Altered bowel habits Description: Colon removal hot biopsy Gross Description: The specimen is labeled Melchor Chin and transverse colon . ??It is a 5 mm pink-eric tissue fragment. ??Entirely submitted in one cassette. ??Mike Ray MD/Davey Zapien P.A. Complete report with images are only be viewable in the PDF report The performance characteristics of some immunohistochemical stains, fluorescence in-situ hybridization tests and immunophenotyping by flow cytometry cited in this report (if any) were determined by the Surgical Pathology Department at [facility] as part of an ongoing nurse quality program and in compliance with federally mandated [...] characteristics determined by the Surgical Pathology Department [facility]. ??It has not been cleared or approved by the U. S. Food and Drug Administration. George Tom MD LAB PATHOLOGY ORDERABL ES Final Result PATHOLOGY [address] [place] [address] * COLONOSCOPY (12/20/2017 7:31 AM CDT) Anatomical Region Laterality Modality Other Narrative Procedure Note George Tom MD - 12/20/2017 7:[address] [facility] Endoscopy Lab Patient Name: Melchor Galloway Procedure Date: 12/20/2017 7:31 AM Date of : 1970 Admit Type: Outpatient Age: 47 Gender: Male Note Status: Finalized Attending MD: George oTm MD Procedure Date: 12/20/2017 Procedure: Colonoscopy Indications: Abdominal pain in the left upper quadrant, Change in bowel habits Providers: George Tom MD, Keya Lemos CRNA(Anesthesia Staff), Ines Loja RN Referring MD: Medicines: Monitored Anesthesia Care Complications: No immediate complications. Estimated Blood Loss: Estimated blood loss: none. Procedure: Pre-Anesthesia Assessment: - The risks and benefits of the procedure and the sedation options and risks were discussed with the patient. All questions were answered and informed consent was obtained. After I obtained informed consent, the scope waspassed under direct vision. Throughout the procedure, the patient's blood pressure, pulse, and oxygensaturations were monitored continuously. The scope was passedunder direct vision. The Colonoscope CF-Q180 [place] [id number] introduced through the anus and advanced to the the cecum, identified by appendiceal orifice andileocecal valve. The quality of the bowel preparation wasgood. The bowel preparation used was GoLYTELY. Findings: A 5 mm benign appearing polyp was found mid transverse colon. Thepolyp was sessile. The polyp was removed with a hot biopsy forceps.Resection and retrieval were complete. Verification of patient identificationfor the specimen was done by the physician and nurse using the patient's name and medical record number. Estimated blood loss was minimal. Estimated blood loss: none. Non-bleeding internal hemorrhoids were found during retroflexion. The hemorrhoids were medium-sized. The exam was otherwise without abnormality on direct and retroflexion views. Impression: - One 5 mm polyp in the mid transverse colon.Resected and retrieved. - Non-bleeding internal hemorrhoids. - The examination was otherwise normal on direct and retroflexion views. Recommendation: - Discharge patient to home (ambulatory). - Repeat colonoscopy in 10 years for surveillancebased on pathology results. - Return to my office in 2 weeks. Procedure Code(s): --- Professional --- 61440, Colonoscopy, flexible; with removal oftumor(s), polyp(s), or other lesion(s) by hot biopsy forceps CPT copyright 2017 [employer]. All rights reserved. The codes documented in this report are preliminary and upon costume shop coordinator reviewmay be revised to meet current compliance requirements. Dr. George Tom MD George Tom MD 12/20/2017 8:19:27 AM This report has been electronically signed by the physician. Number of Addenda: 0 Note Initiated On: 12/20/2017 7:31 AM George Tom MD ENDOSCOPY PROCEDURES F inal Result documented in this encounter Visit Diagnoses Diagnosis Altered bowel habits- Primary documented in this encounter Admitting Diagnoses Diagnosis Altered bowel habits documented in this encounter Discontinued Medications Medication Sig Discontinue Reason Start Date End Da te dexlansoprazole (DEXILANT) 60 mg capsule Dexilant 60 mg capsule, delayed release qd 12/20/2017 documented as of this encounter Historical Medications * This list may reflect changes made after this encounter. dexlansoprazole (DEXILANT) 30 mg capsule Take 60 mg by mouth daily. 01/31/2018 added in this encounter Care Teams Video Clerk Relationship Specialty Start Date End Date Abi Rawls MD PCP - General 10/06/17 02/03/18 documented as of this encounter
--- OUTSIDE RECORDS SUMMARY | 2024-07-17 05:03 | XMS_ITS | Encounter Summary ---
Author Organization [facility] Address [address] [place] [address] Phone Care Team Providers Care Range Feeder Name Role Phone Abi Rawls MD Primary Care Provider [phone] Reason for Visit * Reason Comments Return Patient difficult bowel move ments Encounter Details Date Type Department Care Team (Late st Contact Info) Description 01/05/2018 1:15 PM CDT Office Visit [facility] Surgery [address] [facility][1] [address] [place] [phone] [place] [id number] [place] [address] [address] [facility] [address] [place] [id number] Slow transit constipation (Primary Dx); Calculus of gallbladder without cholecystitis without obstruction Social History Tobacco Use Types Packs/Day Years [...] Sign Reading Time Taken Comments Blood Pressure 125/77 01/05/2018 1:12 PM CDT Pulse 92 01/05/2018 1:12 PM CDT Temperature - - Respiratory Rate - - Oxygen Saturation - - Inhaled Oxygen Concentration - - Weight 102.6 kg (226 lb 3.2 oz) 01/05/2018 1:12 PM CDT Height 172.7 cm (5' 8 ) 01/05/2018 1:12 PM CDT Body Mass Index 34.39 01/05/2018 1:12 PM CDT documented in this encounter Patient Instructions * Patient Instructions* George Tom MD - 01/05/2018 1:15 PM CDT High-fiber diet. Metamucil twice a day. MiraLax twice a day. Increase fluid intake. documented in this encounter Progress Notes * George Tom MD - 01/05/2018 1:15 PM CDT General Surgery Consult Reason for Consult/Visit: Left-sided abdominal pain Unable to have good bowel movements. Requesting Provider: Abi Rawls MD HPI: Patient is a 47 y.o. male with chief complaint of ongoing problem of left-sided abdominal pains with difficulty to have good bowel movements. Patient is really underwent colonoscopy on which no significant pathology was noted in the left colon. He previously has history of narrowing of the sigmoid colon and colonoscopy was incomplete but thistime I was able to go all the way up to the cecum. He was noted to have inflammatory polyp in the transverse colon and the biopsy is benign. He denies nausea vomiting or other GI symptoms other than pain and difficult bowel movements. He is taking MiraLax but not fiber supplements Review of Systems: No history of fever or chills. No history of shortness of breath or chest pain. No history of nausea vomiting. History of constipation. No history of hematuria dysuria. No history of focal weakness or numbness. Physical Exam: Vitals: BP 125/77 Pulse 92 Ht 172.7 cm (5' 8 ) Wt 102.6 kg (226 lb 3.2 oz) BMI 34.39 kg/m?? Physical Exam Constitutional: Patient is awake and alert and appears well-developed and well-nourished. Eyes: Conjunctiva normal Neck: Normal range of motion. Neck supple. Cardiovascular: Normal rate and regular rhythm. Pulmonary/Chest: Effort normal bilateral equal air entry. Abdominal: Soft. Patient exhibits no distension and no mass. There is [id number] tenderness on the left side, no hernias or masses are palpable. Musculoskeletal: Normal range of motion. Neurological: Patient is alert and oriented Skin: Skin is warm and dry. Psychiatric: normal mood and affect, behavior is normal. Lab/Radiology/Diagnostic Review: Assessment /Plan Left-sided abdominal pain of unknown etiology. Patient had quite extensive workup including normal colonoscopy and CT scan. Etiology of the abdominal pain is not clear. Patient is explained that in the presence of normal CT scan and normal colonoscopy, pain could be from any source as its is going into the flank area, could be related to disc problem. He does have cholelithiasis but he is not symptomatic from that and will watch it. Patient is reassured, advised to increase fiber intake with high-fiber diet as well as to take Metamucil twice a day. He is also advised to take MiraLax twice a day at present. He is to follow with me in office in 3 months. documented in this encounter Plan of Treatment Not on file documented as of this encounter Visit Diagnoses Diagnosis Slow transit constipation- Primary Calculus of gallbladder without cholecystitis without obstruction documented in this encounter Care Teams Range Feeder Relationship Specialty Start Date End Date Shun-Abi León MD PCP - General 10/06/17 02/03/18 documented as of this encounter
--- OUTSIDE RECORDS SUMMARY | 2024-07-17 05:03 | XMS_ITS | Encounter Summary ---
Author Organization [facility] Healthcare Address [address] [place] [address] Care Team Providers Care Learning And Development Consultant Name Role Phone No, Physician Primary Care Provider [phone] Reason for Visit * Reason Comments Headache Dizziness Blood in Urine Encounter Details Date Type Department Care Team (Late st Contact Info) Description 02/04/2018 6:11 PM CDT - 02/05/2018 1:39 AM CDT Emergency [facility] Emergency Department [address] [place] [address] [place] [id number] [address] Urinary tract infection without hematuria, site unspecified (Primary Dx); Nonintractable headache, unspecified chronicity pattern, unspecified headache type Discharge Disposition: Discharge to home or self [...] Sign Reading Time Taken Comments Blood Pressure 140/90 02/05/2018 12:15 AM CDT Pulse 98 02/05/2018 12:15 AM CDT Temperature 36.7 ??C (98.1 ??F) 02/04/2018 5:54 PM CD T Respiratory Rate 14 02/05/2018 12:30 AM CDT Oxygen Saturation 96% 02/05/2018 12:15 AM CDT Inhaled Oxygen Concentration - - Weight 99.8 kg (220 lb) 02/04/2018 5:54 PM CDT Height 180.3 cm (5' 11 ) 02/04/2018 5:54 PM CDT Body Mass Index 30.68 02/04/2018 5:54 PM CDT documented in this encounter Discharge Instructions * Attachments The following attachments cannot be sent through Care Everywhere. * Headache, Unspecified (Iranian) * Bladder Infection, Male (Adult) (Iranian) documented in this encounter Medications at Time of Discharge ciprofloxacin (CIPRO) 500 mg tablet Take 1 tablet (500 mg total) by mouth 2 (two) times a day for 10 days. 20 tablet 02/05/2018 02/15/2018 dexlansoprazole (DEXILANT) 60 mg capsule Take 60 mg by mouth daily. 12/04/2019 doxazosin (CARDURA) 4 mg tabletIndications: Benign prostatic hyperplasia with weak urinary stream Take 1/2 po qhs for 2 weeks and then 1 po qhs. 30 tablet 01/10/2018 05/19/2020 finasteride (PROSCAR) 5 mg tabletIndications: benign prostatic hyperplasia with lower urinary tract sx Take 1 tablet (5 mg total) by mouth daily. 30 tablet 01/31/2018 05/19/2020 sildenafil, antihypertensive, (REVATIO) 20 mg tabletIndications: Pulmonary Arterial Hypertension Take 2 - 5 po prn at 1 hour prior to sexual activity. Works best on an empty stomach. 30 tablet 01/10/2018 07/31/2018 documented as of this encounter Ordered Prescriptions Prescription Sig Dispense Quantity Refills Last Filled Start Date End Date ciprofloxacin (CIPRO) 500 mg tablet Take 1 tablet (500 mg total) by mouth 2 (two) times a day for 10 days. 20 tablet 02/05/2018 02/15/2018 documented in this encounter Discharge Disposition Disposition Code Departure Means Destination Discharge to home or self care documented in this encounter ED Notes * Casimiro Madera MD - 02/04/2018 7:48 PM CDT Chief Complaint Patient presents with ??? Headache ??? Dizziness ??? Blood in Urine 7:44 PM 02/04/2018 Patient is a 47 y/o M, with a past history of abdominal hernia repair, colonoscopy, presenting to the ED complaining of frontal headache and dizziness onset three days prior. Patient states that his symptoms began when he had a cystoscopy by Dr. Theo MD, for his hematuria. Patient states that he was told he had an enlarged prostate and was given medications. Patient noticed the headache and dizziness after taking the medications. Patient is also complaining of a fever, neck pain, and dysuria. Denies photophobia or UTIs in the past. No other complaints are mentioned at this time. Past Medical History: Diagnosis Date ??? Abdominal hernia without obstruction or gangrene Hernia - (Added by TW Conv) ??? Personal history of healed traumatic fracture History of fracture of vertebra - (Added by TW Conv) Past Surgical History: Procedure Laterality Date ??? COLONOSCOPY 2010 ??? HERNIA REPAIR HOME MEDICATIONS : dexlansoprazole (DEXILANT) 60 mg capsule doxazosin (CARDURA) 4 mg tablet finasteride (PROSCAR) 5 mg tablet sildenafil, antihypertensive, (REVATIO) 20 mg tablet No Known Allergies Review of Systems Constitutional: Positive for fever. Negative for chills and fatigue. HENT: Negative for congestion, ear pain, rhinorrhea, sneezing and sore throat. Respiratory: Negative for cough, shortness of breath and wheezing. Cardiovascular: Negative for chest pain and palpitations. Gastrointestinal: Negative for abdominal pain, constipation, diarrhea, nausea and vomiting. Genitourinary: Positive for dysuria and hematuria. Musculoskeletal: Positive for neck pain. Negative for arthralgias and back pain. Skin: Negative for color change, pallor, rash and wound. Neurological: Positive for dizziness and headaches. Negative for syncope, weakness and light-headedness. All other systems reviewed and are negative. Physical Exam Constitutional: He is oriented to person, place, and time. He appears well- developed and well-nourished. No distress. HENT: Head: Normocephalic and atraumatic. Mouth/Throat: Oropharynx is clear and moist. Eyes: Conjunctivae and EOM are normal. Neck: Normal range of motion. Neck supple. Cardiovascular: Normal rate, regular rhythm, normal heart sounds and intact distal pulses. Exam reveals no gallop and no friction rub. No murmur heard. Pulmonary/Chest: Effort normal and breath sounds normal. No respiratory distress. He has no wheezes. He has no rales. Abdominal: Soft. He exhibits no distension. There is no tenderness. Musculoskeletal: Normal range of motion. He exhibits no edema, tenderness or deformity. Neurological: He is alert and oriented to person, place, and time. Skin: Skin is warm and dry. Capillary refill takes less than 2 seconds. No rash noted. No erythema.No pallor. Nursing note and vitals reviewed. BP 112/74 Pulse 113 Temp 36.7 ??C (98.1 ??F) (Oral) Resp 18 Ht 180.3 cm (5' 11 ) Wt 99.8 kg (220 lb) SpO2 100% BMI 30.68 kg/m?? Labs Reviewed URINALYSIS AND REFLEX TO MICROSCOPIC AND CULTURE - Abnormal Result Value Color, ur Yellow Clarity, ur Clear Specific gravity, ur 1.011 pH, urine 6.0 Protein, ur ql Negative Glucose, ur ql Negative Ketones, ur Trace Bilirubin, ur Negative Blood, ur 2+ (*) Urobilinogen, ur <2.0 Nitrite, ur Negative Leukocyte esterase, ur 1+ (*) Narrative: Urine pH is affected by diet, medications, systemic acid-base disturbances, and renal tubular function. pH may affect urinary stone formation. For example, urine pH below 6.0 may help reduce the tendency for calcium phosphate stones and pH greater than 6.0 may reduce the tendency for uric acid stone formation. Source: [facility] Q Chip.Last revised 07-07-2017 CBC WITH AUTO DIFFERENTIAL - Abnormal WBC 12.9 (*) Hgb 14.4 Hct 44.1 Plt 149 (*) MPV 10.5 RBC 4.71 MCV 93.6 MCH 30.6 MCHC 32.7 RDW CV 13.3 RDW SD 45.7 NRBC Abs 0.00 Narrative: COMPREHENSIVE METABOLIC PANEL - Abnormal Sodium 136 Potassium, pl 3.2 (*) Chloride 105 CO2 24 Anion Gap 10 BUN 10 Creatinine 0.95 Glucose 105 Calcium 8.7 Bilirubin, total 2.40 (*) Protein, pl 6.3 Albumin 3.5 Alk phos 81 ALT 37 AST 20 Narrative: DIFFERENTIAL AUTO - Abnormal Neutrophil absolute 10.7 (*) Immature granulocyte absolute 0.1 Lymphocytes absolute 0.8 Monocyte absolute 1.2 (*) Eosinophils absolute 0.0 Basophils, abs 0.0 Neutrophils 83.1 Immature granulocytes 0.7 Lymphocytes 6.6 Monocytes 9.1 Eosinophils 0.3 Basophils 0.2 Narrative: EGFR GFR 95 Narrative: TROPONIN I URINALYSIS, MICROSCOPIC ONLY No orders to display Procedures MDM IMPRESSION: No diagnosis found. ATTESTATIONS: This note was prepared by Moira Art, acting as a Scribe for Casimiro Bhardwaj MD I electronically signed this note at 7:49 PM on 02/04/2018. I, Casimiro Madera MD have personally performed the services described in the documentation, as recorded by the scribe in my presence. Casimiro Madera MD 02/05/18 0057 * Colleen Palma RN - 02/04/2018 5:51 PM CDT Headache and dizziness for two days, blood in urine. Had some chest pains. documented in this encounter Plan of Treatment Not on file documented as of this encounter Procedures Procedure Name Priority Date/Time Associated Diagnosis Comments EGFR STAT 02/04/2018 7:15 PM CDT DIFFERENTIAL AUTO STAT 02/04/2018 7:1 5 PM CDT CBC WITH AUTO DIFFERENTIAL STAT 02/04/2018 7:15 PM CDT TROPONIN I STAT 02/04/2018 7:15 PM CDT COMPREHENSIVE METABOLIC PANEL STAT 02/04/2018 7:15 PM CDT URINALYSIS AND REFLEX TO MICROSCOPIC AND CULTURE STAT 02/04/2018 6:45 PM CDT URINALYSIS, MICROSCOPIC ONLY STAT 02/04/2018 6:45 PM CDT URINE CULTURE STAT 02/04/2018 6:45 PM CDT ECG 12-LEAD STAT 02/04/2018 5:57 PM CDT documented in this encounter Results * eGFR (02/04/2018 7:15 PM CDT) eGFR 95 mL/min/1.7 3 m2 [facility] Comment: Interpretive Data Reference Interval Normal ?>/= 90 mL/min/1.73m2 Mildly decreased* ? 60 - 89 mL/min/1.73m2 Mildly to moderately decreased ?45 - 59 mL/min/1.73m2 Moderately to severely decreased ??30 - 44 mL/min/1.73m2 Severely decreased ?15 - 29 mL/min/1.73m2 Kidney Failure ?< 15 ??mL/min/1.73m2 *Relative to young adult level If -Israeli multiply value by 1.16. Estimated glomerular filtration [...] was last reviewed 2016. Blood specimen (specimen) 02/04/2018 7:15 PM CDT 02/04/2018 7:20 PM CDT Narrative [facility] COX - 02/04/2018 7:44 PM CDT us Rocky Fu MD LAB BLOOD ORDERABLES Final Result [facility] [address] Department [place] [address] * (ABNORMAL) Differential, auto (02/04/2018 7:15 PM CDT) Neutrophil abs 10.7(H) 1.7 - 6.5 K/cumm [facility] Imm gran abs 0.1 0.0 - 0.1 K/cumm [facility] Lymphocyte abs 0.8 0.8 - 3.3 K/cumm [facility] Monocyte abs 1.2(H) 0.2 - 0.8 K/cumm [facility] Eosinophil abs 0.0 0.0 - 0.5 K/cumm [facility] Basophil abs 0.0 0.0 - 0.1 K/cumm [facility] Neutrophil pct 83.1 % [facility] Comment: Interpretive Data Percent cell count reference ranges are not reported, since discordance with absolute values may lead to misinterpretation of CBC data. Current Interpretive Data was last revised on 2017. Imm gran pct 0.7 % [facility] Comment: Interpretive Data Percent cell count reference ranges are not reported, since discordance with absolute values may lead to misinterpretation of CBC data. Current Interpretive Data was last revised on 2017. Lymphocyte pct 6.6 % [facility] Comment: Interpretive Data Percent cell count reference ranges are not reported, since discordance with absolute values may lead to misinterpretation of CBC data. Current Interpretive Data was last revised on 2017. Monocyte pct 9.1 % [facility] Comment: Interpretive Data Percent cell count reference ranges are not reported, since discordance with absolute values may lead to misinterpretation of CBC data. Current Interpretive Data was last revised on 2017. Eosinophil pct 0.3 % [facility] Comment: Interpretive Data Percent cell count reference ranges are not reported, since discordance with absolute values may lead to misinterpretation of CBC data. Current Interpretive Data was last revised on 2017. Basophil pct 0.2 % [facility] Comment: Interpretive Data Percent cell count reference ranges are not reported, since discordance with absolute values may lead to misinterpretation of CBC data. Current Interpretive Data was last revised on 2017. Blood specimen (specimen) 02/04/2018 7:15 PM CDT 02/04/2018 7:20 PM CDT Narrative [facility] COX - 02/04/2018 7:24 PM CDT Rocky Fu MD LAB BLOOD ORDERABLES Final Result Performing Organization Address [facility] Phone Number [facility] [phone] [address] [facility] [place] [address] * Troponin I (02/04/2018 7:15 PM CDT) Pathologist [facility] Troponin I 0.03 0.00 - 0.14 ng/mL [facility] Comment: Interpretive Data Normal: ? 0.00 - 0.14 ng/mL Indeterminate: ?0.15 - 0.50 ng/mL ME / Cardiac Muscle Damage: ? >0.50 ng/mL Current interpretive data was last reviewed 2015 Blood specimen (specimen) 02/04/2018 7:15 PM CDT 02/04/2018 7:20 PM CDT Narrative [facility] COX - 02/04/2018 7:51 PM CDT Rocky Fu MD LAB BLOOD ORDERABLES Final Result Performing Organization Address [facility] Phone Number [facility] [phone] [place] [address] * (ABNORMAL) Comprehensive metabolic panel (02/04/2018 7:15 PM CDT) Pathologist [facility] Sodium 136 135 - 145 mmol/L [facility] Potassium, pl 3.2(L) 3.5 - 5.1 mmol/L [facility] Chloride 105 100 - 114 mmol/L [facility] CO2 24 22 - 32 mmol/L [facility] Anion gap 10 8 - 16 mmol/L [facility] BUN 10 8 - 24 mg/dL [facility] Creatinine 0.95 0.70 - 1.40 mg/dL [facility] Glucose 105 70 - 199 mg/dL [facility] Comment: [...] interpretive data was last revised 2017. Calcium 8.7 8.4 - 10.5 mg/dL [facility] Bilirubin, total 2.40(H) 0.10 - 1.30 mg/dL [facility] Protein, pl 6.3 6.0 - 8.3 g/dL [facility] Albumin 3.5 3.2 - 4.8 g/dL [facility] Alk phos 81 30 - 110 Units/L [facility] ALT 37 5 - 50 Units/L [facility] AST 20 7 - 40 Units/L [facility] Blood specimen (specimen) 02/04/2018 7:15 PM CDT 02/04/2018 7:20 PM CDT Narrative [facility] - 02/04/2018 7:44 PM CDT us Rocky Fu MD LAB BLOOD ORDERABLES Final Result [facility] [address] Department [place] [address] * (ABNORMAL) CBC with auto differential (02/04/2018 7:15 PM CDT) WBC 12.9(H) 3.8 - 9.9 K/cumm [facility] Hgb 14.4 13.0 - 17.5 g/dL [facility] Hct 44.1 38.9 - 50.3 % [facility] Plt 149(L) 150 - 400 K/cumm [facility] MPV 10.5 9.1 - 12.3 fL [facility] RBC 4.71 4.30 - 5.80 M/cumm [facility] MCV 93.6 81.3 - 96.4 fL [facility] MCH 30.6 27.1 - 33.3 pg [facility] MCHC 32.7 32.3 - 35.7 g/dL [facility] RDW CV 13.3 11.1 - 14.9 % [facility] RDW SD 45.7 35.7 - 48.1 fL [facility] NRBC abs 0.00 0.00 - 0.01 K/cumm [facility] Blood specimen (specimen) 02/04/2018 7:15 PM CDT 02/04/2018 7:20 PM CDT [facility]ative [facility] - 02/04/2018 7:24 PM CDT us Rocky Fu MD LAB BLOOD ORDERABLES Final Result Performing Organization Address [facility] de Phone Number [facility] [address] [place] [address] * Urine culture (02/04/2018 6:45 PM CDT) Report Final Report: Less than 100,000 colonies/mL (clinically insignificant growth based on current clinical standards) [facility] Comment:Testing performed by : [facility], [address] [place] [address]., [id number] Organism (CLINICALLY INSIGNIFICANT GROWTH [facility] Urine, clean voided 02/04/2018 6:45 PM CDT 02/04/2018 10:59 PM CDT Narrative [facility] - 02/06/2018 3:51 PM CDT Urine culture reflexed based upon urinalysis results. Testing performed by [facility] ([phone]) Rocky Fu MD LAB MICROBIOLOGY - GENERAL ORDERABLES Final Result Performing Organization Address [facility] Co de Phone Number [facility] [address] [facility] [address] [place], [place] [id number] * (ABNORMAL) Urinalysis, microscopic only (02/04/2018 6:45 PM CDT) WBC, ur 11-20(A) 0 - 5 /HPF [facility] RBC, ur 0-5 0 - 5 /HPF [facility] Amorphous crystals, ur Trace(A) [facility] Urine, clean voided 02/04/2018 6:45 PM CDT 02/04/2018 7:21 PM CDT Narrative [facility] - 02/04/2018 8:17 PM CDT Rocky Fu MD LAB URINE ORDERABLES Final Result [facility] [address] Department [place] [address] * (ABNORMAL) Urinalysis reflex to microscopic and culture Urine, clean voided (02/04/2018 6:45 PM CDT) Color, ur Yellow Yellow [facility] Clarity, ur Clear Clear [facility] Specific gravity, ur 1.011 1.010 - 1.025 [facility] pH, urine 6.0 [facility] Protein, ur ql Negative Negative [facility] Glucose, ur ql Negative Negative [facility] Ketones, ur Trace Negative [facility] Bilirubin, ur Negative Negative [facility] Blood, ur 2+(A) Negative [facility] Urobilinogen, ur <2.0 <2.0 mg/dL [facility] Nitrite, ur Negative Negative [facility] Leukocyte esterase, ur 1+(A) Negative [facility] Urine, clean voided 02/04/2018 6:45 PM CDT 02/04/2018 7:21 PM CDT Narrative [facility] - 02/04/2018 7:45 PM CDT ?? Urine pH is affected by diet, medications, systemic acid-base disturbances, and renal tubular function. ??pH may affect urinary stone formation. ??For example, urine pH below 6.0 may help reduce the tendency for calcium phosphate stones and pH greater than 6.0 may reduce the tendency for uric acid stone formation. Source: [employer]. Last revised 07-07-2017 us Rocky Fu MD LAB MICROBIOLOGY - GENERAL ORDERABLES Final Result Performing Organization Address City/[facility]/ZIP Co de Phone Number [facility] [address] Department of Laboratories [place] [phone] * ECG 12 lead (02/04/2018 5:57 PM CDT) Patient age 47 years [facility] Interpretation Text SINUS TACHYCARDIABORDERLINE LEFT AXIS DEVIATIONABNORMAL RHYTHM ECGNO PREVIOUS TRACING [facility] Comment:Physician Interprete r Dr. Jefferson Perdomo M.D. Ventricular Rate EKG/Min 105 /min [facility] P Wave Duration 109 ms [facility] QRS-Interval (MSEC) 91 ms [facility] MA-Interval (MSEC) 130 ms [facility] QT Interval 323 ms [facility] QTc 401 ms [facility] QTC Interval ms [facility] P Leander 50 deg [facility] QRS [place] -29 deg [facility] T [place] 29 deg [facility] 02/04/2018 5:57 PM CDT Casimiro Madera MD ECG ORDERABLES Final Resul t Performing Organization Address [facility] Co de Phone Number [facility] documented in this encounter Visit Diagnoses Diagnosis Urinary tract infection without hematuria, site unspecified- Primary Nonintractable headache, unspecified chronicity pattern, unspecified headache type documented in this encounter Administered Medications Inactive Administered Medications - up to 3 most recent administrations Medication Order MAR Action Action Date Dose Rate Site cefTRIAXone (ROCEPHIN) 1,000 mg in sodium chloride 0.9% 100 mL IVPB 1,000 mg, intravenous, at 200 mL/hr, Administer over 30 Minutes, Once, On 02/04/18 at 1949, For 1 dose, Mini-Bag Plus bag, Indications: Other (complete free text reason below)Indications:Other (complete free text reason below) New Bag 02/04/2018 8:25 PM CDT 1,000 mg 200 mL/hr diphenhydrAMINE (BENADRYL) injection 50 mg 50 mg, intravenous, Administer over 1 Minutes, Every 6 hours PRN, allergies, Starting on 02/04/18 at 1948 Given 02/04/2018 8:25 PM CDT 50 mg ketorolac (TORADOL) injection 30 mg 30 mg, intravenous, Once, On 02/04/18 at 1949, For 1 dose Given 02/04/2018 8:25 PM CDT 30 mg metoclopramide (REGLAN) injection 10 mg 10 mg, intravenous, Once, On 02/04/18 at 1949, For 1 dose Given 02/04/2018 8:25 PM CDT 10 mg sodium chloride 0.9% bolus 1,000 mL 1,000 mL, intravenous, at 1,000 mL/hr, Administer over 1 Hours, Once, On 02/04/18 at 1949, For 1 dose New Bag 02/04/2018 8:25 PM CDT 1,000 mL 100 0 mL/hr documented in this encounter Active and Recently Administered Medications Times are shown in CDT. Scheduled Medication Order 02/03/2018 02/04/2018 02/05/2018 cefTRIAXone (ROCEPHIN) 1,000 mg in sodium chloride 0.9% 100 mL IVPB (COMPLETED) 1,000 mg, intravenous, at 200 mL/hr, Administer over 30 Minutes, Once, On 02/04/18 at 1949, For 1 dose, Mini-Bag Plus bag, Indications: Other (complete free text reason below) 2024 (New Bag - Provider: St lisa Aguirre RN)2054 (Stopped - Provider: Landy Aguirre RN) ketorolac (TORADOL) injection 30 mg (COMPLETED) 30 mg, intravenous, Once, On 02/04/18 at 1949, For 1 dose 2024 (Given - Provider: Cheryle Aguirre RN) metoclopramide (REGLAN) injection 10 mg (COMPLETED) 10 mg, intravenous, Once, On 02/04/18 at 1949, For 1 dose 2024 (Given - Provider: Cheryle Aguirre RN) sodium chloride 0.9% bolus 1,000 mL (COMPLETED) 1,000 mL, intravenous, at 1,000 mL/hr, Administer over 1 Hours, Once, On 02/04/18 at 1949, For 1 dose 2024 (New Bag - Provider: St lisa Aguirre RN)2124 (Stopped - Provider: Landy Aguirre RN) PRN Medication Order 02/03/2018 02/04/2018 02/05/2018 diphenhydrAMINE (BENADRYL) injection 50 mg 50 mg, intravenous, Administer over 1 Minutes, Every 6 hours PRN, allergies, Starting on 02/04/18 at 1947 2024 (Given - Provider: Cheryle Aguirre RN) documented in this encounter Care Teams Learning And Development Consultant Relationship Specialty Start Date End Date No, Physician PCP - General 02/04/18 documented as of this encounter
--- OUTSIDE RECORDS SUMMARY | 2024-07-17 05:03 | XMS_ITS | Encounter Summary ---
Author Organization [facility], [facility] Address [address] [place] [address] Phone Care Team Providers Care Bass Mechanism Maker Name Role Phone Abi Rawls MD Primary Care Provider [phone] Reason for Visit * Reason Comments Blood in Urine Encounter Details Date Type Department Care Team (Latest Contact Info) Description 01/31/2018 9:10 AM CDT Office Visit [facility]) - [facility] Urology [address] [address] Javier Venegas MD [id number] [place] [id number] Screening for blood or protein in urine (Primary Dx); Hematuria, gross; Benign prostatic hyperplasia with weak urinary stream; Erectile dysfunction due to arterial insufficiency Social History Tobacco Use Types Packs/Day Years [...] Sign Reading Time Taken Comments Blood Pressure 122/81 01/31/2018 9:18 AM CDT Pulse 89 01/31/2018 9:18 AM CDT Temperature 36.6 ??C (97.9 ??F) 01/31/2018 9:18 AM CD T Respiratory Rate - - Oxygen Saturation - - Inhaled Oxygen Concentration - - Weight 101.6 kg (223 lb 14.4 oz) 01/31/2018 9:18 AM CDT Height 180.3 cm (5' 11 ) 01/31/2018 9:18 AM CDT Body Mass Index 31.23 01/31/2018 9:18 AM CDT documented in this encounter Ordered Prescriptions Prescription Sig Dispense Quantity Refills Last Filled Start Date End Date finasteride (PROSCAR) 5 mg tabletIndications: benign prostatic hyperplasia with lower urinary tract sx Take 1 tablet (5 mg total) by mouth daily. 30 tablet 11 01/31/2018 05/19/2020 documented in this encounter Progress Notes * Javier Venegas MD - 01/31/2018 9:10 AM CDT HISTORY & INDICATION FOR CYSTO: Mr Neely is a 47 yo man who presents for cystoscopy to complete an evaluation of gross hematuria. His hematuria has been intermittent for 2 years. At his last visit, he was placed on Doxazosin for obstructive LUTS. He could not tolerate the medication due to headaches He complained of erectile dysfunction, and he had a trial of Sildenafil. He is very pleased with the resultant erections. Cystoscopy Preparation Results for orders placed or performed in visit on 01/31/18 POCT UA, AUTO W/O SCOPE Result Value Ref Range Glucose, ur, POC Negative Negative mg/dL Ketones, ur, POC Negative Negative Blood, ur, POC Negative Negative pH, ur, POC 5.0 5.0 - 8.0 Protein, ur, POC Negative Negative Leukocytes, ur, POC Negative Negative Nitrite, ur, POC Negative Negative Last Upper Tract Imaging: CT scan with contrast (12/16/17) shows a small lesion in the right kidney (likely a cyst). No hydronephrosis. No other findings except for prostatic enlargement. The patient was given Cipro 500 mg (as a prophylaxis). Patient took the antibiotic within two hoursof the procedure. The skin was prepped with betadine. Lidocaine in lubricant jelly was instilled into the urethra. The flexible cystoscope was introduced into the urethra and advanced into the bladder. URETHRA: Normal without strictures or lesions PROSTATE: normal mucosa, but elongated and obstructive, bi-lobar with an elevated bladder neck TRIGONE & UOs: Normal anatomy with efflux of clear urine. No mucosal lesions or subtrigonal masses. BLADDER MUCOSA: normal, without neoplasms or other lesions DETRUSOR: normal capacity, without flaccidity, without excessive compliance, without diverticula, without uninhibited bladder contractions on fillings. mild trabeculation RETROFLEXED SCOPE VIEW: protruding prostate Regarding this patient's hematuria, it is most likely due to his BPH. There are no obvious renal lesions or ureteral problems on the CT with contrast in November. He cancelled the CT urogram. We spent time discussion his BPH and obstructive symptoms (20 min). I recommend he begin finasteride for BPH, hematuria and obstructive LUTS. He was offered combination with tamsulosin, but he agreesto monotherapy. He will continue the Sildenafil. F/u in one year. documented in this encounter Plan of Treatment Not on file documented as of this encounter Procedures Procedure Name Priority Date/Time Associated Diagnosis Comments POCT URINALYSIS, AUTO W/O SCOPE Routine 01/31/2018 9:27 AM CDT Screening for blood or protein in urine documented in this encounter Results * POCT UA, AUTO W/O SCOPE (01/31/2018 9:27 AM CDT) Glucose, ur, POC Negative Negative mg/dL Ketones, ur, POC Negative Negative Blood, ur, POC Negative Negative pH, ur, POC 5.0 5.0 - 8.0 Protein, ur, POC Negative Negative Leukocytes, ur, POC Negative Negative Nitrite, ur, POC Negative Negative Urine 01/31/2018 9:27 AM CDT Javier Venegas MD POINT OF CARE TEST ORDMalissa HELMS Final Result documented in this encounter Visit Diagnoses Diagnosis Screening for blood or protein in urine- Primary Screening for unspecified condition Hematuria, gross Gross hematuria Benign prostatic hyperplasia with weak urinary stream Erectile dysfunction due to arterial insufficiency documented in this encounter Discontinued Medications Medication Sig Discontinue Reason Start Date End Da te dexlansoprazole (DEXILANT) 30 mg capsule Take 60 mg by mouth daily. Allergic response 01/31/2018 documented as of this encounter Historical Medications * This list may reflect changes made after this encounter. dexlansoprazole (DEXILANT) 60 mg capsule Take 60 mg by mouth daily. 12/04/2019 added in this encounter Care Teams Bass Mechanism Maker Relationship Specialty Start Date End Date Abi Rawls MD PCP - General 10/06/17 02/03/18 documented as of this encounter
--- OUTSIDE RECORDS SUMMARY | 2024-07-17 05:03 | XMS_ITS | Encounter Summary ---
Author Organization [facility] Address [address] [place] [address] Care Team Providers Care Sow Farm Technician Name Role Phone Abi Rawls MD Primary Care Provider [phone] Encounter Details Date Type Department Care Team (Late st Contact Info) Description 01/10/2018 6:50 PM CDT Lab [address] [address] Social History Tobacco Use Types Packs/Day Years [...] on filedocumented in this encounter Care Teams Sow Farm Technician Relationship Specialty Start Date End Date Abi Rawls MD PCP - General 10/06/17 02/03/18 documented as of this encounter
--- OUTSIDE RECORDS SUMMARY | 2024-07-17 05:03 | XMS_ITS | Encounter Summary ---
Author Organization [facility] Address [address] [place] [address] Phone Care Team Providers Care Garage Door Installer Name Role Phone Abi Rawls MD Primary Care Provider No, Physician Primary Care Provider [phone] Reason for Visit * Reason Onset Date Comments Poss. reaction to Finasteride 02/03/2018 Encounter Details Date Type Department Care Team (Late st Contact Info) Description 02/03/2018 Telephone [facility] ([facility]) - [facility] Urology [address] [facility] Advanced Medicine 11th [place] [address] [place] [address] Kelly Singh Poss. reaction to Finasteride Social History Tobacco Use Types Packs/Day Years [...] encounter Miscellaneous Notes * Telephone Encounter - Cb Caceres LPN - 02/03/2018 12:24 PM CDT Called pt and advised him to go to the ER. * Telephone Encounter - Renetta Singhna - 02/03/2018 8:37 AM CDT Pt called and states that hemight be having a reaction to Finasteride. Pt c/o dizziness, chills, fever, trouble walking, GRAMAJO, and back pain. Please advise. documented in this encounter Plan of Treatment Not on file documented as of this encounter Visit Diagnoses Not on filedocumented in this encounter Care Teams Garage Door Installer Relationship Specialty Start Date End Date Abi Rawls MD PCP - General 10/06/17 02/03/18 No, Physician PCP - General 02/04/18 documented as of this encounter
--- OUTSIDE RECORDS SUMMARY | 2024-07-17 05:03 | XMS_ITS | Encounter Summary ---
Author Organization [facility] Healthcare Address [address] [place] [address] Care Team Providers Care Chief Internal Auditor Name Role Phone Abi Rawls MD Primary Care Provider [phone] Encounter Details Date Type Department Care Team (Late st Contact Info) Description 12/20/2017 7:40 AM CDT - 12/20/2017 8:30 AM CDT Surgery [facility] [address] [place] [address] George Tom MD [id number] [place] [address] [address] [place] [address] COLON REMOVAL HOT BIOPSY Surgery Details Date/Time Status Location OR Service Patient Class Case Cl ass Case Type Trauma Case? 12/20/2017 7:40 AM Posted ENDOSCOPY GI 4 General Surgery Outpatient Elective Panel 1 Procedure LRB Anes Op Region Wound Class Comments COLON REMOVAL HOT BIOPSY N/A Choice Class II - Clean Contaminated Surgeon Surgeon Role Service Panel George Tom MD Primary General Surge ry 1 documented in this encounter Social History Tobacco [...] Sign Reading Time Taken Comments Blood Pressure 103/80 12/20/2017 8:30 AM CDT Pulse 69 12/20/2017 8:30 AM CDT Temperature - - Respiratory Rate 17 12/20/2017 8:30 AM CDT Oxygen Saturation 94% 12/20/2017 8:30 AM CDT Inhaled Oxygen Concentration - - [...] 101/77 103/80 Pulse: 80 82 69 Resp: 14 05 17 SpO2: 95% 94% 94% Weight: 99.8 [...] - 12/20/2017 7:31 AM CDTAssociated Order(s): COLONOSCOPY [facility] Endoscopy Lab Patient Name: Melchor Galloway Procedure Date: 12/20/2017 7:31 AM Date of : 1970 Admit Type: Outpatient Age: 47 Gender: Male Note Status: Finalized Attending MD: George Tom MD Procedure Date: 12/20/2017 Procedure: Colonoscopy Indications: Abdominal pain in the left upper quadrant, Change in bowel habits Providers: George Tom MD, Keya Lemos CRNA (Anesthesia Staff), Ines [...] under direct vision. The Colonoscope CF-Q180 [place] [id number] was introduced through the anus and advanced [...] 2 weeks. Procedure Code(s): --- Professional --- 42103, Colonoscopy, flexible; with removal of tumor(s), polyp(s), or other lesion(s) by hot biopsy forceps CPT copyright 2017 [employer]. All rights reserved. The codes documented in this report are preliminary and upon him coder review may be revised to meet current compliance requirements. Dr. George Tom MD Geroge Tom MD 12/20/2017 8:19:27 AM This report [...] PATHOLOGY CH - 12/21/2017 11:[address] [facility] Department of Pathology [address] [place] [address] Final Report ?Patient Name: MELCHOR GALLOWAY Address: [address] [place] [address] Service: Surgery ??[place], [place] [address] Location: [place] Taken: 12/20/2017 Gender: M Received 12/20/2017 : 1970 (Age: 47) Hospital #: [id number] Accessioned: 12/20/2017 ?? Patient Type: SDS Reported 12/21/2017 Physician(s): Shay Harrison M.D. ?? Diagnosis: Colon, transverse, biopsies: ? [...] submitted in one cassette. ??Mike Ray MD/Davey Zapien, P.A. Complete report with images are only be viewable in the PDF report The performance characteristics of some immunohistochemical stains, fluorescence in-situ hybridization tests and immunophenotyping by flow cytometry cited in this report (if any) were determined by the Surgical Pathology Department at [facility] as part of an ongoing supplier quality engineering manager program and in compliance with federally mandated [...] characteristics determined by the Surgical Pathology Department [facility]. ??It has not been cleared or approved by the U. S. Food and Drug Administration. George Tom MD LAB PATHOLOGY ORDERABL ES Final Result Performing Organization Address City/State/[facility] Phone Number PATHOLOGY [address] [place] [address] * COLONOSCOPY (12/20/2017 7:31 AM CDT) Anatomical Region Laterality Modality Other Narrative Procedure Note George Tom MD - 12/20/2017 7:31 AM CDT [facility] Endoscopy Lab Patient Name: Melchor Galloway Procedure [...] passedunder direct vision. The Colonoscope CF-Q180 [place] [id number] introduced through the anus and advanced to [...] 2 weeks. Procedure Code(s): --- Professional --- 71496, Colonoscopy, flexible; with removal oftumor(s), polyp(s), or other lesion(s) by hot biopsy forceps CPT copyright 2017 [employer]. All rights reserved. The codes documented in this report are preliminary and upon him coder reviewmay be revised to meet current compliance requirements. Dr. George Tom MD George Tom MD 12/20/2017 8:19:27 AM This report has been electronically signed by the physician. Number of Addenda: 0 Note Initiated On: 12/20/2017 7:31 AM George Tom MD ENDOSCOPY PROCEDURES F inal Result documented in this encounter Visit Diagnoses Diagnosis Altered bowel habits- Primary Altered bowel habits documented in this encounter Admitting Diagnoses Diagnosis [...] 01/31/2018 added in this encounter Care Teams Chief Internal Auditor Relationship Specialty Start Date End Date Abi Rawls MD PCP - General 10/06/17 02/03/18 documented as of this encounter
== END 2024-07-10 14:15 | disposition home or self-care (01) ==
PROVIDERS: PCP Family Medicine; Visit Provider Anesthesiology Pain Medicine
PROC: (CPT 64493; principal; 2024-07-10 12:00)
DX: M47.817 Spondylosis without myelopathy or radiculopathy, lumbosacral region (principal); M54.9 Dorsalgia, unspecified; G89.29 Other chronic pain; K21.9 Gastro-esophageal reflux disease without esophagitis; K86.1 Other chronic pancreatitis; F41.9 Anxiety disorder, unspecified; K58.9 Irritable bowel syndrome, unspecified; G47.33 Obstructive sleep apnea (adult) (pediatric); J45.909 Unspecified asthma, uncomplicated; Z79.51 Long term (current) use of inhaled steroids; Z98.890 Other specified postprocedural states; Z80.0 Family history of malignant neoplasm of digestive organs; Z80.52 Family history of malignant neoplasm of bladder
CPT/HCPCS: 64493; 64494; 64495; 99199; J2003; Q9965

== ENCOUNTER 2024-08-24 18:58 | Emergency (ER) | payer BC, SELFPAY ==
[2024-08-24 19:11] VITALS: BP 136/80; PULSE 98; RESP 16; TEMP 37.2; O2SAT 98
--- NOTE | 2024-08-24 19:19 | ED.URI ---
HPI - URI/Sore Throat General Chief Complaint: Upper Respiratory Infection Stated Complaint: Cough/Bodyaches Time Seen by Provider: 08/24/24 19:19 Source: patient Mode of arrival: ambulatory Limitations: no limitations History of Present Illness HPI Narrative: 54-year-old male presents with complaint of nasal congestion, sinus pressure, sinus headaches, fatigue for 2-3 days. Afebrile. denies nausea vomiting diarrhea. No cough. Taking [id number] Mucinex DM without relief of symptoms. All systems reviewed and negative except as noted above. Related Data Home Medications ?Medication ?Instructions ?Recorded ?Confirmed ?Last Taken ?Type Adults Multivitamin 1 cap PO DAILY 02/18/21 08/16/24 07/07/24 History aspirin 81 mg tablet,delayed 81 mg PO DAILY 08/16/24 08/16/24 Unknown History release (Adult Low Dose Aspirin) Allergies Allergy/AdvReac Type Severity Reaction Status Date / Time No Known Allergies Allergy Verified 08/24/24 19:06 Review of Systems Review of Systems: CONSTITUTIONAL: Denies fever, chills, or sweats. reports fatigue. EYES: Denies visual changes, redness, or discharge. ENT: Reports rhinorrhea, congestion. Denies sore throat, or otalgia. CARDIOVASCULAR: Denies chest pain, palpitations, or edema. RESPIRATORY: reports cough. Denies dyspnea. GASTROINTESTINAL: Denies abdominal pain, nausea, vomiting, or diarrhea. GENITOURINARY: Denies dysuria or hematuria. SKIN: Denies rash or itching. MUSCULOSKELETAL: Denies back pain, joint pain, or myalgia. NEUROLOGIC: Denies headache, numbness, or weakness. PSYCHIATRIC: Denies anxiety or depression. All other systems reviewed are negative, except as documented in HPI. [facility] Past Medical History Medical History UTI (urinary tract infection) GERD (gastroesophageal reflux disease) Chronic pancreatitis Cholelithiasis Anxiety IBS (irritable bowel syndrome) KATHY (obstructive sleep apnea) Asthma Constipation Surgical History Surgical History History of bilateral inguinal hernia repair Family History Family History Mother Family history of malignant neoplasm of stomach Father Family history of malignant neoplasm of urinary bladder Social History Social History Social History: Single Smoking status: Never smoker Second hand tobacco smoke exposure: No Alcohol intake: never Substance use: never Substance use type: does not use Do You Feel Safe in your Home?: Yes Lack of Transportation: No Lack of Food: Never True Current Housing: I Have Housing Concerned About Future Housing: No Difficulty Paying Gas/Electric Bills: YES Difficulty Paying for Meds: YES Currently Unemployed: No Education: High School Diploma/GED Difficulty w/ Childcare or Family Care: No Living arrangements: alone Occupation/Education: occupation Gender identity (if verbalized by the patient): Male Sexual Orientation (if Verbalized by the Patient): Straight or Heterosexual Spiritual care concerns: No Comments At time of signature, agree with nursing past medical, surgical, social and family history. There is no relevant family history pertinent to the presenting complaint. Exam Narrative: GENERAL: This is a well-nourished, well-developed patient, in no apparent distress. HEAD: normocephalic, atraumatic. EYES: PERRL. Sclera clear/white. Vision is grossly intact. EARS: External ears normal, auditory canals clear and without drainage, TMs normal without perforation. Hearing grossly intact. NOSE: External nose normal with Mild congestion, clear nasal drainage, erythema to both nares THROAT: Mucous membranes moist, Mild erythema with postnasal drainage. No swelling or exudates. NECK: Neck supple, non-tender without lymphadenopathy, masses or thyromegaly. CARDIOVASCULAR: Regular rate and rhythm without murmurs, gallops, or rubs. RESPIRATORY: Clear to auscultation. Breath sounds equal bilaterally. No wheezes, rales, or rhonchi. SKIN: warm, Dry, intact with no suspicious lesions or rash, good texture and turgor. NEURO: awake, alert, and oriented to person, place and time. There were no obvious focal neurologic abnormalities. EXTREMITIES: No joint tenderness, effusion, or edema noted. Course Course Level of Care: Express Care Visit Vital Signs Vital signs: Vital Signs Temperature 37.2 C 08/24/24 19:11 Pulse Rate 98 08/24/24 19:11 Respiratory Rate 16 08/24/24 19:11 Blood Pressure 136/80 08/24/24 19:11 Pulse Oximetry 98 08/24/24 19:11 Oxygen Delivery Room Air 08/24/24 19:11 Temperature 37.2 C 08/24/24 19:11 Pulse Rate 98 08/24/24 19:11 Respiratory Rate 16 08/24/24 19:11 Blood Pressure 136/80 08/24/24 19:11 Pulse Oximetry 98 08/24/24 19:11 Oxygen Delivery Room Air 08/24/24 19:11 reviewed MDM - URI/Sore Throat MDM Narrative Medical decision making narrative: negative COVID and influenza testing. Patient is well-appearing, nontoxic. Symptoms for only 2-3 days. Recommend lown-zqs-cfipyol medications to treat viral symptoms. Please be advised this is a medical document. It is intended for vwho-ig-fsrl communication. It is written in medical language and may contain unfamiliar abbreviations or verbiage. Medical documents are intended to carry relevant information, facts as evident, and the clinical opinion of the practitioner at the time of the encounter. This report may have been done utilizing a voice recognition system. Attempts have been made to correct errors. However, there may be uncorrected grammatical, spelling, and recognition errors present. The file time of this note does not necessarily represent the time of service. Differential Diagnosis Differential diagnosis: Likely upper respiratory infection, sinusitis and viral infection Discharge Plan Discharge Clinical Impression: Acute viral sinusitis Patient Disposition: Home, Self-Care Condition: Stable Instructions: Sinusitis (ED) Additional Instructions: your COVID and influenza test was negative today. Your symptoms are viral and may last 10-14 days. Take medications as prescribed. Take Tylenol or ibuprofen every 6-8 hours as needed for pain. Drink at least 64 oz of water a day. Follow-up with your doctor if symptoms are not improving. Patient Language: Cameroonian Prescriptions: New benzonatate 200 mg capsule 200 mg PO TID PRN (Reason: cough) Qty: 20 0RF methylprednisolone [Medrol (Toan)] 4 mg tablets,dose pack See Rx Instructions PO .COMPLEX Qty: 21 0RF Rx Instructions: orally per package directions fluticasone propionate [Flonase Allergy Relief] 50 mcg/actuation spray,suspension 1 spray intranasal BID Qty: 16 0RF Rx Instructions: administer into each nostril pseudoephedrine HCl 60 mg tablet 60 mg PO Q4-6H PRN (Reason: nasal congestion) Qty: 20 0RF Rx Instructions: DNExceed 4 doses/24h No Action (DME) inhalational spacing device Spacer See Rx Instructions .ROUTE .MEDSUPPLY Qty: 1 0RF Rx Instructions: As directed Adults Multivitamin 1 cap PO DAILY aspirin [Adult Low Dose Aspirin] 81 mg tablet,delayed release (DR/EC) 81 mg PO DAILY albuterol sulfate [ProAir HFA] 90 mcg/actuation HFA aerosol inhaler 1 - 2 puff inhalation Q4H PRN (Reason: shortness of breath or wheezing) Qty: 8.5 2RF budesonide-formoterol [Symbicort] 160-4.5 mcg/actuation HFA aerosol inhaler 2 puff inhalation Q12H Qty: 10.2 5RF Rx Instructions: rinse and spit, use with spacer Follow-up/Referrals: Carl Ivan MD [Primary Care Provider] - Time of Disposition: 19:27
[2024-08-24 19:26] LABS: EDCOVIDSCREEN Negative (Negative); EDINFLUASCREEN Negative (Negative); EDINFLUBSCREEN Negative (Negative)
== END 2024-08-24 19:30 | disposition home or self-care (01) ==
PROVIDERS: Emergency Provider Nurse Practitioner Family; PCP Family Medicine
DX: J01.90 Acute sinusitis, unspecified (principal); Z20.822 Contact with and (suspected) exposure to COVID-19; Z79.82 Long term (current) use of aspirin; K21.9 Gastro-esophageal reflux disease without esophagitis; J45.909 Unspecified asthma, uncomplicated
CPT/HCPCS: 87426; 87804; 99213; G0463

== ENCOUNTER 2024-08-27 01:10 | Day surgery (SDC) | payer BC, SELFPAY ==
[2024-08-16 10:53] VITALS: BMI 32.1
--- NOTE | 2024-08-16 10:56 | PC.NURSE ---
Report to the Outpatient Waiting Room, entrance under the green pavilion located off [facility], at time _130pm_ on date _[phone]_. Planned Procedure Time: _230pm_.? Time changes happen often and if your time is changed the preop area will call you the afternoon before. - You and your visitor will be asked to self-screen and do not enter if you have any COVID symptoms. Please call surgeon if you need to reschedule. - A mask is optional within the hospital at this time. Ok to eat breakfast and take medications. Nothing to eat or drink for 2 hours prior to procedure which is 1230. No smoking, or chewing tobacco (or any form of nicotine). Take only the following medications with a SIP of water on the morning of surgery: ___Take medications as usual.___ DO NOT STOP ANY OF YOUR OTHER PRESCRIPTION MEDICATIONS PRIOR TO SURGERY EXCEPT THE FOLLOWING Hold all vitamins and supplements for 3 days per anesthesiologist. Medications to discontinue per physician ___Says that Dr Armendariz knows he's on the 81mg aspirin. Date to take last dose Please no make-up, nail luxembourgish, hairspray, perfume, deodorant, or body powder the day of surgery.? No jewelry (including any body piercings) or valuables the day of surgery, leave them at home.? Please take a shower or bath the night before, or the morning of, surgery with an antibacterial soap.? Wear comfortable, loose fitting clothing.? - Jewelry must be removed prior to entering the operating room.? Rings and piercings that are not removed may be cut off. - The hospital will not accept responsibility for valuables.? - Please leave all valuables, including medications, at home the day of surgery. If you are going home after surgery, a licensed stud driver must drive you home.? - NO public transportation without another adult if you receive anesthesia. - We recommend that an adult stay with you for 24 hours following discharge. - We also recommend that you do not drive, make important decision, drink alcoholic beverages, or take any drugs that were not prescribed by your health care provider for at least 24 hours after your discharge time. Follow any additional instructions given to you from your surgeon. Telephone instructions given to __Esequiel__and asked if any additional questions and then verbalized understanding. Patient advised to call surgeon office or pre surgery nurse liaison [phone] if any additional questions.
--- NOTE | 2024-08-27 13:07 | PM.HPGS ---
History of Present Illness History of Present Illness Consent: Risks, benefits, and alternatives have been discussed and questions answered. Patient agrees to proceed with procedure. Chief complaint: lumbosacral spondylosis, chronic low back pain Narrative: Esequiel Neely is a 54 year old male with chronic, recalcitrant and disabling bilateral lumbosacral back pain secondary to degenerative spondylosis with failure to respond to aggressive conservative measures including PT, oral and topical analgesics, opioid and nonopioid analgesics, rest, time and activity/behavioral modification over the past 1-2 years who presents for diagnostic/prognostic medial branch blocks of the bilateral L3, L4, L5 medial branches/dorsal ramus(# 2) addressing the bilateral L4-5, L5-S1 facet joints under fluoroscopic guidance and with contrast control. Review of Systems Review of Systems: Patient denies any new infectious, allergic, cardiopulmonary, neurologic or constitutional symptoms or changes in activity tolerance or exercise capacity including new or progressive SOB/BRUMFIELD, peripheral edema, productive cough, dysuria, nausea/vomiting, diarrhea, weight change, fevers/chills/night sweats, new or progressive neurologic deficit, cognitive or mood changes since last seen, except as documented in the HPI. All systems reviewed & are unremarkable except as noted in HPI and below PMFSH Past Medical History Medical History UTI (urinary tract infection) GERD (gastroesophageal reflux disease) Chronic pancreatitis Cholelithiasis Anxiety IBS (irritable bowel syndrome) KATHY (obstructive sleep apnea) Asthma Constipation Surgical History Surgical History History of bilateral inguinal hernia repair Family History Family History Mother Family history of malignant neoplasm of stomach Father Family history of malignant neoplasm of urinary bladder Social History Social History Social History: Single Smoking status: Never smoker Second hand tobacco smoke exposure: No Alcohol intake: never Substance use: never Substance use type: does not use Do You Feel Safe in your Home?: Yes Lack of Transportation: No Lack of Food: Never True Current Housing: I Have Housing Concerned About Future Housing: No Difficulty Paying Gas/Electric Bills: YES Difficulty Paying for Meds: YES Currently Unemployed: No Education: High School Diploma/GED Difficulty w/ Childcare or Family Care: No Living arrangements: alone Occupation/Education: occupation Gender identity (if verbalized by the patient): Male Sexual Orientation (if Verbalized by the Patient): Straight or Heterosexual Spiritual care concerns: No Meds Home Medications and Allergies Home Medications ?Medication ?Instructions ?Recorded ?Confirmed ?Type Adults Multivitamin 1 cap PO DAILY 02/18/21 08/16/24 History albuterol sulfate 90 mcg/actuation 1 - 2 puff inhalation Q4H PRN 10/25/23 08/16/24 Rx aerosol inhaler (ProAir HFA) shortness of breath or wheezing #8.5 grams inhalational spacing device #1 ea 04/27/24 08/16/24 Rx budesonide-formoterol HFA 160 2 puff inhalation Q12H #10.2 grams 05/23/24 08/16/24 Rx mcg-4.5 mcg/actuation aerosol inhaler (Symbicort) aspirin 81 mg tablet,delayed 81 mg PO DAILY 08/16/24 08/16/24 History release (Adult Low Dose Aspirin) benzonatate 200 mg capsule 200 mg PO TID PRN cough #20 caps 08/24/24 Rx fluticasone propionate 50 1 spray intranasal BID #16 grams 08/24/24 Rx mcg/actuation nasal spray,suspension (Flonase Allergy Relief) methylprednisolone 4 mg tablets in See Rx Instructions PO .COMPLEX 08/24/24 Rx a dose pack (Medrol (Toan)) #21 ea pseudoephedrine HCl 60 mg tablet 60 mg PO Q4-6H PRN nasal 08/24/24 Rx congestion #20 tabs Allergies Allergy/AdvReac Type Severity Reaction Status Date / Time No Known Allergies Allergy Verified 08/24/24 19:06 Exam Narrative: The patient's physical exam is essentially unchanged from prior examination on 07/17/2024. Specifically, patient demonstrates normal lung capacity, tidal volume and respiratory rate without wheezes, crackles, rales or rubs. Heart rate and rhythm are regular without murmurs, gallops or rubs. No JVD. Pulses 2+ globally without increasing peripheral edema. AAOx3 with no evidence of confusion, intoxication or altered mental state, NC/AT without acute distress or altered consciousness. Speech, cognition, mood, insight and judgment at baseline and within normal limits. Assessment and Plan Assessment and plan (1) Lumbosacral spondylosis: Code(s): M47.817 - Spondylosis without myelopathy or radiculopathy, lumbosacral region Status: Acute Assessment and Plan: Proceed as planned with diagnostic/prognostic medial branch blocks of the bilateral L3, L4, L5 medial branches/dorsal ramus(# 2) addressing the bilateral L4-5, L5-S1 facet joints under fluoroscopic guidance and with contrast control. (2) Dorsalgia: Code(s): M54.9 - Dorsalgia, unspecified Status: Acute (3) Chronic pain: Code(s): G89.29 - Other chronic pain Status: Acute
--- NOTE | 2024-08-27 13:09 | WPDHPUPDATE1 ---
History and Physical Update Update Date/Time: 08/27/24 13:09 History and Physical has been reviewed, including an updated exam of the patient. There are NO changes in the patient's condition. Risks, benefits, and alternatives have been discussed and questions answered. Patient agrees to proceed with procedure.
--- NOTE | 2024-08-27 13:10 | W.PM.PROC2 ---
Procedure Note - Detailed Date of Procedure 08/27/24 Pre-op Diagnosis lumbosacral spondylosis, chronic low back pain Post-op Diagnosis Same Procedure Performed Diagnostic bilateral Lumbar Medial Branch/Dorsal Ramus Blocks at L3, L4, L5 Treating the bilateral L4-5, L5-S1 Facet Joints Under Fluoroscopic Guidance and with Contrast Control. (4 levels blocked). Surgeon Josué Armendariz MD Account Advisor None. Anesthesia Local Description of Procedure INFORMED CONSENT: Risks, benefits and alternatives to the procedure were discussed in detail with the patient who expressed explicit understanding and consent to proceed. Patient was informed verbally and in written form regarding the risks associated with the procedure including the low risk of serious infection, bleeding/bruising, allergic reaction, nerve or organ injury, paralysis, procedural site pain or discomfort, worsening pain and/or mobility, failure to treat and/or disfigurement. The patient expressed explicit understanding and consent to proceed. All materials required for the procedure were available prior to procedure start. Site and side were marked prior to procedure and confirmed in the presence of the patient. PROCEDURE IN DETAIL: The patient was brought to the procedural suite and placed in the prone position. Patient was made comfortable with use of pillows under the head/chest, hips and ankles. Skin overlying the injection site on the affected side(s) was prepared broadly with ChloraPrep applicator and draped in a sterile manner. Aseptic technique was used throughout. The endplates of the vertebral bodies at the site(s) of interest were aligned in the AP view. Ipsilateral oblique angulation was utilized to optimize visualization of the intersection between the superior articulating process and transverse process at each target site. Local anesthesia was established by infiltration with approximately 5 mL of 1% lidocaine via a 1-1/2 inch 27-gauge needle. A 25-gauge 5.0 inch Quincke spinal needle was advanced until the needle tip contacted periosteum at the target site, right L3. Lateral view was utilized to confirm the appropriate placement of the needle tip just anterior to the facet line and superior to the pedicle. In the Lateral view, 0.25 mL of Omnipaque 300 contrast medium was injected after negative aspiration for CSF, blood or other bodily fluid, showing appropriate extra-articular spread of contrast without evidence of intravascular, foraminal or intrathecal placement. A 0.5 mL solution of 2.0% PF lidocaine was injected after negative repeat aspiration. Appropriate spread of the injectate was confirmed with washout of previously injected contrast. No parasthesias were elicited. Needle was removed completely intact without difficulty. The same exact procedure was repeated for all remaining levels on the ipsilateral side, right L4, L5 medial branches/dorsal ramus, modified as necessary to accommodate for the new target location with identical findings and results and no evidence of complication. The same exact procedure was repeated for all remaining levels on the contralateral side, left L3, L4, L5 medial branches/dorsal ramus, modified as necessary to accommodate for the new target location with identical findings and results and no evidence of complication. Images were saved and documented in the patient chart. Patient's skin was cleaned and sterile bandage applied. The patient tolerated the procedure well. The patient was transported to the recovery area in stable condition where they were observed for an appropriate amount of time prior to discharge, without evidence of complication. Patient was instructed on the appropriate completion of a pain diary over the next 12-24 hours. The patient was instructed to avoid excessive activity for the next 48 hours, including climbing and frequent use of stairs. Showers only for 48 hours. They were instructed not to drive or operate heavy machinery for 24 hours. They are to monitor for severe headaches, fevers, chills, night sweats, erythema/swelling at the site or any other signs of infection, bleeding/bruising, bowel or bladder changes as well as new pain, weakness or numbness in the upper or lower extremity. Should they notice these changes, they are instructed to call our office immediately or report directly to the nearest Emergency Department if no answer or if after posted office hours. COMPLICATIONS: None COMMENTS: None CONTRAST WASTED: 28.5mL Omnipaque 300. Complications No immediate complications Condition Stable Disposition Same day [facility] Billing Surgery - Charge Forward: Surgery Billing
[2024-08-27 13:30] VITALS: BP 111/79; PULSE 76; RESP 14; TEMP 36.8; O2SAT 97
--- NOTE | 2024-08-27 14:07 | SUR.PREOP ---
Pt does NOT have a ride home. Per Dr. Armendariz, we will evaluate pts leg strength in recovery after the procedure to make sure that his legs are strong enough to drive himself home.
[2024-08-27 14:10] VITALS: BP 129/82; PULSE 75; RESP 16; O2SAT 95
[2024-08-27] MEDS: LIDOCAINE 2% LOCAL INJ 20 ML VIAL 3 ML INFILTRATE (14:13)
[2024-08-27 14:15] VITALS: BP 123/84; PULSE 69; RESP 16; O2SAT 97
[2024-08-27 14:20] VITALS: BP 127/91; PULSE 73; RESP 14; O2SAT 97
[2024-08-27 14:25] VITALS: BP 114/81; PULSE 83; RESP 16
--- NOTE | 2024-08-27 14:43 | SUR.PHASEII ---
Patient drove self to hospital. He said his legs aren't more weak than normal when asked by RN.
== END 2024-08-27 15:04 | disposition home or self-care (01) ==
PROVIDERS: PCP Family Medicine; Visit Provider Anesthesiology Pain Medicine
PROC: (CPT 64493; principal; 2024-08-27 14:30)
DX: M47.817 Spondylosis without myelopathy or radiculopathy, lumbosacral region (principal); M54.50 Low back pain, unspecified; G89.29 Other chronic pain
CPT/HCPCS: 64493; 64494 ×2; 64495 ×2; 99199; J2003; Q9965

== ENCOUNTER 2024-10-15 13:30 | Outpatient (CLI) | payer BC, SELFPAY ==
--- NOTE | ~2024-10-15 | US_ITS ---
EXAMINATION: US venous doppler [facility] DATE: 10/15/2024 14:00 INDICATION: Left lower limb pain and swelling TECHNIQUE: Grayscale ultrasound images without and with compression and Doppler ultrasound images of the left lower extremity veins were obtained. COMPARISON: None. FINDINGS: The visualized portions of left common femoral vein, profunda (deep) femoral vein, femoral vein, popl iteal vein, peroneal veins, posterior tibial veins, gastrocnemius vein and greater saphenous vein out flow are patent. 5.2 x 1.9 x 2.2 cm anechoic Fitzpatrick's cyst at the left popliteal fossa. IMPRESSION: 1. No deep venous thrombosis in the left lower limb. 2. Moderate-sized Fitzpatrick's cyst at the left popliteal fossa. Reviewed, dictated and finalized at location A.
== END 2024-10-15 13:31 | disposition home or self-care (01) ==
LOC: MICIMG 13:31
PROVIDERS: PCP Family Medicine; Visit Provider Orthopaedic Surgery
DX: R22.42 Localized swelling, mass and lump, left lower limb (principal); M71.22 Synovial cyst of popliteal space [Baker], left knee
CPT/HCPCS: 93971

== ENCOUNTER 2024-11-01 08:51 | Outpatient (CLI) | payer BC, SELFPAY ==
--- OUTSIDE RECORDS SUMMARY | 2024-11-01 08:59 | XMS_ITS | Clinical Summary ---
Author Organization [facility] Address [address] [place] [id number] Care Team Providers Care Car Lubricator Name Role Phone Unavailable Primary Care Provider [...] of 3 - 19+ 3-dose series) 1989 Pneumococcal Vaccine: 50+ Ye ars (1 of 1 - PCV) 2020 Zoster Vaccines (1 of 2) 2020 COVID-19 Vaccine ( - 2023-2 5 season) 2024 Meningococcal B Vaccine Aged Out No l onger eligible based on patient's age to complete this topic Meningococcal Vaccine Aged Out No salena avni eligible based on patient's age to complete this topic RSV Immunizations Under 20 Months Aged Out No longer eligible based on patient's age to complete this topic
--- OUTSIDE RECORDS SUMMARY | 2024-11-01 08:59 | XMS_ITS | Referral Summary ---
Author Organization [facility] Address [address] [place] [address] Care Team Providers Care Pharmaceutical Physician Name Role Phone No, Physician Primary Care Provider Allergies No known active allergies Medications albuterol [...] (12/08/2017): Added automatically from request for surgery [id number] Abdominal pain 10/06/2017 Gallstone 09/15/2017 Gastroesophageal reflux [...] 60 10/09/2020 1:31 PM CDT Temperature 36 C (96.8 F) 10/09/2020 1:31 PM CDT Respiratory Rate 16 10/09/2020 1:31 PM CDT Oxygen Saturation 98% 10/09/2020 1:31 PM CDT Inhaled Oxygen Concentration - - Weight 106.6 kg (235 lb) 09/09/2020 2:54 PM CDT Height 175.3 cm (5' 9 ) 09/09/2020 2:54 PM CDT Body Mass Index 34.7 09/09/2020 2:54 PM CDT Plan of Treatment Not on file Insurance [facility] ACCESS CHOICE Member Subscriber Plan / Payer (Ef fective 2020-Present) Name:Melchor Neely Relation to Subscriber:Self Name:Melchor Neely Payer ID:[id number] ([facility]) Type:ROLAND HULL Address: [facility] [id number] [id number] [place] ACC CHOICE OOS [facility] CHOICE OOS BLUE [facility] CHOICE OOS Care Teams Pharmaceutical Physician Relationship Specialty Start Date End Date No, Physician PCP - General 02/04/18
--- OUTSIDE RECORDS SUMMARY | 2024-11-01 08:59 | XMS_ITS | Clinical Summary ---
Author Organization [facility] Address [address] [place] [address] Care Team Providers Care Loss Prevention Auditor Name Role Phone Carl Ivan MD Primary Care Provider [phone] Source Comments [facility],non-owned Affiliates and Associated Physician Practices is amultiple site organization consisting of ambulatory clinics and hospital sitesin [place], [place], [place] and [place]. This disclosure is being madepursuant to the Care Everywhere program and may not contain all information available regarding this patient. Last updated 18.[facility] Allergies No known active allergies Medications * Be aware that medications may not be up to date on this document. Alwaysverify current medications with the patient. 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 Not on file Not on file Not on file Last Filed Vital Signs Vital Sign Reading Time Taken Comments Blood Pressure 130/86 08/17/2016 11:16 AM PROGRAM DEVELOPMENT SPECIALIST Pulse 68 08/17/2016 11:16 AM PROGRAM DEVELOPMENT SPECIALIST Temperature - - Respiratory Rate - - Oxygen Saturation 98% 08/17/2016 11:16 AM PROGRAM DEVELOPMENT SPECIALIST Inhaled Oxygen Concentration - - Weight 98.4 kg (217 lb) 08/17/2016 11:16 AM PROGRAM DEVELOPMENT SPECIALIST Height 175.3 cm (5' 9 ) 08/17/2016 11:16 AM PROGRAM DEVELOPMENT SPECIALIST Body Mass Index 32.05 08/17/2016 11:16 AM PROGRAM DEVELOPMENT SPECIALIST Plan of Treatment Health Maintenance Due Date [...] VACCINE (1 - 2023-2 5 season) 2024 DEPRESSION SCREENING 06/27/2024 INFLUENZA VACCINE (Season Ended) 2025 HIB VACCINE Aged Out No longer eligi ble based on patient's age to complete this topic HPV VACCINE Aged Out No longer eligi ble based on patient's age to complete this topic MENINGOCOCCAL (Group B) VACC INE SHARED DECISION-MAKING Aged Out No longer eligibl e based on patient's age to complete this topic MENINGOCOCCAL GROUPS A/C/Y/W VACCINE Aged Out No longer eligible b ased on patient's age to complete this topic Insurance Care Teams Loss Prevention Auditor Relationship Specialty Start Date End Date Carl Ivan MD [address] [place] [address] PCP - General 02/03/22
--- OUTSIDE RECORDS SUMMARY | 2024-11-01 08:59 | XMS_ITS | CONTINUITY OF CARE DOCUMENT ---
Author Name andrew morales Address Unknown Organization [facility] Address [id number] [place] [address] [address] [place] [address] Phone [phone] Care Team Providers Care Master Coastal Waters Name Role Phone Shawn Echavarria MD Unavailable SWATHI HOPKINS MD Unavailable Unavailable SWATHI HOPKINS MD Unavailable Unavailable PROBLEMS Condition Status Date Provider Notes CHEST PAIN active Shawn Echavarria MD SHORTNESS OF BREATH active Shawn Echavarria MD FAMILY HISTORY OF HEART DISEASE active Rick Echavarria MD ENCOUNTERS Date Type Provider Location Encounter Diag nosis - In-person encounter Office Visit Shawn Echavarria MD [facility] CHEST PAINSHORTNESS OF BREATHFAMILY HISTORY OF [...] Payer name Policy type / Coverage type [place] red green party ID [facility] [id number] TREATMENT PLAN Date Name Performer follow up: H is updated medication list for this problem includes: Zinc 50 Mg Tabs (Zinc) ..... 1 day Orders: C omplete Echo (CPT-80088) S pirometry (CPT-48937) C ardiopulmonary Stress Test (CPT-91572) Shawn Echavarria MD follow up: O rders: E KG (CPT-55060) n eg reg stress test. Shawn Echavarria MD Date Name Cardiopulmonary Stre ss Test Spirometry Complete Echo HISTORY OF PROCEDURES Procedure Date Procedure Name Provider Procedure Notes S tatus EKG Shawn Echavarria MD completed
--- OUTSIDE RECORDS SUMMARY | 2024-11-01 08:59 | XMS_ITS | Clinical Summary ---
Author Organization [facility] Address [address] [place] [address] Care Team Providers Care Fuel House Attendant Name Role Phone No, Physician Primary Care Provider [phone] Allergies No known active allergies Medications albuterol [...] (12/08/2017): Added automatically from request for surgery [id number] Abdominal pain 10/06/2017 Gallstone 09/15/2017 Gastroesophageal reflux [...] of stomach - (Added by TW Conv) Relation Name Status Comments Father Mother [...] Plan of Treatment Not on file Insurance [facility] ACCESS CHOICE BLUE [facility] CHOICE OOS [facility] [place] [address] [place] [address] CHOICE OOS BLUE ACC CHOICE OOS Care Teams Fuel House Attendant Relationship Specialty Start Date End Date No, Physician PCP - General 02/04/18
--- OUTSIDE RECORDS SUMMARY | 2024-11-01 08:59 | XMS_ITS | Clinical Summary ---
Author Organization [facility] Care Team Providers Care Washerette Machine Operator Name Role Phone Unavailable Primary Care Provider Unavailabl e Social History Tobacco Use Types Packs/Day Years Used Date Smoking Tobacco: Never Assessed Sex and Gender Information Value Date Recorded Sex Assigned at Not on file Legal Sex Male 3:06 PM PEDIATRIC PHYSICAL THERAPY ASSISTANT Gender Identity Not on file Sexual Orientation [...]
--- NOTE | 2024-11-08 14:40 | P.SLEEP_ITS ---
Sleep Study - Home Unattended Date of Study: 11/01/24 Ordering Provider: Ashu Montana APRN Interpreting Provider: Nanci Infante MD Home Sleep Study Type: Watch PAT Height: 1.8 m Weight: 101.151 kg Body Mass Index: 31.1 Neck Circumference (inches): 18.5 [place]: 10 Reason for Sleep Study Loud snoring, choking and gasping at night Sleep History Esequiel Neely is a 54-year-old man with loud snoring as well as choking and gasping at night. He was previously tested in 2010, had moderate sleep apnea but did not wear therapy. He also was diagnosed with asthma in the past 5-6 years. He is not rested upon awakening. He has the urge to fall asleep during the day including while driving. He takes naps at lunch time. He has difficulty falling asleep and remaining asleep. When he awakens during the night, he has difficulty returning to sleep. He does not use sedatives to get to sleep. He is anxious about his sleep. During the night, he does not clench or grind his teeth but he does kick excessively. He has a restless uncomfortable feeling in his legs. He has an urge to move his legs at night and this is worse when he is trying to rest. He gets better with activities. It is worse in the evening and nighttime. He does have concern over this. He is more alert in the evening compared to the morning. He does not wake up too early in the morning. He is quite dissatisfied with his current sleep pattern. This is considerably interfering with his daily functioning. It is somewhat noticeable to other people that it impairs the quality of his life. He worries about his sleep problem somewhat. Normal bedtime is 11:00 p.m., taking 1 hour and 15 minutes to fall asleep. He spends 7 hours in bed, 6 hours sleeping. On his days off, bedtime is still 11:00 p.m., taking 1 hour to fall asleep. Spending 7 hours in bed and 6 hours 15 minutes sleeping. He is somewhat restored on his days off. He does not take planned naps. Habits: Tobacco : never smoker Caffeine: none Alcohol : none Recreational substances : none PMFSH Past Medical History Medical History UTI (urinary tract infection) GERD (gastroesophageal reflux disease) Chronic pancreatitis Cholelithiasis Anxiety IBS (irritable bowel syndrome) KATHY (obstructive sleep apnea) Asthma Constipation Surgical History Surgical History History of bilateral inguinal hernia repair Family History Family History Mother Family history of malignant neoplasm of stomach Father Family history of malignant neoplasm of urinary bladder Social History Social History Social History: Single Smoking status: Never smoker Second hand tobacco smoke exposure: No Alcohol intake: never Substance use: never Substance use type: does not use Do You Feel Safe in your Home?: Yes Lack of Transportation: No Lack of Food: Never True Current Housing: I Have Housing Concerned About Future Housing: No Difficulty Paying Gas/Electric Bills: YES Difficulty Paying for Meds: YES Currently Unemployed: No Education: High School Diploma/GED Difficulty w/ Childcare or Family Care: No Living arrangements: alone Occupation/Education: occupation Gender identity (if verbalized by the patient): Male Sexual Orientation (if Verbalized by the Patient): Straight or Heterosexual Spiritual care concerns: No Medications Home Medications ?Medication ?Instructions ?Recorded ?Confirmed ?Type Adults Multivitamin 1 cap PO DAILY 02/18/21 10/01/24 History albuterol sulfate 90 mcg/actuation 1 - 2 puff inhalation Q4H PRN 10/25/23 10/01/24 Rx aerosol inhaler (ProAir HFA) shortness of breath or wheezing #8.5 grams inhalational spacing device #1 ea 04/27/24 10/01/24 Rx budesonide-formoterol HFA 160 2 puff inhalation Q12H #10.2 grams 05/23/24 10/01/24 Rx mcg-4.5 mcg/actuation aerosol inhaler (Symbicort) aspirin 81 mg tablet,delayed 81 mg PO DAILY 08/16/24 10/01/24 History release (Adult Low Dose Aspirin) fluticasone propionate 50 1 spray intranasal BID #16 grams 08/24/24 10/01/24 Rx mcg/actuation nasal spray,suspension (Flonase Allergy Relief) pseudoephedrine HCl 60 mg tablet 60 mg PO Q4-6H PRN nasal 08/24/24 10/01/24 Rx congestion #20 tabs Sleep Procedure The sleep study was completed using WatchPAT a technically adequate device with seven channels: peripheral arterial tone, actigraphy, body position, snore, respiratory movement, pulse oximetry, sleep staging, and heart rate. Prior to using the device, the patient received verbal and written instructions for its application and was provided with the help desk phone number for additional telephonic instruction with 24-hour availability of qualified personnel to answer questions. Sleep Architecture The total recording time is 7 hrs, 1 min. The total sleep time is 5 hrs, 52 min. Sleep latency is 5 minutes. REM latency is 110 minutes. The patient had 13 episodes of waking. Sleep architecture shows 5.5% deep sleep, 67.5% light sleep, and 26.9% stage REM. The patient spent 53.6% of total sleep time in the supine position. Sleep efficiency was 84%. Respiratory Analysis The overall AHI (pAHI 3%:) is 36.7. The central AHI is 7.0. The apnea hypopnea index using 4% criteria is 16.7, moderately elevated, and allows the patient to proceed with treatment using PAP therapy. The AHI was 35.6 in NREM and 39.4 in REM sleep. The AHI was 31.6 in Supine and 42.5 in Non-supine sleep. Percent of Aureliano Ibarra respirations is 0%. Oximetry Data The oxygen desaturation index (GERALDO 4%:) is 18.0. The mean saturation is 92%, and the lowest saturation is 85%. Time spent with saturation < 88% is 0.5 minutes. Snoring Profile Snoring average intensity is 41 dB. The patient snored above 45 decibels for 12.9 minutes, 3.7% of sleep time. Cardiac Profile The average pulse rate is 76 beats per minutes. The lowest pulse rate is 59 bpm. The highest pulse rate is 102 bpm. Cardiac rhythm analysis in sleep does not show atrial fibrillation. Assessment and Plan Assessment and Plan (1) KATHY (obstructive sleep apnea): Code(s): G47.33 - Obstructive sleep apnea (adult) (pediatric) Status: Acute Assessment and Plan: This home sleep test using WatchPat on 11/01/2024 shows severe obstructive sleep apnea, the apnea-hypopnea index is 36.7, the central apnea-hypopnea index is elevated at 7.0, (normal is < 5 events per hour) with desaturation to 85% and moderate snoring. Due to the severity of his sleep apnea and the elevated central apnea hypopnea index, he is not a candidate for auto PAP. Auto PAP can mix central apneas worse. I recommend the patient have a full night CPAP titration in the sleep lab with a sleep aid available, if needed, to get to sleep and stay asleep. Consider Lunesta 2 mg to 3 mg. Patient should not nap on the day of study. He should be reminded not to drive while drowsy. He may benefit from an echocardiogram due to the elevated central apnea hypopnea index. Elevated central apneas can be seen in the setting of congestive heart failure, stroke, opioids and alcohol. The patient does not have a history of any of these. Central apneas can also appear independently of other conditions. He had more events when he was in the non-supine position. When he was on his left side his apnea-hypopnea index was 45.3. When he was on his back the apnea- hypopnea index was 31.6. He did not spend significant time on his right side. He has a history of uncomfortable feelings in his legs at night, worse with rest, improved with movement. This is consistent with restless legs syndrome. He also complains of excessive kicking at night. Leg movements will be monitored during his CPAP titration. BMI is 31.1. Weight management is advised. Clinical data suggests that weight loss of 10% can reduce the severity of respiratory events and snoring and improve AHI by as much as 25%. Data The data obtained during this sleep study is adequate for interpretation. Certification This sleep study has been reviewed by a board certified sleep medicine physician.
[2024-11-08 15:51] VITALS: BMI 31.1
== END 2024-11-02 11:22 | disposition home or self-care (01) ==
LOC: ANHCSM 08:52
PROVIDERS: PCP Surgery; Visit Provider Nurse Practitioner Family
DX: G47.33 Obstructive sleep apnea (adult) (pediatric) (principal)
CPT/HCPCS: 95800

== ENCOUNTER 2024-11-27 01:40 | Day surgery (SDC) | payer BC, SELFPAY ==
[2024-11-21 13:22] VITALS: BMI 31.6
--- NOTE | 2024-11-21 13:23 | PC.NURSE ---
Addendum entered by Cordell Simon RN 11/22/24 12:56: Correction: Patient told no food or drink after midnight. Original Note: Report to the Outpatient Waiting Room, entrance under the green pavilion located off [facility], at time _0915_ on date _[id number]_. Planned Procedure Time: _1115_.? Time changes happen often and if your time is changed the preop area will call you the afternoon before. - You and your visitor will be asked to self-screen and do not enter if you have any COVID symptoms. Please call surgeon if you need to reschedule. - A mask is optional within the hospital at this time. Patients may have clear liquids (water, carbonated beverages, clear teas, apple juice) until 3 hours prior to surgery with a maximum of 20 ounces. - No food from midnight until time of surgery and no smoking, or chewing tobacco (or any form of nicotine). No chewing gum, candy or mints. Take only the following medications with a SIP of water on the morning of surgery: __Symbicort, Flonase and if needed Albuterol___ DO NOT STOP ANY OF YOUR OTHER PRESCRIPTION MEDICATIONS PRIOR TO SURGERY EXCEPT THE FOLLOWING Hold all vitamins and supplements for 3 days per anesthesiologist. Medications to discontinue per physician Please ask office about aspirin if need to hold. Date to take last dose Please no make-up, nail qatari, hairspray, perfume, deodorant, or body powder the day of surgery.? No jewelry (including any body piercings) or valuables the day of surgery, leave them at home.? Please take a shower or bath the night before, or the morning of, surgery with an antibacterial soap.? Wear comfortable, loose fitting clothing. - Jewelry must be removed prior to entering the operating room.? Rings and piercings that are not removed may be cut off. - The hospital will not accept responsibility for valuables.? - Please leave all valuables, including medications, at home the day of surgery. If you are going home after surgery, a licensed personal driver must drive you home.? - NO public transportation without another adult if you receive anesthesia. - We recommend that an adult stay with you for 24 hours following discharge. - We also recommend that you do not drive, make important decision, drink alcoholic beverages, or take any drugs that were not prescribed by your health care provider for at least 24 hours after your discharge time. Follow any additional instructions given to you from your surgeon. Telephone instructions given to ___Esequiel__and asked if any additional questions and then verbalized understanding. Patient advised to call surgeon office or pre surgery nurse liaison [phone] if any additional questions.
--- NOTE | ~2024-11-27 | XR_ITS ---
XR fluoroscopy no charge Indication: Thermal radiofrequency ablation bilateral L3, L4 and L5 medial branches TECHNIQUE: Fluoroscopy used during Thermal radiofrequency ablation bilateral L3, L4 and L5 medial br anches performed by [Josué Armendariz MD] on 11/27/2024. 2 minutes 1 second of fluoroscopy with 1 3 fluoroscopic images captured. FINDINGS: Correlate with procedure note. IMPRESSION: Fluoroscopy used during Thermal radiofrequency ablation bilateral L3, L4 and L5 medial br anches. Reviewed, dictated and finalized at location A. IMPRESSION: Fluoroscopy used during Thermal radiofrequency ablation bilateral L 3, L4 and L5 medial branches.
--- OUTSIDE RECORDS SUMMARY | 2024-11-27 01:43 | XMS_ITS | Clinical Summary ---
Author Organization [facility] Address [address] [place] [address] Care Team Providers Care Supervisor Sunglasses Name Role Phone No, Physician Primary Care Provider [phone] Allergies No known active allergies Medications albuterol [...] (12/08/2017): Added automatically from request for surgery [id number] Abdominal pain 10/06/2017 Gallstone 09/15/2017 Gastroesophageal reflux [...] 2:54 PM CDT Height 175.3 cm (5' 9) 09/09/2020 2:54 PM CDT Body Mass Index 34.7 09/09/2020 2:54 PM CDT Plan of Treatment Not on file Insurance [facility] ACCESS CHOICE [facility]UE [facility] CHOICE OOS [facility] [place] [id number] CHOICE OOS BLUE ACC CHOICE OOS Care Teams Supervisor Sunglasses Relationship Specialty Start Date End Date No, Physician PCP - General 02/04/18
--- OUTSIDE RECORDS SUMMARY | 2024-11-27 01:43 | XMS_ITS | Clinical Summary ---
Author Organization [facility] Care Team Providers Care Financial Planning Consultant Name Role Phone Unavailable Primary Care Provider Unavailabl e Social History Tobacco Use Types Packs/Day Years Used Date Smoking Tobacco: Never Assessed Sex and Gender Information Value Date Recorded Sex Assigned at Not on file Legal Sex Male 3:06 PM STITCHDOWN TOE FORMER Gender Identity Not on file Sexual Orientation [...]
--- OUTSIDE RECORDS SUMMARY | 2024-11-27 01:43 | XMS_ITS | Referral Summary ---
Author Organization [facility] Address [address] [place] [address] Care Team Providers Care Sustainable Systems Analyst Name Role Phone No, Physician Primary Care Provider [phone] Allergies No known active allergies Medications albuterol [...] (12/08/2017): Added automatically from request for surgery [id number] Abdominal pain 10/06/2017 Gallstone 09/15/2017 Gastroesophageal reflux [...] of Treatment Not on file Insurance [facility] ACCESS CHOICE Member Subscriber Plan / Payer (Ef fective 2020-Present) Name:Melchor Neely Relation to Subscriber:Self Name:Melchor Neely Payer ID:[id number] ([facility]) Type:ROLAND HULL Address: [facility] [id number] [id number] [place] ACC CHOICE OOS [facility] CHOICE OOS BLUE [facility] CHOICE OOS Care Teams Sustainable Systems Analyst Relationship Specialty Start Date End Date No, Physician PCP - General 02/04/18
--- OUTSIDE RECORDS SUMMARY | 2024-11-27 01:43 | XMS_ITS | Clinical Summary ---
Author Organization [facility] Address [address] [place] [address] Care Team Providers Care Self Sealing Fuel Tank Repairer Name Role Phone Carl Ivan MD Primary Care Provider [phone] Source Comments [facility],non-owned Affiliates and Associated Physician Practices is amultiple site organization consisting of ambulatory clinics and hospital sitesin [place], [place], [place]. This disclosure is being madepursuant to the Care Everywhere program and may not contain all information available regarding this patient. 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 Not on file Not on file Not on file Last Filed Vital Signs Vital Sign Reading Time Taken Comments Blood Pressure 130/86 08/17/2016 11:16 AM REPORTING MANAGER Pulse 68 08/17/2016 11:16 AM REPORTING MANAGER Temperature - - Respiratory Rate - - Oxygen Saturation 98% 08/17/2016 11:16 AM REPORTING MANAGER Inhaled Oxygen Concentration - - Weight 98.4 kg (217 lb) 08/17/2016 11:16 AM REPORTING MANAGER Height 175.3 cm (5' 9) 08/17/2016 11:16 AM REPORTING MANAGER Body Mass Index 32.05 08/17/2016 11:16 AM REPORTING MANAGER Plan of Treatment Health Maintenance Due Date [...] to complete this topic Insurance Care Teams Self Sealing Fuel Tank Repairer Relationship Specialty Start Date End Date Carl Ivan MD [address] [place] [address] PCP - General 02/03/22
--- OUTSIDE RECORDS SUMMARY | 2024-11-27 01:43 | XMS_ITS | Patient Health Record ---
Author Organization [facility] Address [address] [place] [address] Care Team Providers Care Wire Saw Operator Name Role Phone Maria Del Rosario Fam Unavailable [phone] Allergies No Known Allergies Results Component Value [...] is recommended. Results discussed with Dr. Otto''s certified medical technician assistant, Hortensia Delgado, on 11 June 2024 at approximately 1030 hours. CFG:jfr Read by: Ken Easley M.D. Reviewed and Electronically Signed by: Ken Easley M.D. X ray : Spines, cervical 4 v iews Reviewed date:05/30/2024 03:44:45 PM Interpretation: Performing Lab: Notes/Report: MR Knee WO Reviewed date:05/04/2024 10:50:56 PM [...] and Electronically Signed by: Nedra Raines M.D. Reason For [...] Methocarbamol 500 MG TAKE 1 TABLET BY [place] [facility] THREE TIMES DAILY NEEDED FOR MUSCLE SPASM [...] W/U Status Risk Notes Problem Cervical spondylosis (974312915) Cervical spondylosis (M47.812) Active confirmed Problem 902490505 Lumbar spondylosis (M47.816) Active confirmed Problem Leg length discrepancy (973175464) Leg length discrepancy (M21.70) Active confirmed Problem 74811093 Sacroiliitis (M46.1) Active confirmed Problem 741594785 SI (sacroiliac) joint dysfunction (M53.3) Active confirmed Problem 97138689 DDD (degenerative disc disease), cervical (M50.30) Active confirmed Problem 85366894 Cervical spinal stenosis (M48.02) Active confirmed Vital Signs Heart Rate 76 /min 07/04/2024 Height-cm 180.34 cm 07/04/2024 Blood pressure diastolic 76 mm Hg 07/04/2024 Weight-kg 102.06 kg 07/04/2024 Height 5ft 11in in 07/04/2024 Blood pressure systolic 121 mm Hg 07/04/2024 Weight 225 lbs 07/04/2024 BMI 31.38 kg/m2 07/04/2024 Encounters Encounter Location Date Provider Diagnosis [facility] [address] [place] [phone] 04/25/2024 Fam Mix Left knee pain M25.5 62 ; Right shoulder pain M25.511 ; Hip pain, right M25.551 ; Left hip pain M25.552 ; Lumbar back pain M54.50 ; Leg length discrepancy M21.70 ; Lumbar spondylosis M47.816 ; Degeneration of intervertebral disc of lumbar region with discogenic back pain M51.360 and Screening for substance abuse Z13.89 [facility] [address] [place] [phone] 05/09/2024 Fam Mix Sacroiliitis M46.1 [facility] [address] [place] [phone] 05/30/2024 Fam Mix Cervical spondylosis M47.812 ; DDD (degenerative disc disease), cervical M50.30 and Cervical spinal stenosis M48.02 [facility] [address] [place] [address] 07/04/2024 Fam Mix Lumbar spondylosis M47.816 ; SI (sacroiliac) joint dysfunction M53.3 ; Sacroiliitis M46.1 ; Leg length discrepancy M21.70 ; Cervical spondylosis M47.812 ; DDD (degenerative disc disease), cervical M50.30 and Cervical spinal stenosis M48.02 [facility] [id number] [place] [address] [address] [place] [address] 06/29/2024 Fam Mix Assessments Encounter Date Diagnosis (ICD Code) Assessment Notes Treatment Notes Treatment Clinical Notes Section Notes 04/25/2024 Right shoulder pain (ICD-10 - M25.511) [...] of these instructions at this time. 04/25/2024 Left knee pain (ICD-10 - M25.562) [...] of these instructions at this time. 05/09/2024 Sacroiliitis (ICD-10 - M46.1) I am [...] placement over 10 years ago, he feels [id number] , patient has been evaluated by general surgeon about 3-4 months ago and underwent imaging studies, he has been told no need surgical operation/re , patient feels significant discomfort on the left low quadrant with and feels new herniation, patient wants to seeking 2nd opinion. I will refer him to Dr. Fall , general surgeon for evaluation and treatment 05/30/2024 Cervical spondylosis (ICD-10 - M47.812) His [...] cervical degenerative disease including cervical DDD/stenosis/ myelomalacia 07/04/2024 Lumbar spondylosis (ICD-10 - M47.816) C-spine [...] to assist scheduling the appointment timely 04/25/2024 Hip pain, right (ICD-10 - M25.551) [...] office to assist scheduling the appointment timely 05/30/2024 Cervical spinal stenosis (ICD-10 - M48.02) [...] cervical degenerative disease including cervical DDD/stenosis/ myelomalacia 07/04/2024 Leg length discrepancy (ICD-10 - M21.70) [...] of these instructions at this time. 07/04/2024 Cervical spondylosis (ICD-10 - M47.812) C-spine [...] Patient denies getting any response from Dr. Vnicent yet , we will call Dr. Vincent' [...] to assist scheduling the appointment timely 04/25/2024 Lumbar spondylosis (ICD-10 - M47.816) IMPRESSION: [...] of these instructions at this time. 04/25/2024 Degeneration of intervertebral disc of lumbar [...] of these instructions at this time. 04/25/2024 Other Body Mass Index: Care Instructions [...] placement over 10 years ago, he feels [id number] , patient has been evaluated by general [...] cervical degenerative disease including cervical DDD/stenosis/ myelomalacia 07/04/2024 Other Body Mass Index: Care Instructions [...] office to assist scheduling the appointment timely Plan Of Treatment Pending Test Test Name Order Date X ray : Hip, bilateral 04/25/2024 X ray : Shoulder, right 04/25/2024 X ray : Knee, left 2 views 04/25/2024 Leg Length 04/25/2024 X ray : Spines, lumbar 4 views Insurance Providers Payer Name Payer Address Payer Phone Subscriber Number Group Number Insured Name Patient Relationship to Insured Coverage Start Date Coverage End Date [facility] [address] [place] [address] [id number] Esequiel Neely Self - patient is the insured Medications Administered Medication Instructions Date of Administration Dosage Notes Hip Inj Intra-articular 04/25/2024 L EFT HIP INJ Sacroiliac Joint Injection 05/09/2024 LEFT SIJ Medical (General) History Surgical History Surgery Date(Month/Year) hernia both lower sides
--- OUTSIDE RECORDS SUMMARY | 2024-11-27 01:43 | XMS_ITS | CONTINUITY OF CARE DOCUMENT ---
Author Name andrew morales Address Unknown Organization [facility] Address [address] [place] [address] [address] [place] [address] Phone [phone] Care Team Providers Care Batter Mixer Name Role Phone Shawn Echavarria MD Unavailable SWATHI HOPKINS MD Unavailable Unavailable SWATHI HOPKINS MD Unavailable Unavailable PROBLEMS Condition Status Date Provider Notes CHEST PAIN active Shawn Echavarria MD SHORTNESS OF BREATH active Shawn Echavarria MD FAMILY HISTORY OF HEART DISEASE active Rick Echavarria MD ENCOUNTERS Date Type Provider Location Encounter Diag nosis - In-person encounter Office Visit Shawn Echavarria MD [place] [facility] CHEST PAINSHORTNESS OF BREATHFAMILY HISTORY OF [...] Payer name Policy type / Coverage type [place] red libertarian ID [facility] [id number] TREATMENT PLAN Date Name Performer follow up: H is updated medication list for this problem includes: Zinc 50 Mg Tabs (Zinc) ..... 1 day Orders: C omplete Echo (CPT-53607) S pirometry (CPT-77645) C ardiopulmonary Stress Test (CPT-49821) Shawn Echavarria MD follow up: O rders: E KG (CPT-85625) n eg reg stress test. Shawn Echavarria MD Date Name Cardiopulmonary Stre ss Test Spirometry Complete Echo HISTORY OF PROCEDURES Procedure Date Procedure Name Provider Procedure Notes S tatus EKG Shawn Echavarria MD completed
--- NOTE | 2024-11-27 09:54 | WPDANESEPPF ---
Anes - Initial Pre Proc Eval Procedure: Operation Date: 11/27/24 10:45 Proposed Procedures p Thermal Radio Frequency Ablation Bilateral L3, L4, L5 Medial Branches/Dorsal Ramus Supplying Bilateral L4-5, L5-S1 Facet Joints Under Fluoroscopic Guidance - Josué Armendariz MD Date/Time: 11/27/24 09:54 Surgeon: Josué Armendariz MD Pre Op Diagnosis: spondylosis lumbosacral Patient Data Age: 54 Gender: M Height: 1.8 m Weight: 102.7 kg Allergies Allergy/AdvReac Type Severity Reaction Status Date / Time No Known Allergies Allergy Verified 11/21/24 13:16 Home Medications ?Medication ?Instructions ?Recorded ?Confirmed ?Type Adults Multivitamin 1 cap PO DAILY 02/18/21 11/21/24 History albuterol sulfate 90 mcg/actuation 1 - 2 puff inhalation Q4H PRN 10/25/23 11/21/24 Rx aerosol inhaler (ProAir HFA) shortness of breath or wheezing #8.5 grams inhalational spacing device #1 ea 04/27/24 11/21/24 Rx budesonide-formoterol HFA 160 2 puff inhalation Q12H #10.2 grams 05/23/24 11/21/24 Rx mcg-4.5 mcg/actuation aerosol inhaler (Symbicort) aspirin 81 mg tablet,delayed 81 mg PO DAILY 08/16/24 11/21/24 History release (Adult Low Dose Aspirin) fluticasone propionate 50 1 spray intranasal BID #16 grams 08/24/24 11/21/24 Rx mcg/actuation nasal spray,suspension (Flonase Allergy Relief) pseudoephedrine HCl 60 mg tablet 60 mg PO Q4-6H PRN nasal 08/24/24 11/21/24 Rx congestion #20 tabs eszopiclone 3 mg tablet 3 mg PO ONCE #1 tablet 11/12/24 11/21/24 Rx Patient hx anesthesia problems: none Family hx anesthesia problems: none Results Review: All pre-operative results and documents have been reviewed as part of the pre-operative evaluation. FOR[facility]LY [facility] Past Medical History Medical History UTI (urinary tract infection) GERD (gastroesophageal reflux disease) Chronic pancreatitis Cholelithiasis Anxiety IBS (irritable bowel syndrome) KATHY (obstructive sleep apnea) Asthma Constipation Surgical History Surgical History History of bilateral inguinal hernia repair Family History Family History Mother Family history of malignant neoplasm of stomach Father Family history of malignant neoplasm of urinary bladder Social History Social History Social History: Single Smoking status: Never smoker Second hand tobacco smoke exposure: No Alcohol intake: never Substance use: never Substance use type: does not use Do You Feel Safe in your Home?: Yes Lack of Transportation: No Lack of Food: Never True Current Housing: I Have Housing Concerned About Future Housing: No Difficulty Paying Gas/Electric Bills: YES Difficulty Paying for Meds: YES Currently Unemployed: No Education: High School Diploma/GED Difficulty w/ Childcare or Family Care: No Living arrangements: alone Occupation/Education: occupation Gender identity (if verbalized by the patient): Male Sexual Orientation (if Verbalized by the Patient): Straight or Heterosexual Spiritual care concerns: No Anes - Eval Final PreProcedure Day of Procedure 11/27/24 09:54 Patient weight: obese Heart: regular rate and rhythm Lungs: clear to auscultation Airway: Mallampati scale class II Neurological: alert and oriented Last oral intake: >/= 8 hours ASA classification: III Emergent: no Anesthetic plan: proceed Anesthesia type and monitoring: general GIVS and standard monitoring Results Review: All pre-operative results and documents have been reviewed as part of the pre-operative evaluation. Informed Consent: The patient's anesthetic plan and its attendant risks and benefits were discussed with the patient/family/POA. Questions were solicited and answers provided to the satisfaction of the patient/family/POA.
[2024-11-27] MEDS: LACTATED RINGERS 1,000 ML 30 ML IV CONT ×2 (10:00→12:33)
[2024-11-27 10:39] VITALS: BP 134/79; PULSE 70; RESP 16; TEMP 36.4; O2SAT 98
--- NOTE | 2024-11-27 10:40 | PM.HPGS ---
History of Present Illness History of Present Illness Consent: Risks, benefits, and alternatives have been discussed and questions answered. Patient agrees to proceed with procedure. Chief complaint: spondylosis lumbosacral Narrative: Esequiel Neely is a 54 year old male schedule for thermal radiofrequency ablation of the bilateral L3, L4, L5 medial branches addressing the bilateral L4-5, L5-S1 facet joints to address chronic, recalcitrant, disabling pain related to lumbar facet syndrome bilaterally following Mrs. Successful series of 2 concordant responses to medial branch blockade at these levels. No changes in interval medical history or medications allergies. Denies any new neurologic deficit or signs of infection. Review of Systems Review of Systems: All systems reviewed & are unremarkable except as noted in HPI and below PMFSH Past Medical History Medical History UTI (urinary tract infection) GERD (gastroesophageal reflux disease) Chronic pancreatitis Cholelithiasis Anxiety IBS (irritable bowel syndrome) KATHY (obstructive sleep apnea) Asthma Constipation Surgical History Surgical History History of bilateral inguinal hernia repair Family History Family History Mother Family history of malignant neoplasm of stomach Father Family history of malignant neoplasm of urinary bladder Social History Social History Social History: Single Smoking status: Never smoker Second hand tobacco smoke exposure: No Alcohol intake: never Substance use: never Substance use type: does not use Do You Feel Safe in your Home?: Yes Lack of Transportation: No Lack of Food: Never True Current Housing: I Have Housing Concerned About Future Housing: No Difficulty Paying Gas/Electric Bills: YES Difficulty Paying for Meds: YES Currently Unemployed: No Education: High School Diploma/GED Difficulty w/ Childcare or Family Care: No Living arrangements: alone Occupation/Education: occupation Gender identity (if verbalized by the patient): Male Sexual Orientation (if Verbalized by the Patient): Straight or Heterosexual Spiritual care concerns: No Meds Home Medications and Allergies Home Medications ?Medication ?Instructions ?Recorded ?Confirmed ?Type Adults Multivitamin 1 cap PO DAILY 02/18/21 11/27/24 History albuterol sulfate 90 mcg/actuation 1 - 2 puff inhalation Q4H PRN 10/25/23 11/21/24 Rx aerosol inhaler (ProAir HFA) shortness of breath or wheezing #8.5 grams inhalational spacing device #1 ea 04/27/24 11/21/24 Rx budesonide-formoterol HFA 160 2 puff inhalation Q12H #10.2 grams 05/23/24 11/21/24 Rx mcg-4.5 mcg/actuation aerosol inhaler (Symbicort) aspirin 81 mg tablet,delayed 81 mg PO DAILY 08/16/24 11/27/24 History release (Adult Low Dose Aspirin) fluticasone propionate 50 1 spray intranasal BID #16 grams 08/24/24 11/21/24 Rx mcg/actuation nasal spray,suspension (Flonase Allergy Relief) pseudoephedrine HCl 60 mg tablet 60 mg PO Q4-6H PRN nasal 08/24/24 11/21/24 Rx congestion #20 tabs eszopiclone 3 mg tablet 3 mg PO ONCE #1 tablet 11/12/24 11/21/24 Rx Allergies Allergy/AdvReac Type Severity Reaction Status Date / Time No Known Allergies Allergy Verified 11/27/24 10:37 Exam Narrative: The patient's physical exam is essentially unchanged from prior examination on 10/15/2024. Specifically, patient demonstrates normal lung capacity, tidal volume and respiratory rate without wheezes, crackles, rales or rubs. Heart rate and rhythm are regular without murmurs, gallops or rubs. No JVD. Pulses 2+ globally without increasing peripheral edema. AAOx3 with no evidence of confusion, intoxication or altered mental state, NC/AT without acute distress or altered consciousness. Speech, cognition, mood, insight and judgment at baseline and within normal limits. Assessment and Plan Assessment and plan (1) Lumbosacral spondylosis: Code(s): M47.817 - Spondylosis without myelopathy or radiculopathy, lumbosacral region Status: Acute Assessment and Plan: Proceed as planned with thermal radiofrequency ablation of the bilateral L3, L4, L5 medial branches/dorsal rami addressing the bilateral L4-5, L5-S1 facet joints under fluoroscopic guidance. (2) Dorsalgia: Code(s): M54.9 - Dorsalgia, unspecified Status: Acute (3) Chronic pain: Code(s): G89.29 - Other chronic pain Status: Acute
--- NOTE | 2024-11-27 10:43 | P.OP_ITS ---
Procedure Note - Detailed Date of Procedure 11/27/24 Pre-op Diagnosis spondylosis lumbosacral, chronic low back pain Post-op Diagnosis Same Procedure Performed Thermal Radiofrequency Ablation of the bilateral Lumbar Medial Branches/Dorsal Ramus at the L3, L4, L5 Levels Treating the bilateral L4-5, L5-S1 Facet Joints Under Fluoroscopic Guidance (4 Levels Treated). Surgeon Josué Armendariz MD Principal Consultant None. Anesthesia Local (w/ MAC) Description of Procedure INFORMED CONSENT: Risks, benefits and alternatives to the procedure were discussed in detail with the patient who expressed explicit understanding and consent to proceed. Patient was informed verbally and in written form regarding the risks associated with the procedure including the low risk of serious infection, bleeding/bruising, allergic reaction, nerve or organ injury, paralysis, procedural site pain or discomfort, worsening pain and/or mobility, failure to treat and/or disfigurement. The patient expressed explicit understanding and consent to proceed. All materials required for the procedure were available prior to procedure start. Site and side were marked prior to procedure and confirmed in the presence of the patient. PROCEDURE IN DETAIL: The patient was brought to the procedural suite and placed in the prone position. Patient was made comfortable with use of pillows under the head/chest, hips and ankles. ASA standard monitors were applied and used throughout the procedure. Skin overlying the injection site on the affected side(s) was prepared broadly with ChloraPrep applicator and draped in a sterile manner. Aseptic technique was used throughout. The endplates of the vertebral bodies at the site(s) of interest were aligned in the AP view. Ipsilateral oblique angulation was utilized to optimize visualization of the intersection between the superior articulating process and transverse process at each target site. Local anesthesia was established by infiltration with approximately 5 mL of 1% lidocaine via a 1-1/2 inch 27-gauge needle divided over each site treated. A 16-gauge 100mm [employer] RF needle with curved 10mm active tip was advanced in the AP view until the needle tip contacted the periosteum at the target site, the right L3 medial branch. Lateral view was utilized to adjust and confirm the appropriate placement of the needle tip just anterior to the facet line, superior to the pedicle and posterior to the foramen. Grounding electrode was in place and functioning. The appropriately-sized RF cannula was inserted into the RF needle and motor stimulation was performed with no subjective or objective evidence of recruited muscle activity with stimulation up to 2.0 volts at a frequency of 2Hz. 1.5 mL of 2.0% PF lidocaine was injected after negative aspiration. After a 90s pause, lesioning was performed to 90 degrees centigrade for 90s ensuring lack of symptoms in the extremity throughout. Needle was rotated 180 degrees and lesioning repeated in a similar manner. Patient tolerated this well. No parasthesias were elicited. Needle was removed completely intact without difficulty. The same procedure was repeated for all intended levels/ structures on the ipsilateral side, right L4, L5 medial branch/dorsal ramus with identical methodology, modified to compensate for new location, with similar results and no evidence of complication. The same exact procedure was repeated for all remaining levels on the contralateral side, left L3, L4, L5 medial branches/dorsal ramus, modified as necessary to accommodate for the new target location with identical findings/results and no evidence of complication. Images were saved and documented in the patient chart. Patient's skin was cleansed and sterile bandage applied. The patient tolerated the procedure well. The patient was transported to the recovery area in stable condition where they were observed for an appropriate amount of time prior to discharge, without evidence of complication. The patient was instructed to avoid excessive activity for the next 48 hours, in cluding climbing and frequent use of stairs. Showers only for 48 hours. They were instructed not to drive or operate heavy machinery for 24 hours. They are to monitor for severe headaches, fevers, chills, night sweats, erythema/swelling at the site or any other signs of infection, bleeding/bruising, bowel or bladder changes as well as new pain, weakness or numbness in the upper or lower extremity. Should they notice these changes, they are instructed to call our office immediately or report directly to the nearest Emergency Department if no answer or if after posted office hours. COMPLICATIONS: None COMMENTS: None Complications No immediate complications Condition Stable Disposition PACU [facility] Billing Surgery - Charge Forward: Surgery Billing
--- NOTE | 2024-11-27 10:43 | WPDHPUPDATE1 ---
History and Physical Update Update Date/Time: 11/27/24 10:43 History and Physical has been reviewed, including an updated exam of the patient. There are NO changes in the patient's condition. Risks, benefits, and alternatives have been discussed and questions answered. Patient agrees to proceed with procedure.
[2024-11-27] MEDS: LIDOCAINE 1% PF INJ 5 ML VIAL 10 ML INFILTRATE (12:29)
[2024-11-27 12:33] VITALS: BP 124/90; PULSE 66; RESP 16; O2SAT 99
[2024-11-27 13:00] VITALS: BP 117/83; PULSE 63; RESP 16; O2SAT 96
[2024-11-27 13:15] VITALS: BP 124/84; PULSE 68; RESP 16
== END 2024-11-27 13:39 | disposition home or self-care (01) ==
PROVIDERS: PCP Surgery; Visit Provider Anesthesiology Pain Medicine
PROC: (CPT 64635; principal; 2024-11-27 10:45)
DX: M47.817 Spondylosis without myelopathy or radiculopathy, lumbosacral region (principal); G89.29 Other chronic pain; K21.9 Gastro-esophageal reflux disease without esophagitis; K86.1 Other chronic pancreatitis; F41.9 Anxiety disorder, unspecified; K58.9 Irritable bowel syndrome, unspecified; G47.33 Obstructive sleep apnea (adult) (pediatric); J45.909 Unspecified asthma, uncomplicated; E66.9 Obesity, unspecified; Z68.31 Body mass index [BMI] 31.0-31.9, adult; Z79.51 Long term (current) use of inhaled steroids; Z79.82 Long term (current) use of aspirin; Z98.890 Other specified postprocedural states; Z80.0 Family history of malignant neoplasm of digestive organs; Z80.52 Family history of malignant neoplasm of bladder
CPT/HCPCS: 64635; 64636 ×3; 99199; J2003; J2250; J3010; J7120

== ENCOUNTER 2024-12-20 08:05 | Outpatient (CLI) | payer BC, SELFPAY ==
--- NOTE | 2025-01-14 11:33 | WPDSLEEPSTUD ---
Sleep Study Date of Study: 12/20/24 Ordering Provider: Ashu [place] APRN Interpreting Physician: Nanci Infante MD Sleep Study Type: CPAP Titration Height: 1.78 m Weight: 97.522 kg Body Mass Index: 30.8 Neck Circumference (inches): 17 [place]: 10 Reason for Sleep Study Loud snoring, choking and gasping at night; * 11/01/2024 home sleep test using WatchPat showed severe obstructive sleep apnea, AHI 36.7, central AHI 7.0; he returns for a CPAP titration. Sleep History Esequiel Neely is a 54-year-old man with severe obstructive sleep apnea diagnosed on a home sleep study 11/21/2024, originally tested for loud snoring as well as choking and gasping at night. He was previously tested in 2010, had moderate sleep apnea but did not wear therapy. He also was diagnosed with asthma in the past 5-6 years. He is not rested upon awakening. He has the urge to fall asleep during the day including while driving. He takes naps at lunch time. He has difficulty falling asleep and remaining asleep. When he awakens during the night, he has difficulty returning to sleep. He does not use sedatives to get to sleep. He is anxious about his sleep. During the night, he does not clench or grind his teeth but he does kick excessively. He has a restless uncomfortable feeling in his legs. He has an urge to move his legs at night and this is worse when he is trying to rest. He gets better with activities. It is worse in the evening and nighttime. He does have concern over this. He is more alert in the evening compared to the morning. He does not wake up too early in the morning. He is quite dissatisfied with his current sleep pattern. This is considerably interfering with his daily functioning. It is somewhat noticeable to other people that it impairs the quality of his life. He worries about his sleep problem somewhat. Normal bedtime is 11:00 p.m., taking 1 hour and 15 minutes to fall asleep. He spends 7 hours in bed, 6 hours sleeping. On his days off, bedtime is still 11:00 p.m., taking 1 hour to fall asleep. Spending 7 hours in bed and 6 hours 15 minutes sleeping. He is somewhat restored on his days off. He does not take planned naps. Habits: Tobacco : never smoker Caffeine: none Alcohol : none Recreational substances : none PMFSH Past Medical History Medical History UTI (urinary tract infection) GERD (gastroesophageal reflux disease) Chronic pancreatitis Cholelithiasis Anxiety IBS (irritable bowel syndrome) KATHY (obstructive sleep apnea) Asthma Constipation Surgical History Surgical History History of bilateral inguinal hernia repair Family History Family History Mother Family history of malignant neoplasm of stomach Father Family history of malignant neoplasm of urinary bladder Social History Social History Social History: Single Smoking status: Never smoker Second hand tobacco smoke exposure: No Alcohol intake: never Substance use: never Substance use type: does not use Do You Feel Safe in your Home?: Yes Lack of Transportation: No Lack of Food: Never True Current Housing: I Have Housing Concerned About Future Housing: No Difficulty Paying Gas/Electric Bills: YES Difficulty Paying for Meds: YES Currently Unemployed: No Education: High School Diploma/GED Difficulty w/ Childcare or Family Care: No Living arrangements: alone Occupation/Education: occupation Gender identity (if verbalized by the patient): Male Sexual Orientation (if Verbalized by the Patient): Straight or Heterosexual Spiritual care concerns: No Medications Home Medications ?Medication ?Instructions ?Recorded ?Confirmed ?Type Adults Multivitamin 1 cap PO DAILY 02/18/21 11/27/24 History albuterol sulfate 90 mcg/actuation 1 - 2 puff inhalation Q4H PRN 10/25/23 11/21/24 Rx aerosol inhaler (ProAir HFA) shortness of breath or wheezing #8.5 grams inhalational spacing device #1 ea 04/27/24 11/21/24 Rx budesonide-formoterol HFA 160 2 puff inhalation Q12H #10.2 grams 05/23/24 11/21/24 Rx mcg-4.5 mcg/actuation aerosol inhaler (Symbicort) aspirin 81 mg tablet,delayed 81 mg PO DAILY 08/16/24 11/27/24 History release (Adult Low Dose Aspirin) fluticasone propionate 50 1 spray intranasal BID #16 grams 08/24/24 11/21/24 Rx mcg/actuation nasal spray,suspension (Flonase Allergy Relief) pseudoephedrine HCl 60 mg tablet 60 mg PO Q4-6H PRN nasal 08/24/24 11/21/24 Rx congestion #20 tabs eszopiclone 3 mg tablet 3 mg PO ONCE #1 tablet 11/12/24 11/21/24 Rx Sleep Procedure A full CPAP polysomnogram using the [employer] multi-channel system recorded the standard physiologic parameters including EEG, EOG, submentalis EMG, anterior tibialis EMG, EKG, body position, nasal and oral airflow using nasal pressure sensor and thermistor. Respiratory parameters of chest and abdominal movements were recorded with Respiratory Inductance Plethysmography belts. Oxygen saturation was recorded by pulse oximetry. Video monitoring was also performed. Sleep stages, periodic limb movements, and EEG arousals were scored in 30 second epochs according to the criteria of the AASM Scoring Manual. The Apnea-Hypopnea Index was calculated using CMS guidelines for definition of hypopnea while scoring respiratory events. The patient was started on CPAP using a large [employer] IP and [employer] Solo nasal mask which he likes better compared to his prior CPAP mask. CPAP was titrated initially at 5 cm, 6 cm, 8 cm and 9 cm for further comparison. At CPAP 9 cm, the patient spent 27 minutes in bed, 4 minutes awake, 23 minutes in non-REM, no time in REM. The sleep efficiency was 85.2%. The residual apnea-hypopnea index was 0. Lowest saturation was 92%. He had REM in the right lateral position on CPAP 8. The optimal pressure is CPAP 9 cm. Sleep overall was very fragmented throughout the night. He had numerous leg movements but these did not cause arousals. Sleep Architecture The total recording time was 449.5 minutes. The total sleep time was 361.5 minutes. Sleep latency was 26.0 minutes. REM latency was 179.0 minutes. Sleep efficiency was 80.4%. The patient had 51 awakenings for an awakening index of 8.5. Wake after Sleep Onset time was 62.0 minutes. The patient spent 46.0 minutes, 12.7% of total sleep time in Stage N1. The patient spent 267.5 minutes, 74.0% in Stage N2. The patient spent 19.0 minutes, 5.3% in Stage N3. The patient spent 29.0 minutes, 8.0% in Stage REM. Respiratory Analysis The patient had 10 hypopneas, no obstructive apneas, no mixed apneas, and no central apneas for an overall Apnea Hypopnea Index of 1.7 events per hour. The REM Apnea Hypopnea Index was 2.1. The NREM Apnea Hypopnea Index was 1.6. The patient had a Central Apnea Hypopnea Index of 0. There were no Respiratory Effort Related Arousals. The Respiratory Disturbance Index is 4.0 events per hour. There was no evidence of Aureliano-Ibarra Respirations. The supine apnea-hypopnea index was 4.4, nonsupine apnea-hypopnea index was 0.5. Arousals There were 99 total arousals for an arousal index of 16.4. There were 61 spontaneous arousals for an index of 10.1. There were 1 arousal due to respiratory events for an index of 0.2. There were 30 arousals due to periodic limb movements for an index of 5.0. There were 9 arousals due to isolated limb movements for an index of 1.5. Periodic Limb Movements The patient had 33 isolated limb movements with an index of 5.5. The patient had 198 periodic limb movements with index of 32.9. Patient had a total of 231 limb movements with a total limb movement index of 38.3. Oximetry Data The patient had an average oxygen saturation of 93.7% in sleep with a minimum oxygen saturation of 90% and a maximum oxygen saturation of 99%. The patient had 14 oxygen desaturations that were 4% or greater resulting in an Oxygen Desaturation Index of 2.3. The patient spent no sleep time with an oxygen saturation below 88%. Snoring Profile Snoring was eliminated during the titration. Cardiac Profile The EKG showed normal sinus rhythm. The patient had an average pulse rate of 58.9 bpm with a minimum pulse rate of 48 bpm and a maximum pulse rate of 78 bpm. No arrhythmias noted. EEG Profile Unremarkable, no evidence of seizures. Assessment and Plan Assessment and Plan (1) KATHY (obstructive sleep apnea): Code(s): G47.33 - Obstructive sleep apnea (adult) (pediatric) Status: Acute Assessment and Plan: This full night CPAP titration on 12/20/2024 shows a successful titration with an optimal pressure of CPAP 9 cm using a large [employer] Solo nasal mask and heated humidity. He had no central apneas on this test. At CPAP 9 cm, the patient spent 27 minutes in bed, 4 minutes awake, 23 minutes in non-REM, no time in REM at this pressure. The sleep efficiency was 85.2%. The residual apnea-hypopnea index was 0. Lowest saturation was 92%. He had REM in the right lateral position on CPAP 8 cm. The patient should be prescribed this ResMed equipment as well as tubing, filters and reservoir. This should be used with all episodes of sleep. Compliance should be reviewed within 31-90 days of starting therapy for usage greater than 4 hours per night greater than 70% of the nights. The patient should be asked about symptoms such as excessive daytime sleepiness, quality of sleep, decreased nocturia, increased mental functioning such as memory, mood, and concentration. BMI is 31.1. Weight management is advised. Clinical data suggests that weight loss of 10% can reduce the severity of respiratory events and snoring and improve AHI by as much as 25%. (2) Restless leg syndrome: Code(s): G25.81 - Restless legs syndrome Status: Acute Assessment and Plan: He has a history of uncomfortable feelings in his legs at night, worse with rest, improved with movement. This is consistent with restless legs syndrome. He also complains of excessive kicking at night. On this study, he had excessive periodic limb movements which were not associated with arousals. Ferritin level is indicated to exclude iron deficiency anemia as a contributing factor. Ferritin should be 75 ng/mL or greater. If ferritin is below this, iron supplementation should be given to achieve ferritin of 75 ng/mL. There are nonpharmacologic methods to treat limb movements including daily exercise, stretching calf muscles before bed, avoiding excessive amounts of caffeine and alcohol, vitamin B supplementation, magnesium lotion massaged into legs before bed, and use of a weighted blanket. Pharmacologic therapy is very effective for restless legs syndrome and limb movements during sleep and may include [id number] voltage-gated calcium channel ligands such as gabapentin which is preferable to dopaminergic agents which can have augmentation. Data The data obtained during this sleep study is adequate for interpretation. Certification This sleep study has been reviewed by a board certified sleep medicine physician.
[2025-01-14 11:41] VITALS: BMI 30.8
== END 2024-12-21 06:44 | disposition home or self-care (01) ==
PROVIDERS: PCP Surgery; Visit Provider Nurse Practitioner Family
DX: G47.33 Obstructive sleep apnea (adult) (pediatric) (principal)
CPT/HCPCS: 95811

== ENCOUNTER 2025-01-18 09:32 | Outpatient (CLI) | payer BC, SELFPAY ==
--- OUTSIDE RECORDS SUMMARY | 2025-01-18 09:36 | XMS_ITS | Clinical Summary ---
Author Organization [facility] [employer] Address [address] [place] [address] Care Team Providers Care Sports Recruiter Name Role Phone Carl Ivan MD Primary Care Provider [phone] Source Comments [facility],non-owned Affiliates and Associated Physician Practices is amultiple site organization consisting of ambulatory clinics and hospital sitesin [place], [place], [place] and [place]. This disclosure is being madepursuant to the Care Everywhere program and may not contain all information available regarding this patient. 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 on file Not on file Not on file Last Filed Vital Signs Vital Sign Reading Time Taken Comments Blood Pressure 130/86 08/17/2016 11:16 AM SAP BOBJ DEVELOPER Pulse 68 08/17/2016 11:16 AM SAP BOBJ DEVELOPER Temperature - - Respiratory Rate - - Oxygen Saturation 98% 08/17/2016 11:16 AM SAP BOBJ DEVELOPER Inhaled Oxygen Concentration - - Weight 98.4 kg (217 lb) 08/17/2016 11:16 AM SAP BOBJ DEVELOPER Height 175.3 cm (5' 9) 08/17/2016 11:16 AM SAP BOBJ DEVELOPER Body Mass Index 32.05 08/17/2016 11:16 AM SAP BOBJ DEVELOPER Plan of Treatment Health Maintenance Due Date [...] season) 2024 DEPRESSION SCREENING 06/27/2024 INFLUENZA VACCINE (#1) 2025 HIB VACCINE Aged Out No longer [...] to complete this topic Insurance Care Teams Sports Recruiter Relationship Specialty Start Date End Date Carl Ivan MD [address] [place] [address] PCP - General 02/03/22
--- OUTSIDE RECORDS SUMMARY | 2025-01-18 09:36 | XMS_ITS | Clinical Summary ---
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 Gender Identity Not on file Sexual Orientation Not on file Plan of Treatment Health Maintenance Due Date Last Done Comments Hepatitis C Virus (HCV) Screening 1970 TdaP Immunization 1970 Hepatitis B Immunization (1 of 3 - 19+ 3-dose series) 1989 Cologuard 2015 Colonoscopy 2015 Colorectal Cancer Screening 2015 Immunochemical Fecal Occult Blood 2015 Pneumococcal Immunization (5 0+ years) (1 of 1 - PCV) 2020 Zoster Immunization (1 of 2) 2020 SARS-COV-2 Immunization (1 - season) 2024 Influenza Immunization (#1) 2025 Respiratory Syncytial Virus (RSV) Immunization (Adult) (1 - 1-dose 75+ series) 2045 Human Papillomavirus (HPV) Immunization Aged Out No longer eligible b ased on patient's age to complete this topic Meningococcal Immunization (ACWY) Aged Out No longer eligible based on patient's age to complete this topic Rotavirus Immunization Aged Out No lo nger eligible based on patient's age to complete this topic
--- OUTSIDE RECORDS SUMMARY | 2025-01-18 09:36 | XMS_ITS | Clinical Summary ---
Author Organization [facility] Address [address] [place] [address] Care Team Providers Care Safety Engineer Pressure Vessels Name Role Phone No, Physician Primary Care Provider [phone] Allergies No known active allergies Medications albuterol [...] (12/08/2017): Added automatically from request for surgery [id number] Abdominal pain 10/06/2017 Gallstone 09/15/2017 Gastroesophageal reflux [...] Plan of Treatment Not on file Insurance [facility] ACCESS CHOICE BLUE [facility] CHOICE OOS [facility] [place] [address] CHOICE OOS BLUE [employer] CHOICE OOS Care Teams Safety Engineer Pressure Vessels Relationship Specialty Start Date End Date No, Physician PCP - General 02/04/18
--- OUTSIDE RECORDS SUMMARY | 2025-01-18 09:36 | XMS_ITS | Clinical Summary ---
Author Organization [facility] Address [address] [place] [address] Care Team Providers Care Bench Jeweler Name Role Phone Unavailable Primary Care Provider [...]
--- OUTSIDE RECORDS SUMMARY | 2025-01-18 09:36 | XMS_ITS | Referral Summary ---
Author Organization [facility] Address [address] [place] [address] Care Team Providers Care Engraver Jewelry Name Role Phone No, Physician Primary Care Provider [phone] Allergies No known active allergies Medications albuterol [...] (12/08/2017): Added automatically from request for surgery [id number] Abdominal pain 10/06/2017 Gallstone 09/15/2017 Gastroesophageal reflux [...] Plan of Treatment Not on file Insurance [facility] ACCESS CHOICE Member Subscriber Plan / Payer (Ef fective 2020-Present) Name:Melchor Neely Relation to Subscriber:Self Name:Melchor Neely Payer ID:[id number] ([employer]) Type:ROLAND HULL Address: [facility] [id number] [place] CHOICE OOS [facility] HMO/PPO Address: [id number] [place] [address] CHOICE OOS BLUE [facility] CHOICE OOS Care Teams Engraver Jewelry Relationship Specialty Start Date End Date No, Physician PCP - General 02/04/18
--- OUTSIDE RECORDS SUMMARY | 2025-01-18 09:37 | XMS_ITS | Patient Health Record ---
Author Organization [facility] Address [address] [place] [address] Care Team Providers Care Iv Therapy Nurse Name Role Phone Maria Del Rosario Fam Unavailable [phone] Allergies No Known Allergies Results Component Value [...] Results discussed with Dr. Otto''s medical billing specialist, Hortensia Delgado, on 11 June 2024 at [...] BY MOUTH TWICE DAILY FOR 30 DAYS Oral; Duration: 30 Days Active methylPREDNISolone 4 MG TAKE DIRECTED ON PACKAGE Oral; Duration: 6 Days Active Tamsulosin HCl 0.4 MG TAKE 1 CAPSULE BY MOUTH AT BEDTIME Oral; Duration: 30 Days Active HYDROcodone-Acetaminophen 5-325 MG TAKE 1 TABLET BY MOUTH EVERY 4 TO 6 HOURS NEEDED FOR PAIN Oral; Duration: 2 Days Active Omeprazole 20 MG TAKE 1 CAPSULE BY MOUTH ONCE DAILY Oral; Duration: 30 Days Active Methocarbamol 500 MG TAKE 1 TABLET BY [facility] THREE TIMES DAILY NEEDED FOR MUSCLE SPASM Oral; Duration: 10 Days Active methylPREDNISolone 4 MG TAKE DIRECTED ON PACKAGE Oral; Duration: 6 Days Active Albuterol Sulfate HFA 108 (9 0 Base) MCG/ACT INHALE 1 TO 2 PUFFS BY MOUTH EVERY 4 HOURS NEEDED FOR SHORTNESS OF BREATH AND FOR WHEEZING Inhalation; Duration: 17 Days Active Problems Problem Type SNOMED Code ICD Code Onset Dates Problem Status W/U Status Risk Notes Problem Cervical spondylosis (211403566) Cervical spondylosis (M47.812) Active confirmed Problem Lumbar spondylosis (724880731) Lumbar spondylosis (M47.816) Active confirmed Problem Leg length discrepancy (540551580) Leg length discrepancy (M21.70) Active confirmed Problem Sacroiliitis (43352917) Sacroiliitis (M46.1) Active confirmed Problem Somatic dysfunction of sacroiliac joint (finding) (472404535457) SI (sacroiliac) joint dysfunction (M53.3) Active confirmed Problem Cervical disc disorder (736914256) DDD (degenerative disc disease), cervical (M50.30) Active confirmed Problem Cervical spinal stenosis (94462852) Cervical spinal stenosis (M48.02) Active confirmed Vital Signs Heart Rate 76 /min 07/04/2024 Height-cm 180.34 cm 07/04/2024 Blood pressure diastolic 76 mm Hg 07/04/2024 Weight-kg 102.06 kg 07/04/2024 Height 5ft 11in in 07/04/2024 Blood pressure systolic 121 mm Hg 07/04/2024 Weight 225 lbs 07/04/2024 BMI 31.38 kg/m2 07/04/2024 Encounters Encounter Location Date Provider Diagnosis [facility] [address] [place] [address] [address] [place] [address] 04/25/2024 Fam Mix Left knee pain M25.5 62 ; Right shoulder pain M25.511 ; Hip pain, right M25.551 ; Left hip pain M25.552 ; Lumbar back pain M54.50 ; Leg length discrepancy M21.70 ; Lumbar spondylosis M47.816 ; Degeneration of intervertebral disc of lumbar region with discogenic back pain M51.360 and Screening for substance abuse Z13.89 [facility] [address] [place] [address] [address] [place] [address] 05/09/2024 Fam Mix Sacroiliitis M46.1 [facility] [address] [place] [address] [address] [place] [address] 05/30/2024 Fam Mix Cervical spondylosis M47.812 ; DDD (degenerative disc disease), cervical M50.30 and Cervical spinal stenosis M48.02 [facility] [address] [place] [address] [address] [place] [address] 07/04/2024 Fam Mix Lumbar spondylosis M47.816 ; SI (sacroiliac) joint dysfunction M53.3 ; Sacroiliitis M46.1 ; Leg length discrepancy M21.70 ; Cervical spondylosis M47.812 ; DDD (degenerative disc disease), cervical M50.30 and Cervical spinal stenosis M48.02 [facility] [address] [place] [address] [address] [place] [address] 06/29/2024 Fam Mix Assessments Encounter Date Diagnosis [...] placement over 10 years ago, he feels [id number] , patient has been evaluated by general [...] placement over 10 years ago, he feels [id number] , patient has been evaluated by general [...] X ray : Spines, lumbar 4 views 10/30/202 4 Insurance Providers Payer Name Payer Address Payer Phone Subscriber Number Group Number Insured Name Patient Relationship to Insured Coverage Start Date Coverage End Date [facility] [address] [place] [address] [phone] [id number] Esequiel Neely Self - patient is the insured Medications Administered Medication Instructions Date of Administration Dosage Notes Hip Inj Intra-articular 04/25/2024 L EFT HIP INJ Sacroiliac Joint Injection 05/09/2024 LEFT SIJ Medical (General) History Surgical History Surgery Date(Month/Year) hernia both lower sides
[2025-01-18 11:07] LABS: Ferritin 66.00 ng/mL (11.1-264)
== END 2025-01-18 09:33 | disposition home or self-care (01) ==
LOC: ANHLAB 09:34
PROVIDERS: PCP Surgery; Visit Provider Nurse Practitioner Family
DX: G25.81 Restless legs syndrome (principal); M25.50 Pain in unspecified joint
CPT/HCPCS: 36415; 82728

== ENCOUNTER 2025-01-22 16:57 | Outpatient (CLI) | payer BC, SELFPAY ==
--- OUTSIDE RECORDS SUMMARY | 2025-01-22 17:01 | XMS_ITS | Clinical Summary ---
Author Organization [facility] [employer] Address [address] [place] [address] Care Team Providers Care Drawing Operator Name Role Phone Carl Ivan MD Primary Care Provider [phone] Source Comments [facility] [employer],non-owned Affiliates and Associated Physician Practices is amultiple site organization consisting of ambulatory clinics and hospital sitesin [place], [place], [place] and [place]. This disclosure is being madepursuant to the Care Everywhere program and may not contain all information available regarding this patient. 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 Not on file Not on file Last Filed Vital Signs Vital Sign Reading Time Taken Comments Blood Pressure 130/86 08/17/2016 11:16 AM SILVER MINER Pulse 68 08/17/2016 11:16 AM SILVER MINER Temperature - - Respiratory Rate - - Oxygen Saturation 98% 08/17/2016 11:16 AM SILVER MINER Inhaled Oxygen Concentration - - Weight 98.4 kg (217 lb) 08/17/2016 11:16 AM SILVER MINER Height 175.3 cm (5' 9) 08/17/2016 11:16 AM SILVER MINER Body Mass Index 32.05 08/17/2016 11:16 AM SILVER MINER Plan of Treatment Health Maintenance Due Date [...] to complete this topic Insurance Care Teams Drawing Operator Relationship Specialty Start Date End Date Carl Ivan MD [address] [place] [address] PCP - General 02/03/22
--- OUTSIDE RECORDS SUMMARY | 2025-01-22 17:01 | XMS_ITS | Clinical Summary ---
Author Organization [facility] Address [address] [place] [address] Care Team Providers Care Clinical Care Coordinator Name Role Phone Unavailable Primary Care [...]
--- OUTSIDE RECORDS SUMMARY | 2025-01-22 17:01 | XMS_ITS | Clinical Summary ---
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
--- OUTSIDE RECORDS SUMMARY | 2025-01-22 17:01 | XMS_ITS | Referral Summary ---
Author Organization [facility] Address [address] [place] [address] Care Team Providers Care Supervisor Varnish Name Role Phone No, Physician Primary Care Provider [phone] Allergies No known active allergies Medications albuterol [...] (12/08/2017): Added automatically from request for surgery [id number] Abdominal pain 10/06/2017 Gallstone 09/15/2017 Gastroesophageal reflux [...] Plan of Treatment Not on file Insurance [facility] ACCESS CHOICE Member Subscriber Plan / Payer (Ef fective 2020-Present) Name:Melchor Neely Relation to Subscriber:Self Name:Melchor Neely Payer ID:[id number] ([facility]) Type:ROLAND HULL Address: [facility] [address] [id number] [place] CHOICE OOS [facility] CHOICE OOS BLUE [facility] CHOICE OOS Care Teams Supervisor Varnish Relationship Specialty Start Date End Date No, Physician PCP - General 02/04/18
--- OUTSIDE RECORDS SUMMARY | 2025-01-22 17:01 | XMS_ITS | Clinical Summary ---
Author Organization [facility] Address [address] [place] [address] Care Team Providers Care Instrument Lens Generator Name Role Phone No, Physician Primary Care Provider [phone] Allergies No known active allergies Medications albuterol [...] (12/08/2017): Added automatically from request for surgery [id number] Abdominal pain 10/06/2017 Gallstone 09/15/2017 Gastroesophageal reflux [...] Treatment Not on file Insurance [facility] ACCESS CHOICE BLUE [facility] CHOICE OOS [facility] [place] [address] CHOICE OOS BLUE ACC CHOICE OOS Care Teams Instrument Lens Generator Relationship Specialty Start Date End Date No, Physician PCP - General 02/04/18
[2025-01-22 17:37] LABS: Hematocrit 46.7 % (42.0-52.0); Hemoglobin 15.1 g/dL (14.0-18.0); Mean Corpuscular HGB Conc 32.3 g/dl (32-36); Mean Corpuscular Hemoglobin 30.3 pg (26-34); Mean Corpuscular Volume 93.8 fl (80-100); Platelet Count Result 205 k/mm3 (150-375); Red Blood Count 4.98 M/mm3 (4.6-6.20); White Blood Count 4.5 K/mm3 (4.5-10.0)
[2025-01-22 18:01] LABS: Alanine Aminotransferase 32 U/L (6-50); Albumin Level 3.9 g/dL (3.5-5.1); Alkaline Phosphatase 70 U/L (38-126); Anion Gap 5 mmol/L (4-12); Aspartate Amino Transferase 34 U/L (17-59); Bilirubin,Total 0.7 mg/dL (0.2-1.3); Blood Urea Nitrogen 10 mg/dL (9-20); CRP < 0.5 mg/dL (<1.0); Calcium 8.8 mg/dL (8.4-10.2); Carbon Dioxide 28 mmol/L (22-30); Chloride 108 mmol/L (98-107); Estimated Glomerular Filt Rate > 60; Glucose 96 mg/dL (65-110); Lipase 75 U/L (23-300); Potassium 3.8 mmol/L (3.4-5.0); Sodium 141 mmol/L (137-145); Total Protein 7.1 g/dL (6.3-8.2)
== END 2025-01-22 16:58 | disposition home or self-care (01) ==
LOC: ANHLAB 16:59
PROVIDERS: PCP Surgery; Visit Provider Nurse Practitioner Family
DX: K86.1 Other chronic pancreatitis (principal); K80.20 Calculus of gallbladder without cholecystitis without obstruction; K58.2 Mixed irritable bowel syndrome; I10 Essential (primary) hypertension
CPT/HCPCS: 36415; 80053; 83690; 85027; 85652; 86140

== ENCOUNTER 2025-01-23 13:38 | Outpatient (NON) | payer BC, SELFPAY ==
--- OUTSIDE RECORDS SUMMARY | 2025-01-23 13:46 | XMS_ITS | Clinical Summary ---
Author Organization [facility] Address [address] [place] [address] Care Team Providers Care Map Colorer Name Role Phone Unavailable Primary Care Provider [...]
--- OUTSIDE RECORDS SUMMARY | 2025-01-23 13:46 | XMS_ITS | Clinical Summary ---
Author Organization [facility] Address [address] [place] [address] Care Team Providers Care Inserter Promotional Item Name Role Phone No, Physician Primary Care Provider [phone] Allergies No known active allergies Medications albuterol [...] (12/08/2017): Added automatically from request for surgery [id number] Abdominal pain 10/06/2017 Gallstone 09/15/2017 Gastroesophageal reflux [...] Plan of Treatment Not on file Insurance [facility] ACCESS CHOICE BLUE [facility] CHOICE OOS [facility] [place] [address] CHOICE OOS BLUE ACC CHOICE OOS Care Teams Inserter Promotional Item Relationship Specialty Start Date End Date No, Physician PCP - General 02/04/18
--- OUTSIDE RECORDS SUMMARY | 2025-01-23 13:46 | XMS_ITS | Clinical Summary ---
Author Organization [facility] Address [address] [facility] [place] [address] Care Team Providers Care Croze Cutter Helper Name Role Phone Carl Ivan MD Primary Care Provider [phone] Source Comments [facility],non-owned Affiliates and Associated Physician Practices is amultiple site organization consisting of ambulatory clinics and hospital sitesin [place], [place], [place] and [place]. This disclosure is being madepursuant to the Care Everywhere program and may not contain all information available regarding this patient. 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 Not on file Not on file Not on file Last Filed Vital Signs Vital Sign Reading Time Taken Comments Blood Pressure 130/86 08/17/2016 11:16 AM MULTICUT LINE OPERATOR Pulse 68 08/17/2016 11:16 AM MULTICUT LINE OPERATOR Temperature - - Respiratory Rate - - Oxygen Saturation 98% 08/17/2016 11:16 AM MULTICUT LINE OPERATOR Inhaled Oxygen Concentration - - Weight 98.4 kg (217 lb) 08/17/2016 11:16 AM MULTICUT LINE OPERATOR Height 175.3 cm (5' 9) 08/17/2016 11:16 AM MULTICUT LINE OPERATOR Body Mass Index 32.05 08/17/2016 11:16 AM MULTICUT LINE OPERATOR Plan of Treatment Health Maintenance Due [...] to complete this topic Insurance Care Teams Croze Cutter Helper Relationship Specialty Start Date End Date Carl Ivan MD [address] [place] [address] PCP - General 02/03/22
--- OUTSIDE RECORDS SUMMARY | 2025-01-23 13:46 | XMS_ITS | Clinical Summary ---
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
--- OUTSIDE RECORDS SUMMARY | 2025-01-23 13:46 | XMS_ITS | Referral Summary ---
Author Organization [facility] Address [address] [place] [address] Care Team Providers Care Stitchdown Thread Laster Name Role Phone No, Physician Primary Care Provider [phone] Allergies No known active allergies Medications albuterol [...] (12/08/2017): Added automatically from request for surgery [id number] Abdominal pain 10/06/2017 Gallstone 09/15/2017 Gastroesophageal reflux [...] Plan of Treatment Not on file Insurance [facility] ACCESS CHOICE Member Subscriber Plan / Payer (Ef fective 2020-Present) Name:Melchor Neely Relation to Subscriber:Self Name:Melchor Neely Payer ID:[id number] ([facility]) Type:ROLAND HULL Address: [facility] [id number] [id number] [place] ACC CHOICE OOS [facility] CHOICE OOS BLUE [facility] CHOICE OOS Care Teams Stitchdown Thread Laster Relationship Specialty Start Date End Date No, Physician PCP - General 02/04/18
[2025-01-24 11:08] LABS: H. pylori Stool Ag, EIA Negative (Negative)
[2025-01-25 12:08] LABS: Pancreatic Elastase, Fecal >800 (>200)
[2025-01-25 14:08] LABS: Calprotectin, Fecal 20 ug/g (0-120)
== END 2025-01-23 13:39 | disposition home or self-care (01) ==
PROVIDERS: PCP Surgery; Visit Provider Nurse Practitioner Family
DX: R10.9 Unspecified abdominal pain (principal); R11.0 Nausea; K58.2 Mixed irritable bowel syndrome; K86.1 Other chronic pancreatitis; K80.20 Calculus of gallbladder without cholecystitis without obstruction
CPT/HCPCS: 82653; 83993; 87338

== ENCOUNTER 2025-02-11 09:43 | Outpatient (CLI) | payer BC, SELFPAY ==
--- NOTE | ~2025-02-11 | NM_ITS ---
EXAMINATION: NM_HEPATWP_NM DATE: 02/11/2025 11:57 INDICATION: Cholelithiasis with abdominal pain and nausea COMPARISON: None. TECHNIQUE: 5 mCi Tc-99m mebrofenin (Choletec) was administered intravenously. Scintigraphic images o f the abdomen were obtained for one hour. 2 mcg sincalide (Kinevac) was administered by slow intraven ous infusion, and imaging was continued for 30 minutes. Gallbladder ejection fraction was calculated by the technologist. FINDINGS: There is normal clearance of radiotracer from the blood pool. There is homogeneous tracer uptake by t he liver. Activity progresses to the gallbladder and bowel. The gallbladder ejection fraction (GBEF) is 34% (normal 10-90%, but most patient with gallbladder dysfunction have GBEF < 35% which does over lap with the normal range). IMPRESSION: 1. Gallbladder ejection fraction is at the lower range of normal. This is likely normal but is also just within the range of overlap with gallbladder dysfunction or chronic cholecystitis in the [facility] clinical setting. Reviewed, dictated and finalized at location A. IMPRESSION: 1. Gallbladder ejection fraction is at the lower range of normal. This is lik chang normal but is also just within the range of overlap with gallbladder dysfun ction or chronic cholecystitis in the appropriate clinical setting.
--- OUTSIDE RECORDS SUMMARY | 2025-02-11 10:31 | XMS_ITS | Clinical Summary ---
Author Organization [facility] Address [address] [place] [address] Care Team Providers Care Air Pollution Control Engineer Name Role Phone Carl Ivan MD Primary Care Provider [phone] Source Comments [facility],non-owned Affiliates and Associated Physician Practices is amultiple site organization consisting of ambulatory clinics and hospital sitesin [place], [place], [place] and [place]. This disclosure is being madepursuant to the Care Everywhere program and may not contain all information available regarding this patient. 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 Not on file Not on file Last Filed Vital Signs Vital Sign Reading Time Taken Comments Blood Pressure 130/86 08/17/2016 11:16 AM YEAST SUPERVISOR Pulse 68 08/17/2016 11:16 AM YEAST SUPERVISOR Temperature - - Respiratory Rate - - Oxygen Saturation 98% 08/17/2016 11:16 AM YEAST SUPERVISOR Inhaled Oxygen Concentration - - Weight 98.4 kg (217 lb) 08/17/2016 11:16 AM YEAST SUPERVISOR Height 175.3 cm (5' 9) 08/17/2016 11:16 AM YEAST SUPERVISOR Body Mass Index 32.05 08/17/2016 11:16 AM YEAST SUPERVISOR Plan of Treatment Health Maintenance Due Date [...] to complete this topic Insurance Care Teams Air Pollution Control Engineer Relationship Specialty Start Date End Date Carl Ivan MD [address] [place] [address] PCP - General 02/03/22
--- OUTSIDE RECORDS SUMMARY | 2025-02-11 10:31 | XMS_ITS | Clinical Summary ---
Author Organization [facility] Address [address] [place] [address] Care Team Providers Care Modeling Analyst Name Role Phone No, Physician Primary Care Provider [phone] Allergies No known active allergies Medications albuterol [...] (12/08/2017): Added automatically from request for surgery [id number] Abdominal pain 10/06/2017 Gallstone 09/15/2017 Gastroesophageal reflux [...] Plan of Treatment Not on file Insurance [facility] ACCESS CHOICE BLUE [facility] CHOICE OOS [facility] [place] [address] CHOICE OOS BLUE ACC CHOICE OOS Care Teams Modeling Analyst Relationship Specialty Start Date End Date No, Physician PCP - General 02/04/18
--- OUTSIDE RECORDS SUMMARY | 2025-02-11 10:31 | XMS_ITS | Patient Health Record ---
Author Organization [facility] Address [address] [place] [address] Care Team Providers Care Fitness Sales Associate Name Role Phone Maria Del Rosario Fam Unavailable [phone] Allergies No Known Allergies Results Component Value [...] recommended. Results discussed with Dr. Otto''s medical office scheduler, Hortensia Delgado, on 11 June 2024 at [...] Methocarbamol 500 MG TAKE 1 TABLET BY [facility] THREE TIMES DAILY NEEDED FOR MUSCLE [...] W/U Status Risk Notes Problem Cervical spondylosis (063054917) Cervical spondylosis (M47.812) Active confirmed Problem Lumbar spondylosis (385092051) Lumbar spondylosis (M47.816) Active confirmed Problem Leg length discrepancy (196268140) Leg length discrepancy (M21.70) Active confirmed Problem Sacroiliitis (54605776) Sacroiliitis (M46.1) Active confirmed Problem Somatic dysfunction of sacroiliac joint (finding) (276737827759) SI (sacroiliac) joint dysfunction (M53.3) Active confirmed Problem Cervical disc disorder (259957228) DDD (degenerative disc disease), cervical (M50.30) Active confirmed Problem Cervical spinal stenosis (55872462) Cervical spinal stenosis (M48.02) Active confirmed Vital Signs Heart Rate 76 /min 07/04/2024 Height-cm 180.34 cm 07/04/2024 Blood pressure diastolic 76 mm Hg 07/04/2024 Weight-kg 102.06 kg 07/04/2024 Height 5ft 11in in 07/04/2024 Blood pressure systolic 121 mm Hg 07/04/2024 Weight 225 lbs 07/04/2024 BMI 31.38 kg/m2 07/04/2024 Encounters Encounter Location Date Provider Diagnosis [facility] [address] [place] [address] [address] [place] [address] 04/25/2024 Fam Mix Left knee pain M25.5 62 ; Right shoulder pain M25.511 ; Hip pain, right M25.551 ; Left hip pain M25.552 ; Lumbar back pain M54.50 ; Leg length discrepancy M21.70 ; Lumbar spondylosis M47.816 ; Degeneration of intervertebral disc of lumbar region with discogenic back pain M51.360 and Screening for substance abuse Z13.89 [facility] [address] [place] [address] [address] [place] [address] 05/09/2024 Fam Mix Sacroiliitis M46.1 [facility] [address] [place] [address] [address] [place] [address] 05/30/2024 Fam Mix Cervical spondylosis M47.812 ; DDD (degenerative disc disease), cervical M50.30 and Cervical spinal stenosis M48.02 [facility] [address] [place] [address] [address] [place] [address] 07/04/2024 Fam Mix Lumbar spondylosis M47.816 ; SI (sacroiliac) joint dysfunction M53.3 ; Sacroiliitis M46.1 ; Leg length discrepancy M21.70 ; Cervical spondylosis M47.812 ; DDD (degenerative disc disease), cervical M50.30 and Cervical spinal stenosis M48.02 [facility] [address] [place] [address] [address] [place] [address] 06/29/2024 Fam Mix Assessments Encounter Date Diagnosis [...] placement over 10 years ago, he feels [id number] , patient has been evaluated by general [...] placement over 10 years ago, he feels [id number] , patient has been evaluated by general [...] Insured Coverage Start Date Coverage End Date [facility] [address] [place] [address] [phone] [id number] Eseqiuel Neely Self - patient is the insured Medications Administered Medication Instructions Date of Administration Dosage Notes Hip Inj Intra-articular 04/25/2024 L EFT HIP INJ Sacroiliac Joint Injection 05/09/2024 LEFT SIJ Medical (General) History Surgical History Surgery Date(Month/Year) hernia both lower sides
--- OUTSIDE RECORDS SUMMARY | 2025-02-11 10:31 | XMS_ITS | Clinical Summary ---
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
== END 2025-02-11 09:44 | disposition home or self-care (01) ==
PROVIDERS: PCP Surgery; Visit Provider Nurse Practitioner Family
DX: K80.20 Calculus of gallbladder without cholecystitis without obstruction (principal); R10.9 Unspecified abdominal pain; R11.0 Nausea
CPT/HCPCS: 78227; A9537; J2805

== ENCOUNTER 2025-02-21 11:17 | Day surgery (SDC) | payer BC, SELFPAY ==
--- NOTE | 2025-02-20 09:28 | PC.NURSE ---
Report to the Outpatient Waiting Room, entrance under the green pavilion located off [facility], at time _1130_ on date _[id number]_. Planned Procedure Time: _130pm_.? Time changes happen often and if your time is changed the preop area will call you the afternoon before. - You and your visitor will be asked to self-screen and do not enter if you have any COVID symptoms. Please call surgeon if you need to reschedule. - A mask is optional within the hospital at this time. Patients may have clear liquids (water, carbonated beverages, clear teas, apple juice) until 3 hours prior to surgery with a maximum of 20 ounces. - No food from midnight until time of surgery and no smoking, or chewing tobacco (or any form of nicotine). No chewing gum, candy or mints. Take only the following medications with a SIP of water on the morning of surgery: ___Inhalers and flonase.____ DO NOT STOP ANY OF YOUR OTHER PRESCRIPTION MEDICATIONS PRIOR TO SURGERY EXCEPT THE FOLLOWING Hold all vitamins and supplements for 3 days per anesthesiologist. Medications to discontinue per physician Date to take last dose Please no make-up, nail citizen of the [place], hairspray, perfume, deodorant, or body powder the day of surgery.? No jewelry (including any body piercings) or valuables the day of surgery, leave them at home.? Please take a shower or bath the night before, or the morning of, surgery with an antibacterial soap.? Wear comfortable, loose fitting clothing.? - Jewelry must be removed prior to entering the operating room.? Rings and piercings that are not removed may be cut off. - The hospital will not accept responsibility for valuables.? - Please leave all valuables, including medications, at home the day of surgery. If you are going home after surgery, a licensed straddle truck driver must drive you home.? - NO public transportation without another adult if you receive anesthesia. - We recommend that an adult stay with you for 24 hours following discharge. - We also recommend that you do not drive, make important decision, drink alcoholic beverages, or take any drugs that were not prescribed by your health care provider for at least 24 hours after your discharge time. Follow any additional instructions given to you from your surgeon. Telephone instructions given to __Esequiel___and asked if any additional questions and then verbalized understanding. Patient advised to call surgeon office or pre surgery nurse liaison [phone] if any additional questions.
[2025-02-20 09:35] VITALS: BMI 31.2
[2025-02-21] VITALS (8 sets, daily range): BP systolic 108–146; BP diastolic 76–86; PULSE 71–88; RESP 16–20; TEMP 36.3–36.5; O2SAT 98–99
--- NOTE | 2025-02-21 08:55 | P.PNAN_ITS ---
Anes - Initial Pre Proc Eval Procedure: Operation Date: 02/21/25 13:30 Proposed Procedures p Laparoscopic Cholecystectomy - Hayley Harding MD Date/Time: 02/21/25 08:55 Surgeon: Hayley Harding MD Pre Op Diagnosis: Chr Cholecystitis Patient Data Age: 54 Gender: M Height: 1.8 m Weight: 101.7 kg Allergies Allergy/AdvReac Type Severity Reaction Status Date / Time No Known Allergies Allergy Verified 02/20/25 09:33 Home Medications ?Medication ?Instructions ?Recorded ?Confirmed ?Type Adults Multivitamin 1 cap PO DAILY 02/18/21/01/18 History albuterol sulfate 90 mcg/actuation 1 - 2 puff inhalati on Q4H PRN 10/25/23 02/20/25 Rx aerosol inhaler (ProAir HFA) shortness of breath or wh eezing #8.5 grams inhalational spacing device #1 ea 04/27/24 02/20/25 Rx budesonide-formoterol HFA 160 2 puff inhalation Q12H # 10.2 grams 05/23/24 02/20/25 Rx mcg-4.5 mcg/actuation aerosol inhaler (Symbicort) aspirin 81 mg tablet,delayed 81 mg PO DAILY 08/16/24 0 02/20/25 History release (Adult Low Dose Aspirin) fluticasone propionate 50 1 spray intranasal BID #16 g justin 08/24/24 02/20/25 Rx mcg/actuation nasal spray,suspension (Flonase Allergy Relief) hyoscyamine sulfate 0.375 mg 0.375 mg PO Q12H 1 month #60 tabs 01/22/25 02/20/25 Rx tablet,extended release,12 hr omeprazole 40 mg capsule,delayed 40 mg PO DAILY 1 jagdeep h #30 caps 01/22/25 02/20/25 Rx release Patient hx anesthesia problems: none Family hx anesthesia problems: none Results Review: All pre-operative results and documents have been reviewed as part of the pre- operative evaluation. [facility] Past Medical History Medical History (Updated 02/21/25 @ 08:56 by Bradley Quezada DO) KATHY (obstructive sleep apnea) Biliary dyskinesia Irritable bowel syndrome with alternating bowel habits Nausea Abdominal pain UTI (urinary tract infection) GERD (gastroesophageal reflux disease) Chronic pancreatitis Cholelithiasis Anxiety IBS (irritable bowel syndrome) KATHY (obstructive sleep apnea) Asthma Constipation Surgical History Surgical History History of bilateral inguinal hernia repair Family History Family History Mother Family history of malignant neoplasm of stomach Father Family history of malignant neoplasm of urinary bladder Social History Social History Social History: Single Smoking status: Never smoker Second hand tobacco smoke exposure: No Alcohol intake: never Substance use: never Substance use type: does not use Do You Feel Safe in your Home?: Yes Lack of Transportation: No Lack of Food: Never True Current Housing: I Have Housing Concerned About Future Housing: No Difficulty Paying Gas/Electric Bills: YES Difficulty Paying for Meds: YES Currently Unemployed: No Education: High School Diploma/GED Difficulty w/ Childcare or Family Care: No Living arrangements: alone Occupation/Education: occupation Gender identity (if verbalized by the patient): Male Sexual Orientation (if Verbalized by the Patient): Straight or Heterosexual Spiritual care concerns: No Anes - Eval Final PreProcedure Day of Procedure 02/21/25 08:55 Patient weight: overweight Heart: regular rate and rhythm Lungs: clear to auscultation Airway: Mallampati scale class II Neurological: alert and oriented Last oral intake: >/= 8 hours ASA classification: III Emergent: no Anesthetic plan: proceed Anesthesia type and monitoring: general ETT and standard monitoring Results Review: All pre-operative results and documents have been reviewed as part of the pre- operative evaluation. Informed Consent: The patient's anesthetic plan and its attendant risks and benefits were discussed with the patient/family/POA. Questions were solicited and answers provided to the satisfaction of the patient/family/POA.
--- NOTE | 2025-02-21 10:57 | ECG_ITS ---
Test Date: 2025-02-21 11:51:14 Measurements Intervals [place] Rate: 64 P: 26 SC: 153 QRS: -33 QRSD: 90 T: 2 QT: 391 QTc: 405 Interpretive Statements SINUS RHYTHM LEFT AXIS DEVIATION LOW QRS VOLTAGE IN PRECORDIAL LEADS BORDERLINE T WAVE ABNORMALITY- INFERIOR LEADS BORDERLINE ECG No previous ECG available for comparison Electronically Signed On 02-21-2025 12:08:14 CDT by Cristian Johansen D.O.
--- OUTSIDE RECORDS SUMMARY | 2025-02-21 11:22 | XMS_ITS | Patient Health Record ---
Author Organization [facility] Address [address] [place] [address] Care Team Providers Care Assistant Brand Manager Name Role Phone Maria Del Rosario Fam Unavailable [phone] Allergies No Known Allergies Results Component Value Reference Range Notes MR Knee WO Reviewed date:05/04/2024 10:50:56 PM [...] and Electronically Signed by: Nedra Raines M.D. X ray : Spines, cervical 4 [...] recommended. Results discussed with Dr. Otto''s medical insurance claims processor, Hortensia Delgado, on 11 June 2024 at approximately 1030 hours. CFG:jfr Read by: Ken Easley M.D. Reviewed and Electronically Signed by: Ken Easley M.D. Reason For Referral No Information Medications [...] Methocarbamol 500 MG TAKE 1 TABLET BY [facility] THREE TIMES DAILY NEEDED FOR MUSCLE [...] W/U Status Risk Notes Problem Cervical spondylosis (030118420) Cervical spondylosis (M47.812) Active confirmed Problem Lumbar spondylosis (804697710) Lumbar spondylosis (M47.816) Active confirmed Problem Leg length discrepancy (205400319) Leg length discrepancy (M21.70) Active confirmed Problem Sacroiliitis (94373673) Sacroiliitis (M46.1) Active confirmed Problem Somatic dysfunction of sacroiliac joint (finding) (037648684894) SI (sacroiliac) joint dysfunction (M53.3) Active confirmed Problem Cervical disc disorder (407426153) DDD (degenerative disc disease), cervical (M50.30) Active confirmed Problem Cervical spinal stenosis (28251964) Cervical spinal stenosis (M48.02) Active confirmed Vital Signs Heart Rate 76 /min 07/04/2024 Height-cm 180.34 cm 07/04/2024 Blood pressure diastolic 76 mm Hg 07/04/2024 Weight-kg 102.06 kg 07/04/2024 Height 5ft 11in in 07/04/2024 Blood pressure systolic 121 mm Hg 07/04/2024 Weight 225 lbs 07/04/2024 BMI 31.38 kg/m2 07/04/2024 Encounters Encounter Location Date Provider Diagnosis [facility] [address] [place] [address] [address] [place] [address] 04/25/2024 Fam Mix Left knee pain M25.5 62 ; Right shoulder pain M25.511 ; Hip pain, right M25.551 ; Left hip pain M25.552 ; Lumbar back pain M54.50 ; Leg length discrepancy M21.70 ; Lumbar spondylosis M47.816 ; Degeneration of intervertebral disc of lumbar region with discogenic back pain M51.360 and Screening for substance abuse Z13.89 [facility] [address] [place] [address] [address] [place] [address] 05/09/2024 Fam Mix Sacroiliitis M46.1 [facility] [address] [place] [address] [address] [place] [address] 05/30/2024 Fam Mix Cervical spondylosis M47.812 ; DDD (degenerative disc disease), cervical M50.30 and Cervical spinal stenosis M48.02 [facility] [address] [place] [address] [address] [place] [address] 07/04/2024 Fam Mix Lumbar spondylosis M47.816 ; SI (sacroiliac) joint dysfunction M53.3 ; Sacroiliitis M46.1 ; Leg length discrepancy M21.70 ; Cervical spondylosis M47.812 ; DDD (degenerative disc disease), cervical M50.30 and Cervical spinal stenosis M48.02 [facility] [address] [place] [address] [address] [place] [address] 06/29/2024 Fam Mix Assessments Encounter Date Diagnosis [...] placement over 10 years ago, he feels [id number] , patient has been evaluated by general [...] placement over 10 years ago, he feels [id number] , patient has been evaluated by general [...] Insured Coverage Start Date Coverage End Date [facility] [address] [place] [address] [id number] Esequiel Neely Self - patient is the insured Medications Administered Medication Instructions Date of Administration Dosage Notes Hip Inj Intra-articular 04/25/2024 L EFT HIP INJ Sacroiliac Joint Injection 05/09/2024 LEFT SIJ Medical (General) History Surgical History Surgery Date(Month/Year) hernia both lower sides
--- OUTSIDE RECORDS SUMMARY | 2025-02-21 11:22 | XMS_ITS | Clinical Summary ---
Author Organization [email or web address] Address [address] [place] [address] Care Team Providers Care Sales Promotion Manager Name Role Phone Carl Ivan MD Primary Care Provider [phone] Source Comments [email or web address],non-owned Affiliates and Associated Physician Practices is amultiple site organization consisting of ambulatory clinics and hospital sitesin [place], [place], [place] and [place]. This disclosure is being madepursuant to the Care Everywhere program and may not contain all information available regarding this patient. 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 Not on file Not on file Not on file Last Filed Vital Signs Vital Sign Reading Time Taken Comments Blood Pressure 130/86 08/17/2016 11:16 AM GRAIN INSPECTOR Pulse 68 08/17/2016 11:16 AM GRAIN INSPECTOR Temperature - - Respiratory Rate - - Oxygen Saturation 98% 08/17/2016 11:16 AM GRAIN INSPECTOR Inhaled Oxygen Concentration - - Weight 98.4 kg (217 lb) 08/17/2016 11:16 AM GRAIN INSPECTOR Height 175.3 cm (5' 9) 08/17/2016 11:16 AM GRAIN INSPECTOR Body Mass Index 32.05 08/17/2016 11:16 AM GRAIN INSPECTOR Plan of Treatment Health Maintenance Due Date [...] to complete this topic Insurance Care Teams Sales Promotion Manager Relationship Specialty Start Date End Date Carl Ivan MD [address] [place] [address] PCP - General 02/03/22
--- OUTSIDE RECORDS SUMMARY | 2025-02-21 11:22 | XMS_ITS | Clinical Summary ---
Author Organization [facility] Address [address] [place] [address] Care Team Providers Care Ice Rink Attendant Name Role Phone Unavailable Primary Care Provider Unavailabl e Social History Tobacco Use Types Packs/Day Years Used Date Smoking Tobacco: Never Assessed Sex and Gender Information Value Date Recorded Sex Assigned at Male 02/06/2025 10:47 AM CDT Legal Sex Male 7:05 PM CDT Gender [...] Vaccines (1 of 2) 2020 COVID-19 Vaccine (1 - 2023-2 5 season) 2024 Meningococcal B Vaccine Aged Out No l onger eligible based on patient's age to complete this topic Meningococcal Vaccine Aged Out No salena avni eligible based on patient's age to complete this topic RSV Immunizations Under 20 Months Aged Out No longer eligible based on patient's age to complete this topic
--- OUTSIDE RECORDS SUMMARY | 2025-02-21 11:22 | XMS_ITS | Clinical Summary ---
Author Organization [facility] Address [address] [place] [address] Care Team Providers Care Mortgage Lender Name Role Phone No, Physician Primary Care Provider [phone] Allergies No known active allergies Medications albuterol [...] (12/08/2017): Added automatically from request for surgery [id number] Abdominal pain 10/06/2017 Gallstone 09/15/2017 Gastroesophageal reflux [...] Plan of Treatment Not on file Insurance [facility] ACC[facility] CHOICE BLUE [facility] CHOICE OOS [facility] [address] [place] [address] CHOICE OOS BLUE [employer] CHOICE OOS Care Teams Mortgage Lender Relationship Specialty Start Date End Date No, Physician PCP - General 02/04/18
--- OUTSIDE RECORDS SUMMARY | 2025-02-21 11:22 | XMS_ITS | Clinical Summary ---
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
[2025-02-21] MEDS: KETOROLAC 15 MG/ML VIAL (*BKC) IV PUSH (12:20)
[2025-02-21] MEDS: ACETAMINOPHEN 500 MG TABLET 1000 MG PO (12:20)
[2025-02-21] MEDS: LACTATED RINGERS 1,000 ML 30 ML IV CONT ×2 (12:20→13:49)
[2025-02-21 12:36] LABS: Amylase 65 U/L (30-110)
--- NOTE | 2025-02-21 12:53 | WPDHPUPDATE1 ---
History and Physical Update Update Date/Time: 02/21/25 12:53 History and Physical has been reviewed, including an updated exam of the patient. There are NO changes in the patient's condition. Risks, benefits, and alternatives have been discussed and questions answered. Patient agrees to proceed with procedure.
[2025-02-21] MEDS: ceFAZolin 2 GM in SODIUM CHLORIDE 0.9% IV 50 ML 100 ML IVPB (12:59)
--- NOTE | 2025-02-21 13:21 | S_PTH ---
PATIENT: Esequiel Neely LOC: [facility] U#:[id number] AGE/SX: 54/M ROOM: RE02/21/[address]: Hayley Harding MD : 1970 BED: DIS: 02/21/2025 SPEC #: [id number] RECD: 02/21/25 14:44 STATUS: LOTUS REQ #: [id number] COURTNEY: 02/21/25 13:[address]: Hayley Harding DEPT: [facility] Surgical RECD BY: Priya Ty ENTERED: 02/21/25 14:44 SP TYPE: Surgical OTHR DR: Tyler IvanMD Tissues: A - Gallbladder Procedures: Hematoxylin and Eosin Stain Gross and Microscopic Level 3
[2025-02-21] MEDS: BUPIVACAINE/EPINEPHRINE 0.5% 30 ML VIAL INFILTRATE (13:26)
--- NOTE | 2025-02-21 13:42 | W.PM.PROC2 ---
Procedure Note - Detailed Date of Procedure 02/21/25 Pre-op Diagnosis Chronic cholecystitis Post-op Diagnosis Same Procedure Performed Laparoscopic cholecystectomy Surgeon Hayley Harding MD Anesthesia General Indications 54-year-old male presenting to the office with postprandial upper abdominal pain. Workup, including imaging, significant for chronic cholecystitis. Findings Moderate cholecystitis Description of Procedure The patient was taken to the operating room placed in the supine position. After adequate induction of general anesthesia, the patient was prepped and draped in normal sterile fashion. A time-out was then performed to verify the patient's identity as well as the procedure being performed. I then made a 5 mm incision in the infraumbilical region. Through this, a Veress needle was placed into the peritoneal cavity and CO2 gas was then insufflated. After adequate pneumoperitoneum was achieved, the Veress needle was removed and a 5 mm optiview trocar was placed through this incision under direct visualization. I then placed the laparoscope through this trocar site and under direct visualization placed a further 12 mm subxiphoid port as well as 2x additional 5 mm ports in the right upper abdomen. The gallbladder was then identified and was noted to be moderately inflamed and distended. I was able to place a grasper at the dome of the gallbladder and this was retracted anterior and cephalad up over the liver. A 2nd retractor was then placed at the infundibulum and retracted laterally, this allowed visualization of the triangle of Calot. I then was able to visualize the cystic duct in its entirety from its proximal insertion into the gallbladder, to its distal junction with the common hepatic/common bile duct junction. At this point, I carefully skeletonized the proximal cystic duct with the [place] dissector. I then clipped and transected the proximal cystic duct. Next I visualized the cystic artery. Again the artery was skeletonized, clipped, and transected. I then used the Bovie cautery to take down the peritoneal attachments of the gallbladder off the liver bed. This was somewhat difficult given the amount of inflammation in the posterior space. Once the gallbladder specimen was completely detached, an endo-pouch was placed through the 12 mm port site. I then placed the gallbladder specimen into the Endo pouch and removed the endo-pouch from the 12 mm port site. The specimen will now be sent to pathology for further review. I then copiously irrigated the right upper quadrant. Hemostasis was noted in the liver bed, the clips were noted to be in good position on both the cystic duct stump and the cystic artery stump. No other pathology was noted in the right upper quadrant. I then moved the laparoscope to the subxiphoid port. No iatrogenic injury or other pathology was noted in the lower abdomen. I then closed the 12 mm trocar site under direct visualization using the Davis cone and 0 Vicryl suture. At this point, the abdomen was desufflated and all ports removed. All port sites were then closed with 4.O Monocryl subcuticular sutures. Dermabond was placed on each incision. The patient tolerated the procedure well, was extubated in the operating room postoperative and will be transferred to the recovery room in stable condition Estimated Blood Loss 5 Drains No Packing No Pathology Yes Complications No immediate complications Condition Stable Disposition PACU [facility] Billing Surgery - Charge Forward: Surgery Billing
[2025-02-21] MEDS: fentaNYL CITRATE INJ (*CRX) 100 MCG/2 ML VIAL 25 MCG IV PUSH (14:41)
[2025-02-21] MEDS: oxyCODONE HCL (*CRX) 5 MG TAB IR PO (15:14)
== END 2025-02-21 16:16 | disposition home or self-care (01) ==
PROVIDERS: PCP Surgery; Visit Provider Surgery
PROC: 0FT44ZZ Resection of Gallbladder, Percutaneous Endoscopic Approach (ICD-10-PCS; CPT 47562; principal; 2025-02-21 13:30)
DX: K80.10 Calculus of gallbladder with chronic cholecystitis without obstruction (principal)
CPT/HCPCS: 47562; 36415; 82150; 88304; 93005; J0690; A9270; J1100; J1171; J1885; J2003; J2250; J2371; J2405; J2704; J3010; J7030; J7120